=== PATIENT | male | born 1965 | race African-American/Black ===

== ENCOUNTER → 2023-03-10 | Outpatient (CLI) | payer BC ==
[2023-03-10 19:30] LABS: Basophils # (A) 0.04 X 10*3/uL (0.00-0.10); Basophils % (A) 0.3 %; Eosinophils # (A) 0.08 X 10*3/uL (0.04-0.35); Eosinophils % (A) 0.6 %; HGB 13.6 g/dL (13.0-17.0); Immature Grans, Automated 0.5 %; Lymphocytes # (A) 1.19 X 10*3/uL (0.90-5.00); Lymphocytes % (A) 9.6 %; MCHC 33.2 g/dL (32.0-37.0); MCV 87.4 fL (80.0-97.0); Mean Platelet Volume 10.2 fL (9.5-12.2); Monocytes # (A) 0.72 X 10*3/uL (0.20-1.00); Monocytes % (A) 5.8 %; NRBC Per 100 WBC 0 /100 WBCS (0.0-0.0); Neutrophils # (A) 10.29 X 10*3/uL (1.80-7.70); Neutrophils % (A) 83.2 %; Platelet Count 366 X 10*3/uL (140-440); RBC 4.69 X 10*6/uL (4.40-5.60); RDW 13.2 % (11.5-14.5); WBC 12.38 X 10*3/uL (4.50-10.00)
[2023-03-10 20:31] LABS: Protein, Total 6.9 g/dL (6.2-8.2)
[2023-03-10 20:47] LABS: % Iron Saturation 20.91 (15.00-50.00); African American GFR (CKD) 66.7 (60.0-200.0); Albumin 3.5 g/dL (3.8-4.9); Albumin/Globulin Ratio 1.03 (1.60-3.17); Anion Gap 14.7 mmol/L (10.00-18.00); BUN/Creat Ratio 15.82 Ratio (12.00-20.00); Blood Urea Nitrogen 21.2 mg/dL (9.0-27.0); Calcium 9.4 mg/dL (8.7-10.3); Carbon Dioxide 26.3 mmol/L (20.0-27.5); Globulin 3.4 g/dL (1.6-3.3); Non-African American GFR(CKD) 57.6 (60.0-200.0); Potassium 4.4 mmol/L (3.5-5.5); Total Bilirubin 0.4 mg/dL (0.30-1.20); Total Protein 6.9 g/dL (6.2-8.2)
[2023-03-10 20:48] LABS: Hepatitis B Surface Antigen Nonreactive (Nonreactive); Hepatitis C IgG Antibody Nonreactive (Nonreactive)
== END | disposition home or self-care (01) ==
LOC: LABWHC1 09:30
PROVIDERS: ATTEND Nurse Practitioner Family
DX: R74.8 Abnormal levels of other serum enzymes (principal)
CPT/HCPCS: 36415; 80053; 82103; 82390; 82728; 83516; 83540; 83550; 84165; 85025; 86038; 86803; 87340

== ENCOUNTER → 2023-03-31 | Outpatient (CLI) | payer BC, OTHER ==
--- NOTE | 2023-03-31 12:04 | US ---
EXAMINATION TYPE: US liver DATE OF EXAM: 03/31/2023 COMPARISON: NONE CLINICAL INDICATION: Male, 57 years old with history of R74.01 ELEVATION OF LEVELS OF LIVER; Elevated LFT's TECHNIQUE: Multiple sonographic images of the right upper quadrant are obtained. 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 No focal lesion seen. Gallbladder: wnl Evidence for sonographic Otoole's sign: No CBD: wnl Right Kidney: No hydronephrosis or masses seen IMPRESSION: No gallstones or biliary ductal dilatation. Suspect at least mild hepatic steatosis. Correlate with L FTs, lipid profile, and patient risk factors.
== END | disposition home or self-care (01) ==
LOC: RADUSWWP 07:34
PROVIDERS: ATTEND Family Medicine
DX: R74.01 Elevation of levels of liver transaminase levels (principal)
CPT/HCPCS: 76705

== ENCOUNTER → 2023-03-31 | Outpatient (CLI) | payer BC, OTHER ==
[2023-03-31 15:01] LABS: African American GFR (CKD) 100.8 (60.0-200.0); Blood Urea Nitrogen 18.4 mg/dL (9.0-27.0); Non-African American GFR(CKD) 86.9 (60.0-200.0)
== END | disposition home or self-care (01) ==
LOC: LABWHC1 08:22
PROVIDERS: ATTEND Internal Medicine Critical Care Medicine
DX: R59.0 Localized enlarged lymph nodes (principal)
CPT/HCPCS: 36415; 82565; 84520

== ENCOUNTER 2023-04-06 12:08 | Day surgery (SDC) | payer BC, OTHER ==
--- NOTE | 2023-04-04 09:15 | P.HPOR ---
History of Present Illness H&P Date: 04/04/23 Subjective: This is a 57 year old male that presents today for initial evaluation regarding a 6 month history of progressively worsening bilateral hand numbness and tingling and residual weakness. He denies any injury or inciting event. He states that he keeps dropping things. He has a history of rheumatoid arthritis and is only on prednisone and occasional Motrin. He has had a steroid injection into the carpal tunnel with some mild relief of his symptoms in the past. He states the fingertips feel like sandpaper, and the thumb, index and middle fingers are numb. Physical Examination: LUE: AIN/PIN/Radial/Ulnar/Median motor intact. Radial/Ulnar/Median SILT. 2+/4 Radial/Ulnar pulses palpated. 5/5 APB, 5/5 FDI. Negative Finkelsteins, negative CMC grind, positive Durkan's compression. RUE: AIN/PIN/Radial/Ulnar/Median motor intact. Radial/Ulnar/Median SILT. 2+/4 Radial/Ulnar pulses palpated. 5/5 APB, 5/5 FDI. Negative Finkelsteins, negative CMC grind, positive Durkan's compression. Imaging: X-Rays of the left wrist, 3 view taken in office today demonstrate severe radiocarpal arthritis and severe distal radioulnar joint arthritis. X-Rays of the right X-Rays of the left wrist, 3 view taken in office today demonstrate severe radiocarpal arthritis and severe distal radioulnar joint arthritis. Impression: 1.) B/L carpal tunnel syndrome 2.) B/L severe radiocarpal arthritis 3.) Rheumatoid arthritis Plan: Diagnosis and treatment options were discussed with the patient. He would like to go forward with staged bilateral open carpal tunnel releases, starting with the right side first due to failure of conservative treatment. Risks and benefits of surgery including bleeding, infection, damage to surrounding tissue, need for further surgery, residual numbness were discussed and the patient wished to go forward with surgery. The patient was agreeable with this plan. PCP clearance is requested. -Bryce Garsia DO Orthopedic Hand/Upper Extremity Surgeon Physical Examination Osteopathic Statement: *. No significant issues noted on an osteopathic structural exam other than those noted in the History and Physical/Consult.
[2023-04-04 13:01] VITALS: BMI 25.1
[2023-04-06] MEDS ORDERED: LACTATED RINGERS 1,000 ML IV ONE (13:42)
[2023-04-06] MEDS ORDERED: ONDANSETRON 4 MG/2 ML VIAL ONE (13:47)
[2023-04-06 13:48] VITALS: RESP 16; TEMP 97.2
[2023-04-06] MEDS ORDERED: ONDANSETRON 4 MG/2 ML VIAL IVP ONE (14:00)
[2023-04-06] MEDS ORDERED: DEXAMETHASONE SOD PHOSPHATE 4 MG/ML 1 ML VIAL IVP ONE (14:00)
[2023-04-06] MEDS ORDERED: LIDOCAINE 2% INJ 20 MG/ML (2 ML VIAL) ONE (14:24)
[2023-04-06] MEDS ORDERED: MIDAZOLAM 2 MG/2 ML VIAL ONE (14:24)
[2023-04-06] MEDS ORDERED: fentaNYL (PF) 50 MCG/ML 2 ML AMP ONE (14:24)
[2023-04-06] MEDS ORDERED: PROPOFOL 10 MG/ML 20 ML VIAL IV ONE (14:24)
[2023-04-06] MEDS ORDERED: LIDOCAINE 2% INJ 20 MG/ML SQ ONE (14:29)
[2023-04-06] MEDS ORDERED: BUPIVACAINE (PF) 0.5% 30 ML VIAL SQ ONE (14:30)
--- NOTE | 2023-04-06 14:55 | P.OP ---
Date of Procedure: 04/06/23 Preoperative Diagnosis: Right carpal tunnel syndrome Postoperative Diagnosis: Right carpal tunnel syndrome Procedure(s) Performed: Right open carpal tunnel release Anesthesia: MAC Surgeon: Bryce Garsia Estimated Blood Loss (ml): 0 Pathology: none sent Condition: stable Disposition: PACU Description of Procedure: This is a 57 year old male who presents today for a right open carpal tunnel release after having failed conservative treatment in the past. Risks and benefits of surgery were discussed with the patient including bleeding, damage to surrounding tissue, infection, need for further surgery as well as risks of anesthesia including pulmonary embolism and even and the patient wished to proceed with surgical intervention. The patients was seen in the pre-operative area by myself. Consent and H&P were completed and updated. The correct extremity was marked in the pre-operative area by myself and all other questions were answered. Operative Narrative: The patient was brought to the operating room by the department of anesthesia. They remained on the portable stretcher and a rolling hand table was brought to the side of the operative extremity. Pre-operative time out was performed indicating the correct patient, procedure and laterality. All in the room agreed. The patient was then drifted off to sleep by the department of anesthesia. MAC anesthesia was utilized and a 50:50 mixture of 1% Lidocaine and 0.5% bupivacaine was injected into the subcutaneous tissues of the palmar skin, 8ccs total. A nonsterile tourniquet was then applied to the operative extremity and the right upper extremity was then prepped and draped in normal sterile fashion. The operative extremity was the exsanguinated with an esmarch bandage and the tourniquet was inflated to 250mmHg. 15 blade scalpel was utilized to make a longitudinal incision on the palmar skin in line with the radial boarder of the ring finger to a point distally at the intersection of Kaplans cardinal line. Heiss retractor was utilized to spread subcutaneous tissue and scalpel was used to cut through the superficial palmar fascia to reveal the transverse carpal ligament. The transverse carpal ligament was then sharply incised in line with the incision and tenotomy scissors were used to spread distally and the distal portion of the transverse carpal ligament was released using tenotomy scissors from distal to proximal under direct visualization. The median nerve was directly visualized and was intact. Proximal fascia of the distal forearm was also released under direct visualization taking care to preserve the palmar cutaneous branch of the median nerve. The wound was then closed with 4-0 nylon suture in a horizontal mattress fashion. Sterile dressing was applied consisting of adaptic, 4x4s, webril, and an tez bandage. Tourniquet was let down and the hand immediately was well perfused. The patient was then woken by the department of anesthesia and transferred to PACU in stable condition. Bryce Garsia D.O. Orthopedic Hand/Upper Extremity Surgeon
[2023-04-06 15:39] VITALS: BP 120/76; PULSE 85
== END 2023-04-06 16:08 | disposition home or self-care (01) ==
LOC: OR 12:08
PROVIDERS: ATTEND Orthopaedic Surgery Hand Surgery
DX: G56.01 Carpal tunnel syndrome, right upper limb (principal); M06.9 Rheumatoid arthritis, unspecified; I10 Essential (primary) hypertension; Z79.1 Long term (current) use of non-steroidal anti-inflammatories (NSAID); Z79.52 Long term (current) use of systemic steroids; Z86.711 Personal history of pulmonary embolism; Z79.01 Long term (current) use of anticoagulants
CPT/HCPCS: 64721; J2001 ×2; J2250; J1100; J0690; J2405; J3010; J2704

== ENCOUNTER → 2023-04-07 | Outpatient (CLI) | payer BC, OTHER ==
--- NOTE | 2023-04-07 16:11 | US ---
EXAMINATION TYPE: US venous doppler duplex LE BI DATE OF EXAM: 04/07/2023 3:49 PM COMPARISON: NONE CLINICAL INDICATION: Male, 57 years old with history of M79.604 PAIN IN RT LEG; History of PE SIDE PERFORMED: bilateral TECHNIQUE: The lower extremity deep venous system is examined utilizing real time linear array sonog ailyn with graded compression, doppler sonography and color-flow sonography. VESSELS IMAGED: Common Femoral Vein Deep Femoral Vein Greater Saphenous Vein * Femoral Vein Popliteal Vein Small Saphenous Vein * Proximal Calf Veins (* superficial vessels) Right Leg: No evidence of DVT Left Leg: No evidence of DVT IMPRESSION: No evidence for DVT within the bilateral lower extremities imaged from the groin to the upper calves.
== END | disposition home or self-care (01) ==
LOC: RADUSWWP 15:09
PROVIDERS: ATTEND Family Medicine
DX: M79.604 Pain in right leg (principal); Z86.711 Personal history of pulmonary embolism
CPT/HCPCS: 93970

== ENCOUNTER 2023-04-15 17:26 | Emergency (ER) | payer BC, OTHER ==
--- NOTE | 2023-04-15 18:57 | ED ---
Recheck HPI - General Chief Complaint: Recheck/Abnormal Lab/Rx Stated Complaint: R hand laceration Time Seen by Provider: 04/15/23 17:42 Source: patient Mode of arrival: ambulatory Limitations: no limitations - History of Present Illness Initial Comments: Patient is a 57-year-old male presenting with chief complaint of wound dehiscence after sutures removed. Patient had carpal tunnel surgery with Dr. Garsia about 10 days ago. He was seen in the office today and had his sutures removed. He states that shortly after the wound opened back up. He is having no active bleeding at this time. - Related Data Home Medications Medication Instructions Recorded Confirmed Lisinopril-Hctz 20-25 mg 1 tab PO DAILY 04/04/23 04/06/23 [Zestoretic 20-25] Rivaroxaban [Xarelto] 15 mg PO BID 04/04/23 04/06/23 Upadacitinib [Rinvoq] 15 mg PO DAILY 04/04/23 04/06/23 Previous Rx's Medication Instructions Recorded traMADol HCl [Ultram] 50 mg PO Q6HR PRN 3 Days #12 tab 04/06/23 Allergies Allergy/AdvReac Type Severity Reaction Status Date / Time No Known Allergies Allergy Verified 04/15/23 17:33 Review of Systems ROS Statement: Those systems with pertinent positive or pertinent negative responses have been documented in the HPI. ROS Other: All systems not noted in ROS Statement are negative. Past Medical History Past Medical History: Hypertension, Pneumonia, Pulmonary Embolus (PE), Rheumatoid Arthritis (RA) History of Any Multi-Drug Resistant Organisms: None Reported Additional Past Surgical History / Comment(s): carpal tunnel surgey Smoking Status: Light tobacco smoker Past Alcohol Use History: Occasional Past Drug Use History: None Reported General Exam Limitations: no limitations General appearance: alert, in no apparent distress Head exam: Present: atraumatic, normocephalic, normal inspection Eye exam: Present: normal appearance, EOMI. Absent: scleral icterus, periorbital swelling Neck exam: Present: normal inspection, full ROM Neurological exam: Present: alert, oriented X3, CN II-XII intact Psychiatric exam: Present: normal affect, normal mood Skin exam: Present: intact (Wound dehiscence at post surgical site) Course Vital Signs 04/15/23 04/15/23 17:28 19:13 Temperature 98.8 F 98.2 F Pulse Rate 112 H 91 Respiratory 20 18 Rate Blood Pressure 137/79 122/74 O2 Sat by Pulse 99 99 Oximetry Medical Decision Making - Medical Decision Making Was pt. sent in by a medical professional or institution (JONN Aguilera, BAR MANAGER, urgent care, hospital, or fpc...) When possible be specific @ -No Did you speak to anyone other than the patient for history (EMS, parent, family, police, friend...)? What history was obtained from this source @ -No Did you review nursing and triage notes (agree or disagree)? Why? @ -I reviewed and agree with nursing and triage notes Were old charts reviewed (outside hosp., previous admission, EMS record, old EKG, old radiological studies, urgent care reports/EKG's, fpc records)? Report findings @ -No old charts were reviewed Differential Diagnosis (chest pain, altered mental status, abdominal pain women, abdominal pain men, vaginal bleeding, weakness, fever, dyspnea, syncope, headache, dizziness, GI bleed, back pain, seizure, CVA, palpatations, mental health, musculoskeletal)? @ -not applicable EKG interpreted by me (3pts min.). @ -As above X-rays interpreted by me (1pt min.). @ -None done CT interpreted by me (1pt min.). @ -None done U/S interpreted by me (1pt. min.). @ -None done What testing was considered but not performed or refused? (CT, X-rays, U/S, labs)? Why? @ -None What meds were considered but not given or refused? Why? @ -None Did you discuss the management of the patient with other professionals (professionals i.e. JONN Aguilera, BAR MANAGER, lab, RT, psych nurse, social science analyst, refrigeration engineering teacher, teacher, equal opportunity officer, case planner)? Give summary @ -I spoke with Dr. Garsia who advised placing Steri-Strips, place in the patient in a volar splint, and have him follow-up in the office next week. Was smoking cessation discussed for >3mins.? @ -No Was critical care preformed (if so, how long)? @ -No Were there social determinants of health that impacted care today? How? (Homelessness, low income, unemployed, alcoholism, drug addiction, transportation, low edu. Level, literacy, decrease access to med. care, skilled nursing, rehab)? @ -No Was there de-escalation of care discussed even if they declined (Discuss DNR or withdrawal of care, Hospice)? DNR status @ -No What co-morbidities impacted this encounter? (DM, HTN, Smoking, COPD, CAD, Cancer, CVA, ARF, Chemo, Hep., AIDS, mental health diagnosis, sleep apnea, morbid obesity)? @ -None Was patient admitted / discharged? Hospital course, mention meds given and route, prescriptions, significant lab abnormalities, going to OR and other pertinent info. @ -57-year-old male presenting with chief complaint of wound dehiscence after his sutures from his carpal tunnel surgery were removed this afternoon by his surgeon Dr. Garsia. Spoke with Dr. Jones who advised Steri-Strips, volar splint , and follow-up in the office next week. Steri-Strips are applied and patient was placed in volar splint. I educated the patient on follow-up instructions. Follow-up with Dr. garsia's office. Report back to ER with any new or worsening symptoms. Discussed return parameters and answered all questions. Patient conveyed verbal understanding and agreed to the plan. I discussed this case in detail with my attending Dr. Betancur Undiagnosed new problem with uncertain prognosis? @ -No Drug Therapy requiring intensive monitoring for toxicity (Heparin, Nitro, Insulin, Cardizem)? @ -No Were any procedures done? @ -Volar splint applied Diagnosis/symptom? @ -Wound dehiscence Acute, or Chronic, or Acute on Chronic? @ -Acute Uncomplicated (without systemic symptoms) or Complicated (systemic symptoms)? @ -Uncomplicated Side effects of treatment? @ -No Exacerbation, Progression, or Severe Exacerbation? @ -No Poses a threat to life or bodily function? How? (Chest pain, [place], [place], pneumonia, PE, COPD, DKA, ARF, appy, cholecystitis, CVA, Diverticulitis, Homicidal, Suicidal, threat to staff... and all critical care pts) @ -No Disposition Clinical Impression: Wound dehiscence Disposition: HOME SELF-CARE Condition: Good Instructions (If sedation given, give patient instructions): Steristrips (ED) Additional Instructions: Follow up with Dr. Garsia's office next week. Keep your splint on at all times. Report back to ER with any new or worsening symptoms. Is patient prescribed a controlled substance at d/c from ED?: No Referrals: Henrique Lyon MD [Primary Care Provider] - 1-2 days Joe Johnson PAC [PHYSICIAN PACKING LINE OPERATOR] - 04/26/23 Time of Disposition: 18:57
[2023-04-15 19:14] VITALS: BP 122/74; PULSE 91; RESP 18; TEMP 98.2
== END 2023-04-15 19:34 | disposition home or self-care (01) ==
LOC: EC 17:26
DX: T81.30XA Disruption of wound, unspecified, initial encounter (principal); I10 Essential (primary) hypertension; F17.200 Nicotine dependence, unspecified, uncomplicated; Z79.01 Long term (current) use of anticoagulants
CPT/HCPCS: 99283

== ENCOUNTER 2023-05-25 06:57 | Day surgery (SDC) | payer BC, OTHER ==
--- NOTE | 2023-05-24 17:28 | P.HPOR ---
History of Present Illness H&P Date: 05/24/23 Subjective: This is a 57 year old male that presents today for initial evaluation regarding a 6 month history of progressively worsening bilateral hand numbness and tingling and residual weakness. He denies any injury or inciting event. He states that he keeps dropping things. He has a history of rheumatoid arthritis and is only on prednisone and occasional Motrin. He has had a steroid injection into the carpal tunnel with some mild relief of his symptoms in the past. He states the fingertips feel like sandpaper, and the thumb, index and middle fingers are numb. Physical Examination: LUE: AIN/PIN/Radial/Ulnar/Median motor intact. Radial/Ulnar/Median SILT. 2+/4 Radial/Ulnar pulses palpated. 5/5 APB, 5/5 FDI. Negative Finkelsteins, negative CMC grind, positive Durkan's compression. RUE: AIN/PIN/Radial/Ulnar/Median motor intact. Radial/Ulnar/Median SILT. 2+/4 Radial/Ulnar pulses palpated. 5/5 APB, 5/5 FDI. Negative Finkelsteins, negative CMC grind, positive Durkan's compression. Imaging: X-Rays of the left wrist, 3 view taken in office today demonstrate severe radiocarpal arthritis and severe distal radioulnar joint arthritis. X-Rays of the right X-Rays of the left wrist, 3 view taken in office today demonstrate severe radiocarpal arthritis and severe distal radioulnar joint arthritis. Impression: 1.) B/L carpal tunnel syndrome 2.) B/L severe radiocarpal arthritis 3.) Rheumatoid arthritis Plan: Diagnosis and treatment options were discussed with the patient. He would like to go forward with staged bilateral open carpal tunnel releases, starting with the right side first followed by the left side shortly after due to failure of conservative treatment. Risks and benefits of surgery including bleeding, infection, damage to surrounding tissue, need for further surgery, residual numbness were discussed and the patient wished to go forward with surgery. The patient was agreeable with this plan. PCP clearance is requested. CC: Dr. Hong Garrido MD -Bryce Garsia DO Orthopedic Hand/Upper Extremity Surgeon Past Medical History Past Medical History: Hypertension, Pneumonia, Pulmonary Embolus (PE), Rheumatoid Arthritis (RA) Additional Past Medical History / Comment(s): february had "aneruysm "on lungs, History of Any Multi-Drug Resistant Organisms: None Reported Past Surgical History: Orthopedic Surgery Additional Past Surgical History / Comment(s): carpal tunnel surgey Past Anesthesia/Blood Transfusion Reactions: No Reported Reaction Smoking Status: Light tobacco smoker Medications and Allergies Home Medications Medication Instructions Recorded Confirmed Type Lisinopril-Hctz 20-25 mg 1 tab PO DAILY 04/04/23 05/19/23 History [Zestoretic 20-25] Rivaroxaban [Xarelto] 15 mg PO DAILY 04/04/23 05/19/23 History Upadacitinib [Rinvoq] 15 mg PO DAILY 04/04/23 05/19/23 History Allergies Allergy/AdvReac Type Severity Reaction Status Date / Time No Known Allergies Allergy Verified 05/19/23 10:52 Physical Examination Osteopathic Statement: *. No significant issues noted on an osteopathic structural exam other than those noted in the History and Physical/Consult.
[~2023-05-25 06:57] MED LIST: DEXAMETHASONE SOD PHOSPHATE 4 MG/ML 1 ML VIAL IV ONE; LACTATED RINGERS 1,000 ML IV SCH; LIDOCAINE 1% (10MG/ML) FOR IV START INTRADERMA PRN; MIDAZOLAM 2 MG/2 ML VIAL IV PRN; ONDANSETRON 4 MG/2 ML VIAL IVP ONE
[2023-05-25] MEDS ORDERED: HYDROmorphone 0.5 MG/0.5 ML SYRINGE IVP PRN (07:00)
[2023-05-25 07:45] VITALS: TEMP 97
[2023-05-25 07:57] LABS: Glucose,Whole Blood 95 mg/dL (70-110)
[2023-05-25] MEDS ORDERED: MIDAZOLAM 2 MG/2 ML VIAL ONE (07:58)
[2023-05-25] MEDS ORDERED: PROPOFOL 10 MG/ML 20 ML VIAL IV ONE (07:58)
[2023-05-25] MEDS ORDERED: fentaNYL (PF) 50 MCG/ML 2 ML AMP ONE (07:58)
[2023-05-25] MEDS ORDERED: BUPIVACAINE (PF) 0.5% 30 ML VIAL SQ ONE ×2 (07:59→08:04)
[2023-05-25] MEDS ORDERED: LIDOCAINE 2% INJ 20 MG/ML SQ ONE ×2 (08:00→08:04)
--- NOTE | 2023-05-25 08:30 | P.OP ---
Date of Procedure: 05/25/23 Preoperative Diagnosis: Left carpal tunnel syndrome Postoperative Diagnosis: Left carpal tunnel syndrome Procedure(s) Performed: Left open carpal tunnel release Anesthesia: MAC Surgeon: Bryce Garsia Radiation Oncology Nurse #1: Joe Johnson Estimated Blood Loss (ml): 0 Pathology: none sent Condition: stable Disposition: PACU Description of Procedure: This is a 57 year old male who presents today for a left open carpal tunnel release after having failed conservative treatment in the past. Risks and benefits of surgery were discussed with the patient including bleeding, damage to surrounding tissue, infection, need for further surgery as well as risks of anesthesia including pulmonary embolism and even and the patient wished to proceed with surgical intervention. The patients was seen in the pre-operative area by myself. Consent and H&P were completed and updated. The correct extremity was marked in the pre-operative area by myself and all other questions were answered. Operative Narrative: The patient was brought to the operating room by the department of anesthesia. They remained on the portable stretcher and a rolling hand table was brought to the side of the operative extremity. Pre-operative time out was performed indicating the correct patient, procedure and laterality. All in the room agreed. The patient was then drifted off to sleep by the department of anesthesia. MAC anesthesia was utilized and a 50:50 mixture of 1% Lidocaine and 0.5% bupivacaine was injected into the subcutaneous tissues of the palmar skin, 8ccs total. A nonsterile tourniquet was then applied to the operative extremity and the left upper extremity was then prepped and draped in normal sterile fashion. The operative extremity was the exsanguinated with an esmarch bandage and the tourniquet was inflated to 250mmHg. 15 blade scalpel was utilized to make a longitudinal incision on the palmar skin in line with the radial boarder of the ring finger to a point distally at the intersection of Kaplans cardinal line. Heiss retractor was utilized to spread subcutaneous tissue and scalpel was used to cut through the superficial palmar fascia to reveal the transverse carpal ligament. The transverse carpal ligament was then sharply incised in line with the incision and tenotomy scissors were used to spread distally and the distal portion of the transverse carpal ligament was released using tenotomy scissors from distal to proximal under direct visualization. The median nerve was directly visualized and was intact. Proximal fascia of the distal forearm was also released under direct visualization taking care to preserve the palmar cutaneous branch of the median nerve. The wound was then closed with 4-0 Monocryl suture followed by 4-0 nylon suture in a horizontal mattress fashion. Sterile dressing was applied consisting of adaptic, 4x4s, webril, and an tez bandage. Tourniquet was let down and the hand immediately was well perfused. The patient was then woken by the department of anesthesia and transferred to PACU in stable condition. Joe LUNSFORD was present to assist in major portions of the procedure. Bryce Garsia D.O. Orthopedic Hand/Upper Extremity Surgeon
[2023-05-25 08:34] VITALS: RESP 16
[2023-05-25] MEDS ORDERED: traMADol 50 MG TAB ONE (09:15)
[2023-05-25 09:20] VITALS: BP 132/73; PULSE 78
== END 2023-05-25 09:45 | disposition home or self-care (01) ==
LOC: OR 06:57
PROVIDERS: ATTEND Orthopaedic Surgery Hand Surgery
DX: G56.02 Carpal tunnel syndrome, left upper limb (principal); M19.031 Primary osteoarthritis, right wrist; M06.9 Rheumatoid arthritis, unspecified; I10 Essential (primary) hypertension; F17.200 Nicotine dependence, unspecified, uncomplicated; Z86.711 Personal history of pulmonary embolism; Z79.01 Long term (current) use of anticoagulants; Z79.899 Other long term (current) drug therapy
CPT/HCPCS: 64721; J2001; J2250; J1100; J0690; J2405; J3010; J2704

== ENCOUNTER 2023-07-07 11:26 | Observation (INO) | payer BC, OTHER ==
--- NOTE | 2023-07-07 12:07 | ED ---
General Adult HPI - General Chief complaint: Extremity Problem,Nontraumatic Stated complaint: Leg weakness Time Seen by Provider: 07/07/23 11:44 Source: patient, family, RN notes reviewed Mode of arrival: wheelchair Limitations: no limitations - History of Present Illness Initial comments: Patient is a pleasant 57-year-old male presenting to the emergency department with concern with leg weakness. Onset of symptoms was close to a month ago. Symptoms have progressed especially over the past week. Patient feels like both of his legs are equally week. Patient at one point did have a little bit of discomfort radiating down the left leg however that has resolved. Patient has mild back problems that are somewhat chronic. No new significant back pain. No upper extremity weakness. Patient states he has some difficulty controlling his legs or forcing himself to stop walking. Patient has had muscle spasms. Patient does have history of rheumatoid arthritis and is currently on prednisone 25 mg daily. Patient does not feel this is similar to his rheumatoid arthritis. - Related Data Home Medications Medication Instructions Recorded Confirmed Lisinopril-Hctz 20-25 mg 1 tab PO DAILY 04/04/23 07/07/23 [Zestoretic 20-25] DULoxetine HCL [Cymbalta] 30 mg PO BID 07/07/23 07/07/23 QUEtiapine [SEROquel] 50 mg PO HS PRN 07/07/23 07/07/23 Sildenafil Citrate [Viagra] 100 mg PO DAILY PRN 07/07/23 07/07/23 predniSONE See Taper PO DIRECTED 07/07/23 07/07/23 Allergies Allergy/AdvReac Type Severity Reaction Status Date / Time No Known Allergies Allergy Verified 07/07/23 13:05 Review of Systems ROS Statement: Those systems with pertinent positive or pertinent negative responses have been documented in the HPI. ROS Other: All systems not noted in ROS Statement are negative. Constitutional: Denies: fever Eyes: Denies: eye pain ENT: Denies: ear pain Respiratory: Denies: cough, dyspnea Cardiovascular: Denies: chest pain Endocrine: Denies: fatigue Gastrointestinal: Denies: abdominal pain Genitourinary: Denies: dysuria Musculoskeletal: Reports: as per HPI Skin: Denies: rash Neurological: Reports: as per HPI. Denies: headache, confusion Past Medical History Past Medical History: Hypertension, Pneumonia, Pulmonary Embolus (PE), Rheumatoid Arthritis (RA) Additional Past Medical History / Comment(s): timoteo had "aneruysm "on lungs, History of Any Multi-Drug Resistant Organisms: None Reported Past Surgical History: Orthopedic Surgery Additional Past Surgical History / Comment(s): carpal tunnel surgey Past Anesthesia/Blood Transfusion Reactions: No Reported Reaction Past Psychological History: No Psychological Hx Reported Smoking Status: Light tobacco smoker Past Alcohol Use History: Occasional Past Drug Use History: Marijuana General Exam Limitations: no limitations General appearance: alert, in no apparent distress Head exam: Present: atraumatic, normocephalic Eye exam: Present: normal appearance Neck exam: Present: normal inspection Respiratory exam: Present: normal lung sounds bilaterally Cardiovascular Exam: Present: regular rate, normal rhythm GI/Abdominal exam: Present: soft. Absent: tenderness Extremities exam: Present: normal inspection Neurological exam: Present: alert, oriented X3, CN II-XII intact, other (gait is somewhat staggered) Expanded Neurological exam: Present: protecting the airway Speech: Present: fluid speech Cranial nerves: EOM's Intact: Normal Motor strength exam: RUE: 5, LUE: 5, RLE: 4, LLE: 4 DTR: Patellar (R): 2+, Patellar (L): 2+ Eye Response: (4) open spontaneously Motor Response: (6) obeys commands Verbal Response: (5) oriented Psychiatric exam: Present: normal affect, normal mood Skin exam: Present: normal color Course Vital Signs 07/07/23 11:35 Temperature 98.3 F Pulse Rate 92 Respiratory 20 Rate Blood Pressure 130/74 O2 Sat by Pulse 100 Oximetry EKG Findings - EKG Results: EKG: interpreted by ERMD (PVCs present), sinus rhythm, normal axis, normal QRS, normal ST/T Medical Decision Making - Medical Decision Making Was pt. sent in by a medical professional or institution (, PA, [employer] REPA[employer], urgent care, hospital, or correction...) When possible be specific @ -No Did you speak to anyone other than the patient for history (EMS, parent, family, police, friend...)? What history was obtained from this source @ - is present and helps confirm history including onset Did you review nursing and triage notes (agree or disagree)? Why? @ -I reviewed and agree with nursing and triage notes Were old charts reviewed (outside hosp., previous admission, EMS record, old EKG, old radiological studies, urgent care reports/EKG's, correction records)? Report findings @ -No old charts were reviewed Differential Diagnosis (chest pain, altered mental status, abdominal pain women, abdominal pain men, vaginal bleeding, weakness, fever, dyspnea, syncope, headache, dizziness, GI bleed, back pain, seizure, CVA, palpatations, mental health, musculoskeletal)? @ -Differential Weakness: Hypoglycemia, shock, sepsis, hyponatremia, anemia, infection, IA, ETOH, adverse medicine reaction, overdose, stroke, this is not meant to be an all-inclusive list. EKG interpreted by me (3pts min.). @ -As above X-rays interpreted by me (1pt min.). @ -Chest x-ray shows no acute process CT interpreted by me (1pt min.). @ -Reports reviewed. CT brain does not reveal to process. CT lumbar spine s hows moderate multilevel degenerative disc disease. Discoloration of L4-L5. As well as L2-L3 moderate central canal stenosis. Multilevel moderate neural foraminal stenosis U/S interpreted by me (1pt. min.). @ -None done What testing was considered but not performed or refused? (CT, X-rays, U/S, labs)? Why? @ -None What meds were considered but not given or refused? Why? @ -None Did you discuss the management of the patient with other professionals (professionals i.e. , PA, [employer]PA[employer], lab, RT, psych nurse, high school social studies tutor, freight trucker, teacher, chief financial officer, case therapist)? Give summary @ -Case was discussed with Dr. Burrows, who will admit covering Dr. Lyon Was smoking cessation discussed for >3mins.? @ -No Was critical care preformed (if so, how long)? @ -No Were there social determinants of health that impacted care today? How? (Homelessness, low income, unemployed, alcoholism, drug addiction, transportation, low edu. Level, literacy, decrease access to med. care, long-term, rehab)? @ -No Was there de-escalation of care discussed even if they declined (Discuss DNR or withdrawal of care, Hospice)? DNR status @ -No What co-morbidities impacted this encounter? (DM, HTN, Smoking, COPD, CAD, Cancer, CVA, ARF, Chemo, Hep., AIDS, mental health diagnosis, sleep apnea, morb id obesity)? @ -None Was patient admitted / discharged? Hospital course, mention meds given and route, prescriptions, significant lab abnormalities, going to OR and other pertinent info. @ -Patient reevaluated. Patient family updated. Patient does have some mild leg weakness and mild staggering of gait. Patient can benefit from neurology evaluation. Patient will be admitted with consult. Undiagnosed new problem with uncertain prognosis? @ -No Drug Therapy requiring intensive monitoring for toxicity (Heparin, Nitro, Insulin, Cardizem)? @ -No Were any procedures done? @ -No Diagnosis/symptom? @ -Leg weakness Acute, or Chronic, or Acute on Chronic? @ -Acute Uncomplicated (without systemic symptoms) or Complicated (systemic symptoms)? @ -default Side effects of treatment? @ -No Exacerbation, Progression, or Severe Exacerbation? @ -No Poses a threat to life or bodily function? How? (Chest pain, USA, IA, pneumonia, PE, COPD, DKA, ARF, appy, cholecystitis, CVA, Diverticulitis, Homicidal, Suicidal, threat to staff... and all critical care pts) @ -No - Lab Data Result diagrams: 07/07/23 12:54 07/07/23 12:54 Lab Results 07/07/23 07/07/23 07/07/23 Range/Units 12:54 12:54 12:54 WBC 11.3 H (3.8-10.6) k/uL RBC 4.98 (4.30-5.90) m/uL Hgb 15.0 (13.0-17.5) gm/dL Hct 44.1 (39.0-53.0) % MCV 88.5 (80.0-100.0) fL MCH 30.2 (25.0-35.0) pg MCHC 34.1 (31.0-37.0) g/dL RDW 13.0 (11.5-15.5) % Plt Count 346 (150-450) k/uL MPV 7.5 Neutrophils % 77 % Lymphocytes % 15 % Monocytes % 5 % Eosinophils % 2 % Basophils % 0 % Neutrophils # 8.6 H (1.3-7.7) k/uL Lymphocytes # 1.7 (1.0-4.8) k/uL Monocytes # 0.6 (0-1.0) k/uL Eosinophils # 0.2 (0-0.7) k/uL Basophils # 0.0 (0-0.2) k/uL PT 10.3 (9.0-12.0) sec INR 1.0 (<1.2) APTT 22.1 (22.0-30.0) sec Sodium 138 (137-145) mmol/L Potassium 4.3 (3.5-5.1) mmol/L Chloride 101 (98-107) mmol/L Carbon Dioxide 26 (22-30) mmol/L Anion Gap 11 mmol/L BUN 14 (9-20) mg/dL Creatinine 0.86 (0.66-1.25) mg/dL Est GFR (CKD-EPI)AfAm >90 (>60 ml/min/1.73 sqM) Est GFR (CKD-EPI)NonAf >90 (>60 ml/min/1.73 sqM) Glucose 84 (74-99) mg/dL Plasma Lactic Acid Moiz (0.7-2.0) mmol/L Calcium 9.4 (8.4-10.2) mg/dL Magnesium 2.1 (1.6-2.3) mg/dL Total Bilirubin 1.0 (0.2-1.3) mg/dL AST 76 H (17-59) U/L ALT 125 H (4-49) U/L Alkaline Phosphatase 136 H (38-126) U/L Creatine Kinase 87 (55-170) U/L C-Reactive Protein 1.2 H (<1.0) mg/dL Total Protein 7.4 (6.3-8.2) g/dL Albumin 3.9 (3.5-5.0) g/dL TSH 0.866 (0.465-4.680) mIU/L Free T4 1.60 (0.78-2.19) ng/dL Free T3 pg/mL 4.6 (2.8-5.3) pg/ml Urine Color Urine Appearance (Clear) Urine pH (5.0-8.0) Ur Specific [place] (1.001-1.035) Urine Protein (Negative) Urine Glucose (UA) (Negative) Urine Ketones (Negative) Urine Blood (Negative) Urine Nitrite (Negative) Urine Bilirubin (Negative) Urine Urobilinogen (<2.0) mg/dL Ur Leukocyte Esterase (Negative) Coronavirus (PCR) (Not Detectd) 07/07/23 07/07/23 07/07/23 Range/Units 12:54 12:54 12:54 WBC (3.8-10.6) k/uL RBC (4.30-5.90) m/uL Hgb (13.0-17.5) gm/dL Hct (39.0-53.0) % MCV (80.0-100.0) fL MCH (25.0-35.0) pg MCHC (31.0-37.0) g/dL RDW (11.5-15.5) % Plt Count (150-450) k/uL MPV Neutrophils % % Lymphocytes % % Monocytes % % Eosinophils % % Basophils % % Neutrophils # (1.3-7.7) k/uL Lymphocytes # (1.0-4.8) k/uL Monocytes # (0-1.0) k/uL Eosinophils # (0-0.7) k/uL Basophils # (0-0.2) k/uL PT (9.0-12.0) sec INR (<1.2) APTT (22.0-30.0) sec Sodium (137-145) mmol/L Potassium (3.5-5.1) mmol/L Chloride (98-107) mmol/L Carbon Dioxide (22-30) mmol/L Anion Gap mmol/L BUN (9-20) mg/dL Creatinine (0.66-1.25) mg/dL Est GFR (CKD-EPI)AfAm (>60 ml/min/1.73 sqM) Est GFR (CKD-EPI)NonAf (>60 ml/min/1.73 sqM) Glucose (74-99) mg/dL Plasma Lactic Acid Moiz 1.5 (0.7-2.0) mmol/L Calcium (8.4-10.2) mg/dL Magnesium (1.6-2.3) mg/dL Total Bilirubin (0.2-1.3) mg/dL AST (17-59) U/L ALT (4-49) U/L Alkaline Phosphatase (38-126) U/L Creatine Kinase (55-170) U/L C-Reactive Protein (<1.0) mg/dL Total Protein (6.3-8.2) g/dL Albumin (3.5-5.0) g/dL TSH (0.465-4.680) mIU/L Free T4 (0.78-2.19) ng/dL Free T3 pg/mL (2.8-5.3) pg/ml Urine Color Light Yellow Urine Appearance Clear (Clear) Urine pH 7.0 (5.0-8.0) Ur Specific [place] 1.008 (1.001-1.035) Urine Protein Negative (Negative) Urine Glucose (UA) Negative (Negative) Urine Ketones Negative (Negative) Urine Blood Negative (Negative) Urine Nitrite Negative (Negative) Urine Bilirubin Negative (Negative) Urine Urobilinogen <2.0 (<2.0) mg/dL Ur Leukocyte Esterase Negative (Negative) Coronavirus (PCR) Not Detected (Not Detectd) Disposition Clinical Impression: Leg weakness Disposition: ADMITTED IP TO THIS HOSP Is patient prescribed a controlled substance at d/c from ED?: No Referrals: Henrique Lyon MD [Primary Care Provider] - 1-2 days Time of Disposition: 14:10
[2023-07-07 13:18] LABS: Basophils % (A) 0 %; Eosinophils # (A) 0.2 k/uL (0-0.7); Eosinophils % (A) 2 %; HCT 44.1 % (39.0-53.0); Lymphocytes # (A) 1.7 k/uL (1.0-4.8); Lymphocytes % (A) 15 %; MCH 30.2 pg (25.0-35.0); MCHC 34.1 g/dL (31.0-37.0); MCV 88.5 fL (80.0-100.0); Mean Platelet Volume 7.5; Monocytes # (A) 0.6 k/uL (0-1.0); Monocytes % (A) 5 %; Neutrophils # (A) 8.6 k/uL (1.3-7.7); Neutrophils % (A) 77 %; Platelet Count 346 k/uL (150-450); RBC 4.98 m/uL (4.30-5.90); WBC 11.3 k/uL (3.8-10.6)
[2023-07-07 13:19] LABS: Appearance,Urine Clear (Clear); Bilirubin,Urine Negative (Negative); Blood,Urine Negative (Negative); Color,Urine Light Yellow; Glucose,Urine (UA) Negative (Negative); Ketones,Urine Negative (Negative); Leukocyte Esterase,Urine Negative (Negative); Nitrite,Urine Negative (Negative); Protein,Urine Negative (Negative); Specific Gravity,Urine 1.008 (1.001-1.035); Urobilinogen,Urine <2.0 mg/dL (<2.0)
[2023-07-07 13:34] LABS: Partial Thromboplastin Time 22.1 sec (22.0-30.0); Prothrombin Time 10.3 sec (9.0-12.0)
[2023-07-07 13:35] LABS: ALT 125 U/L (4-49); AST 76 U/L (17-59); African American GFR (CKD) >90 (>60 ml/min/1.73 sqM); Albumin 3.9 g/dL (3.5-5.0); Alkaline Phosphatase 136 U/L (38-126); Anion Gap 11 mmol/L; Blood Urea Nitrogen 14 mg/dL (9-20); C Reactive Protein 1.2 mg/dL (<1.0); Calcium 9.4 mg/dL (8.4-10.2); Carbon Dioxide 26 mmol/L (22-30); Chloride 101 mmol/L (98-107); Creatine Kinase 87 U/L (55-170); Glucose 84 mg/dL (74-99); Magnesium 2.1 mg/dL (1.6-2.3); Non-African American GFR(CKD) >90 (>60 ml/min/1.73 sqM); Potassium 4.3 mmol/L (3.5-5.1); Sodium 138 mmol/L (137-145); Total Protein 7.4 g/dL (6.3-8.2)
--- NOTE | 2023-07-07 13:42 | XR ---
EXAMINATION TYPE: XR chest 2V DATE OF EXAM: 07/07/2023 COMPARISON: NONE HISTORY: Shortness of breath TECHNIQUE: Frontal and lateral views of the chest are obtained. FINDINGS: Scattered senescent parenchymal changes noted. Hyperinflation compatible with COPD. No evidence for infiltrate. No evidence for atelectasis. Heart size is stable. Mediastinal structures are stable and grossly unremarkable. No evidence for hilar prominence. Degenerative changes dorsal spine. IMPRESSION: 1. No evidence for acute pulmonary disease.
--- NOTE | 2023-07-07 13:43 | CT ---
EXAMINATION TYPE: CT brain wo con DATE OF EXAM: 07/07/2023 COMPARISON: None HISTORY: weakness CT DLP: 1114.[address] of the brain was performed. The ventricles, basal cisterns and sulci overlying the cerebral convexities demonstrate mild enlargem ent. There is no evidence for intracranial hemorrhage or sulcal effacement. There is decreased attenuation about the periventricular white matter and deep white matter of both c erebral hemispheres, compatible with chronic small vessel ischemia. Differential diagnosis does inclu de demyelination. No mass effects are seen.No midline shift. Osseous calvarium is intact. If symptoms persist consider MRI. IMPRESSION: 1. Age related atrophic and chronic small vessel ischemic change without acute intracranial process s een at this time.
--- NOTE | 2023-07-07 13:56 | CT ---
EXAMINATION TYPE: CT lumbar spine wo con CT DLP: 775.3 mGycm, Automated exposure control for dose reduction was used. DATE OF EXAM: 07/07/2023 1:39 PM COMPARISON: None. CLINICAL INDICATION:Male, 57 years old with history of weak; PHH, weakness, bilateral leg pain TECHNIQUE: Multiple axial images were obtained from the midportion of T11 through the sacroiliac lon nts. Soft tissue and bone windows in coronal and sagittal planes were obtained and reviewed. FINDINGS: Alignment: There are 5 lumbar type vertebral bodies within normal alignment. Bone: No evidence of fracture is identified. Degenerative changes of both SI joints. Multilevel ante rior osteophytosis. Discs: Multilevel disc space narrowing with vacuum disc disease and endplate sclerosis. This is most prominent from L3 to S1. T12-L1: No spinal canal or neural foraminal stenosis is identified. L1-L2: Broad-based disc bulge with minimal effacement of the anterior thecal sac. The neural foramen are patent bilaterally. L2-L3: Broad-based disc bulge with ligamentum flavum buckling bilateral facet arthropathy contribute to moderate central canal stenosis. Mild bilateral neural foraminal stenosis. L3-L4: Broad-based disc bulge with bilateral facet arthropathy contribute to mild central canal steno sis. Moderate bilateral neural foraminal stenosis. L4-L5: Right paracentral disc protrusion superimposed upon a broad-based disc bulge with moderate ef facement of anterior thecal sac. Bilateral facet arthropathy. Moderate bilateral neural foraminal efrain nosis. L5-S1: Broad-based disc bulge with mild effacement of the anterior thecal sac. Bilateral facet arthro fadumo. Mild mild right and moderate left neural foraminal stenosis. Other: Atherosclerotic calcification of the aorta and its branches. IMPRESSION: 1. No evidence of fracture of the lumbar spine. 2. Moderate multilevel degenerative disc disease and facet arthropathy as described above. L4-L5 righ t paracentral disc herniation upon a broad-based disc bulge. This is most prominent at L2-L3 and L4-L 5 with moderate central canal stenosis. Multilevel moderate neural foraminal stenosis.
[2023-07-07] MEDS ORDERED: traMADol 50 MG TAB PO PRN (14:19)
[2023-07-07] MEDS ORDERED: NALOXONE 0.4 MG/ML 1 ML VIAL IV PRN (14:19)
[2023-07-07] MEDS ORDERED: ACETAMINOPHEN TAB 325 MG TAB PO PRN (14:19)
[2023-07-07] MEDS ORDERED: QUEtiapine 50 MG TAB PO PRN (14:51)
[2023-07-07] MEDS ORDERED: KETOROLAC 15 MG/ML 1 ML VIAL IVP STA (16:59)
[2023-07-07] MEDS ORDERED: ORPHENADRINE 30 MG/ML 2 ML VIAL IVP STA (16:59)
[2023-07-07] MEDS ORDERED: methylPREDNISolone SOD SUCCI 125 MG/2 ML VIAL IV STA (16:59)
--- NOTE | 2023-07-07 17:13 | P.CNOR ---
History of Present Illness - [facility] Consult date: 07/07/23 Requesting physician: Ceasar Newman Consult reason: other (leg weakness) History of present illness: patient is a 57-year-old male with a past medical history significant for rheumatoid arthritis who presents to the emergency department today with increasing leg weakness. Patient was seen at bedside this afternoon in the emergency room and states about 3-4 weeks ago patient was at home with family and friends when he went to get up out of the chair his legs felt wobbly and like Jell-O. patient states he did not fall. However over the past few weeks he notes he has been having some difficulties with ambulation due to leg weakness. Patient normally ambulates independently without use of a walker or cane. Patient states that sometimes at random points during the day he seems to get what feels like a charley horse in the backside of his left upper leg that he feels almost takes him to the ground. Patient states that he feels that this left leg pain decreases when he bends his knee towards his chest. Pain worsens when he lies on left hip and when he straightens left leg and raises it. Patient denies any previous orthopedic spine surgery. Patient states he has had bilater al carpal tunnel surgery performed. Patient states sometimes she does get lightheaded when he does go to stand up. Patient denies any previous history of epidural steroid injections. CT scan lumbar spine performed does show disc bulge, lumbar stenosis. Patient denies any issues urinating. Patient denies saddle anesthesia. Patient denies chest pain, fever, shortness of breath, nausea, vomiting, change in vision, loss of bowel/bladder control. Past Medical History Past Medical History: Hypertension, Pneumonia, Pulmonary Embolus (PE), Rheumatoid Arthritis (RA) Additional Past Medical History / Comment(s): february had "aneruysm "on lungs, History of Any Multi-Drug Resistant Organisms: None Reported Past Surgical History: Orthopedic Surgery Additional Past Surgical History / Comment(s): carpal tunnel surgey Past Anesthesia/Blood Transfusion Reactions: No Reported Reaction Past Psychological History: No Psychological Hx Reported Smoking Status: Light tobacco smoker Past Alcohol Use History: Occasional Past Drug Use History: Marijuana Medications and Allergies Home Medications Medication Instructions Recorded Confirmed Type Lisinopril-Hctz 20-25 mg 1 tab PO DAILY 04/04/23 07/07/23 History [Zestoretic 20-25] DULoxetine HCL [Cymbalta] 30 mg PO BID 07/07/23 07/07/23 History QUEtiapine [SEROquel] 50 mg PO HS PRN 07/07/23 07/07/23 History Sildenafil Citrate [Viagra] 100 mg PO DAILY PRN 07/07/23 07/07/23 History predniSONE See Taper PO DIRECTED 07/07/23 07/07/23 History Allergies Allergy/AdvReac Type Severity Reaction Status Date / Time No Known Allergies Allergy Verified 07/07/23 13:05 Physical Examination Inspection: Negative for any open fractures, significant erythema/ecchymosis/ open wounds. Sensation: Equal, symmetric, bilateral intact throughout the upper and lower extremities Palpation: There is some mild tenderness to palpation at the lower lumbar region at midline and moderate in the left SI joint region. Nontender to palpation throughout rest exam. Range of motion: Patient has full range of motion bilateral upper extremities There is some limited range of motion in bilateral hips in flexion/extension on exam. Patient has full range of motion throughout rest of joints and lower extremities Motor: 4+/5 in all major motor exam bilateral upper extremities. 4+/5 in all major motor groups in right lower extremity. 4-/5 in resisted dorsiflexion left ankle and left hip flexion/ext and left knee flexion. 4+/5 in all other motor groups in LLE. Neurovascular: Radial pulses intact, 2+ bilaterally. Cap refill under 3 seconds in digits of upper extremities Special tests: Negative Homans bilaterally. Negative clonus bilaterally.. Negative Wang bilaterally. Results - Labs Labs: Abnormal Lab Results - Last 24 Hours (Table) 07/07/23 07/07/23 Range/Units 12:54 12:54 WBC 11.3 H (3.8-10.6) k/uL Neutrophils # 8.6 H (1.3-7.7) k/uL AST 76 H (17-59) U/L ALT 125 H (4-49) U/L Alkaline Phosphatase 136 H (38-126) U/L C-Reactive Protein 1.2 H (<1.0) mg/dL H & H 07/07/23 Range/Units 12:54 Hgb 15.0 (13.0-17.5) gm/dL Hct 44.1 (39.0-53.0) % Coagulation 07/07/23 Range/Units 12:54 INR 1.0 (<1.2) Result Diagrams: 07/07/23 12:54 07/07/23 12:54 - Diagnostic results CT Scan - lumbar: report reviewed, image reviewed (Computed tomography scan of the lumbar spine does reveal degenerative disc disease throughout the lumbar spine. There is a disc herniation at L4-L5. There is central canal stenosis throughout the lumbar spine as well as neural foraminal stenosis) Assessment and Plan Assessment: 1. Left lower extremity weakness; low back pain; degenerative disc disease; lumbar stenosis Plan: 1. Left lower extremity weakness; low back pain; degenerative disc disease; lumbar stenosis - patient is seen at bedside this afternoon in the ER. Patient does present with some left lower extremity weakness on exam. Negative for any tensioning signs. Computed tomography scan of the lumbar spine does reveal degenerative disc disease throughout the lumbar spine. There is a disc herniation at L4-L5. There is central canal stenosis throughout the lumbar spine as well as neural foraminal stenosis. Patient may benefit from IV steroids. I will discuss the findings of the exam with my attending, Dr. Flores, before proceeding with any potential orthopedic intervention. Patient may benefit from MRI of the lumbar spine for further evaluation. Pain medication as needed. PT/OT daily. Weightbearing as tolerated with walker and assistance. We will continue to follow the patient during his stay in hospital. 2. Appreciate medical management 3. Pain management - tramadol; tylenol 4. GI prophylaxis recs 5. DVT prophylaxis recs 6. PT/OT - weightbearing as tolerated with walker and assistance as needed 7. Encourage incentive spirometer use 8. Appreciate consult Time with Patient: Less than 30
--- NOTE | 2023-07-07 17:35 | P.HPIM ---
History of Present Illness H&P Date: 07/07/23 History of Presenting Illness: Patient is a very pleasant 57-year-old male with a past medical history of hypertension, rheumatoid arthritis, pulmonary emboli no longer on anticoa gulation, nicotine dependence, opioid dependence on Suboxone, and cannabinoid use. Patient reports that he was diagnosed with a pulmonary embolism February 2023 and was taken off of his anticoagulant in April 2023. He presented to the emergency department today secondary to complaints of progressively worsening weakness in bilateral lower extremities. Patient reports the symptoms began approximately one month ago and have worsened over the past week. Patient reports "it's like I have no control I am walking like I am drunk". He reports in addition to this he has experienced some intermittent numbness and tingling to the distal toes and the plantar region of his foot. Patient does report hav ing chronic back pain with left-sided sciatica. Patient also reports feeling as though he has had intermittent full-body charley horses. Patient denies having any headache, lightheadedness, dizziness, changes in vision or hearing, chest pain or palpitations, shortness of breath, nausea, vomiting, or experiencing any swelling in his lower extremities. Patient denies having any involuntary loss o f bowel or bladder and denies having any saddle bag anesthesias. He reports recent left open carpal tunnel release surgery on 05/24/23 with chronic tingling and peristasis to bilateral hands secondary to RA and carpal tunnel. Patient underwent full evaluation in the emergency department. Vital signs reviewed and stable. Blood pressure 130/74, heart rate 92, respiratory rate 20, temp 98.3F, SpO2 100% on room air. CT head was completed and radiology report reviewed showing age related atrophic and chronic small vessel ischemic changes negative for acute intercranial process. EKG showing normal sinus rhythm at 85 bpm with PVCs and no noted T-wave or ST abnormalities showing no signs of acute ischemia. Chest x-ray completed, radiology report reviewed stating negative for acute cardiopulmonary process. CT lumbar spine negative for acute fracture showing moderate multilevel degenerative disc disease and facet arthropathy L4 through L5 with right paracentral disc herniation upon broad-based disc bulge most prominent at L2 through L3 and L4 through L5 with moderate central canal sten osis and multilevel moderate neural foraminal stenosis. Urinalysis negative for infection. Labs completed and reviewed. CBC showing mild leukocytosis with WBC count of 11.3. Coagulation profile normal findings. BMP unremarkable. Liver enzymes elevated with AST of 76, ALT 125, and alkaline phosphatase of 136. Discussed in detail with the ED physician. Patient being admitted to observation unit with consultation to neurology and orthospine surgery. Review of systems: Pertinent positives and negatives as discussed in HPI, a complete review of systems was performed and all other systems are negative. Physical exam: Vital signs reviewed and stable. General: Nontoxic, no distress and appears stated age. Derm: Skin warm and dry, normal coloration for ethnicity. Head: Atraumatic, normocephalic and symmetric. Eyes: EOMs intact, no lid lag, and anicteric sclera Mouth: no lip lesions, mucus membranes moist Cardiovascular: regular rate and rhythm with normal S1S2, no murmur, positive posterior tibial pulses bilaterally, and cap refill < 2 seconds. Lungs: Respirations even, regular, and unlabored on room air. Lungs CTA bilaterally, no rhonchi, no rales, no wheezing, and no accessory muscle usage. Abdominal: soft, nontender to palpation, no guarding, no appreciable organ omegaly Ext: ROM intact. No gross muscle atrophy, no edema, no contractures Neuro: Speech clear, face symmetrical and CN II-XII grossly intact with no noted focal neuro deficits. Movement and sensation equal and intact in bilateral upper and lower extremities. Psych: Alert and oriented to person, place, time, and situation. Appropriate and pleasant affect. Assessment and Plan of Care: Patient is a 57-year-old male with a past medical history of hypertension, rheumatoid arthritis, pulmonary emboli no longer on anticoagulation, nicotine dependence, opioid dependence on Suboxone, and cannabinoid use. He presented to the emergency department with a chief complaint of lower back pain and pro gressively worsening weakness in bilateral lower extremities. Bilateral lower extremity weakness with paresthesias and intermittent numbness reported to toes and plantar surface of feet Acute on chronic lower back pain with sciatica to left leg History of rheumatoid arthritis -Consult placed to orthospine surgery, appreciate recommendations -Consult placed and urology, appreciate recommendations -Consult placed to physical and occupational therapy for evaluation Neuro checks every 4 hours Fall precautions Symptomatic care and pain management Transaminitis -Appears chronic upon review of chart. Unclear etiology possibly underlying EtOH abuse. History of pulmonary emboli, no longer on anticoagulation -Patient reports being diagnosed with a pulmonary emboli 02/2023 and states that he was instructed to stop taking his anticoagulation 04/2023. -Patient denies chest pain, shortness of breath, or palpitations at this time. It is unclear why patient was taken off of anticoagulation after 2 months duration. Opioid dependence -Patient reports that he is prescribed Suboxone but only takes once in a while. -Suboxone may be ordered once verified by pharmacist. Data reviewed: -Labs completed and reviewed. CBC showing mild leukocytosis with WBC count of 11.3. Coagulation profile normal findings. BMP unremarkable. Liver enzymes elevated with AST of 76, ALT 125, and alkaline phosphatase of 136. -Vital signs reviewed and stable. Blood pressure 130/74, heart rate 92, respiratory rate 20, temp 98.3F, SpO2 100% on room air. -Urinalysis negative for infection. Imaging reviewed: -CT head was completed and radiology report reviewed showing age related atrophic and chronic small vessel ischemic changes negative for acute intercranial process. -EKG showing normal sinus rhythm at 85 bpm with PVCs and no noted T-wave or ST abnormalities showing no signs of acute ischemia. -Chest x-ray completed, radiology report reviewed stating negative for acute cardiopulmonary process. -CT lumbar spine negative for acute fracture showing moderate multilevel degenerative disc disease and facet arthropathy L4 through L5 with right paracentral disc herniation upon broad-based disc bulge most prominent at L2 through L3 and L4 through L5 with moderate central canal stenosis and multilevel moderate neural foraminal stenosis. Patient being admitted to observation unit for evaluation of progressively worsening bilateral lower extremity weakness with dayo estes with consultation to neurology and orthospine surgery. CODE STATUS: Full code DVT prophylaxis: Heparin Discussed with: patient, ED physician, and RN Anticipated discharge date: 24-[address]: home Patient was seen independently by Nurse Practitioner. This document was prepared using [employer] dictation software. Please allow for errors in gas appliance adjuster while rare they do occur. Jake Pizarro NP rendered care for this patient independently, reviewed the findings and plan as documented in the note above. I did not physically speak with or examine the patient on this date. Past Medical History Past Medical History: Hypertension, Pneumonia, Pulmonary Embolus (PE), Rheumatoid Arthritis (RA) Additional Past Medical History / Comment(s): february had "aneruysm "on lungs, History of Any Multi-Drug Resistant Organisms: None Reported Past Surgical History: Orthopedic Surgery Additional Past Surgical History / Comment(s): carpal tunnel surgey Past Anesthesia/Blood Transfusion Reactions: No Reported Reaction Past Psychological History: No Psychological Hx Reported Smoking Status: Light tobacco smoker Past Alcohol Use History: Occasional Past Drug Use History: Marijuana Medications and Allergies Home Medications Medication Instructions Recorded Confirmed Type Lisinopril-Hctz 20-25 mg 1 tab PO DAILY 04/04/23 07/07/23 History [Zestoretic 20-25] DULoxetine HCL [Cymbalta] 30 mg PO BID 07/07/23 07/07/23 History QUEtiapine [SEROquel] 50 mg PO HS PRN 07/07/23 07/07/23 History Sildenafil Citrate [Viagra] 100 mg PO DAILY PRN 07/07/23 07/07/23 History predniSONE See Taper PO DIRECTED 07/07/23 07/07/23 History Meloxicam [Mobic] 7.5 mg PO DAILY 30 Days #30 tab 07/08/23 Rx methocarbamoL [Robaxin] 1,000 mg PO QID PRN #40 tab 07/08/23 Rx Allergies Allergy/AdvReac Type Severity Reaction Status Date / Time No Known Allergies Allergy Verified 07/07/23 13:05 Physical Exam Vitals: Vital Signs Temp Pulse Resp BP Pulse Ox 07/07/23 11:35 98.3 F 92 20 130/74 100 Intake and Output 07/06/23 07/07/23 07/07/23 22:59 06:59 14:59 Other: Weight 81.647 kg Results CBC & Chem 7: 07/07/23 12:54 07/07/23 12:54 Labs: Abnormal Lab Results - Last 24 Hours (Table) 07/07/23 07/07/23 Range/Units 12:54 12:54 WBC 11.3 H (3.8-10.6) k/uL Neutrophils # 8.6 H (1.3-7.7) k/uL AST 76 H (17-59) U/L ALT 125 H (4-49) U/L Alkaline Phosphatase 136 H (38-126) U/L C-Reactive Protein 1.2 H (<1.0) mg/dL
[2023-07-07 17:36] LABS: Amphetamine Screen,Urine Not Detected (NotDetected); Benzodiazepines Screen,Urine Not Detected (NotDetected); Cocaine Screen,Urine Detected (NotDetected); Opiate Screen,Urine Not Detected (NotDetected); Phencyclidine Screen,Urine Not Detected (NotDetected); Tricyclic Antidepressant,Urine Not Detected (NotDetected); Urn Cannabinoid Scrn Detected (NotDetected)
[2023-07-07 17:37] LABS: Barbiturate Screen,Urine Not Detected (NotDetected); Methadone Screen, Urine Not Detected (NotDetected); Oxycodone Screen, Urine Not Detected (NotDetected)
[2023-07-07 20:05] LABS: Rheumatoid Factor, Qnt >650 IU/mL (0-15)
[2023-07-07] MEDS: HEPARIN SODIUM,PORCINE 5,000 UNIT/ML 1 ML VIAL SQ SCH (20:39)
[2023-07-07] MEDS: DULoxetine HCL 30 MG CAPSULE.DR PO SCH (20:39)
[2023-07-08] MEDS: HEPARIN SODIUM,PORCINE 5,000 UNIT/ML 1 ML VIAL SQ SCH ×2 (01:54→09:54)
[2023-07-08 07:37] VITALS: BP 125/73; PULSE 78; RESP 16; TEMP 98.2
[2023-07-08] MEDS ORDERED: LISINOPRIL-HCTZ 20-25 MG 1 EACH TAB PO SCH (09:00)
[2023-07-08] MEDS: DULoxetine HCL 30 MG CAPSULE.DR PO SCH (09:53)
--- NOTE | 2023-07-08 09:57 | P.PN ---
Subjective Progress Note Date: 07/08/23 Principal diagnosis: Chronic low back pain Left lower extremity weakness Patient seen and examined this morning. Patient is resting in bed with blankets covering his head. Patient demonstrated poor effort on exam, difficult to perform proper assessment. Informed patient that MRI of the lumbar spine will be performed today at approximately 10:15. Patient verbalized understanding. No acute events overnight. Objective - Vital Signs Vital signs: Vital Signs Temp 98.2 F 07/08/23 07:00 Pulse 78 07/08/23 07:00 Resp 16 07/08/23 07:00 BP 125/73 07/08/23 07:00 Pulse Ox 100 07/08/23 07:00 FiO2 Intake & Output 07/07/23 07/08/23 07/08/23 18:59 06:59 18:59 Weight 81.647 kg Other: # Voids 2 - Exam Inspection: Negative for any open fractures, significant erythema/ecchymosis/open wounds. Sensation: Equal, symmetric, bilateral intact throughout the upper and lower extremities Palpation: There is some mild tenderness to palpation at the lower lumbar region at midline and moderate in the left SI joint region. Nontender to palpation throughout rest exam. Range of motion: Patient has full range of motion bilateral upper extremities There is some limited range of motion in bilateral hips in flexion/extension on exam. Patient has full range of motion throughout rest of joints and lower extremities Motor: 4+/5 in all major motor exam bilateral upper extremities. 4+/5 in all major motor groups in right lower extremity. 4-/5 in resisted dorsiflexion left ankle and left hip flexion/ext and left knee flexion. 4+/5 in all other motor groups in LLE. Neurovascular: Radial pulses intact, 2+ bilaterally. Cap refill under 3 seconds in digits of upper extremities Special tests: Negative Homans bilaterally. Negative clonus bilaterally.. Negative Wang bilaterally. - Labs CBC & Chem 7: 07/07/23 12:54 07/07/23 12:54 Labs: Abnormal Lab Results - Last 24 Hours (Table) 07/07/23 07/07/23 07/07/23 Range/Units 12:54 12:54 17:18 WBC 11.3 H (3.8-10.6) k/uL Neutrophils # 8.6 H (1.3-7.7) k/uL AST 76 H (17-59) U/L ALT 125 H (4-49) U/L Alkaline Phosphatase 136 H (38-126) U/L C-Reactive Protein 1.2 H (<1.0) mg/dL Urine Cocaine Screen Detected H (NotDetected) U Marijuana (THC) Screen Detected H (NotDetected) Rheumatoid Factor >650 H (0-15) IU/mL Assessment and Plan Assessment: 1. Left lower extremity weakness 2. Chronic low back pain 3. Degenerative disc disease 4. Lumbar stenosis Plan: 1. Appreciate medical management 2. Awaiting MRI of the Lumbar Spine 3. Pain management - tramadol; tylenol 4. GI prophylaxis recs 5. DVT prophylaxis recs 6. PT/OT - weightbearing as tolerated with walker and assistance as needed 7. Encourage incentive spirometer use 8. Appreciate consult Time with Patient: Less than 30
--- NOTE | 2023-07-08 11:41 | MR ---
EXAMINATION TYPE: MR lumbar spine wo con DATE OF EXAM: 07/08/2023 COMPARISON: CT scan 07/07/2020 HISTORY: Lower back pain, LLE pain/weakness. TECHNIQUE: T1 and T2 axial and sagittal images of the lumbar spine are submitted. FINDINGS: There is no abnormal signal seen within the visualized spinal cord or paraspinal soft tissu es. There is a central disc bulge with degenerative disc disease T11-T12. This is not included in the field of view on the axial images. At L1-2 there is no evidence of disc herniation or At L2-3 there is degenerative disc disease with annular tear. Broad-based disc herniation, facet arth ropathy and ligamentum flavum vertebral results in moderate canal stenosis and bilateral foraminal ap proach. At L3-4 there is moderate degenerative disc disease with diffuse broad-based disc herniation, facet h ypertrophy, ligamentum flavum hypertrophy resulting in moderate to severe canal stenosis and bilatera l moderate foraminal approach. Bilateral lateral recess stenosis. At L4-5 there is a degenerative disc disease with broad-based disc protrusion greater paracentrally t o the right. Hypertrophic changes of facets and ligamentum flavum. Moderate canal stenosis and bilate ral foraminal approach. At L5-S1 there is degenerative disc disease with a focal left paracentral disc herniation. Small extr uded fragment is suggested. Recommend postcontrast imaging for. Appears to result in mass effect upon the left nerve root at this level correlate for left-sided S1 nerve root radiculopathy. Schmorl's no de inferior endplate L5. IMPRESSION: 1. Findings are suspicious for a left paracentral disc herniation extruded fragment resulting in impi ngement of the S1 left nerve root correlate for radiculopathy. 2. Multilevel severe degenerative disc disease with vacuum disc at L3-4, L4-5 and L5-S1. 3. Multilevel disc protrusion extending from levels L2-S1 with multilevel hypertrophic changes of fac ets and ligamentum flavum resulting in multilevel significant canal stenosis and bilateral foraminal encroachment as discussed above. 4. There is a central disc bulge which encroaches upon the anterior margin of the spinal cord at T11- T12. This is not included in the field of view on the axial images. Recommended follow-up thoracic sp ine MRI.
--- NOTE | 2023-07-08 11:42 | P.DS ---
Providers Date of admission: 07/07/23 14:20 Expected date of discharge: 07/08/23 Attending physician: Vinicio Hester MD Consults: 07/07/23 14:19 Consult Physician Routine Consulting Provider: Joaquin Flores Consult Reason/Comments: leg weakness Do you want consulting provider notified?: Yes Consult Physician Routine Consulting Provider: Karlene Rivers Consult Reason/Comments: leg weakness Do you want consulting provider notified?: Yes Primary care physician: Henrique Lyon Hospital Course: Discharge Diagnosis: Lumbar disc disease with herniated and bulging disc and impingement of the S1 nerve root. Bilateral lower extremity weakness with paresthesias and intermittent numbness reported to toes and plantar surface of feet likely secondary to severe lumbar disc disease with herniated and bulging disks along with impingement of the S1 nerve root. Patient updated on these findings by orthospine surgery team and being discharged home with recommendations to follow-up in our office on 07/22/23 to further discuss surgical options. Acute on chronic lower back pain with sciatica to left leg History of rheumatoid arthritis Transaminitis, Appears chronic upon review of chart. Unclear etiology possibly underlying EtOH abuse. History of pulmonary emboli, no longer on anticoagulation Opioid dependence on Suboxone Polysubstance abuse, urine drug screen positive for marijuana and cocaine. Hospital Course: Patient is a very pleasant 57-year-old male with a past medical history of hypertension, rheumatoid arthritis, pulmonary emboli no longer on anticoagulation, nicotine dependence, opioid dependence on Suboxone, and cannabinoid use. Patient reports that he was diagnosed with a pulmonary embolism February 2023 and was taken off of his anticoagulant in April 2023. He presented to the emergency department today secondary to complaints of progressively worsening weakness in bilateral lower extremities. Patient reports the symptoms began approximately one month ago and have worsened over the past week. Patient reports "it's like I have no control I am walking like I am drunk". He reports in addition to this he has experienced some intermittent numbness and tingling to the distal toes and the plantar region of his foot. Patient does report having chronic back pain with left-sided sciatica. Patient also reports feeling as though he has had intermittent full-body charley horses. Patient denies having any headache, lightheadedness, dizziness, changes in vision or hearing, chest pain or palpitations, shortness of breath, nausea, vomiting, or experiencing any swelling in his lower extremities. Patient denies having any involuntary loss of bowel or bladder and denies having any saddle bag anesthesias. He reports recent left open carpal tunnel release surgery on 05/24/23 with chronic tingling and peristasis to bilateral hands secondary to RA and carpal tunnel. Patient underwent full evaluation in the emergency department. Vital signs reviewed and stable. Blood pressure 130/74, heart rate 92, respiratory rate 20, temp 98.3F, SpO2 100% on room air. CT head was completed and radiology report reviewed showing age related atrophic and chronic small vessel ischemic changes negative for acute intercranial process. EKG showing normal sinus rhythm at 85 bpm with PVCs and no noted T-wave or ST abnormalities showing no signs of acute ischemia. Chest x-ray completed, radiology report reviewed stating negative for acute cardiopulmonary process. CT lumbar spine negative for acute fracture showing moderate multilevel degenerative disc disease and facet arthropathy L4 through L5 with right paracentral disc herniation upon broad-based disc bulge most prominent at L2 through L3 and L4 through L5 with moderate central canal stenosis and multilevel moderate neural foraminal stenosis. Urinalysis negative for infection. Labs completed and reviewed. CBC showing mild leukocytosis with WBC count of 11.3. Coagulation profile normal findings. BMP unremarkable. Liver enzymes elevated with AST of 76, ALT 125, and alkaline phosphatase of 136. Discussed in detail with the ED physician. Patient being admitted to observation unit with consultation to neurology and orthospine surgery. Urine drug screen positive for marijuana and cocaine. MRI lumbar spine completed showing findings suspicious for left paracentral disc herniation and extruded fragment resulting in impingement of the S1 nerve root correlating for radiculopathy, multilevel severe degenerative disc disease with vacuum disc at L3 through L4, L4 through L5, and L5 through S1. Multilevel disc protrusion extending from levels L2 through S1 with multilevel hypertrophic changes of visits and ligamentum flavum resulting in multilevel significant canal stenosis and bilateral foraminal encroachment as discussed above with central disc bulge encroaching upon the anterior margin of the spinal cord at T11-T12. Orthospine surgery evaluated and reviewed MRI, they are recommending outpatient follow-up with their office for further discussion on surgical options. Patient also evaluated by neurologist clearing patient from neurological perspective for discharge. Medically, patient is stable at this time. Patient to follow up outpatient with PCP, and orthopedic surgery as discussed. Patient discharged home with [facility] 7.5 mg daily in addition to Robaxin 1000 mg 4 times daily. Physical exam: Vital signs reviewed and stable. General: Nontoxic, no distress and appears stated age. Derm: Skin warm and dry, normal coloration for ethnicity. Head: Atraumatic, normocephalic and symmetric. Eyes: EOMs intact, no lid lag, and anicteric sclera Mouth: no lip lesions, mucus membranes moist Cardiovascular: regular rate and rhythm with normal S1S2, no murmur, positive posterior tibial pulses bilaterally, and cap refill < 2 seconds. Lungs: Respirations even, regular, and unlabored on room air. Lungs CTA bilaterally, no rhonchi, no rales, no wheezing, and no accessory muscle usage. Abdominal: soft, nontender to palpation, no guarding, no appreciable organomegaly Ext: ROM intact. No gross muscle atrophy, no edema, no contractures Neuro: Speech clear, face symmetrical and CN II-XII grossly intact with no noted focal neuro deficits. Movement and sensation equal and intact in bilateral upper and lower extremities. Psych: Alert and oriented to person, place, time, and situation. Appropriate and pleasant affect. A total of 34 minutes of time were spent preparing this complex discharge summary. Pt was discharged on 07/08/23 to 11:39 AM Patient was seen independently by Nurse Practitioner. This document was prepared using [employer] dictation software. Please allow for errors in brazing machine operator while rare they do occur. Jake Pizarro NP rendered care for this patient independently, reviewed the findings and plan as documented in the note above. I did not physically speak with or examine the patient on this date. Patient Condition at Discharge: Stable Plan - Discharge Summary Discharge Rx Participant: No New Discharge Prescriptions: New Meloxicam [Mobic] 7.5 mg PO DAILY 30 Days #30 tab methocarbamoL [Robaxin] 1,000 mg PO QID PRN #40 tab PRN Reason: Muscle Spasm Continue Lisinopril-Hctz 20-25 mg [Zestoretic 20-25] 1 tab PO DAILY DULoxetine HCL [Cymbalta] 30 mg PO BID predniSONE See Taper PO DIRECTED Sildenafil Citrate [Viagra] 100 mg PO DAILY PRN PRN Reason: E.D. QUEtiapine [SEROquel] 50 mg PO HS PRN PRN Reason: Insomnia Discharge Medication List Lisinopril-Hctz 20-25 mg [Zestoretic 20-25] 1 tab PO DAILY 04/04/23 [History] DULoxetine HCL [Cymbalta] 30 mg PO BID 07/07/23 [History] QUEtiapine [SEROquel] 50 mg PO HS PRN 07/07/23 [History] Sildenafil Citrate [Viagra] 100 mg PO DAILY PRN 07/07/23 [History] predniSONE See Taper PO DIRECTED 07/07/23 [History] Meloxicam [Mobic] 7.5 mg PO DAILY 30 Days #30 tab 07/08/23 [Rx] methocarbamoL [Robaxin] 1,000 mg PO QID PRN #40 tab 07/08/23 [Rx] Follow up Appointment(s)/Referral(s): Henrique Lyon MD [Primary Care Provider] - 1-2 days Joaquin Flores DO [Doctor of Osteopathic Medicine] - 07/22/23 9:30 am Patient Instructions/Handouts: Lumbar Spinal Stenosis (DC), Degenerative Disc Disease (DC) Activity/Diet/Wound Care/Special Instructions: Activity: As tolerated. Take breaks as needed. Diet: Heart healthy and carb consistent diet. Avoid salts, or foods with hidden salts such as canned or boxed foods and frozen dinners. Extra salt makes your heart work harder and traps the fluid in your body for longer. Special Instructions: Take all of your medications as directed and remember to keep all of your doctor's appointments and follow-up as needed. Thank you for allowing us to participate in your care, it was truly a pleasure having you for our patient!!! Discharge Disposition: HOME SELF-CARE
--- NOTE | 2023-07-15 12:25 | P.CNNES ---
History of Present Illness Consult date: 07/08/23 Requesting physician: Ceasar Newman Reason for Consult: Leg weakness History of Present Illness: Patient is a 57-year-old male with history of chronic low back pain came to the hospital yesterday at 11:26 AM for bilateral leg weakness. 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 Patient states that he was diagnosed with pneumonia therefore has not worked since 03/07/2023 and has not done any physical exercises in these months. Patient states that at that time he had difficulty with breathing, went to ER and was found to have "spot in the lung" and was diagnosed with pulmonary embolism. He was placed on blood thinners and was also diagnosed with pneumonia. In the meantime he also underwent surgery for carpal tunnel release bilaterally on 05/24/2023 and had no feeling in the hands. After not working for several months, he went to work last Tuesday. He was picking up a 4 pound piece of steel and putting it on the side. He did it about 800 of them. After doing this physical exertion, he feels that it aggravated his back. He was noticing some pain down the leg, also noticed the left calf seized/charley horse for 5 days. He felt some stiffness around his neck, cannot turn to look behind for last 2 months, that comes and goes. He felt like "drunk" with no coordination. Yesterday he was noticing sciatic pain in the left leg from lower back, and felt his whole body would seize up, and the back locks up stiffen up, lasting for 5 seconds. He also noticed some numbness of the balls of the feet bilaterally for last 1 month. It mainly involves the balls of the lateral 4 toes of both foot. Due to the symptoms he came to the hospital. Patient says when he came out of the MRI, he felt as if he will have a seizure. Vital signs arrival blood pressure 130/74, pulse 92, temperature 98.3. Blood test shows WBC 11.3 normal hemoglobin and platelets. PT/PTT normal, Chem-7 normal. AST is 76, ALT 125. CRP mildly elevated 1.2. TSH is normal, UA negative, urine drug screen positive for cocaine and marijuana. Rheumatoid factor is > 650, coronal virus PCR negative. CK is normal 87. Patient's hemoglobin A1c 5.9 on 03/02/2023. Patient's previous PAULY is negative. CT head showing age-related atrophic and chronic small vessel ischemic change without acute intracranial process. Chest x-ray showed no evidence for acute pulmonary disease. CT of the lumbar spine showed no evidence of fracture of the lumbar spine. Moderate multilevel degenerative disc disease and facet arthropathy. L4-L5 right paracentral disc herniation upon a broad-based disc bulge. This is most prominent at L2-L3 and L4-L5 with moderate central canal stenosis. Multilevel moderate neural foraminal stenosis. Patient says that he has seen a project product manager for possible rheumatoid arthritis and was diagnosed with spurs in the lower back and was given prednisone. Patient admits to chewing tobacco laying in bed, and also uses weeds for recreation about twice a week and 3 beers a week. He denies using cocaine, although believes is someone may have laced his weed with cocaine. He admits to using cocaine in the past when he was in his mid 30s. Review of Systems Constitutional: Denies chills, Denies fever Eyes: denies blurred vision, denies diplopia, denies pain Ears: deny: decreased hearing, ear discharge Ears, nose, mouth and throat: Denies headache, Denies sore throat Cardiovascular: Denies chest pain, Denies shortness of breath Respiratory: Denies cough, Denies excessive sputum Gastrointestinal: Denies abdominal pain, Denies diarrhea, Denies nausea, Denies vomiting Genitourinary: Denies incontinence, Denies urinary frequency Musculoskeletal: Reports as per HPI, Reports low back pain, Reports muscle weakness, Reports neck stiffness Integumentary: Denies pruritus, Denies rash Neurological: Reports as per HPI Psychiatric: Denies anxiety, Denies depression Endocrine: Denies fatigue, Denies weight change Past Medical History Past Medical History: Hypertension, Pneumonia, Pulmonary Embolus (PE), Rheumatoid Arthritis (RA) Additional Past Medical History / Comment(s): timoteo had "aneruysm "on lungs, History of Any Multi-Drug Resistant Organisms: None Reported Past Surgical History: Orthopedic Surgery Additional Past Surgical History / Comment(s): carpal tunnel surgey Past Anesthesia/Blood Transfusion Reactions: No Reported Reaction Past Psychological History: No Psychological Hx Reported Smoking Status: Light tobacco smoker Past Alcohol Use History: Occasional Past Drug Use History: Marijuana Medications and Allergies Home Medications Medication Instructions Recorded Confirmed Type Lisinopril-Hctz 20-25 mg 1 tab PO DAILY 04/04/23 07/07/23 History [Zestoretic 20-25] DULoxetine HCL [Cymbalta] 30 mg PO BID 07/07/23 07/07/23 History QUEtiapine [SEROquel] 50 mg PO HS PRN 07/07/23 07/07/23 History Sildenafil Citrate [Viagra] 100 mg PO DAILY PRN 07/07/23 07/07/23 History predniSONE See Taper PO DIRECTED 07/07/23 07/07/23 History Meloxicam [Mobic] 7.5 mg PO DAILY 30 Days #30 tab 07/08/23 Rx methocarbamoL [Robaxin] 1,000 mg PO QID PRN #40 tab 07/08/23 Rx Allergies Allergy/AdvReac Type Severity Reaction Status Date / Time No Known Allergies Allergy Verified 07/07/23 13:05 Physical Examination - Vital Signs Vital Signs: Vital Signs Temp Pulse Pulse Resp BP BP Pulse Ox 07/08/23 07:00 98.2 F 78 16 125/73 100 07/08/23 02:26 98.6 F 89 14 129/64 95 07/07/23 19:12 98.8 F 93 17 136/78 100 07/07/23 17:37 90 18 140/90 99 07/07/23 17:22 98.3 F 82 16 167/94 100 07/07/23 16:00 98 18 150/100 97 07/07/23 15:00 100 18 162/105 98 07/07/23 14:00 88 18 149/79 98 07/07/23 11:35 98.3 F 92 20 130/74 100 Intake and Output 07/07/23 07/08/23 07/08/23 22:59 06:59 14:59 Other: # Voids 2 Patient is a middle aged Afro-Y[place]i male, in no acute distress. Patient is alert awake oriented to time place and person. Speech and language functions are normal. Patient can name and repeat very well. No aphasia or dysarthria. Attention, concentration and fund of knowledge is adequate. On cranial nerve examination, pupils are equal, round and reacting to light, visual michel are full on confrontation, with no neglect on double simultaneous stimulation. Extraocular muscles are intact with no nystagmus. Face is sy mmetric, tongue protrudes to the midline. Palatal elevation and sensation normal, hearing and shoulder shrug normal, facial sensation normal. On muscle strength testing, there is no pronator drift. On muscle strength testing, patient was giving less effort in the upper limbs because of pain. O verall it was 5-bilaterally. The strength of the lower limbs appears normal. Again, there was some decreased endurance noted. No foot drop. Deep tendon reflexes are symmetric 2 at the biceps, 2 brachioradialis, 2+ at both knees, 2 ankles and plantars downgoing bilaterally. Sensory to touch is equal with no neglect on double simultaneous stimulation. Cerebellar function showed no ataxia for [id number] testing. No dysdiadochokinesia. No ataxia for [id number] testing on either side. Tone and bulk of muscles normal. Gait deferred.. On general examination, there is no carotid bruit or murmur, S1-S2 audible. Chest is clear on consultation. Abdomen is soft nontender. No organomegaly, bowel sounds present. Peripheral pulses are present. No edema. Results - Laboratory Findings CBC and BMP: 07/07/23 12:54 07/07/23 12:54 Abnormal Lab Findings: Abnormal Labs 07/07/23 07/07/23 07/07/23 12:54 12:54 17:18 WBC 11.3 H Neutrophils # 8.6 H AST 76 H ALT 125 H Alkaline Phosphatase 136 H C-Reactive Protein 1.2 H Urine Cocaine Screen Detected H U Marijuana (THC) Screen Detected H Rheumatoid Factor >650 H Assessment and Plan Assessment: * Acute on chronic low back pain, probably due to herniated disc and bulging disc. * Bilateral lower extremity weakness * Elevated rheumatoid factor > 650 * Elevated liver enzymes * Substance abuse with during positive for marijuana and cocaine Plan: * Patient underwent MRI of the lumbar spine without contrast, which revealed f indings suspicious for a left paracentral disc herniation and extruded fragment resulting in impingement of the S1 left nerve root, correlate for radiculopathy. Multilevel severe degenerative disc disease with vacuum disc at L3-L4, L4-L5 and L5-S1. Multilevel disc protrusion extending from levels L2 to S1 with multilevel hypertrophic changes of facets and ligamentum flavum resulting in multilevel significant canal stenosis and bilateral foraminal encroachment. There is a central disc bulge which and closes upon the anterior margin of the spinal cord at T11-T12. This is not included in the field of view on axial images. Recommend follow-up thoracic spine MRI. I personally reviewed MRI, I agree with the findings. * Orthopedic spine on board. Recommending encourage ambulation, pain mary gement. Tramadol and Tylenol. They will follow patient outpatient to consider surgical option in the future. * Recommend anti-inflammatory medication like Mobic. * PT OT * Patient counseled about abstinence from polysubstance abuse. * Neurologically clear for discharge, if cleared by orthopedic spine. Patient recommended to follow up with neurologist outpatient for possible EMG of bilateral lower extremity. Thank you for the consult.
== END 2023-07-08 12:55 | disposition home or self-care (01) ==
LOC: EC 11:26 → 6NMEDSUR 14:20
PROVIDERS: ADMIT Student in an Organized Health Care Education/Training Program; ATTEND Student in an Organized Health Care Education/Training Program
DX: M51.36 Other intervertebral disc degeneration, lumbar region (principal); M51.26 Other intervertebral disc displacement, lumbar region; G89.29 Other chronic pain; M54.32 Sciatica, left side; M06.9 Rheumatoid arthritis, unspecified; R74.01 Elevation of levels of liver transaminase levels; F12.10 Cannabis abuse, uncomplicated; F14.10 Cocaine abuse, uncomplicated; F11.20 Opioid dependence, uncomplicated; I10 Essential (primary) hypertension; Z86.711 Personal history of pulmonary embolism; R74.8 Abnormal levels of other serum enzymes; I49.3 Ventricular premature depolarization; M48.061 Spinal stenosis, lumbar region without neurogenic claudication; F17.200 Nicotine dependence, unspecified, uncomplicated; Z71.89 Other specified counseling; Z87.01 Personal history of pneumonia (recurrent); Z79.899 Other long term (current) drug therapy; Z79.1 Long term (current) use of non-steroidal anti-inflammatories (NSAID); Z20.822 Contact with and (suspected) exposure to COVID-19
CPT/HCPCS: 96374; 96375; 99285; 36415; 93005; 97162; 97166; 84439; 84481; 80053; 82550; 83605; 83735; 84443; 85025; 85610; 85730; 86140; 86431; 81003; 80306; 87635; 71046; 72131; 70450; 72148; G0378 ×2; J2360; J2930; J1885

== ENCOUNTER 2023-09-12 05:31 | Emergency (ER) | payer OTHER ==
[2023-09-12] MEDS ORDERED: DIPH,PERTUS(ACELL)TETVAC-LF 0.5 ML VIAL IM ONE (05:37)
--- NOTE | 2023-09-12 05:43 | ED ---
Head Injury HPI - General Source: patient, police Mode of arrival: wheelchair Limitations: no limitations - History of Present Illness MD Complaint: head injury, fall -: minutes(s) Mechanism of Injury: mechanical fall Location: frontal (Left) Loss of Consciousness: no Previous Trauma to this Area: No Radiation: none Severity: moderate Quality: aching Consistency: constant Provoking factors: none known Other Injuries: none Associated Symptoms: denies other symptoms <Wilfrido Rendon - Last Filed: 09/19/23 18:24> <Mary Ortiz - Last Filed: 09/26/23 09:15> - General Chief complaint: Head Injury Stated complaint: Fall, Head Injury Time Seen by Provider: 09/12/23 05:34 - History of Present Illness Initial comments: This patient is a 58-year-old man who presents 7 evaluation for head injury. Patient states that he was sitting on his bunk and must a fall asleep. He states that he woke up as she felt himself falling forward and he struck his head first on a chair and then on the floor. He denies loss of consciousness related to the fall. He does state that he sustained a laceration. He is not sure when his last tetanus shot was given. (Wilfrido Rendon) - Related Data Home Medications Medication Instructions Recorded Confirmed DULoxetine HCL [Cymbalta] 60 mg PO DAILY 09/12/23 09/12/23 Naproxen [Naprosyn] 500 mg PO BID PRN 09/12/23 09/12/23 cloNIDine HCL [Catapres] 0.2 mg PO HS 09/12/23 09/12/23 hydroCHLOROthiazide [Hydrodiuril] 25 mg PO DAILY 09/12/23 09/12/23 lisinopriL [Zestril] 20 mg PO DAILY 09/12/23 09/12/23 Previous Rx's Medication Instructions Recorded methocarbamoL [Robaxin-750] 750 mg PO QID PRN #30 tab 09/12/23 Allergies/Adverse reactions: Allergies Allergy/AdvReac Type Severity Reaction Status Date / Time No Known Allergies Allergy Verified 09/12/23 12:15 Review of Systems ROS Other: All systems not noted in ROS Statement are negative. Constitutional: Denies: fever, chills, weakness Eyes: Denies: vision change ENT: Denies: ear pain, hearing loss, epistaxis Respiratory: Denies: cough, dyspnea Cardiovascular: Denies: chest pain, syncope Gastrointestinal: Denies: abdominal pain, nausea, vomiting Musculoskeletal: Denies: back pain Skin: Denies: rash Neurological: Reports: headache. Denies: weakness, numbness, paresthesias Hematological/Lymphatic: Denies: easy bleeding <Wilfrido Rendon - Last Filed: 09/19/23 18:24> ROS Other: All systems not noted in ROS Statement are negative. <Mary Ortiz Kellie - Last Filed: 09/26/23 09:15> ROS Statement: Those systems with pertinent positive or pertinent negative responses have been documented in the HPI. Past Medical History Past Medical History: Hypertension, Pneumonia, Pulmonary Embolus (PE), Rheumatoid Arthritis (RA) Additional Past Medical History / Comment(s): february had "aneruysm "on lungs, History of Any Multi-Drug Resistant Organisms: None Reported Past Surgical History: Orthopedic Surgery Additional Past Surgical History / Comment(s): carpal tunnel surgey Past Anesthesia/Blood Transfusion Reactions: No Reported Reaction Past Psychological History: No Psychological Hx Reported Smoking Status: Light tobacco smoker Past Alcohol Use History: Occasional Past Drug Use History: Marijuana <Wilfrido Rendon - Last Filed: 09/19/23 18:24> General Exam Limitations: no limitations General appearance: alert, in no apparent distress Head exam: Present: atraumatic, normocephalic Eye exam: Present: normal appearance. Absent: scleral icterus, conjunctival injection Neck exam: Present: normal inspection. Absent: tenderness Respiratory exam: Present: normal lung sounds bilaterally. Absent: respiratory distress, wheezes, rales, rhonchi, stridor, chest wall tenderness, accessory muscle use Cardiovascular Exam: Present: regular rate, normal rhythm, normal heart sounds. Absent: systolic murmur, diastolic murmur, rubs, gallop GI/Abdominal exam: Present: soft. Absent: distended, tenderness, guarding, rebound, rigid Extremities exam: Present: normal inspection, normal capillary refill Back exam: Present: normal inspection. Absent: vertebral tenderness Neurological exam: Present: alert, oriented X3, CN II-XII intact Skin exam: Present: warm, dry, normal color, other (Approximately 2.5 cm laceration to the left forehead.). Absent: rash <JulietaWilfrido - Last Filed: 09/19/23 18:24> Course Vital Signs 09/12/23 09/12/23 09/12/23 05:35 09:00 13:16 Temperature 98.2 F 98 F 98.2 F Pulse Rate 73 80 66 Respiratory 16 16 18 Rate Blood Pressure 138/90 130/79 140/82 O2 Sat by Pulse 100 99 99 Oximetry Procedures - Laceration Laceration #1 Consent Obtained: verbal consent Indication: laceration Site: face Size (cm): 4 Description: stellate Anesthetic Used: lidocaine 1% Anesthesia Technique: local infiltration Type of Sutures: nylon Size of Sutures: 5-0 Number of Sutures: 11 Technique: simple, interrupted Patient Tolerated Procedure: well, no complications <JulietaWilfrido - Last Filed: 09/19/23 18:24> Medical Decision Making <JulietaWilfrido - Last Filed: 09/19/23 18:24> <Mary Ortiz - Last Filed: 09/26/23 09:15> - Medical Decision Making This patient is 58-year-old man. Evaluation after falling from bed and striking head. The patient did have computed tomography scan of the brain and C-spine. I interpreted the CT as not showing acute bony injury or intracranial hemorrhage. The radiologist raised question of prevertebral swelling and therefore MRI is obtained. The patient was signed out pending the MRI study. I was subsequently informed that the study did not reveal injury and that the patient was able to be discharged with follow-up to the orthopedic surgery related to the cervical radicular symptoms which may require further intervention. Was pt. sent in by a medical professional or institution (Dr. PA, ARMOR SENIOR SERGEANT, urgent care, hospital, or skilled nursing...) When possible be specific @ -[No] Did you speak to anyone other than the patient for history (EMS, parent, family, police, friend...)? What history was obtained from this source @ -[No] Did you review nursing and triage notes (agree or disagree)? Why? @ -[I reviewed and agree with nursing and triage notes] Were old charts reviewed (outside hosp., previous admission, EMS record, old EKG, old radiological studies, urgent care reports/EKG's, skilled nursing records)? Report findings @ -[No old charts were reviewed] Differential Diagnosis (chest pain, altered mental status, abdominal pain women, abdominal pain men, vaginal bleeding, weakness, fever, dyspnea, syncope, headache, dizziness, GI bleed, back pain, seizure, CVA, palpatations, mental health, musculoskeletal)? @ -[Differential Musculoskeletal Muscular strain, contusion, ligament sprain, fracture, muscle spasm, nerve compression,.. This is not meant to be in all inclusive list EKG interpreted by me (3pts min.). @ -[As above] X-rays interpreted by me (1pt min.). @ -[None done] CT interpreted by me (1pt min.). @ -[I interpreted as above U/S interpreted by me (1pt. min.). @ -[None done] What testing was considered but not performed or refused? (CT, X-rays, U/S, labs)? Why? @ -[None] What meds were considered but not given or refused? Why? @ -[None] Did you discuss the management of the patient with other professionals (professionals i.e. , PA, ARMOR SENIOR SERGEANT, lab, RT, psych nurse, clinical social work therapist, beam sealer, teacher, peace officer, shoe parts caser)? Give summary @ -[No] Was smoking cessation discussed for >3mins.? @ -[No] Was critical care preformed (if so, how long)? @ -[No] Were there social determinants of health that impacted care today? How? (Homelessness, low income, unemployed, alcoholism, drug addiction, transportat ion, low edu. Level, literacy, decrease access to med. care, fci, rehab)? @ -[No] Was there de-escalation of care discussed even if they declined (Discuss DNR or withdrawal of care, Hospice)? DNR status @ -[No] What co-morbidities impacted this encounter? (DM, HTN, Smoking, COPD, CAD, Cancer, CVA, ARF, Chemo, Hep., AIDS, mental health diagnosis, sleep apnea, morbid obesity)? @ -[None] Was patient admitted / discharged? Hospital course, mention meds given and route, prescriptions, significant lab abnormalities, going to OR and other pertinent info. @ -[As above Undiagnosed new problem with uncertain prognosis? @ -[No] Drug Therapy requiring intensive monitoring for toxicity (Heparin, Nitro, Insulin, Cardizem)? @ -[No] Were any procedures done? @ -[Laceration repair Diagnosis/symptom? @ -[Facial laceration Acute neck pain Acute closed head injury Acute, or Chronic, or Acute on Chronic? @ -[Acute Uncomplicated (without systemic symptoms) or Complicated (systemic symptoms)? @ -[default] Side effects of treatment? @ -[No] Exacerbation, Progression, or Severe Exacerbation? @ -[No] Poses a threat to life or bodily function? How? (Chest pain, USA, MD, pneumonia, PE, COPD, DKA, ARF, appy, cholecystitis, CVA, Diverticulitis, Homicidal, Suicidal, threat to staff... and all critical care pts) @ -[No] (Wilfrido Rendon) Patient signed out to me pending MRI. MRI negative for acute process. Case management setting up appointment for patient with Dr. Flores (Mary Ortiz) Disposition <Wilfrido Rendon - Last Filed: 09/19/23 18:24> Is patient prescribed a controlled substance at d/c from ED?: No Time of Disposition: : <Mary Ortiz - Last Filed: 09/26/23 09:15> Clinical Impression: Closed head injury, Facial laceration, Neck pain Disposition: HOME SELF-CARE Condition: Stable Instructions (If sedation given, give patient instructions): Facial Laceration (ED), Neck Pain (ED) Additional Instructions: Your stitches must be removed in 7 days. Please follow-up with Dr. Flores at your scheduled appointment. We will call with your appointment date. Take the muscle relaxer as needed and return for any new or worsening symptoms Prescriptions: methocarbamoL [Robaxin-750] 750 mg PO QID PRN #30 tab PRN Reason: Muscle Pain Referrals: None,Stated [REFERRING] - 1-2 days Joaquin Flores DO [Doctor of Osteopathic Medicine] - 10/05/23 10:45 am
--- NOTE | 2023-09-12 06:45 | CT ---
EXAM: CT Head Without Intravenous Contrast CLINICAL HISTORY: ITS.REASON CT Reason: fall injury TECHNIQUE: Axial computed tomography images of the head/brain without intravenous contrast. CTDI is 45.2 mGy and DLP is 1117 mGy-cm. This CT exam was performed using one or more of the following dose reduction techniques: automated exposure control, adjustment of the mA and/or kV according to patient size, and/or use of iterative reconstruction technique. COMPARISON: No relevant prior studies available. FINDINGS: Artifacts: Artifact degrades image quality limits evaluation. Brain: There is no evidence of an acute transcortical infarct or acute intracranial hemorrhage. No significant white matter disease. Ventricles: Unremarkable. No ventriculomegaly. Bones/joints: Unremarkable. No acute fracture. Soft tissues: Left periorbital soft tissue swelling. Sinuses: Unremarkable as visualized. No acute sinusitis. Mastoid air cells: Unremarkable as visualized. No mastoid effusion. IMPRESSION: 1. Left periorbital soft tissue swelling. 2. No evidence of acute intracranial pathology. EXAM: CT Cervical Spine Without Intravenous Contrast CLINICAL HISTORY: ITS.REASON CT Reason: fall injury TECHNIQUE: Axial computed tomography images of the cervical spine without intravenous contrast. CTDI is 13.4 mGy and DLP is 488 mGy-cm. This CT exam was performed using one or more of the following dose reduction techniques: automated exposure control, adjustment of the mA and/or kV according to patient size, and/or use of iterative reconstruction technique. COMPARISON: No relevant prior studies available. FINDINGS: Vertebrae: No evidence of acute fracture or traumatic malalignment, although mild prevertebral soft tissue swelling is suspected. Cervical spondylosis with varying degrees of spinal canal and neuroforaminal narrowing. No acute fracture. Discs/spinal canal/neural foramina: As above. Soft tissues: As above.. Vasculature: Mild/moderate vascular calcifications involving the bilateral carotid bulbs. Lung apices: Multiple subcentimeter pulmonary nodules are noted bilaterally. IMPRESSION: 1. No evidence of acute fracture or traumatic malalignment, although mild prevertebral soft tissue swelling is suspected. MRI is recommended for further evaluation. 2. Cervical spondylosis with varying degrees of spinal canal and neuroforaminal narrowing. This can further be evaluate on the MRI. 3. Multiple subcentimeter pulmonary nodules are noted bilaterally. Nonemergent high-resolution CT of the chest recommended for further evaluation.
[2023-09-12] MEDS ORDERED: TOPICAL SKIN ADHESIVE 1 EACH AMP TOPICAL ONE (07:10)
[2023-09-12] MEDS ORDERED: LIDOCAINE 1% INJ 10MG/ML (20 ML MDV) SQ ONE (07:28)
[2023-09-12] MEDS ORDERED: BACITRACIN OINT 1 EACH PACKET TOPICAL ONE (08:03)
[2023-09-12] MEDS ORDERED: MORPHINE SULFATE 4 MG/ML SYRINGE IVP STA (09:34)
--- NOTE | 2023-09-12 11:31 | MR ---
EXAMINATION TYPE: MR cervical spine wo/w con DATE OF EXAM: 09/12/2023 10:57 AM CLINICAL INDICATION:Male, 58 years old with history of fall injury; PHH, Neck pain, injury COMPARISON: 09/12/2023. TECHNIQUE: Multi planar, multi sequence imaging was performed utilizing: T1-weighted, T2-weighted, an d turbo inversion recovery imaging of the cervical spine. IV Contrast: 7.5 cc Gadavist (none if empty) FINDINGS: Alignment: The cervical vertebral bodies have preserved heights. Straightening of the alignment. Bones: Scattered osteophytes and disc space narrowing. Multilevel degenerative disc disease is noted and most pronounced at the C3 through C5 vertebral levels. No abnormal postcontrast enhancement. Cord: Abnormal cord signal at the C3-C4 level throughout the spinal cord additional cord signal prese nt just below the C4-C5 disc space involving the bilateral cord. No abnormal postcontrast enhancement . Discs: Multilevel disc desiccation is present. C2-C3: Central disc protrusion which mildly abuts the anterior spinal cord. Bilateral facet and unco vertebral joint arthropathy are present with mild to moderate bilateral neural foraminal stenosis. C3-C4: A disc osteophyte complex is present with severe spinal canal stenosis with abnormal cord sign al. Bilateral facet and uncovertebral joint arthropathy are present with moderate to severe bilatera l neural foraminal stenosis. C4-C5: A disc osteophyte complex is present with moderate spinal canal stenosis. Bilateral facet and uncovertebral joint arthropathy are present with severe right and moderate severe left neural forami nal stenosis. Just below the level of the disc is abnormal cord signal as mentioned above. C5-C6: A disc osteophyte complex is present with moderate spinal canal stenosis. Cord signal is main tained. Bilateral facet and uncovertebral joint arthropathy are present with moderate bilateral neura l foraminal stenosis. C6-C7: No significant disc pathology. The spinal canal is patent. Bilateral facet and uncovertebral joint arthropathy are present with moderate to severe bilateral neural foraminal stenosis. C7-T1: No significant disc pathology. The spinal canal is patent. No neural foraminal stenosis. Other: None. IMPRESSION: 1. No abnormal bony edema to suggest acute fracture. 2. C3-C4 severe spinal canal stenosis with myelomalacia, given there is no significant bony edema fi ndings suggest chronic process. Clinical evaluation and Surgical consultation recommended. Additional myelomalacia at the level just below the C4-C5 disc space. 3. Disc degeneration changes with varying degrees of high-grade neural foraminal stenosis. 4. No abnormal postcontrast enhancement.
[2023-09-12 13:38] VITALS: BP 140/82; PULSE 66; RESP 18; TEMP 98.2
== END 2023-09-12 13:41 | disposition home or self-care (01) ==
LOC: EC 05:31
DX: S01.81XA Laceration without foreign body of other part of head, initial encounter (principal); I10 Essential (primary) hypertension; F17.200 Nicotine dependence, unspecified, uncomplicated; F12.90 Cannabis use, unspecified, uncomplicated; Z79.899 Other long term (current) drug therapy; Z23 Encounter for immunization; W22.09XA Striking against other stationary object, initial encounter
CPT/HCPCS: 72125; 70450; 72156; 90715; 12011; 99284; 96374; 90471; J2270; J2001

== ENCOUNTER 2024-05-03 16:11 | Emergency (ER) | payer OTHER ==
[2024-05-03 16:22] VITALS: TEMP 98.7
[2024-05-03 17:26] LABS: Basophils % (A) 0 %; Eosinophils # (A) 0.3 k/uL (0-0.7); Eosinophils % (A) 3 %; HGB 13.5 gm/dL (13.0-17.5); Lymphocytes % (A) 13 %; MCH 29.8 pg (25.0-35.0); MCV 90.4 fL (80.0-100.0); Mean Platelet Volume 7.4; Monocytes # (A) 0.5 k/uL (0-1.0); Monocytes % (A) 6 %; Neutrophils # (A) 5.8 k/uL (1.3-7.7); Neutrophils % (A) 76 %; Platelet Count 195 k/uL (150-450); RBC 4.54 m/uL (4.30-5.90); RDW 12.8 % (11.5-15.5); WBC 7.6 k/uL (3.8-10.6)
--- NOTE | 2024-05-03 17:32 | ED ---
General Adult HPI - General Chief complaint: Back Pain/Injury Stated complaint: Chest Pains Time Seen by Provider: 05/03/24 16:23 Source: patient Mode of arrival: ambulatory Limitations: no limitations - History of Present Illness Initial comments: Jacobo is a pleasant 58-year-old male with a history of rheumatoid arthritis who presents the emergency department today for evaluation of back pain. Patient reports he has a history of low back problems he had evaluated last year and states that recently he has been having worsening pain in his mid back, pain does not radiate down the legs. No worsening trouble walking. Patient was recently incarcerated and was receiving pain medication while incarcerated he did get discharged with prescription but has not been able to have them filled and not not had any medications in a few days. Patient reports he is having worsening pain in his mid back. Patient states that the pain comes on he feels like a tightness wrapping around his body and it makes him short of breath. No exertional chest pain, no diaphoresis lightheadedness or syncope. - Related Data Home Medications Medication Instructions Recorded Confirmed lisinopriL [Zestril] 20 mg PO DAILY 09/12/23 05/03/24 DULoxetine HCL [Cymbalta] 40 mg PO HS 05/03/24 05/03/24 Furosemide [Lasix] 40 mg PO DAILY 05/03/24 05/03/24 Ibuprofen [Motrin Ib] 600 mg PO BID PRN 05/03/24 05/03/24 Mirtazapine [Remeron] 15 mg PO HS 05/03/24 05/03/24 Montelukast [Singulair] 10 mg PO DAILY 05/03/24 05/03/24 Potassium Chloride ER [K-Dur 10] 10 meq PO DAILY 05/03/24 05/03/24 sulfaSALAzine 1,500 mg PO BID 05/03/24 05/03/24 tiZANidine [Zanaflex] 2 mg PO BID@0900,1500 05/03/24 05/03/24 tiZANidine [Zanaflex] 4 mg PO HS@2100 05/03/24 05/03/24 traMADol HCL 50 mg PO BID PRN 05/03/24 05/03/24 Allergies Allergy/AdvReac Type Severity Reaction Status Date / Time No Known Allergies Allergy Verified 05/03/24 17:45 Review of Systems ROS Statement: Those systems with pertinent positive or pertinent negative responses have been documented in the HPI. ROS Other: All systems not noted in ROS Statement are negative. Past Medical History Past Medical History: Hypertension, Pneumonia, Pulmonary Embolus (PE), Rheumatoid Arthritis (RA) Additional Past Medical History / Comment(s): timoteo had "aneruysm "on lungs, History of Any Multi-Drug Resistant Organisms: None Reported Past Surgical History: Orthopedic Surgery Additional Past Surgical History / Comment(s): carpal tunnel surgey Past Anesthesia/Blood Transfusion Reactions: No Reported Reaction Past Psychological History: No Psychological Hx Reported Smoking Status: Light tobacco smoker Past Alcohol Use History: Occasional Past Drug Use History: Marijuana General Exam - General Exam Comments Initial Comments: Physical Exam GENERAL: Patient is well-developed and well-nourished. Patient is nontoxic and well- hydrated and is in no distress. HENT: Normocephalic, Atraumatic. EYES: PERRL, EOMI PULMONARY: Unlabored respirations. No audible rales rhonchi or wheezing was noted. CARDIOVASCULAR: There is a regular rate and rhythm without any murmurs gallops or rubs. ABDOMEN: Soft and nontender with normal bowel sounds. SKIN: Skin is clear with no lesions or rashes and otherwise unremarkable. : Deferred NEUROLOGIC: Patient is alert and oriented x3. Moving all extremities spontaneously MUSCULOSKELETAL: Normal extremities with adequate strength and full range of motion. No lower extremity swelling or edema. No calf tenderness. PSYCHIATRIC: Normal psychiatric evaluation. Limitations: no limitations Course Vital Signs 05/03/24 05/03/24 05/03/24 16:15 17:24 18:20 Temperature 98.7 F Pulse Rate 104 H 87 84 Respiratory 18 16 16 Rate Blood Pressure 149/86 150/83 150/83 O2 Sat by Pulse 99 95 95 Oximetry 05/03/24 05/03/24 19:34 21:24 Temperature Pulse Rate 99 111 H Respiratory 18 18 Rate Blood Pressure 152/104 152/100 O2 Sat by Pulse 100 96 Oximetry EKG Findings - EKG Comments: EKG Findings:: EKG interpreted by me EKG obtained due to tightness in the chest EKG obtained at 1642 rate is 96 rhythm is sinus with PVCs. Normal intervals, ID 132, QRS 106, QTc 403, no acute ST elevations or depressions no evidence of acute ischemia or infarction. Medical Decision Making - Medical Decision Making Was pt. sent in by a medical professional or institution (JONN Aguilera, CROSS TIE TRAM LOADER, urgent care, hospital, or detention...) When possible be specific @ -No Did you speak to anyone other than the patient for history (EMS, parent, family, police, friend...)? What history was obtained from this source @ -Significant other at bedside Did you review nursing and triage notes (agree or disagree)? Why? @ -I reviewed and agree with nursing and triage notes Were old charts reviewed (outside hosp., previous admission, EMS record, old EKG, old radiological studies, urgent care reports/EKG's, detention records)? Report findings @ -Previous visits were reviewed Differential Diagnosis (chest pain, altered mental status, abdominal pain women, abdominal pain men, vaginal bleeding, weakness, fever, dyspnea, syncope, headache, dizziness, GI bleed, back pain, seizure, CVA, palpatations, mental health)? @ -Differential Back Pain: Strain, zoster, cauda equina syndrome, epidural abscess, vertebral osteomyelitis, discitis, fracture, subluxation, disc herniation, DJD, spinal stenosis, dissection, AAA, pancreatitis, peptic ulcer disease, pyelonephritis, kidney stone, this is not meant to be an all-inclusive list. EKG interpreted by me (3pts min.). @ -As above X-rays interpreted by me (1pt min.). @ -No acute findings on chest x-ray CT interpreted by me (1pt min.). @ -No large pulmonary embolism there are some nodules in the bilateral lungs no large masses U/S interpreted by me (1pt. min.). @ -None done What testing was considered but not performed or refused? (CT, X-rays, U/S, labs)? Why? @ -None What meds were considered but not given or refused? Why? @ -None Did you discuss the management of the patient with other professionals (professionals i.e. JONN Aguilera, CROSS TIE TRAM LOADER, lab, RT, psych nurse, social work specialist, online advertising analyst, teacher, correction officer, child support case officer)? Give summary @ -No Was smoking cessation discussed for >3mins.? @ -No Was critical care preformed (if so, how long)? @ -No Were there social determinants of health that impacted care today? How? (Homelessness, low income, unemployed, alcoholism, drug addiction, transportation, low edu. Level, literacy, decrease access to med. care, [facility], rehab)? @ -Incarceration Was there de-escalation of care discussed even if they declined (Discuss DNR or withdrawal of care, Hospice)? DNR status @ -No What co-morbidities impacted this encounter? (DM, HTN, Smoking, COPD, CAD, Cancer, CVA, ARF, Chemo, Hep., AIDS, mental health diagnosis, sleep apnea, morbid obesity)? @ -Rheumatoid arthritis Was patient admitted / discharged? Hospital course, mention meds given and route, prescriptions, significant lab abnormalities, going to OR and other pertinent info. @ -Discharged The patient was seen and evaluated, history is obtained from patient. Physical exam was unremarkable patient is able to ambulate he has no weakness or neurologic deficits in his lower extremities from his back pain. His labs were obtained his D-dimer was elevated a PE study was performed he has multiple nodules which he has had in the past but no obvious masses. Patient was again advised to follow-up with him PET scan. Patient was also advised that he can follow-up with his primary care or spine surgeon for his chronic back pain he may need a repeat MRI in the near future but given that his pain is controlled with medications here and he is still ambulatory emergent MRI is not indicated. Undiagnosed new problem with uncertain prognosis? @ -No Drug Therapy requiring intensive monitoring for toxicity (Heparin, Nitro, Insulin, Cardizem)? @ -No Were any procedures done? @ -No Diagnosis/symptom? @ -Chronic back pain, lung nodules Acute, or Chronic, or Acute on Chronic? @ -Default Uncomplicated (without systemic symptoms) or Complicated (systemic symptoms)? @ -Default Side effects of treatment? @ -No Exacerbation, Progression, or Severe Exacerbation? @ -No Poses a threat to life or bodily function? How? (Chest pain, [place], [place], pneumonia, PE, COPD, DKA, ARF, appy, cholecystitis, CVA, Diverticulitis, Homicidal, Suicidal, threat to staff... and all critical care pts) @ -No - Lab Data Result diagrams: 05/03/24 17:11 05/03/24 17:11 Lab Results 05/03/24 05/03/24 05/03/24 Range/Units 17:11 17:11 17:11 WBC 7.6 (3.8-10.6) k/uL RBC 4.54 (4.30-5.90) m/uL Hgb 13.5 (13.0-17.5) gm/dL Hct 41.0 (39.0-53.0) % MCV 90.4 (80.0-100.0) fL MCH 29.8 (25.0-35.0) pg MCHC 33.0 (31.0-37.0) g/dL RDW 12.8 (11.5-15.5) % Plt Count 195 (150-450) k/uL MPV 7.4 Neutrophils % 76 % Lymphocytes % 13 % Monocytes % 6 % Eosinophils % 3 % Basophils % 0 % Neutrophils # 5.8 (1.3-7.7) k/uL Lymphocytes # 1.0 (1.0-4.8) k/uL Monocytes # 0.5 (0-1.0) k/uL Eosinophils # 0.3 (0-0.7) k/uL Basophils # 0.0 (0-0.2) k/uL PT 11.4 (10.0-12.5) sec INR 1.1 (<1.2) APTT 25.1 (22.0-30.0) sec D-Dimer 0.72 H (<0.60) mg/L FEU Sodium 141 (137-145) mmol/L Potassium 4.2 (3.5-5.1) mmol/L Chloride 105 (98-107) mmol/L Carbon Dioxide 30 (22-30) mmol/L Anion Gap 6 mmol/L BUN 12 (9-20) mg/dL Creatinine 0.93 (0.66-1.25) mg/dL Est GFR (CKD-EPI)AfAm >90 (>60 ml/min/1.73 sqM) Est GFR (CKD-EPI)NonAf 89 (>60 ml/min/1.73 sqM) Glucose 79 (74-99) mg/dL Calcium 9.4 (8.4-10.2) mg/dL Magnesium 1.7 (1.6-2.3) mg/dL Total Bilirubin 0.7 (0.2-1.3) mg/dL AST 45 (17-59) U/L ALT 55 H (4-49) U/L Alkaline Phosphatase 92 (38-126) U/L Creatine Kinase 266 H (55-170) U/L Troponin I (0.000-0.034) ng/mL NT-Pro-B Natriuret Pep 158 pg/mL Total Protein 6.1 L (6.3-8.2) g/dL Albumin 4.0 (3.5-5.0) g/dL 05/03/24 Range/Units 17:11 WBC (3.8-10.6) k/uL RBC (4.30-5.90) m/uL Hgb (13.0-17.5) gm/dL Hct (39.0-53.0) % MCV (80.0-100.0) fL MCH (25.0-35.0) pg MCHC (31.0-37.0) g/dL RDW (11.5-15.5) % Plt Count (150-450) k/uL MPV Neutrophils % % Lymphocytes % % Monocytes % % Eosinophils % % Basophils % % Neutrophils # (1.3-7.7) k/uL Lymphocytes # (1.0-4.8) k/uL Monocytes # (0-1.0) k/uL Eosinophils # (0-0.7) k/uL Basophils # (0-0.2) k/uL PT (10.0-12.5) sec INR (<1.2) APTT (22.0-30.0) sec D-Dimer (<0.60) mg/L FEU Sodium (137-145) mmol/L Potassium (3.5-5.1) mmol/L Chloride (98-107) mmol/L Carbon Dioxide (22-30) mmol/L Anion Gap mmol/L BUN (9-20) mg/dL Creatinine (0.66-1.25) mg/dL Est GFR (CKD-EPI)AfAm (>60 ml/min/1.73 sqM) Est GFR (CKD-EPI)NonAf (>60 ml/min/1.73 sqM) Glucose (74-99) mg/dL Calcium (8.4-10.2) mg/dL Magnesium (1.6-2.3) mg/dL Total Bilirubin (0.2-1.3) mg/dL AST (17-59) U/L ALT (4-49) U/L Alkaline Phosphatase (38-126) U/L Creatine Kinase (55-170) U/L Troponin I <0.012 (0.000-0.034) ng/mL NT-Pro-B Natriuret Pep pg/mL Total Protein (6.3-8.2) g/dL Albumin (3.5-5.0) g/dL Disposition Clinical Impression: Chronic back pain, Pulmonary nodules Disposition: HOME SELF-CARE Condition: Stable Is patient prescribed a controlled substance at d/c from ED?: No Referrals: Henrique Lyon MD [Primary Care Provider] - 1-2 days Joaquin Flores DO [Doctor of Osteopathic Medicine] - 1-2 days Donal Lazo DO [Doctor of Osteopathic Medicine] - 1-2 days
[2024-05-03 17:42] LABS: ALT 55 U/L (4-49); AST 45 U/L (17-59); African American GFR (CKD) >90 (>60 ml/min/1.73 sqM); Alkaline Phosphatase 92 U/L (38-126); Anion Gap 6 mmol/L; Blood Urea Nitrogen 12 mg/dL (9-20); Calcium 9.4 mg/dL (8.4-10.2); Carbon Dioxide 30 mmol/L (22-30); Chloride 105 mmol/L (98-107); Creatine Kinase 266 U/L (55-170); Glucose 79 mg/dL (74-99); Magnesium 1.7 mg/dL (1.6-2.3); Non-African American GFR(CKD) 89 (>60 ml/min/1.73 sqM); Potassium 4.2 mmol/L (3.5-5.1); Sodium 141 mmol/L (137-145); Total Bilirubin 0.7 mg/dL (0.2-1.3); Total Protein 6.1 g/dL (6.3-8.2)
[2024-05-03 17:43] LABS: INR 1.1 (<1.2); Partial Thromboplastin Time 25.1 sec (22.0-30.0); Prothrombin Time 11.4 sec (10.0-12.5)
--- NOTE | 2024-05-03 17:47 | XR ---
EXAMINATION TYPE: XR chest 2V DATE OF EXAM: 05/03/2024 COMPARISON: 07/07/2023 INDICATION: Chest pain TECHNIQUE: Frontal and lateral views of the chest are obtained. FINDINGS: The heart size is normal. The pulmonary vasculature is normal. The lungs are clear. IMPRESSION: 1. No acute pulmonary process.
[2024-05-03 17:50] LABS: NT-Pro-B-Type Natriuretic Pept 158 pg/mL
--- NOTE | 2024-05-03 19:15 | CT ---
CTA CHEST EXAMINATION TYPE: CT chest angio for PE DATE OF EXAM: 05/03/2024 INDICATION: Arms and hands tingling, positive dimer CT DLP: 398.9 mGycm, Automated exposure control for dose reduction was used. CONTRAST: Patient injected with 80ml mL of Isovue 370. COMPARISON: None TECHNIQUE: CT of the chest is performed on a spiral scan at 2 mm thick sections. Study is performed with intravenous contrast timed for evaluation for pulmonary embolism. This will limit additional po rtions of the evaluation. 3-D MIP images reconstructed by the technologist are reviewed on the compu ter in the coronal and sagittal planes. FINDINGS: No persistent filling defects are evident to suggest an acute pulmonary embolism. No mediastinal or hilar adenopathy enlarged by CT criteria is evident. The ascending aorta diameter at the level of the main pulmonary artery is 2.9 cm. The main pulmonary artery diameter at the bifurcation is 2.0 cm. There are several punctate nodularities in the periphery of the right lung. A lateral left upper laura pheral nodules also noted Small nodule measuring 0.5 cm in the periphery of the lateral right upper lung field. Series 401 imag e 46. 0.5 cm nodule anterior right midlung. Series 401 image 86. Pleural-based 0.5 cm area is on the lateral right lung. A 1.0 cm pleural-based densities in the later al right lung. Series 401, image 110. An area of thickening or nodule measuring 0.6 cm in the right m iddle lobe near the base, series [address] sections were through the upper abdomen. Upper abdomen appears unremarkable. IMPRESSION: 1. Multiple punctate nodules with several 0.5 cm peripheral nodules on the right. Couple of pleural-b ased densities measure up to 1.0 cm on the right. Consider follow-up PET CT when the patient is stabl e. 2. No acute pulmonary embolism radiographically apparent
[2024-05-03 19:36] VITALS: RESP 18
[2024-05-03 21:27] VITALS: BP 152/100; PULSE 111
[2024-05-03] MEDS: MORPHINE SULFATE 4 MG/ML SYRINGE IVP STA (21:53)
[2024-05-03] MEDS: ACET/COD 300 MG/30 MG STARTER PACK 6 TAB BTL PO STA (21:53)
== END 2024-05-03 21:59 | disposition home or self-care (01) ==
LOC: EC 16:11
DX: G89.29 Other chronic pain (principal); M54.50 Low back pain, unspecified; R91.8 Other nonspecific abnormal finding of lung field; F17.210 Nicotine dependence, cigarettes, uncomplicated
CPT/HCPCS: 36415; 93005; 85379; 83880; 80053; 82550; 83735; 84484; 85025; 85610; 85730; 71046; 71275; 99285; Q9967

== ENCOUNTER 2024-05-04 12:09 | Inpatient (IN) | payer OTHER ==
--- NOTE | 2024-05-04 13:19 | ED ---
General Adult HPI - General Chief complaint: Back Pain/Injury Stated complaint: Back pain Time Seen by Provider: 05/04/24 12:11 Source: patient, EMS, RN notes reviewed Mode of arrival: EMS Limitations: no limitations - History of Present Illness Initial comments: Patient is a 58-year-old male present to the emergency department back pain. Patient has chronic back problems and has had previous back surgery. Patient states symptoms have been worse over the past 10 months. Patient was incarcerated. Patient was on Ultram and Flexeril. Patient got out just 2 days ago. Patient was here yesterday and received pain medication and starter pack. Patient states he does not feel is able to take care of himself. Patient states he has been using the wheelchair for the past 10 months. No new incontinence. No loss of sensation - Related Data Home Medications Medication Instructions Recorded Confirmed lisinopriL [Zestril] 20 mg PO DAILY 09/12/23 05/04/24 DULoxetine HCL [Cymbalta] 40 mg PO HS 05/03/24 05/04/24 Furosemide [Lasix] 40 mg PO DAILY 05/03/24 05/04/24 Ibuprofen [Motrin Ib] 600 mg PO BID PRN 05/03/24 05/04/24 Mirtazapine [Remeron] 15 mg PO HS 05/03/24 05/04/24 Montelukast [Singulair] 10 mg PO DAILY 05/03/24 05/04/24 Potassium Chloride ER [K-Dur 10] 10 meq PO DAILY 05/03/24 05/04/24 sulfaSALAzine 1,500 mg PO BID 05/03/24 05/04/24 tiZANidine [Zanaflex] 2 mg PO BID@0900,1500 05/03/24 05/04/24 tiZANidine [Zanaflex] 4 mg PO HS@2100 05/03/24 05/04/24 traMADol HCL 50 mg PO BID PRN 05/03/24 05/04/24 Allergies Allergy/AdvReac Type Severity Reaction Status Date / Time No Known Allergies Allergy Verified 05/04/24 13:42 Review of Systems ROS Statement: Those systems with pertinent positive or pertinent negative responses have been documented in the HPI. ROS Other: All systems not noted in ROS Statement are negative. 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, History of Any Multi-Drug Resistant Organisms: None Reported Past Surgical History: Orthopedic Surgery Additional Past Surgical History / Comment(s): carpal tunnel surgey Past Anesthesia/Blood Transfusion Reactions: No Reported Reaction Past Psychological History: No Psychological Hx Reported Smoking Status: Light tobacco smoker Past Alcohol Use History: Occasional Past Drug Use History: Marijuana General Exam Limitations: no limitations General appearance: alert, in no apparent distress Head exam: Present: normocephalic Eye exam: Present: normal appearance Neck exam: Present: normal inspection Respiratory exam: Present: normal lung sounds bilaterally Cardiovascular Exam: Present: regular rate, normal rhythm Expanded Peripheral pulses: 2+: Dorsalis Pedis (R), Dorsalis Pedis (L) GI/Abdominal exam: Present: soft. Absent: tenderness Extremities exam: Present: normal inspection. Absent: calf tenderness Neurological exam: Present: alert, other (Patient states he cannot lift up his legs) Psychiatric exam: Present: normal affect, normal mood Skin exam: Present: normal color Course Vital Signs 05/04/24 05/04/24 12:14 15:05 Temperature 98.4 F Pulse Rate 96 96 Respiratory 18 18 Rate Blood Pressure 159/83 157/93 O2 Sat by Pulse 99 98 Oximetry Medical Decision Making - Medical Decision Making Was pt. sent in by a medical professional or institution (, PA, ANNUAL GIVING DIRECTOR, urgent care, hospital, or jail...) When possible be specific @ -No Did you speak to anyone other than the patient for history (EMS, parent, family, police, friend...)? What history was obtained from this source @ -No Did you review nursing and triage notes (agree or disagree)? Why? @ -I reviewed and agree with nursing and triage notes Were old charts reviewed (outside hosp., previous admission, EMS record, old EKG, old radiological studies, urgent care reports/EKG's, jail records)? Report findings @ -Previous CT reviewed Differential Diagnosis (chest pain, altered mental status, abdominal pain women, abdominal pain men, vaginal bleeding, weakness, fever, dyspnea, syncope, headache, dizziness, GI bleed, back pain, seizure, CVA, palpatations, mental health, musculoskeletal)? @ -MDM differential back differential Back Pain: Strain, zoster, cauda equina syndrome, epidural abscess, vertebral osteomyelitis, discitis, fracture, subluxation, disc herniation, DJD, spinal stenosis, dissection, AAA, pancreatitis, peptic ulcer disease, pyelonephritis, kidney stone, this is not meant to be an all-inclusive list. EKG interpreted by me (3pts min.). @ -As above X-rays interpreted by me (1pt min.). @ -None done CT interpreted by me (1pt min.). @ -CT scan lumbar spine shows degenerative changes U/S interpreted by me (1pt. min.). @ -None done What testing was considered but not performed or refused? (CT, X-rays, U/S, labs)? Why? @ -None What meds were considered but not given or refused? Why? @ -None Did you discuss the management of the patient with other professionals (professionals i.e. , PA, ANNUAL GIVING DIRECTOR, lab, RT, psych nurse, social staff worker, faculty administrator, teacher, traffic control officer, trimming caser)? Give summary @ -Case discussed with Dr. Simmons who will admit covering Dr. Lyon Was smoking cessation discussed for >3mins.? @ -No Was critical care preformed (if so, how long)? @ -No Were there social determinants of health that impacted care today? How? (Homelessness, low income, unemployed, alcoholism, drug addiction, transportation, low edu. Level, literacy, decrease access to med. care, assisted, rehab)? @ -No Was there de-escalation of care discussed even if they declined (Discuss DNR or withdrawal of care, Hospice)? DNR status @ -No What co-morbidities impacted this encounter? (DM, HTN, Smoking, COPD, CAD, Cancer, CVA, ARF, Chemo, Hep., AIDS, mental health diagnosis, sleep apnea, morbid obesity)? @ -None Was patient admitted / discharged? Hospital course, mention meds given and route, prescriptions, significant lab abnormalities, going to OR and other pertinent info. @ -Patient presents with chronic back pain. Patient states he is unable to ambulate and unable to take care of himself. Patient will be admitted for social work and consult with Dr. Sagar tenorio, admission orders written. Undiagnosed new problem with uncertain prognosis? @ -No Drug Therapy requiring intensive monitoring for toxicity (Heparin, Nitro, Insulin, Cardizem)? @ -No Were any procedures done? @ -No Diagnosis/symptom? @ -Back pain Acute, or Chronic, or Acute on Chronic? @ -Acute on chronic Uncomplicated (without systemic symptoms) or Complicated (systemic symptoms)? @ -Complicated with patient stated inability to walk Side effects of treatment? @ -No Exacerbation, Progression, or Severe Exacerbation? @ -No Poses a threat to life or bodily function? How? (Chest pain, [place], [place], pneumonia, PE, COPD, DKA, ARF, appy, cholecystitis, CVA, Diverticulitis, Homicidal, Suicidal, threat to staff... and all critical care pts) @ -No Disposition Clinical Impression: Back pain Disposition: ADMITTED IP TO THIS HOSP Is patient prescribed a controlled substance at d/c from ED?: No Referrals: Henrique Lyon MD [Primary Care Provider] - 1-2 days Time of Disposition: 16:26
--- NOTE | 2024-05-04 13:47 | CT ---
EXAMINATION TYPE: CT lumbar spine wo con DATE OF EXAM: 05/04/2024 COMPARISON: None HISTORY: Pain CT DLP: 797.[address] of the lumbar spine was performed. Bone and soft tissue window settings are submitted as well as coronal and sagittal reconstructions. L1-L2: Normal disc space height. No disc herniation protrusion or central stenosis. No facet joint arthropathy. No evidence for foraminal encroachment. L2-L3: Mild degenerative disc space narrowing. Posterior disc bulge. Effacement ventral thecal sac wi th mild central stenosis. Bilateral neural foraminal encroachment. L3-L4: Vacuum disks noted with moderate circumferential disc bulge greatest posteriorly. Hypertrophy of the ligamentum flavum and facet joint arthropathy result in at least moderate central stenosis. Bi lateral foraminal encroachment. L4-L5: Vacuum disks noted with moderate circumferential disc bulge greatest posteriorly. Hypertrophy of the ligamentum flavum and facet joint arthropathy result in at least moderate central stenosis. Bi lateral foraminal encroachment. L5-S1: Vacuum disks noted with moderate circumferential disc bulge greatest posteriorly. Hypertrophy of the ligamentum flavum and facet joint arthropathy result in at least moderate central stenosis. Bi lateral foraminal encroachment. No paraspinal masses are identified. Lumbar segments are free of fracture. IMPRESSION: 1. Multilevel degenerative disc disease. 2. Multilevel central stenosis.
[2024-05-04] MEDS: HYDROmorphone 1 MG/ML 1 ML SYRINGE IM STA (15:08)
[2024-05-04] MEDS ORDERED: NALOXONE 0.4 MG/ML 1 ML VIAL IV PRN (16:26)
[2024-05-04 17:16] LABS: Basophils % (A) 0 %; Eosinophils % (A) 1 %; HCT 41.3 % (39.0-53.0); Lymphocytes # (A) 1.2 k/uL (1.0-4.8); Lymphocytes % (A) 17 %; MCHC 33.9 g/dL (31.0-37.0); MCV 88.4 fL (80.0-100.0); Mean Platelet Volume 7.9; Monocytes # (A) 0.4 k/uL (0-1.0); Monocytes % (A) 6 %; Neutrophils # (A) 5.1 k/uL (1.3-7.7); Neutrophils % (A) 76 %; Platelet Count 213 k/uL (150-450); RBC 4.68 m/uL (4.30-5.90); WBC 6.8 k/uL (3.8-10.6)
[2024-05-04 17:25] LABS: ALT 47 U/L (4-49); AST 40 U/L (17-59); African American GFR (CKD) >90 (>60 ml/min/1.73 sqM); Alkaline Phosphatase 84 U/L (38-126); Anion Gap 5 mmol/L; Blood Urea Nitrogen 16 mg/dL (9-20); Calcium 9.4 mg/dL (8.4-10.2); Carbon Dioxide 27 mmol/L (22-30); Chloride 108 mmol/L (98-107); Glucose 99 mg/dL (74-99); Non-African American GFR(CKD) >90 (>60 ml/min/1.73 sqM); Potassium 4.5 mmol/L (3.5-5.1); Sodium 140 mmol/L (137-145); Total Bilirubin 0.6 mg/dL (0.2-1.3); Total Protein 6.2 g/dL (6.3-8.2)
[2024-05-04] MEDS: methylPREDNISolone SOD SUCCI 125 MG/2 ML VIAL IV STA (17:56)
--- NOTE | 2024-05-04 17:56 | P.HPIM ---
History of Present Illness H&P Date: 05/04/24 58 year old M with PMH of RA presents to the ED. Patient reports being incarcerated for the past 10 months. He reports thoracic and lumbar back pain, dull and stabbing in nature, 10/10 severity that has been persistently getting worse over the past year. He recently got released from [facility] yesterday and has had difficulties with his ADL and IADLs which prompted him to come to the ED. He reports numbness and tingling in all of his fingers. He reports occasional shooting pain down both of his legs. He reports significant muscle spasms in both of his arms. He denies any bladder or bowel incontinence or saddle anesthesia. He denies any inciting trauma. MRI L spine done on 06/2023 shows left disk herniation S1, multilevel DJD L3-4, L4-5, L5-S1, multilevel canal stenosis L2-S1. C-spine MRI done in 08/2023 shows C3-4 severe spinal canal stenosis with myelomalacia. In the ED he underwent extensive evaluation. BP 159/83, HR 96, T 98.4F, RR 18, 99% on RA. CT L spine showed L2-3 mild central stenosis, L3-4 (and L4-5, L5-S1) moderate central stenosis. CBC, and CMP done significant for Cl 108, total protein 6.2. Patient is admitted for pain control and Ortho spine evaluation. General: mild distress, appears at stated age Derm: warm, dry Head: atraumatic, normocephalic, symmetric Eyes: EOMI, no lid lag, anicteric sclera Mouth: no lip lesion, mucus membranes moist Cardiovascular: S1S2 reg, no murmur Lungs: CTA bilateral, no rhonchi, no rales , no accessory muscle use Abdominal: soft, no guarding, no appreciable organomegaly Ext: no gross muscle atrophy, no edema, no contractures Neuro: RL and LLE 3/5 strength, spasms and fasiculation of the bilateral upper extremities, weak corporate traffic manager strength bilaterally, sensation intact to touch in all 4 extremities. Psych: Alert, oriented, appropriate affect Based on my assessment of this patient, this patient meets a high complexity level of care. Multilevel mild-severe spinal canal stenosis: Pain control with Dilaudid 1 mg IV Q4H PRN. One dose of Valium 5 mg IV. Toradol 15 mg IV Q6H PRN, Tylenol 650 mg PO Q6H PRN. Zanaflex 2 mg PO BID + 4 mg PO QHS. Cymbalta 40 mg PO QHS. SoluMedrol 60 mg IV Q6H. Fall precautions. Neurochecks. PT and OT consult. Orthospine evaluation. Acute on chronic back pain: Management as above. Rheumatoid arthritis: Outpatient Copy Lathe Tender follow up. Pulmonary nodules: Outpatient Pulmonary follow up. Smoker: Advised to quit. CODE STATUS: FULL CODE DVT Prophylaxis: Lovenox SQ GI Prophylaxis: Protonix PO Designated medical POA if patient is not able to make medical decisions for themselves: I have reviewed the following nursing education consultant notes: ED. I have reviewed the results of the following tests: As above. I have ordered the following tests: As above. I have discussed the care of this patient with the following independent historian: I have independently interpreted the following test below: I have discussed the management of this patient with the following physician: Past Medical History Past Medical History: Hypertension, Pneumonia, Pulmonary Embolus (PE), Rheumatoid Arthritis (RA) Additional Past Medical History / Comment(s): february had "aneruysm "on lungs, History of Any Multi-Drug Resistant Organisms: None Reported Past Surgical History: Orthopedic Surgery Additional Past Surgical History / Comment(s): carpal tunnel surgey Past Anesthesia/Blood Transfusion Reactions: No Reported Reaction Past Psychological History: No Psychological Hx Reported Smoking Status: Light tobacco smoker Past Alcohol Use History: Occasional Past Drug Use History: Marijuana Medications and Allergies Home Medications Medication Instructions Recorded Confirmed Type lisinopriL [Zestril] 20 mg PO DAILY 09/12/23 05/04/24 History DULoxetine HCL [Cymbalta] 40 mg PO HS 05/03/24 05/04/24 History Furosemide [Lasix] 40 mg PO DAILY 05/03/24 05/04/24 History Ibuprofen [Motrin Ib] 600 mg PO BID PRN 05/03/24 05/04/24 History Mirtazapine [Remeron] 15 mg PO HS 05/03/24 05/04/24 History Montelukast [Singulair] 10 mg PO DAILY 05/03/24 05/04/24 History Potassium Chloride ER [K-Dur 10] 10 meq PO DAILY 05/03/24 05/04/24 History sulfaSALAzine 1,500 mg PO BID 05/03/24 05/04/24 History tiZANidine [Zanaflex] 2 mg PO BID@0900,1500 05/03/24 05/04/24 History tiZANidine [Zanaflex] 4 mg PO HS@2100 05/03/24 05/04/24 History traMADol HCL 50 mg PO BID PRN 05/03/24 05/04/24 History Allergies Allergy/AdvReac Type Severity Reaction Status Date / Time No Known Allergies Allergy Verified 05/04/24 13:42 Physical Exam Vitals: Vital Signs Temp Pulse Resp BP Pulse Ox 05/04/24 15:05 96 18 157/93 98 05/04/24 12:14 98.4 F 96 18 159/83 99 Intake and Output 05/04/24 05/04/24 05/04/24 06:59 14:59 22:59 Other: Weight 84.822 kg Results CBC & Chem 7: 05/04/24 17:07 05/04/24 17:07 Labs: Abnormal Lab Results - Last 24 Hours (Table) 05/04/24 Range/Units 17:07 Chloride 108 H (98-107) mmol/L Total Protein 6.2 L (6.3-8.2) g/dL
[2024-05-04] MEDS: SODIUM CHLORIDE 0.9% 1,000 ML IV SCH (17:57)
[2024-05-04] MEDS: ACYCLOVIR 200 MG CAP PO SCH (17:58)
[2024-05-04] MEDS: MAG HYDROX/AL HYDROX/SIMETH 30 ML, diphenhydrAMINE ELIXIR 75 MG, LIDOCAINE VISCOUS 2% 3... PO SCH (19:20)
[2024-05-04] MEDS: MIRTAZAPINE 15 MG TAB PO SCH (21:59)
[2024-05-04] MEDS: DULoxetine HCL 20 MG CAPSULE.DR PO SCH (21:59)
[2024-05-04] MEDS: tiZANidine 4 MG TAB PO SCH (21:59)
[2024-05-04] MEDS: methylPREDNISolone SOD SUCCI 125 MG/2 ML VIAL IV SCH (23:54)
[2024-05-05] MEDS: FUROSEMIDE 40 MG TAB PO SCH (09:07)
[2024-05-05] MEDS: ENOXAPARIN 40 MG/0.4 ML SYRINGE SQ SCH (09:07)
[2024-05-05] MEDS: POTASSIUM CHLORIDE ER 10 MEQ TAB.ER.PRT PO SCH (09:07)
[2024-05-05] MEDS: MONTELUKAST 10 MG TAB PO SCH (09:07)
[2024-05-05] MEDS: lisinopriL 20 MG TAB PO SCH (09:07)
[2024-05-05] MEDS: tiZANidine 4 MG TAB PO SCH (09:07)
[2024-05-05] MEDS: PANTOPRAZOLE 40 MG TABLET PO SCH (09:08)
--- NOTE | 2024-05-05 09:25 | CT ---
EXAMINATION TYPE: CT cervical spine wo con DATE OF EXAM: 05/05/2024 COMPARISON: 09/12/2023 HISTORY: Myelopathy CT DLP: 529.10 mGycm CONTRAST: None CT of the cervical spine is performed in the axial plane at 2 mm thick sections. Reconstructed image s in the coronal, and sagittal plane are reviewed on the computer. No acute fractures are evident. There is a posterior central spur at C3. This has moderate anterior thecal sac compression and spinal canal stenosis is 0.7 cm. Smaller posterior vertebral body spurring is present C4 4 borderline spina l canal stenosis of 1.0 cm Uncovertebral joint hypertrophy is present on the right at C4-5 with severe right foraminal stenosis. Sclerotic area within the spinous process of C7 is stable from comparison. Vertebral body alignment is normal. Anterior vertebral body spurring is present C4-5 Mild disc space narrowing is present C4-5 Vertebral body heights are preserved. IMPRESSION: 1. Posterior vertebral body spurring centrally C3 and to lesser degree C4. This has spinal canal st enosis at C3. 2. Uncovertebral joint hypertrophy with severe right foraminal stenosis C4-5
--- NOTE | 2024-05-05 11:25 | P.CNOR ---
History of Present Illness - [facility] Consult date: 05/05/24 Requesting physician: Ceasar Newman Consult reason: back pain History of present illness: Patient is a 58-year-old male who presents to the emergency department yesterday with a chief complaint of back pain. Patient was incarcerated for the past 10 months. Patient was seen this morning on [address] and orthopedics canceled due to back pain. Patient states over the past year has had increasing mid and low back pain as well as what he describes as an electrocuting type pain which seems overtake both his arms and his legs at points. Patient states over the past year the symptoms have worsened. Patient says since he has been started on steroids there has been improvement in some of the symptoms. He says he has had difficulty with ambulation. He denies any loss of bowel or bladder control. Patient states sometimes the muscles in his arms and legs seem to tennis up and spasm. Patient says this is somewhat random in nature. Patient says he does have increased low back pain when changing positions. MRI performed on 1022 shows severe spinal canal stenosis along with myelomalacia. Patient has been using a wheelchair over the past 10 months. She denies any previous orthopedic spine surgery. Patient says he has had some difficulties with activities of daily living. Patient denies chest pain, fever, shortness breath, nausea, and, change in vision, loss of bowel/bladder control. Past Medical History Past Medical History: Hypertension, Pneumonia, Pulmonary Embolus (PE), Rheumatoid Arthritis (RA) Additional Past Medical History / Comment(s): february had "aneruysm "on lungs, History of Any Multi-Drug Resistant Organisms: None Reported Past Surgical History: Orthopedic Surgery Additional Past Surgical History / Comment(s): carpal tunnel surgey Past Anesthesia/Blood Transfusion Reactions: No Reported Reaction Smoking Status: Former smoker Medications and Allergies Home Medications Medication Instructions Recorded Confirmed Type lisinopriL [Zestril] 20 mg PO DAILY 09/12/23 05/04/24 History DULoxetine HCL [Cymbalta] 40 mg PO HS 05/03/24 05/04/24 History Furosemide [Lasix] 40 mg PO DAILY 05/03/24 05/04/24 History Ibuprofen [Motrin Ib] 600 mg PO BID PRN 05/03/24 05/04/24 History Mirtazapine [Remeron] 15 mg PO HS 05/03/24 05/04/24 History Montelukast [Singulair] 10 mg PO DAILY 05/03/24 05/04/24 History Potassium Chloride ER [K-Dur 10] 10 meq PO DAILY 05/03/24 05/04/24 History sulfaSALAzine 1,500 mg PO BID 05/03/24 05/04/24 History tiZANidine [Zanaflex] 2 mg PO BID@0900,1500 05/03/24 05/04/24 History tiZANidine [Zanaflex] 4 mg PO HS@2100 05/03/24 05/04/24 History traMADol HCL 50 mg PO BID PRN 05/03/24 05/04/24 History Allergies Allergy/AdvReac Type Severity Reaction Status Date / Time No Known Allergies Allergy Verified 05/04/24 13:42 Physical Examination Inspection: Negative for any open fractures, shifting erythema/ecchymosis/open wounds. Sensation: Some numbness and tingling present in the bilateral feet and ankles. Equal, symmetric, bilaterally intact throughout the rest of the upper and lower extremities. Palpation: There is some generalized tenderness to the palpation throughout the lumbar spine at midline and in the bilateral SI joints. NTTP throughout rest exam Range of motion: Patient is able to forward elevate bilateral shoulders to about 110 and patient is unable to raise shoulders any further. Patient has full range motion throughout bilateral elbows and wrists on exam. Patient does have range of motion of bilateral hips and knees secondary to first stiffness and pain in the low back. Patient has full range of motion in bilateral ankles. Motor: 4/5 sock folder strength bilaterally. 4/5 in all major motor groups in bilateral upper extremities. 4-/5 in all major motor groups in bilateral lower extremities Neurovascular: Radial pulse intact, 2+ bilaterally. Cap refill under 3 seconds in digits. Special tests: Negative Homans bilaterally. No clonus bilaterally. Negative Wang bilat Results - Labs Labs: Abnormal Lab Results - Last 24 Hours (Table) 05/04/24 Range/Units 17:07 Chloride 108 H (98-107) mmol/L Total Protein 6.2 L (6.3-8.2) g/dL H & H 05/04/24 Range/Units 17:07 Hgb 14.0 (13.0-17.5) gm/dL Hct 41.3 (39.0-53.0) % Result Diagrams: 05/04/24 17:07 05/04/24 17:07 - Diagnostic results CT scan - cervical: report reviewed, image reviewed (Computed tomography scan cervical spine does show spondylosis and stenosis centrally especially at C3. Neuroforaminal stenosis at C4-C5) Assessment and Plan Assessment: 1. Lumbar spondylosis; degenerative disease; cervical canal stenosis; neuroforaminal stenosis; cervical spondylosis Plan: 1. Lumbar spondylosis; degenerative disease; cervical canal stenosis; n euroforaminal stenosis; cervical spondylosis - Computed tomography scan cervical spine does show spondylosis and stenosis centrally especially at C3. Neuroforaminal stenosis at C4-C5. CT of lumbar spine does reveal lumbar spondylosis as well as degenerative disc disease. Positive for some mild ce ntral canal stenosis at lumbar spine. I did discuss findings of the exam and imaging with my attending, Dr. Flores. Due to the patient's worsening symptoms over the past year and findings of MRI in August 2023 we are recommending surgical intervention in the form of C3 to C6 anterior cervical d iscectomy and fusion. I did discuss the treatment options with the patient at bedside this morning. Patient would like to think things over before proceeding with any potential orthopedic surgical intervention. Continue steroids. Pain medication as needed. Weight-bear as tolerated with walker and assistance. We will continue to follow patient during stay in hospital. 2. Appreciate medical management 3. Pain management -tramadol; tizanidine; Tylenol; Toradol 4. DVT prophylaxis - Lovenox 5. GI prophylaxis - Protonix 6. PT/OT - weightbearing as tolerated with walker and assistance as needed 7. Encourage incentive spirometer use 8. Appreciate consult Time with Patient: Less than 30
--- NOTE | 2024-05-05 12:44 | P.PN ---
Subjective Progress Note Date: 05/05/24 58 year old M with PMH of RA presents to the ED. Patient reports being incarcerated for the past 10 months. He reports thoracic and lumbar back pain, dull and stabbing in nature, 10/10 severity that has been persistently getting worse over the past year. He recently got released from residential yesterday and has had difficulties with his ADL and IADLs which prompted him to come to the ED. He reports numbness and tingling in all of his fingers. He reports occasional shooting pain down both of his legs. He reports significant muscle spasms in both of his arms. He denies any bladder or bowel incontinence or saddle anesthesia. He denies any inciting trauma. MRI L spine done on 06/2023 shows left disk herniation S1, multilevel DJD L3-4, L4-5, L5-S1, multilevel canal stenosis L2-S1. C-spine MRI done in 08/2023 shows C3-4 severe spinal canal stenosis with myelomalacia. In the ED he underwent extensive evaluation. BP 159/83, HR 96, T 98.4F, RR 18, 99% on RA. CT L spine showed L2-3 mild central stenosis, L3-4 (and L4-5, L5-S1) moderate central stenosis. CBC, and CMP done significant for Cl 108, total protein 6.2. Patient is admitted for pain control and Ortho spine evaluation. 05/05 Patient was seen and examined. No acute events overnight. Pain much improved since admission. CT C-spine shows spinal stenosis at C3. Ortho spine recommends C3-6 anterior cervical discectomy and fusion. Patient would like to think about it. General: mild distress, appears at stated age Derm: warm, dry Head: atraumatic, normocephalic, symmetric Eyes: EOMI, no lid lag, anicteric sclera Mouth: no lip lesion, mucus membranes moist Cardiovascular: S1S2 reg, no murmur Lungs: CTA bilateral, no rhonchi, no rales , no accessory muscle use Ext: no gross muscle atrophy, no edema, no contractures Neuro: RL and LLE 3/5 strength, spasms and fasiculation of the bilateral upper extremities, weak sustainable agriculture specialist strength bilaterally, sensation intact to touch in all 4 extremities. Psych: Alert, oriented, appropriate affect Based on my assessment of this patient, this patient meets a high complexity level of care. Multilevel mild-severe spinal canal stenosis: Pain control with Dilaudid 1 mg IV Q4H PRN. Toradol 15 mg IV Q6H PRN, Tylenol 650 mg PO Q6H PRN. Zanaflex 2 mg PO BID + 4 mg PO QHS. Cymbalta 40 mg PO QHS. SoluMedrol 60 mg IV Q6H. Fall precautions. Neurochecks. PT and OT consult. Orthospine evaluation. Acute on chronic back pain: Management as above. 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 Pulmonary nodules: Outpatient Pulmonary follow up. Smoker: Advised to quit. CODE STATUS: FULL CODE DVT Prophylaxis: Lovenox SQ GI Prophylaxis: Protonix PO Designated medical POA if patient is not able to make medical decisions for themselves: I have reviewed the following systems security consultant notes: Ortho consult. I have reviewed the results of the following tests: CT C-spine. I have ordered the following tests: I have discussed the care of this patient with the following independent historian: ANGELICA regarding plan of care. I have independently interpreted the following test below: I have discussed the management of this patient with the following physician: Objective - Vital Signs Vital signs: Vital Signs Temp 98.7 F 05/05/24 07:36 Pulse 93 05/05/24 07:36 Resp 16 05/05/24 07:36 BP 143/77 05/05/24 07:36 Pulse Ox 97 05/05/24 07:36 FiO2 Intake & Output 05/04/24 05/05/24 05/05/24 18:59 06:59 18:59 Output Total 650 200 Balance -650 -200 Weight 84.822 kg 84.822 kg Output: Urine 650 200 Other: Voiding Method Urinal Urinal - Labs CBC & Chem 7: 05/04/24 17:07 05/04/24 17:07 Labs: Abnormal Lab Results - Last 24 Hours (Table) 05/04/24 Range/Units 17:07 Chloride 108 H (98-107) mmol/L Total Protein 6.2 L (6.3-8.2) g/dL
[2024-05-05] MEDS: HYDROmorphone 1 MG/ML 1 ML SYRINGE IVP PRN (16:14)
[2024-05-05] MEDS: ACETAMINOPHEN TAB 325 MG TAB PO PRN (21:01)
[2024-05-06] MEDS: KETOROLAC 15 MG/ML 1 ML VIAL IVP PRN (06:09)
--- NOTE | 2024-05-06 08:35 | P.PN ---
Subjective Progress Note Date: 05/06/24 Pt s/e, resting comfortable in bed. No new complaints currently. Still with myelopathy, meds help but not substantially better. Fine motor disruption, gait disturbance and "electric shocks" in his BUE and BLE. Denies any BB issues at this time. No perineal numbness/tingling. Objective - Vital Signs Vital signs: Vital Signs Temp 98.8 F 05/06/24 07:55 Pulse 97 05/06/24 07:55 Resp 18 05/06/24 07:55 BP 121/75 05/06/24 07:55 Pulse Ox 95 05/06/24 07:55 FiO2 Intake & Output 05/05/24 05/06/24 05/06/24 18:59 06:59 18:59 Output Total 550 Balance -550 Output: Urine 550 Other: Voiding Method Urinal # Voids 3 - Exam Exam stable today changes noted. Patient is alert and oriented 3 appears well-nourished well-hydrated is in no acute distress. They do not appear septic. There is No tenderness to palpation Lower extremities with 4- out of 5 strength in all major muscle groups Upper extremities 4- out of 5 strength in all major muscle groups. There is FROM that is painless of the b/l UE and LE in all major joints, however his coordination is poor They are intact to light touch sensation in C5-T1 and L2 to S1 nerve distribution with decreased sensation in the C3 to C6 as well as L5-S1 dist ributions DTR 3/4 all upper and lower extremities Patient has palpable dorsalis pedis was posterior tibial pulses. Palpable Rad Ulnar pulses b/l Compartments are soft and compressible. Patient shows a negative Mlika's Cranial nerves II through XII are grossly intact. Special Testing: positive Wang's bilaterally brisk clonus sustained bilateral wrists and ankles negative Babinskis bilaterally myelopathic gait and Romberg is not intact single leg stance not intact diadochokinesis positive - Labs CBC & Chem 7: 05/04/24 17:07 05/04/24 17:07 Assessment and Plan (1) Cervical myelopathy Current Visit: Yes Status: Acute Code(s): G95.9 - DISEASE OF SPINAL CORD, UNSPECIFIED SNOMED Code(s): 773457139 (2) Cervical spinal stenosis Current Visit: Yes Status: Acute Code(s): M48.02 - SPINAL STENOSIS, CERVICAL REGION SNOMED Code(s): 93983867 (3) Cervical spondylosis with myelopathy and radiculopathy Current Visit: Yes Status: Acute Code(s): M47.12 - OTHER SPONDYLOSIS WITH MYELOPATHY, CERVICAL REGION; M47.22 - OTHER SPONDYLOSIS WITH RADICULOPATHY, CERVICAL REGION SNOMED Code(s): 892157629 (4) Gait disturbance Current Visit: Yes Status: Acute Code(s): R26.9 - UNSPECIFIED ABNORMALITIES OF GAIT AND MOBILITY SNOMED Code(s): 76725511 (5) Bilateral arm weakness Current Visit: Yes Status: Acute Code(s): R29.898 - OTH SYMPTOMS AND SIGNS INVOLVING THE MUSCULOSKELETAL SYSTEM SNOMED Code(s): 05822781516906256 (6) Leg weakness, bilateral Current Visit: Yes Status: Acute Code(s): R29.898 - OTH SYMPTOMS AND SIGNS INVOLVING THE MUSCULOSKELETAL SYSTEM SNOMED Code(s): 5953873 (7) Medically complex patient Current Visit: Yes Status: Acute Code(s): Z78.9 - OTHER SPECIFIED HEALTH STATUS SNOMED Code(s): 742114973 Plan: -Cont with medical management with medications, decadron, toradol and pain control -OK for ambulation, do not fall,use assist if needed -NPO @ [place] -Medical clearance for surgical intervention tomorrow 05/07/24 for C3-6 ACDF (~1.5 hr case)
--- NOTE | 2024-05-06 14:50 | P.PN ---
Subjective Progress Note Date: 05/06/24 Principal diagnosis: Spinal Stenosis Mr. León was seen and examined. Extremity weakness is unchanged. Still with shock-like sensations in his extremities. No chest pain or shortness of breath. Objective - Vital Signs Vital signs: Vital Signs Temp 98.1 F 05/06/24 13:42 Pulse 86 05/06/24 13:42 Resp 20 05/06/24 13:42 BP 144/76 05/06/24 13:42 Pulse Ox 99 05/06/24 13:42 FiO2 Intake & Output 05/05/24 05/06/24 05/06/24 18:59 06:59 18:59 Output Total 550 Balance -550 Output: Urine 550 Other: Voiding Method Urinal # Voids 3 - Exam Vitals: Reviewed General: No acute distress Cardiovascular: RRR, S1-S2 Lungs: Breath sounds equal and clear to auscultation bilaterally. No wheezing, rhonchi or rales Extremities: Trace lower extremity edema - Labs CBC & Chem 7: 05/04/24 17:07 05/04/24 17:07 Assessment and Plan Plan: # Severe spinal canal stenosis CT cervical and lumbar spine with multiple levels of spinal stenosis. Cervical MRI from August show C3-C4 severe spinal stenosis with myomalacia. Narcotics. Steroids. PT/OT. Ortho planning on fusion. # RA # Pulmonary nodules CTA with multiple nodules. Outpatient follow-up. # Lower extremity edema On home Lasix. Check echo. # Hypertension Continue home lisinopril VTE prophylaxis: Lovenox GI prophylaxis Protonix
[2024-05-06] MEDS: dexAMETHasone 4 MG TAB PO SCH (17:57)
[2024-05-07 08:16] LABS: Partial Thromboplastin Time 21.7 sec (22.0-30.0); Prothrombin Time 11.2 sec (10.0-12.5)
--- NOTE | 2024-05-07 08:50 | P.PN ---
Progress Note - Text Progress Note Date: 05/07/24 Patient was seen this morning. He has remained NPO since [place] for possible surgery this afternoon, C3-C6 ACDF. Medicine has ordered an ECHO for pending clearance. Questions and concerns regarding surgery has been discussed. Patient is looking forward to finding relief of his symptoms.
[2024-05-07 10:53] LABS: BUN/Creat Ratio 22.18 Ratio (12.00-20.00); Blood Urea Nitrogen 24.4 mg/dL (9.0-27.0); Calcium 8.2 mg/dL (8.7-10.3); Chloride 111 mmol/L (96-109); Glucose 156 mg/dL (70-110); Potassium 4.1 mmol/L (3.5-5.5); Sodium 145 mmol/L (135-145)
[2024-05-07 10:56] LABS: Basophils # (A) 0.01 X 10*3/uL (0.00-0.10); Basophils % (A) 0.1 %; Eosinophils # (A) 0 X 10*3/uL (0.04-0.35); Eosinophils % (A) 0 %; HCT 34.9 % (39.6-50.0); HGB 12.3 g/dL (13.0-17.0); Lymphocytes % (A) 7.3 %; MCH 32.2 pg (27.0-32.0); MCHC 35.2 g/dL (32.0-37.0); MCV 91.4 FL (80.0-97.0); Mean Platelet Volume 10.6 FL (9.5-12.2); Monocytes # (A) 0.53 X 10*3/uL (0.20-1.00); Monocytes % (A) 6.5 %; NRBC Per 100 WBC 0 X 10*3/uL (0.00-0.01); Neutrophils # (A) 7.01 X 10*3/uL (1.80-7.70); Neutrophils % (A) 85.5 %; Platelet Count 169 X 10*3/uL (140-440); RBC 3.82 X 10*6/uL (4.40-5.60); RDW 12.9 % (11.5-14.5)
--- NOTE | 2024-05-07 11:15 | P.PN ---
Subjective Progress Note Date: 05/07/24 Principal diagnosis: Spinal Stenosis Mr. León was seen and examined. Neurologically and clinically unchanged. No shortness of breath or chest pain. He was laying flat. Objective - Vital Signs Vital signs: Vital Signs Temp 98.5 F 05/07/24 06:58 Pulse 99 05/07/24 06:58 Resp 16 05/07/24 06:58 BP 138/81 05/07/24 06:58 Pulse Ox 99 05/07/24 06:58 FiO2 Intake & Output 05/06/24 05/07/24 05/07/24 18:59 06:59 18:59 Intake Total 720 Output Total 150 750 Balance -150 -30 Intake: Intake, IV Titration 360 Amount Sodium Chloride 0.9% 1, 360 000 ml @ 20 mls/hr IV . Q24H [facility] Rx#:[id number] Oral 360 Output: Urine 150 750 Other: Voiding Method Toilet Toilet Urinal Urinal # Voids 2 # Bowel Movements 1 - Exam Vitals: Reviewed General: No acute distress Cardiovascular: RRR, S1-S2 Lungs: Breath sounds equal and clear to auscultation bilaterally. No wheezing, rhonchi or rales Extremities: Trace lower extremity edema - Labs CBC & Chem 7: 05/07/24 07:24 05/07/24 07:24 Labs: Abnormal Lab Results - Last 24 Hours (Table) 05/07/24 05/07/24 05/07/24 Range/Units 07:24 07:24 07:24 RBC 3.82 L (4.40-5.60) X 10*6/uL Hgb 12.3 L (13.0-17.0) g/dL Hct 34.9 L (39.6-50.0) % MCH 32.2 H (27.0-32.0) pg Immature Gran # 0.05 H (0.00-0.04) X 10*3/uL Lymphocytes # 0.60 L (0.90-5.00) X 10*3/uL Eosinophils # 0 L (0.04-0.35) X 10*3/uL APTT 21.7 L (22.0-30.0) sec Chloride 111 H (96-109) mmol/L BUN/Creatinine Ratio 22.18 H (12.00-20.00) Ratio Glucose 156 H (70-110) mg/dL Calcium 8.2 L (8.7-10.3) mg/dL Assessment and Plan Plan: # Severe spinal canal stenosis CT cervical and lumbar spine with multiple levels of spinal stenosis. Cervical MRI from August show C3-C4 severe spinal stenosis with myomalacia. Narcotics. Steroids. PT/OT. Ortho planning on fusion. In terms of preoperative assessment, his revised cardiac risk index is 0 making him low risk for major adverse cardiac events for moderate risk surgery. He does have an echo pending. His lungs are clear on exam. # RA # Pulmonary nodules CTA with multiple nodules. Outpatient follow-up. # Lower extremity edema, improved Check echo. Does have slight increase in creatinine, hold Lasix for now. Increase fluid rate as he is NPO. # Hypertension Continue home lisinopril VTE prophylaxis: Lovenox GI prophylaxis Protonix
[2024-05-07] MEDS: SODIUM CHLORIDE 0.9% 1,000 ML IV SCH (12:52)
--- NOTE | 2024-05-07 13:37 | CA ---
Transthoracic Echo Report Name: Flash León Age: 58 Gender: M : 1965 Exam Date: 05/07/2024 10:54 Exam Location: [facility] Ht (in): 70 Wt (lb): 187 Ordering Physician: Stephanie Lawrence MD Attending/Referring Phys: [employer] Technician Vickie Stallworth RDCS Procedure CPT: Indications: r/o chf Cardiac Hx: Technical Quality: Very technically difficult study Contrast 1: Definity Total Dose (mL): 2 Contrast 2: Total Dose (mL): MEASUREMENTS (Male / Female) Normal Values 2D ECHO LV Diastolic Diameter PLAX 4.9 cm 4.2 - 5.9 / 3.9 - 5.3 cm LV Systolic Diameter PLAX 3.8 cm IVS Diastolic Thickness 1.1 cm 0.6 - 1.0 / 0.6 - 0.9 cm LVPW Diastolic Thickness 1.0 cm 0.6 - 1.0 / 0.6 - 0.9 cm LV Relative Wall Thickness 0.4 LVOT Diameter 2.2 cm LV Diastolic Volume MOD BP 94.7 cm??? 67 - 155 / 56 - 104 cm??? LV Systolic Volume MOD BP 46.5 cm??? 22 - 58 / 19 - 49 cm??? LV Ejection Fraction MOD BP 50.9 % >= 55 % LV Cardiac Index MOD BP 1967.2 cm???/min???m??? LV Diastolic Volume MOD 4C 99.3 cm??? LV Systolic Volume MOD 4C 52.5 cm??? LV Ejection Fraction MOD 4C 47.2 % LV Cardiac Index MOD 4C 1910.4 cm???/min???m??? LV Diastolic Length 4C 8.8 cm LV Systolic Length 4C 7.8 cm LV Diastolic Volume MOD 2C 89.6 cm??? LV Systolic Volume MOD 2C 39.2 cm??? LV Ejection Fraction MOD 2C 56.2 % LV Cardiac Index MOD 2C 2055.4 cm???/min???m??? LV Diastolic Length 2C 8.7 cm LV Systolic Length 2C 7.3 cm LA Volume 45.4 cm??? 18 - 58 / 22 - 52 cm??? LA Volume Index 22.0 cm???/m??? 16 - 28 cm???/m??? DOPPLER AV Peak Velocity 141.2 cm/s AV Peak Gradient 8.0 mmHg AV Mean Velocity 103.8 cm/s AV Mean Gradient 4.7 mmHg AV Velocity Time Integral 29.2 cm LVOT Peak Velocity 105.6 cm/s LVOT Peak Gradient 4.5 mmHg LVOT Velocity Time Integral 20.9 cm LVOT Stroke Volume 77.3 cm??? LVOT Stroke Volume Index 38.1 ml/m??? LVOT Cardiac Index 3151.9 cm???/min???m??? AV Area Cont Eq vti 2.6 cm??? AV Area Cont Eq pk 2.8 cm??? MV Area PHT 6.5 cm??? Mitral E Point Velocity 79.7 cm/s Mitral A Point Velocity 97.5 cm/s Mitral E to A Ratio 0.8 MV Deceleration Time 116.7 ms FINDINGS Left Ventricle Left ventricular ejection fraction is estimated at 45-50 %. Mildly increased septal wall thickness. Mildly decreased left ventricular ejection fraction with regional variability. Left ventricular cavity size normal. Right Ventricle Right ventricle not well visualized. Right Atrium Normal right atrial size. Left Atrium Normal left atrial size. Mitral Valve Structurally normal mitral valve. No mitral stenosis, regurgitation or prolapse. Aortic Valve Aortic valve not well visualized. No aortic valve stenosis or regurgitation. Tricuspid Valve Structurally normal tricuspid valve. No tricuspid stenosis. No tricuspid regurgitation. Pulmonic Valve Pulmonic valve not well visualized. Pericardium No pericardial effusion. Aorta Aortic annulus normal. Ascending aorta not well visualized. CONCLUSIONS Very technically difficult study. Left ventricular ejection fraction is estimated at 45-50 %. Mildly reduced global LV systolic function. Suspect basal inferior wall hypokinesia No evidence of LV thrombus on contrast imaging Valve function was not assessed with good accuracy due to limited image quality No pericardial effusion. No prior echo to compare within database . Previewed by: Dr Zachary Tejeda (Electronically Signed) Final Date: 07 May 2024 13:36
--- NOTE | 2024-05-07 15:27 | P.PN ---
Subjective Progress Note Date: 05/07/24 HISTORY OF PRESENTING ILLNESS Patient is a 58-year-old -[place]ish male presented to the hospital because of thoracic and lumbar back pain stabbing in nature, dull, 10/10 in severity along with tingling and numbness in bilateral upper extremity. He reports that his pain has been going on for last 10 months and has gradually got worse that he is not able to complete his ADLs. He was incarcerated for last 10 months and recently was discharged from the skilled nursing. Echocardiogram was ordered as a part of perioperative evaluation which showed an EF of 45 to 50%, with suspicion of basal inferior wall hypokinesia. There is no pericardial effusion. His ECG shows sinus rhythm with Q waves in inferior lead and nonspecific ST changes in inferolateral leads along with occasional PVCs. Due to these findings cardiology is consulted for perioperative cardiac risk assessment. At the time of evaluation patient is in sinus rhythm. He does not appear to be in congestive heart failure. He denies having any active chest pain chest pressure or shortness of breath. Patient has been sedentary for last 10 months and you are not able to assess his functional capacity at this time. He is not able to complete 4 metabolic equivalents because of his significant back pain at this time. He denies any prior history of diabetes, stroke, kidney disease. He does have history of hypertension for which she was on lisinopril. He denies any prior cardiac history. Reports family history of premature coronary artery disease in father requiring heart transplant in his early 50s. He reports smoking marijuana and tobacco in the past. He has not smoked in the last 1 year. He reports occasional alcohol use. Denies any IV drug abuse. REVIEW OF SYSTEMS 14 point review of system is negative except what is mentioned above in HPI. PHYSICAL EXAMINATION Vital signs reviewed. Head: Normocephalic. Eyes: Sclerae nonicteric. Neck: Brisk carotid upstroke, no jugular venous distention. Lungs: Clear to auscultation. Heart: Regular rate and rhythm, S1-S2, no S3, no murmur or rub. Abdomen: Soft nontender, positive bowel sounds. Extremities: No edema, intact distal pulses. Neuro: Alert, oritented, . Detailed neuro exam was not performed. ASSESSMENT Perioperative cardiac risk assessment for cervical spinal surgery Cervical spinal myelopathy, with acute on chronic exacerbation HFmrEF, mild cardiomyopathy, EF 45 to 50% Questionable basal inferior wall hypokinesia, Q waves in inferior lead Essential hypertension, controlled Prior history of smoking and marijuana use Family history of premature CAD with father requiring heart transplant in 50s PLAN At this time patient does not have signs of congestive heart failure. He does not have any arrhythmias and is currently in sinus rhythm. He denies any active chest pain chest pressure at rest. Due to patient's echo finding of EF 45 to 50%, with questionable basal inferior wall hypokinesia and Q waves in inferior leads, he is at moderate to high risk for the spinal surgery. Patient has significant pain and myelopathy and requires the surgery on urgent basis. At this time there is no prohibitive cardiovascular risk for the surgery. After surgery patient will need cardiac ischemic evaluation either invasively or noninvasively. Case was discussed with Dr. Flores over phone Zachary Tejeda MD, FAC, VI Thank you for allowing [facility] to participate in this patient's care. Feel free to reach out in case of any followup questions. Objective - Vital Signs Vital signs: Vital Signs Temp 98.2 F 05/07/24 12:44 Pulse 80 05/07/24 12:44 Resp 16 05/07/24 12:44 BP 152/84 05/07/24 12:44 Pulse Ox 99 05/07/24 12:44 FiO2 Intake & Output 05/06/24 05/07/24 05/07/24 18:59 06:59 18:59 Intake Total 720 Output Total 150 750 500 Balance -150 -30 -500 Intake: Intake, IV Titration 360 Amount Sodium Chloride 0.9% 1, 360 000 ml @ 20 mls/hr IV . Q24H [facility] Rx#:[id number] Oral 360 Output: Urine 150 750 500 Other: Voiding Method Toilet Toilet Urinal Urinal # Voids 2 # Bowel Movements 1 - Labs CBC & Chem 7: 05/07/24 07:24 05/07/24 07:24 Labs: Abnormal Lab Results - Last 24 Hours (Table) 05/07/24 05/07/24 05/07/24 Range/Units 07:24 07:24 07:24 RBC 3.82 L (4.40-5.60) X 10*6/uL Hgb 12.3 L (13.0-17.0) g/dL Hct 34.9 L (39.6-50.0) % MCH 32.2 H (27.0-32.0) pg Immature Gran # 0.05 H (0.00-0.04) X 10*3/uL Lymphocytes # 0.60 L (0.90-5.00) X 10*3/uL Eosinophils # 0 L (0.04-0.35) X 10*3/uL APTT 21.7 L (22.0-30.0) sec Chloride 111 H (96-109) mmol/L BUN/Creatinine Ratio 22.18 H (12.00-20.00) Ratio Glucose 156 H (70-110) mg/dL Calcium 8.2 L (8.7-10.3) mg/dL
--- NOTE | 2024-05-07 15:32 | P.PN ---
Progress Note - Text Progress Note Date: 05/07/24 Spoke with cardiology about pt. His echo came back with slightly decreased EF at 45-50% with some inferior wall small area of hypokinesia. He does have some risk factors and family history of cardiac issues. He has no active chest pain at this time. Cardiology states pt is OK for surgery today for the ACDF with a moderate risk, but will need further cardiac workup after surgery. Should we want to complete his cervical 360 decompression and fusion with the posterior aspect later on, he would need clearance again. Due to the patient having myelopathy and an acute progression of his sx we do need to decompress him and stabilize him for neurological protection and they agree. That way if he needs further cardiac procedures he will be able to tolerate. We will proceed today with ACDF.
[2024-05-07] MEDS: IV FLUID CONTINUATION 400 ML IV ONE (16:16)
[2024-05-07] MEDS: IV FLUID CONTINUATION 1,000 ML IV ONE (16:17)
--- NOTE | 2024-05-07 16:21 | P.PN ---
Progress Note - Text Progress Note Date: 05/07/24 Spine Surgery Clinical and Risk Review Flash Leónis a 58 yo male presenting for evaluation of Low back pain, UE and LE weakness, difficulty with fine motor skills, inability to ambulate. It was my pleasure to have seen and examined Flash. In our visit today we have had a chance to go over subjective complaints, physical examination findings and treatments including the natural course history without intervention and various interventional options. The patients imaging demonstrates C3-7 spondylosis with severe stenosis, myelomalacia with disc herniations, disc osteophyte complexes at multilevel and collapse with decreased CL. No fracture no lesions. C0-1 and C1-2 stable. On physical exam, Flash León demonstrates Cervical myelopathy with gait disturbance, fine motor disturbance, b/l UE and LE weakness, + hoffmans, brisk b/l, Sustained Clonus b/l UE and LE, progressive neurological deterioration. I have explained to the patient that as their condition progresses it will cause further neurological deficits and eventual paralysis. Based on the patients imaging, physical exam, and the rapid progression and disabling nature of their symptoms, at this time I recommend surgery in the form or a: C3-7 ACDF. I discussed the risk and benefits of this procedure at length with Flash León. The patient agreed to considered pursuing the procedure abovementioned. Prior to surgery, she should follow up with her PCP (Cardio, ID, IM etc) for clearance. Questions were invited and answered, and the patient wishes to proceed as outlined below. Currently, I am recommendin. C3-7 ANTERIOR CERVICAL DISCECOMTY AND FUSION 2. Follow up with PCP for surgical clearance 3. Review of surgical risks and benefits as well as an educational packet on the proposed surgical procedure. Risks: All surgical procedures come with inherent risks, including those related to positioning, anesthesia, intraoperative findings, and postoperative complications. It is important to understand that surgery does not come with any guarantee of a successful outcome as complications and adverse events are always possible. The patient was given a handout in office today discussing the surgical procedure and risks associated with the intervention, both of which were discussed with the patient. These risks include but are not limited to the following: * Experiencing same, different or even worse symptoms in back, neck, arms, or legs compared to before surgery. * Requiring further surgery or other forms of treatment presently or at some time in the future at same or other levels of the intended spine surgery. * On an extreme but fortunately relatively rare basis severe complication such as blindness, stroke, heart attack, temporary and/or permanent nerve injury, paralysis, coma, or may occur, sometimes without known explanation. * Surgical complications may include but are not limited to risk of infection, fluid accumulation in the surgical dissection site, including a seroma or hematoma, that requires additional surgery, wound drainage, bleeding, new numbness or weakness, vision changes/loss, spinal fluid leakage, non-healing and/or infected incision, headaches, difficulty or inability to swallow, hoarseness, hemopneumothorax, pneumothorax, impotence, retrograde ejaculation, vaginal dryness; injury to nerves, spinal cord, blood vessels, lymphatics or other vital organs (i.e., bowel injury, injury to the great vessels); heterotopic bone formation; complications related to the hardware such as screws, rods, cages including misplaced hardware, device failure, instrumentation at the wrong spine level, hardware fracture/breakage, or hardware loosening; vertebral failure of the spinal column above or below the newly placed hardware; retained surgical instrumentations or devices and the need for further surgery. * Medical risks of the planned spine surgery include but are not limited to generalized Infections to the whole body or local areas outside of the surgical site (sepsis), heart attack, bleeding, anaphylaxis, meningitis, seizure, epilepsy, hearing loss, burn dumont, laceration of the head or other areas of the body, bruising, hypersensitivity of the skin, bladder over distension; allergic reaction; shoulder injury related to positioning; fat, blood and air clots to other areas of the body like heart, lungs, brain; failure of internal organs such as lungs, kidneys, liver and excessive bleeding. If blood transfusions are necessary, note that transfusions may cause intolerance reactions such as anaphylaxis or other complex reactions. * Despite best efforts, the results of spine surgery might not heal in terms of bone, soft tissues such as skin, fascia, ligaments, and joints. Additionally, in order to achieve best possible results, spine surgery may be carried out beyond the initially planned levels and involve decompression, fusion including insertion of hardware at levels other than the original intended area of surgical interest change some portions of the procedure in order to ensure the best possible outcomes. * With spine surgery and spinal fusion, there are different off label uses of instrumentation (devices, implants and hardware) as well as biological substances (bone morphogenic proteins, demineralized bone matrix) as well as using extra bone from allograft sources (i.e. cadaver bone) or autograft (iliac crest bone, ribs, or the spine itself). The patient has been given information about these practices and their inherent risks and benefits. The patient has had a chance to review all the listed information, has been given print outs detailing this information, and has had all his/her questions answered to their satisfaction. It was my pleasure to have seen and examined Flash León. In our visit today we have had a chance to go over my understanding of our patient's current condition, the natural course history without intervention and various interventional options. Questions were invited and answered, and the patient wishes to proceed as outlined above. I have seen and examined the patient for 25 minutes and we have spent more than 50% of the time in repeat and detailed counseling about the patient's condition, its natural course history with out and as much as can be predicted with surgery and re-review of various surgical treatment options. In conclusion, Flash León requested we proceed with the above suggested surgery and are willing to accept risks and limitations of the suggested surgery as nature of the disease process and our best attempts at treatment for the condition. Thank you again for allowing us to be part of your patient's care. Please don't hesitate to contact me if you have any further questions. Signed and authenticated by: Joaquin [facility] [address] [facility], [address] [address]
[2024-05-07] MEDS: MIDAZOLAM 2 MG/2 ML VIAL IV ONE (16:25)
[2024-05-07] MEDS: LACTATED RINGERS 1,000 ML BAG IV STA (16:33)
[2024-05-07] MEDS: DEXAMETHASONE SOD PHOSPHATE 4 MG/ML 1 ML VIAL IVP STA (16:40)
[2024-05-07] MEDS: ONDANSETRON 4 MG/2 ML VIAL IVP STA (16:41)
[2024-05-07] MEDS ORDERED: TRANEXAMIC 1,000 MG/100ML-NACL PREMIX BAG ONE (17:21)
[2024-05-07] MEDS ORDERED: ePHEDrine 50 MG/ML 1 ML VIAL ONE (17:21)
[2024-05-07] MEDS ORDERED: SUCCINYLCHOLINE CHLORIDE 200 MG/10 ML VIAL IV ONE (17:21)
[2024-05-07] MEDS ORDERED: MIDAZOLAM 2 MG/2 ML VIAL ONE (17:21)
[2024-05-07] MEDS ORDERED: LIDOCAINE 1% INJ 10MG/ML (20 ML MDV) ONE (17:21)
[2024-05-07] MEDS ORDERED: PROPOFOL 10 MG/ML 20 ML VIAL IV ONE (17:21)
[2024-05-07] MEDS ORDERED: HYDROmorphone (PF) 1 MG/ML ONE (17:21)
[2024-05-07] MEDS ORDERED: PHENYLEPHRINE 10 MG/ML VIAL ONE (17:21)
[2024-05-07] MEDS ORDERED: DEXAMETHASONE SOD PHOSPHATE 10 MG/ML 1 ML VIAL ONE (17:21)
[2024-05-07] MEDS ORDERED: KETAMINE HCL IN 0.9 % NACL 50 MG/5 ML SYRINGE ONE (17:21)
[2024-05-07] MEDS ORDERED: fentaNYL (PF) 50 MCG/ML 2 ML AMP ONE (17:21)
[2024-05-07] MEDS: SODIUM CHLORIDE 0.9% 50 ML with ceFAZolin 2,000 MG IV ONE (17:30)
--- NOTE | 2024-05-07 17:59 | P.ANPRN ---
Procedure Note - Anesthesia - Invasive Line Right Arterial Line Time Out Performed: Yes ([id number]) Date of Procedure: 05/07/24 Time of Procedure: 16:41 Location of Patient: PreOp Preparation: Sterile Prep, Sterile Dressing Arterial Line Location: Radial (right) Ultrasound Used: No Purpose - Visualization and Identification of Vasculature: No Needle Guage: 20g Image Stored and Saved: No Narrative: Invasive line placement per sterile protocol utilized. lumen bled and flushed. Secured. Biopatch and dressed.
[2024-05-07] MEDS: LACTATED RINGERS 1,000 ML IV ONE ×2 (18:04→20:27)
[2024-05-07] MEDS: GELATIN SPONGE,ABSORB (LARGE) 1 EACH SPONGE MISCELLANE ONE (18:13)
[2024-05-07] MEDS: THROMBIN (BOVINE) 5,000 UNIT VIAL MISCELLANE ONE (18:13)
--- NOTE | 2024-05-07 20:40 | P.OP ---
Date of Procedure: 05/07/24 Preoperative Diagnosis: Current Active Problems Cervical myelopathy (Acute) Cervical spinal stenosis (Acute) Cervical spondylosis with myelopathy and radiculopathy (Acute) Leg weakness (Acute) Bilateral arm weakness (Acute) Leg weakness, bilateral (Acute) Gait disturbance (Acute) Medically complex patient (Acute) Postoperative Diagnosis: Current Active Problems Cervical myelopathy (Acute) Cervical spinal stenosis (Acute) Cervical spondylosis with myelopathy and radiculopathy (Acute) Leg weakness (Acute) Bilateral arm weakness (Acute) Leg weakness, bilateral (Acute) Gait disturbance (Acute) Medically complex patient (Acute) Procedure(s) Performed: 1. C3-4 ANTERIOR CERVICAL ARTHRODESIS 2. C4-5 ANTERIOR CERVICAL ARTHRODESIS 3. C5-6 ANTERIOR CERVICAL ARTHRODESIS 4. C3-6 ANTERIOR INSTRUMENTATION, PLATE AND SCREWS 5. C3-4, C4-5, C5-6 INSERTION OF BIOMECHANICAL DEVICE, CAGES. USE OF IONM USE OF IO MICROSCOPE CPTMOD 22 THIS CASE TOOK 75% LONGER THAN EXPECTED DUE TO CORMORBID CONDITIONS, EXTENT OF CERVICAL DISEASE AND HIGH TECHNICALITY OF THE CASE. Implants: MARTHA CASCADIA CAGES 9MM, 8MM, 9MM; 7 DEG LORDOSIS, MEDIUM 68MM PLATE, 16MM SCREWS MAGNATOS, AUTOGRAFT Anesthesia: GETA Surgeon: Joaquin Flores Land Acquisition Specialist #1: Brandyn Clark (WAS PRESENT AND ASSISTED WITH ALL ASPECTS OF THE CASE FROM POSITION TO DRESSING PLACEMENT) Estimated Blood Loss (ml): 75 IV fluids (ml): 1,200 Urine output (ml): 0 Pathology: none sent Condition: stable Disposition: PACU Indications for Procedure: Flash Leónis a 58 yo male presenting for evaluation of Low back pain, UE and LE weakness, difficulty with fine motor skills, inability to ambulate. It was my pleasure to have seen and examined Flash. In our visit today we have had a chance to go over subjective complaints, physical examination findings and treatments including the natural course history without intervention and various interventional options. The patients imaging demonstrates C3-7 spondylosis with severe stenosis, myelomalacia with disc herniations, disc osteophyte complexes at multilevel and collapse with decreased CL. No fracture no lesions. C0-1 and C1-2 stable. On physical exam, Flash León demonstrates Cervical myelopathy with gait disturbance, fine motor disturbance, b/l UE and LE weakness, + hoffmans, brisk b/l, Sustained Clonus b/l UE and LE, progressive neurological deterioration. I have explained to the patient that as their condition progresses it will cause further neurological deficits and eventual paralysis. Based on the patients imaging, physical exam, and the rapid progression and disabling nature of their symptoms, at this time I recommend surgery in the form or a: C3-7 ACDF. I discussed the risk and benefits of this procedure at length with Flash León. The patient agreed to considered pursuing the procedure abovementioned. Prior to surgery, she should follow up with her PCP (Cardio, ID, IM etc) for clearance. Questions were invited and answered, and the patient wishes to proceed as outlined below. Currently, I am recommendin. C3-6/7 ANTERIOR CERVICAL DISCECOMTY AND FUSION Description of Procedure: C3-6 ACDF The patient was seen and examined in the preoperative area. All preoperative protocols were followed. Informed consent was obtained, risks and benefits of the procedure were discussed at length. Risks including bleeding infection damage to the surrounding tissue and risk of reoperation were discussed with the patient. Risk of anesthesia up to and including was discussed with the patient. These are outlined in the risk review. They were willing to accept these risks and all the risks of surgery. The patient was given a weight-based dose of antibiotics in the form of 2 g Ancef. The patient was seen and evaluated by the anesthesia team who deemed them fit for surgery. The site was marked, the patient was willing to proceed with the procedure. The patient was transferred to the operative suite by the Department of anesthesia. They were then drifted off to sleep by the department anesthesia and GETA was performed. The patient tolerated this well. Damon catheter was placed by nursing staff, a-traumatically. Once confirmation of lines and ventilation the patient was transferred to a Supine Quintin table very carefully. All bony prominences including wrists, elbows, axilla, chest, hips, and thighs, and feet were padded very well. Special attention was paid to the genitalia, and these were padded accordingly. SCDs were placed on bilateral lower extremities and were connected. Arms were well padded and placed at their side thumbs up. Once in position, again we confirmed good ventilation capabilities and that lines were running appropriately. The patients Cervical spine was then exposed. 1010s were placed outlining the incision site. Standard alcohol was used to clean the incision site and allowed to dry. C-arm was used to bio-cesar the patient and confirm level for incision which was marked with a skin marker. Operative briefing was performed with all teams and everyone in agreement to proceed. The patient was then prepped and draped in a normal sterile fashion. Timeout was then performed, and all parties agreed with the procedure to be performed. Transverse skin incision was then made on the right side of the patient's neck 3 cm and dissection taken down to the platysma which was split transversely. Sub platysma flap was made, and interval identified between SCM and medial structures. Omohyoid was visualized and protected. Blunt dissection taken down to the anterior cervical fascia which was identified. Blunt prob was then placed and lateral image taken which confirmed levels for operation. These levels were then marked with a bovi. Subperiosteal dissection of the longissimus muscles were then done over these levels identifying uncovertebral joints bilaterally. Retractor was then placed deep to these muscles and held in place with a bed arm. Buchanan pins were placed into C3 and C4 and gentle distraction taken out over the levels. Leslee rongeur used to remove disc material. Operating microscope brought in for visualization. This level was extremely unstable and scarred and there were large osteophytes anteriorly which were removed. Complete discectomy performed at this level with curette, rongure and pituitary. Posteriorly, there were large disc herniations causing severe stenosis foraminal and central making very difficult to decompress in this area. Carefull decompression done. At one point the patient had lower BPs and MAPs (50s) which were treated but during this time motors were difficult to obtain, they did return to baseline once the pressure was addressed <5 min. High speed rukhsana used to remove osteophytes anteriorly and posteriorly until PLL was identified. 6-0 up curette then used to identify the canal and ressect the PLL. 2-0 and 3-0 Kerrison used then to remove PLL and disc herniation and performed b/l foraminotomies. Once good decompression was accomplished, meticulous hemostasis was performed. Sizers were then placed under lateral fluoroscopy until the desired height and lordosis. Cage was then selected, packed with autograft and allograft and placed under lateral imaging. Once in good position it was tested and stable. Motors run before and after cage placement were stable. The wound was irrigated, and autograft placed lateral to the cage anteriorly for fusion. Buchanan pin was then removed from C3 and placed into C5 and bone wax placed in t heir void. Gentle distraction taken out over C4-5 now. Large osteophyte was removed from the anterior portion of C4-5 as well with leslee and rukhsana. There was exhuberent scar tissue here too. Complete discectomy done at C4-5 as described including decompression, b/l foraminotomies and PLL resection. Right side had large osteophyte, disc complex in the foramen which was removed with difficulty, but was able to be done safely. Burring of endplates was minimal, osteophytes removed as described. Spacers were then sized and placed under lateral imaging. Cage selected, packed with graft and placed under lateral images. Once in position, meticulous hemostasis performed, and motors remained stable before and after cage placement. AP image confirmed good placement of cages. Wound was irrigated. At C5-6, Buchanan pins were placed into C5 and C6 and gentle distraction taken out over the levels. Leslee rongeur used to remove disc material. Operating microscope brought in for visualization. Complete discectomy performed at this level with curette, rongure and pituitary. High speed rukhsana used to remove osteophytes anteriorly and posteriorly until PLL was identified. 6-0 up curette then used to identify the canal and ressect the PLL. 2-0 and 3-0 Kerrison used then to remove PLL and disc herniation and performed b/l foraminotomies. Once good decompression was accomplished, meticulous hemostasis was performed. Sizers were then placed under lateral fluoroscopy until the desired height and lordosis. Cage was then selected, packed with autograft and allograft and placed under lateral imaging. Once in good position it was tested and stable. Motors run before and after cage placement were stable. The wound was irrigated, and autograft placed lateral to the cage anteriorly for fusion. A separate, non-integrated plate was then selected and sized under lateral image. The plate was then placed with screws. Fixed screws drilled into C6 b/l and screws placed. Then into C5 C4 and C3 bilaterally. All locking mechanisms were set, and all screws had good purchase. Final AP and lateral images taken confirmed good placement of hardware and good reduction and voodoo of height. The wound was then irrigated copiously with NSS. Surgicel placed deep in the wound. A deep drain placed out a separate incision and sewed into place. Layered closure then performed with 3-0 Vicryl in the platysma and sub-Q tissue. 2-0 Nylon placed in the skin The wound was then cleaned, dried and skin glue placed. Once glue dried telfa, 4x4, and tegaderms were placed for dressing. The patient was then transferred back to their hospital bed a-traumatically. The drain continued to hold suction. They were placed in a soft collar. They were then awakened by the department of anesthesia having tolerated the procedure well without complications.
--- NOTE | 2024-05-07 20:45 | FL ---
EXAMINATION TYPE: FL guidance operating room, XR cervical spine limited Intraoperative/procedural flu oroscopic services were provided. Total fluoroscopy time is 42.7 seconds with a total of 4 submitted images to PACS. Please see the operative/procedural note for further details. DAP: 0.4347 Gycm2
[2024-05-07] MEDS ORDERED: bisacodyL 10 MG SUPP RECTAL PRN (20:51)
[2024-05-07] MEDS ORDERED: CYCLOBENZAPRINE 5 MG TAB PO PRN (20:51)
[2024-05-07] MEDS ORDERED: HYDROcodone/APAP 5-325MG 1 EACH TAB PO PRN (20:51)
[2024-05-07] MEDS ORDERED: NA PHOS,M-B/NA PHOS,DI-BA 133 ML ENEMA RECTAL PRN (20:51)
[2024-05-07] MEDS ORDERED: WATER IV STA (21:20)
[2024-05-07] MEDS ORDERED: DEXAMETHASONE SOD PHOSPHATE IV STA (21:20)
[2024-05-07] MEDS ORDERED: DEXTROSE 5% IV STA (21:20)
--- NOTE | 2024-05-07 21:21 | P.PN ---
Progress Note - Text Progress Note Date: 05/07/24 Pt s/e in PACU. He is waking up and following commands but loosely at this time. He is able to speak well without any issues. He is able to wiggle his toes and fingers but is weak right now. He is moving wrist, fingers, shoulders right now but weak. He is wiggling toes but has to be prompted multiple times to do it. He is able to identify which toes are being touched and which fingers. Better with toes than fingers, but he has had numbness in his hands now for some time which is what got worse when he presented along with radiculopathy and paresthesias. These seem to be better right now, but again he is still waking up. We will continue to monitor him closely. CT scan stat of t he C spine ordered. Decadron given in PACU 50 mg X1. Cont 6q4 on the floor. Neuro checks on the floor.
[2024-05-07] MEDS ORDERED: DEXAMETHASONE SOD PHOSPHATE 10 MG/ML 1 ML VIAL IV SCH (21:30)
[2024-05-07] MEDS: DEXAMETHASONE SOD PHOSPHATE 10 MG/ML 1 ML VIAL IVP STA (21:35)
[2024-05-07] MEDS: HYDROcodone/APAP 7.5-325MG 1 EACH TAB PO PRN (22:44)
[2024-05-07] MEDS: TRANEXAMIC ACID 1,000 MG in SODIUM CHLORIDE 0.9% 100 ML IVPB ONE ×2 (23:02→23:03)
[2024-05-08] MEDS ORDERED: DEXAMETHASONE SOD PHOSPHATE 4 MG/ML 1 ML VIAL IVP SCH
[2024-05-08] MEDS: DEXAMETHASONE SOD PHOSPHATE 10 MG/ML 1 ML VIAL IV SCH (02:44)
--- NOTE | 2024-05-08 07:13 | P.PN ---
Subjective Progress Note Date: 05/08/24 Principal diagnosis: Cervical Myelopathy, severe Pt s/e this AM. Nursing at bedside for catheter placement he was retaining last night 700 cc and they have cath him just now for another 800 and left ruiz in. He states neck pain at this time. He states weakness in his RUE at this time that is slightly more than before surgery. He states he can move everything but is feeling more of a "lightning" sensation in his RUE than before. He denies any f/c/sob/cp at this time. He is somewhat diaphoretic in bed due to pain. He is able to swallow and has been taking PO meds as well as drinking water well. His voice is not hoarse at this time. Objective - Vital Signs Vital signs: Vital Signs Temp 98 F 05/07/24 22:15 Pulse 102 H 05/08/24 00:15 Resp 16 05/07/24 22:15 BP 143/78 05/08/24 00:15 Pulse Ox 98 05/08/24 00:15 FiO2 Intake & Output 05/07/24 05/07/24 05/08/24 06:59 18:59 06:59 Intake Total 720 2150 100 Output Total 750 900 800 Balance -30 1250 -700 Intake: IV 2150 100 Intake, IV Titration 360 Amount Sodium Chloride 0.9% 1, 360 000 ml @ 20 mls/hr IV . Q24H [facility] Rx#:[id number] Oral 360 Output: Drainage 25 Right Anterior Neck 25 Urine 750 900 700 Straight 700 Estimated Blood Loss 75 Other: Voiding Method Toilet Toilet Urinal Urinal Urinal # Bowel Movements 1 - Exam PHYSICAL EXAMINATION: Vitals: Stable at this time General: Awake, alert, appropriate for age, in no acute distress. HEENT: No unusual neck masses around region of lateral neck triangle, thyroid, supraclavicular groove. Extremities: Skin warm and dry without no acute lesions, coloration, temperature, skin intact, no tenderness or erythema. Surgical incisions: Anterior neck CDI at this time. Drain in place was emptied x1 last night serosanguinous. No swelling or flucctuence at this time. Palpation: TTP of the anterior neck at this time around incision, no other. VASCULAR STATUS : Wrist Pulses: [2/4 bilateral radial and ulnar] Pedal Pulses: [2/4 bilateral DP and PT] Color: [Normal] Edema: [None] Pts hands and feet are cooler than the rest of his limbs at this time. NEUROLOGIC EXAMINATION: Mental Status: Awake and alert, fully oriented, with normal attention, concentration and memory, and fluent, appropriate speech. Cranial Nerves: I: Olfactory not tested. II: Visual acuity normal, no visual field deficit noted with confrontation. III,IV: Normal pupillary reflexes & intact extraocular movements without nystagmus. V,: Intact symmetrical facial sensation. VII: Intact symmetrical facial motor movement VIII: Hearing intact. IX,X: Intact gag, swallow, & normal voice. XI: Sternocleidomastoid, trapezius function intact. XII: Tongue midline with normal movements. Special Tests: He is exhibiting some tensioning signs of the RUE at this time with forward flexion Motor Exam (0-5/5, N/T) STRENGTH UPPER EXTREMITY: RUE: 3/5 shoulder abduction; 4-/5 bicep; 4/5 Tricep; 3/5 Wrist ext; 3/5 intrinsics and geriatric assistant; 4-/5 EPL and EDL LUE: 4/5 SA; 4/5 Bicep; 4/5 Tricep; 4/5 wrist Ext; 4/5 intrinsics, geriatric assistant, EPL and EDL, relatively unchanged maybe slightly better LOWER EXTREMITY RLE: HF not tested/pt unable to do with catheter placement at this time; KF/KE 3/5; DF/PF 4+/5 EHL/FHL 4+/5 LLE: HF not tested/pt unable to do with catheter placement at this time; KF/KE 3/5; DF/PF 4+/5 EHL/FHL 4+/5 REFLEXES: Upper Extremity: RIGHT 3/4 LEFT 3/4 Lower Extremity: RIGHT 3/4 LEFT 3/4 Pathological Reflexes Interiano's: RIGHT PRESENT, brisk LEFT PRESENT, brisk Babinski: RIGHT [Absent] LEFT [Absent] Clonus: RIGHT LE NONE; UE sustained still; LEFT LE NONE; UE sustained still SENSORY: Pain and LT sense Intact C5-T1 and L2-S1 Dermatomal deficit Decreased sensation in hands b/l similar to pre op no changes Gait and Functional Evaluation: Ambulatory aids: Walker - EENT Eyes: Present: EOMI, PERRLA - Neurologic Neurologic: Present: CNII-XII intact - Psychiatric Psychiatric: Present: A&O x's 3, appropriate affect, intact judgment & insight - Allied health notes Allied health notes reviewed: nursing - Labs CBC & Chem 7: 05/07/24 07:24 05/07/24 07:24 Labs: Abnormal Lab Results - Last 24 Hours (Table) 05/07/24 05/07/24 05/07/24 Range/Units 07:24 07:24 07:24 RBC 3.82 L (4.40-5.60) X 10*6/uL Hgb 12.3 L (13.0-17.0) g/dL Hct 34.9 L (39.6-50.0) % MCH 32.2 H (27.0-32.0) pg Immature Gran # 0.05 H (0.00-0.04) X 10*3/uL Lymphocytes # 0.60 L (0.90-5.00) X 10*3/uL Eosinophils # 0 L (0.04-0.35) X 10*3/uL APTT 21.7 L (22.0-30.0) sec Chloride 111 H (96-109) mmol/L BUN/Creatinine Ratio 22.18 H (12.00-20.00) Ratio Glucose 156 H (70-110) mg/dL Calcium 8.2 L (8.7-10.3) mg/dL - Imaging and Cardiology CT neck still pending. Assessment and Plan (1) Cervical myelopathy Current Visit: Yes Status: Acute Code(s): G95.9 - DISEASE OF SPINAL CORD, UNSPECIFIED SNOMED Code(s): 745720268 (2) Cervical spinal stenosis Current Visit: Yes Status: Acute Code(s): M48.02 - SPINAL STENOSIS, CERVICAL REGION SNOMED Code(s): 92136760 (3) Cervical spondylosis with myelopathy and radiculopathy Current Visit: Yes Status: Acute Code(s): M47.12 - OTHER SPONDYLOSIS WITH MYELOPATHY, CERVICAL REGION; M47.22 - OTHER SPONDYLOSIS WITH RADICULOPATHY, CERVICAL REGION SNOMED Code(s): 509153325 (4) Gait disturbance Current Visit: Yes Status: Acute Code(s): R26.9 - UNSPECIFIED ABNORMALITIES OF GAIT AND MOBILITY SNOMED Code(s): 42763500 (5) Bilateral arm weakness Current Visit: Yes Status: Acute Code(s): R29.898 - OTH SYMPTOMS AND SIGNS INVOLVING THE MUSCULOSKELETAL SYSTEM SNOMED Code(s): 72249834167238046 (6) Leg weakness, bilateral Current Visit: Yes Status: Acute Code(s): R29.898 - OTH SYMPTOMS AND SIGNS INVOLVING THE MUSCULOSKELETAL SYSTEM SNOMED Code(s): 9159305 (7) Medically complex patient Current Visit: Yes Status: Acute Code(s): Z78.9 - OTHER SPECIFIED HEALTH STATUS SNOMED Code(s): 412678679 (8) Status post cervical spinal fusion Current Visit: Yes Status: Acute Onset Date: ~05/07/24 Code(s): Z98.1 - ARTHRODESIS STATUS SNOMED Code(s): 8887493308130 Plan: -Appreciate jd edwards consultant and team management. -Obtain STAT CT cervical spine that was ordered last night -Agree with Nelson, keep in place, monitor output. -Cardiology work up, needs clearance for posterior cervical C2-T2 Decompression fusion on still more urgent basis, plan is for 05/09/24. Pt continues to be weak and needs 360 decompression of cervical spine. -Activity: OK for up to chair and out of bed with assist. Hard C Collar at all times. -PT/OT. Mobilize arms and legs, Work on control and movement. Nerve Awakening and re-innervation (mind muscle control) -Pain control: Adjust for better pain control. Increase Oral Rosenberg, add alex, flexeril and toradol. -Meds: [reviewed] -GI ppx: senna, Miralax -DVT PPX: Mechanical -Hygiene: Shower when able. Maintain dressing clean and dry. Meticulous cleaning around incision sites. -Drains: [Maintain for now. Record output] -Encourage IS 10x/hr -Dispo: [Pending]
--- NOTE | 2024-05-08 08:22 | CT ---
EXAMINATION TYPE: CT cervical spine wo con DATE OF EXAM: 05/08/2024 COMPARISON: 05/05/2024 HISTORY: 58-year-old male Post op cervical fusion TECHNIQUE: Contiguous axial scanning of the cervical spine without IV contrast. Coronal and sagittal reconstructions performed. CT DLP: 603.20 mGycm Automated exposure control for dose reduction was used. FINDINGS: No craniocervical junction abnormality or predental space widening. Mild degenerative change C1 dens articulation. Interval placement of C3-C6 ACDF. Postsurgical change within edema in the anterior neck soft tissues and subcutaneous emphysema. Surgical drain is in place. The orthopedic hardware appears satisfactory in position. Some residual along is noted particularly a t C2-C3, C3, C4, and C5 levels. This narrows the [place] spinal canal down to 7 mm. Uncovertebral joint and facet arthropathy is present as well. At C2-C3, changes result in mild bilateral neuroforaminal stenosis. At C3-C4, [id number] right neuroforaminal stenosis. At C4-C5, changes noted in moderate right and [id number] left neuroforaminal stenosis. At C5-C6, moderate to severe left and mild to moderate right neuroforaminal stenosis. At C6/C7, moderate to severe left and moderate right neural foraminal stenosis. Degenerative and hypertrophied bilateral sternoclavicular joints. IMPRESSION: 1. INTERVAL POSTSURGICAL CHANGE OF PLACEMENT OF C3-C6 ACDF. SURGICAL DRAIN IN PLACE. 2. RESIDUAL OPLL NARROWING THE [place] SPINAL CANAL DOWN TO 7 MM IN VARIOUS AREAS FROM C2 DOWN TO C5 L EVELS. 3. VARIABLE NEUROFORAMINAL STENOSES OUTLINED ABOVE.
[2024-05-08] MEDS: SENNOSIDES-DOCUSATE SODIUM 1 EACH TAB PO SCH (09:30)
[2024-05-08 09:31] LABS: Basophils % (A) 0 %; Eosinophils % (A) 0 %; HCT 39.6 % (39.0-53.0); HGB 12.7 gm/dL (13.0-17.5); Lymphocytes # (A) 0.6 k/uL (1.0-4.8); Lymphocytes % (A) 5 %; MCH 29.7 pg (25.0-35.0); MCV 92.9 fL (80.0-100.0); Mean Platelet Volume 7.9; Monocytes # (A) 0.4 k/uL (0-1.0); Monocytes % (A) 3 %; Neutrophils # (A) 10.8 k/uL (1.3-7.7); Neutrophils % (A) 91 %; Platelet Count 202 k/uL (150-450); RBC 4.27 m/uL (4.30-5.90); RDW 13.4 % (11.5-15.5); WBC 11.9 k/uL (3.8-10.6)
[2024-05-08] MEDS: amLODIPine 5 MG TAB PO SCH (09:31)
--- NOTE | 2024-05-08 09:50 | P.PN ---
Progress Note - Text Progress Note Date: 05/08/24 Spinal Cord Injury Signs, Symptoms and Management Cardiovascular: orthostasis with progressive sitting, needs monitoring for orthostatic hypotension normal BP in spinal cord patient of this level is 90/[address] binder prior to sitting up, and remove when supine thigh high TEDs also helpful - place on in day and off at night Autonomic dysreflexia: Patients with T6 and above spinal cord lesions are at risk for AD, this is an EMERGENCY and can lead to heart attack or stroke if not treated it is ALWAYS due to something irritating the body below the neurologic level of injury presentation is normally sudden hypertension with bradycardia. Symptoms include the following: sweating, redness, flushing, headache, congestion, chills above the level of injury Treatment follows: 1. Sit patient fully upright 2. Loosen abdominal binders, TEDs, and clothing, remove shoes 3. Make sure Ruiz is not kinked and draining 4. Check bed for anything poking the skin 5. Perform bowel program if constipated 6. Check blood pressure every 5 minutes - once etiology is found, BP will quickly resume to normal 7. 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 Senna ii po QHS and MiraLAX daily Continue Dulcolax NV qPM DO NOT hold meds with multiple stools, may take time to regulate Goal is scheduled program and continence throughout the rest of the day Program Same time daily, preferably in am or pm after a meal . Lie patient on left side, Insert suppository, Wait about 30 min . Perform digital stimulation every 15 min X3 or until good results Genitourinary: neurogenic bladder - Neurogenic bladder due to spinal cord injury with impaired bladder ascending sensory awareness and impaired cortical descending bladder control - After spinal cord injury, bladder tends to have tight urinary sphincter with impaired ability to void, decreased squeeze and and emptying, and tendency to overdistention - ruiz in place - unclear if patient will be able to void but would only attempt voiding trial when staff and patient agreeable to the following bladder retraining program - timed void q4h, check PVR and ICP if > 500cc - please document amount voided, PVR and cath volumes in flow sheets - goal voiding volumes of 400-500cc - goal voiding more than retaining and routine PVRs < 100cc - please do NOT place condom catheterpurewick in this patient - condom catheterpurewick is only a urinary collection device and does not cross the urinary sphincter, not treating urinary retention can lead to bladder distention and overflow incontinence - Flomax - recommend starting this medication 0.4 mg po qhs, monitor for am orthostatic hypotension, noting this medication can take 2-4 weeks to reach full effect Skin: - high risk for skin breakdown due to impaired sensation - specialty bed - turn q2h, pad bony areas - check skin daily Prophylaxis: high risk for DVT, recommend lovenox for at least 12 weeks
--- NOTE | 2024-05-08 10:54 | P.PN ---
Subjective Progress Note Date: 05/08/24 HISTORY OF PRESENTING ILLNESS Patient is a 58-year-old -[place] male presented to the hospital because of thoracic and lumbar back pain stabbing in nature, dull, 10/10 in severity along with tingling and numbness in bilateral upper extremity. He reports that his pain has been going on for last 10 months and has gradually got worse that he is not able to complete his ADLs. He was incarcerated for last 10 months and recently was discharged from the detention. Echocardiogram was ordered as a part of perioperative evaluation which showed an EF of 45 to 50%, with suspicion of basal inferior wall hypokinesia. There is no pericardial effusion. His ECG shows sinus rhythm with Q waves in inferior lead and nonspecific ST changes in inferolateral leads along with occasional PVCs. Due to these findings cardiology is consulted for perioperative cardiac risk assessment. At the time of evaluation patient is in sinus rhythm. He does not appear to be in congestive heart failure. He denies having any active chest pain chest pressure or shortness of breath. Patient has been sedentary for last 10 months and you are not able to assess his functional capacity at this time. He is not able to complete 4 metabolic equivalents because of his significant back pain at this time. He denies any prior history of diabetes, stroke, kidney disease. He does have history of hypertension for which she was on lisinopril. He denies any prior cardiac history. Reports family history of premature coronary artery disease in father requiring heart transplant in his early 50s. He reports smoking marijuana and tobacco in the past. He has not smoked in the last 1 year. He reports occasional alcohol use. Denies any IV drug abuse. 05/08 Patient is seen today in follow-up. He denies having any chest pain. He states he is scheduled for surgery tomorrow. No plan at this time for stress testing. He is on IV fluids which will be discontinued. Blood pressure 115/72, heart rate 90, pulse ox 100% on room air. WBC 11.9, hemoglobin 12.7. PHYSICAL EXAMINATION Vital signs reviewed. Head: Normocephalic. Eyes: Sclerae nonicteric. Neck: Brisk carotid upstroke, no jugular venous distention. Lungs: Clear to auscultation. Heart: Regular rate and rhythm, S1-S2, no S3, no murmur or rub. Abdomen: Soft nontender, positive bowel sounds. Extremities: No edema, intact distal pulses. Neuro: Alert, oritented, . Detailed neuro exam was not performed. ASSESSMENT Perioperative cardiac risk assessment for cervical spinal surgery Cervical spinal myelopathy, with acute on chronic exacerbation HFmrEF, mild cardiomyopathy, EF 45 to 50% Questionable basal inferior wall hypokinesia, Q waves in inferior lead Essential hypertension, controlled Prior history of smoking and marijuana use Family history of premature CAD with father requiring heart transplant in 50s PLAN At this time patient does not have signs of congestive heart failure. He does not have any arrhythmias and is currently in sinus rhythm. He denies any active chest pain chest pressure at rest. Due to patient's echo finding of EF 45 to 50%, with questionable basal inferior wall hypokinesia and Q waves in inferior leads, he is at moderate to high risk for the spinal surgery. Patient has significant pain and myelopathy and requires the surgery on urgent basis. At this time there is no prohibitive cardiovascular risk for the surgery. After surgery patient will need cardiac ischemic evaluation either invasively or noninvasively. Case was discussed with Dr. Flores over phone Nurse practitioner note has been reviewed, I agree with documented findings and plan of care. Patient was seen and examined. Objective - Vital Signs Vital signs: Vital Signs Temp 98.3 F 05/08/24 07:57 Pulse 90 05/08/24 07:57 Resp 14 05/08/24 07:57 BP 115/72 05/08/24 07:57 Pulse Ox 100 05/08/24 07:57 FiO2 Intake & Output 05/07/24 05/08/24 05/08/24 18:59 06:59 18:59 Intake Total 2150 100 Output Total 900 1420 Balance 1250 -1320 Intake: IV 2150 100 Output: Drainage 25 Right Anterior Neck 25 Urine 900 1320 Coude 620 Straight 700 Estimated Blood Loss 75 Other: Voiding Method Toilet Urinal Urinal # Bowel Movements 1 - Labs CBC & Chem 7: 05/08/24 08:44 05/07/24 07:24 Labs: Abnormal Lab Results - Last 24 Hours (Table) 05/07/24 05/07/24 Range/Units 07:24 07:24 RBC 3.82 L (4.40-5.60) X 10*6/uL Hgb 12.3 L (13.0-17.0) g/dL Hct 34.9 L (39.6-50.0) % MCH 32.2 H (27.0-32.0) pg Immature Gran # 0.05 H (0.00-0.04) X 10*3/uL Lymphocytes # 0.60 L (0.90-5.00) X 10*3/uL Eosinophils # 0 L (0.04-0.35) X 10*3/uL Chloride 111 H (96-109) mmol/L BUN/Creatinine Ratio 22.18 H (12.00-20.00) Ratio Glucose 156 H (70-110) mg/dL Calcium 8.2 L (8.7-10.3) mg/dL
[2024-05-08] MEDS: polyethylene glycoL 3350 17 GM POWD.PACK PO SCH (11:30)
[2024-05-08] MEDS: HYDROcodone/APAP 10-325MG 1 EACH TAB PO PRN (12:11)
[2024-05-08] MEDS: HYDROmorphone 0.5 MG/0.5 ML SYRINGE IVP PRN (12:12)
--- NOTE | 2024-05-08 12:39 | P.PN ---
Subjective Progress Note Date: 05/08/24 Principal diagnosis: Spinal Stenosis Mr. León was seen and examined. He feels his right arm is more weak today. No chest pain or shortness of breath. Plan of care discussed with him. Ortho planning on posterior decompression tomorrow. Objective - Vital Signs Vital signs: Vital Signs Temp 98.3 F 05/08/24 07:57 Pulse 90 05/08/24 07:57 Resp 14 05/08/24 07:57 BP 115/72 05/08/24 07:57 Pulse Ox 100 05/08/24 07:57 FiO2 Intake & Output 05/07/24 05/08/24 05/08/24 18:59 06:59 18:59 Intake Total 2150 100 Output Total 900 1420 Balance 1250 -1320 Intake: IV 2150 100 Output: Drainage 25 Right Anterior Neck 25 Urine 900 1320 [address] 620 Straight 700 Estimated Blood Loss 75 Other: Voiding Method Toilet Urinal Indwelling Catheter Urinal # Bowel Movements 1 - Exam Vitals: Reviewed General: No acute distress Cardiovascular: RRR, S1-S2 Lungs: Breath sounds equal and clear to auscultation bilaterally. No wheezing, rhonchi or rales Extremities: Trace lower extremity edema - Labs CBC & Chem 7: 05/08/24 08:44 05/07/24 07:24 Labs: Abnormal Lab Results - Last 24 Hours (Table) 05/08/24 Range/Units 08:44 WBC 11.9 H (3.8-10.6) k/uL RBC 4.27 L (4.30-5.90) m/uL Hgb 12.7 L (13.0-17.5) gm/dL Neutrophils # 10.8 H (1.3-7.7) k/uL Lymphocytes # 0.6 L (1.0-4.8) k/uL Assessment and Plan Plan: # Severe spinal canal stenosis CT cervical and lumbar spine with multiple levels of spinal stenosis. Cervical MRI from August show C3-C4 severe spinal stenosis with myomalacia. Narcotics. Steroids. PT/OT. C3-C6 ACDF performed on 05/07. Posterior cervical C2-T2 decompression plan for 05/09. # RA # Pulmonary nodules CTA with multiple nodules. Outpatient follow-up. # Lower extremity edema, improved Check echo. Does have slight increase in creatinine, hold Lasix for now. Increase fluid rate as he is NPO. # Hypertension Continue home lisinopril, add amlodipine # HF mildly reduced EF Echo with EF 45 to 50% with questionable septal basal hypokinesis. Per cardiology, ischemic workup outpatient. VTE prophylaxis: Lovenox GI prophylaxis Protonix
[2024-05-08 15:34] LABS: Blood Urea Nitrogen 22.7 mg/dL (9.0-27.0); Calcium 8.4 mg/dL (8.7-10.3); Carbon Dioxide 23.4 mmol/L (21.6-31.8); Chloride 108 mmol/L (96-109); Chol/HDL Ratio 3.41 Ratio; Glucose 133 mg/dL (70-110); LDL Cholesterol,Calculated 132.7 mg/dL (0.0-131.0); Potassium 4.4 mmol/L (3.5-5.5); Sodium 145 mmol/L (135-145); VLDL Calculation 11.36 mg/dL (5.00-40.00)
[2024-05-08] MEDS: TAMSULOSIN 0.4 MG CAP.ER.24H PO SCH (16:41)
[2024-05-09] MEDS ORDERED: DEXAMETHASONE SOD PHOS (MDV) 20 MG in DEXTROSE 5% IN WATER 50 ML IVPB SCH (09:00)
[2024-05-09] MEDS ORDERED: DEXAMETHASONE SOD PHOSPHATE 10 MG/ML 1 ML VIAL IVP SCH ×2 (09:00)
[2024-05-09 10:32] LABS: Basophils # (A) 0.01 X 10*3/uL (0.00-0.10); Basophils % (A) 0.1 %; Eosinophils # (A) 0 X 10*3/uL (0.04-0.35); Eosinophils % (A) 0 %; HCT 34.3 % (39.6-50.0); Lymphocytes # (A) 0.48 X 10*3/uL (0.90-5.00); Lymphocytes % (A) 4.2 %; MCH 32.3 pg (27.0-32.0); MCV 92.2 FL (80.0-97.0); Mean Platelet Volume 10.8 FL (9.5-12.2); Monocytes # (A) 1.06 X 10*3/uL (0.20-1.00); Monocytes % (A) 9.2 %; NRBC Per 100 WBC 0 X 10*3/uL (0.00-0.01); Neutrophils # (A) 9.92 X 10*3/uL (1.80-7.70); Platelet Count 174 X 10*3/uL (140-440); RBC 3.72 X 10*6/uL (4.40-5.60); RDW 13.3 % (11.5-14.5); WBC 11.53 X 10*3/uL (4.50-10.00)
--- NOTE | 2024-05-09 10:32 | P.PN ---
Subjective Progress Note Date: 05/09/24 HISTORY OF PRESENTING ILLNESS Patient is a 58-year-old -[place] male presented to the hospital because of thoracic and lumbar back pain stabbing in nature, dull, 10/10 in severity along with tingling and numbness in bilateral upper extremity. He reports that his pain has been going on for last 10 months and has gradually got worse that he is not able to complete his ADLs. He was incarcerated for last 10 months and recently was discharged from the halfway. Echocardiogram was ordered as a part of perioperative evaluation which showed an EF of 45 to 50%, with suspicion of basal inferior wall hypokinesia. There is no pericardial effusion. His ECG shows sinus rhythm with Q waves in inferior lead and nonspecific ST changes in inferolateral leads along with occasional PVCs. Due to these findings cardiology is consulted for perioperative cardiac risk assessment. At the time of evaluation patient is in sinus rhythm. He does not appear to be in congestive heart failure. He denies having any active chest pain chest pressure or shortness of breath. Patient has been sedentary for last 10 months and you are not able to assess his functional capacity at this time. He is not able to complete 4 metabolic equivalents because of his significant back pain at this time. He denies any prior history of diabetes, stroke, kidney disease. He does have history of hypertension for which she was on lisinopril. He denies any prior cardiac history. Reports family history of premature coronary artery disease in father requiring heart transplant in his early 50s. He reports smoking marijuana and tobacco in the past. He has not smoked in the last 1 year. He reports occasional alcohol use. Denies any IV drug abuse. 05/08 Patient is seen today in follow-up. He denies having any chest pain. He states he is scheduled for surgery tomorrow. No plan at this time for stress testing. He is on IV fluids which will be discontinued. Blood pressure 115/72, heart rate 90, pulse ox 100% on room air. WBC 11.9, hemoglobin 12.7. 05/09 Patient seen today in follow-up. Blood pressure 139/74, heart rate 92, pulse ox 98% on room air. Patient denies having any chest pain. He does complain of significant pain in his neck area. PHYSICAL EXAMINATION Vital signs reviewed. Head: Normocephalic. Eyes: Sclerae nonicteric. Neck: OSWALDO drain in place, hard c-collar in place. Lungs: Clear to auscultation. Heart: Regular rate and rhythm, S1-S2, no S3, no murmur or rub. Abdomen: Soft nontender, positive bowel sounds. Extremities: No edema, intact distal pulses. Neuro: Alert, oritented, . Detailed neuro exam was not performed. ASSESSMENT Perioperative cardiac risk assessment for cervical spinal surgery Cervical spinal myelopathy, with acute on chronic exacerbation HFmrEF, mild cardiomyopathy, EF 45 to 50% Questionable basal inferior wall hypokinesia, Q waves in inferior lead Essential hypertension, controlled Prior history of smoking and marijuana use Family history of premature CAD with father requiring heart transplant in 50s PLAN At this time patient does not have signs of congestive heart failure. He does not have any arrhythmias and is currently in sinus rhythm. He denies any active chest pain chest pressure at rest. Due to patient's echo finding of EF 45 to 50%, with questionable basal inferior wall hypokinesia and Q waves in inferior leads, he is at moderate to high risk for the spinal surgery. Patient has significant pain and myelopathy but requires surgery on urgent basis. At this time there is no prohibitive cardiovascular risk for the surgery. Patient will eventually need cardiac ischemic evaluation either invasively or noninvasively. Nurse practitioner note has been reviewed, I agree with documented findings and plan of care. Patient was seen and examined. Objective - Vital Signs Vital signs: Vital Signs Temp 98.6 F 05/09/24 07:03 Pulse 92 05/09/24 07:03 Resp 16 05/09/24 07:03 BP 139/74 05/09/24 07:03 Pulse Ox 98 05/09/24 07:03 FiO2 Intake & Output 05/08/24 05/09/24 05/09/24 18:59 06:59 18:59 Output Total 720 1020 Balance -720 -1020 Output: Drainage 20 20 Right Anterior Neck 20 20 Urine 700 1000 Other: Voiding Method Indwelling Catheter Indwelling Catheter # Bowel Movements 1 - Labs CBC & Chem 7: 05/08/24 08:44 05/08/24 08:44 Labs: Abnormal Lab Results - Last 24 Hours (Table) 05/08/24 05/08/24 Range/Units 08:44 08:44 WBC 11.9 H (3.8-10.6) k/uL RBC 4.27 L (4.30-5.90) m/uL Hgb 12.7 L (13.0-17.5) gm/dL Neutrophils # 10.8 H (1.3-7.7) k/uL Lymphocytes # 0.6 L (1.0-4.8) k/uL Anion Gap 13.60 H (4.00-12.00) mmol/L BUN/Creatinine Ratio 22.70 H (12.00-20.00) Ratio Glucose 133 H (70-110) mg/dL Calcium 8.4 L (8.7-10.3) mg/dL Cholesterol 204.00 H (0.00-200.00) mg/dL LDL Cholesterol, Calc 132.7 H (0.0-131.0) mg/dL
[2024-05-09 10:42] LABS: BUN/Creat Ratio 25.45 Ratio (12.00-20.00); Calcium 7.9 mg/dL (8.7-10.3); Carbon Dioxide 22.7 mmol/L (21.6-31.8); Chloride 112 mmol/L (96-109); Glucose 124 mg/dL (70-110); Potassium 4.2 mmol/L (3.5-5.5); Sodium 144 mmol/L (135-145)
--- NOTE | 2024-05-09 13:05 | P.PN ---
Subjective Principal diagnosis: Spinal Stenosis Mr. León was seen and examined. Feels his right arm and hand strength is improving. He was slightly hypotensive yesterday but this has now resolved. No chest pain or shortness of breath. Objective - Vital Signs Vital signs: Vital Signs Temp 98.5 F 05/09/24 12:06 Pulse 71 05/09/24 12:06 Resp 16 05/09/24 12:06 BP 112/52 05/09/24 12:06 Pulse Ox 98 05/09/24 12:06 FiO2 Intake & Output 05/08/24 05/09/24 05/09/24 18:59 06:59 18:59 Output Total 720 1020 Balance -720 -1020 Output: Drainage 20 20 Right Anterior Neck 20 20 Urine 700 1000 Other: Voiding Method Indwelling Catheter Indwelling Catheter # Bowel Movements 1 - Exam Vitals: Reviewed General: No acute distress Cardiovascular: RRR, S1-S2 Lungs: Breath sounds equal and clear to auscultation bilaterally. No wheezing, rhonchi or rales Extremities: Trace lower extremity edema - Labs CBC & Chem 7: 05/09/24 07:05 05/09/24 07:05 Labs: Abnormal Lab Results - Last 24 Hours (Table) 05/08/24 05/09/24 05/09/24 Range/Units 08:44 07:05 07:05 WBC 11.53 H (4.50-10.00) X 10*3/uL RBC 3.72 L (4.40-5.60) X 10*6/uL Hgb 12.0 L (13.0-17.0) g/dL Hct 34.3 L (39.6-50.0) % MCH 32.3 H (27.0-32.0) pg Immature Gran # 0.06 H (0.00-0.04) X 10*3/uL Neutrophils # 9.92 H (1.80-7.70) X 10*3/uL Lymphocytes # 0.48 L (0.90-5.00) X 10*3/uL Monocytes # 1.06 H (0.20-1.00) X 10*3/uL Eosinophils # 0 L (0.04-0.35) X 10*3/uL Chloride 112 H (96-109) mmol/L Anion Gap 13.60 H (4.00-12.00) mmol/L BUN 28.0 H (9.0-27.0) mg/dL BUN/Creatinine Ratio 22.70 H 25.45 H (12.00-20.00) Ratio Glucose 133 H 124 H (70-110) mg/dL Calcium 8.4 L 7.9 L (8.7-10.3) mg/dL Cholesterol 204.00 H (0.00-200.00) mg/dL LDL Cholesterol, Calc 132.7 H (0.0-131.0) mg/dL Assessment and Plan Plan: # Severe spinal canal stenosis CT cervical and lumbar spine with multiple levels of spinal stenosis. Cervical MRI from August show C3-C4 severe spinal stenosis with myomalacia. Narcotics. Steroids. PT/OT. C3-C6 ACDF performed on 05/07. Posterior cervical C2-T2 decompression plan for 05/09. # RA # Pulmonary nodules CTA with multiple nodules. Outpatient follow-up. # Lower extremity edema, improved # Hypertension Continue home lisinopril, hold amlodipine for borderline blood pressures # HF mildly reduced EF Echo with EF 45 to 50% with questionable septal basal hypokinesis. Per cardiology, ischemic workup outpatient. VTE prophylaxis: Lovenox GI prophylaxis Protonix
[2024-05-09] MEDS: DEXAMETHASONE SOD PHOS (MDV) 20 MG in DEXTROSE 5% IN WATER 50 ML IVPB SCH (13:54)
[2024-05-09] MEDS: IV FLUID CONTINUATION 1,000 ML IV ONE (15:33)
[2024-05-09] MEDS: ONDANSETRON 4 MG/2 ML VIAL IVP PRN (15:50)
--- NOTE | 2024-05-09 16:48 | P.ANPRN ---
Procedure Note - Anesthesia - Invasive Line Right Arterial Line Time Out Performed: Yes ([id number]) Date of Procedure: 05/09/24 Time of Procedure: 15:17 Location of Patient: PreOp Preparation: Sterile Prep, Sterile Dressing Arterial Line Location: Radial (right) Ultrasound Used: Yes Purpose - Visualization and Identification of Vasculature: Yes Needle Guage: 20g Image Stored and Saved: Yes Narrative: Invasive line placement per sterile protocol utilized.
[2024-05-09] MEDS ORDERED: LIDOCAINE 1% INJ 10MG/ML (20 ML MDV) ONE (16:49)
[2024-05-09] MEDS ORDERED: PROPOFOL 10 MG/ML 20 ML VIAL IV ONE (16:49)
[2024-05-09] MEDS ORDERED: KETAMINE HCL IN 0.9 % NACL 50 MG/5 ML SYRINGE ONE (16:49)
[2024-05-09] MEDS ORDERED: MIDAZOLAM 2 MG/2 ML VIAL ONE (16:49)
[2024-05-09] MEDS ORDERED: SUCCINYLCHOLINE CHLORIDE 200 MG/10 ML VIAL IV ONE (16:49)
[2024-05-09] MEDS ORDERED: ROCURONIUM 10 MG/ML (5 ML VIAL) IV ONE (16:49)
[2024-05-09] MEDS ORDERED: fentaNYL (PF) 50 MCG/ML 2 ML AMP ONE (16:49)
[2024-05-09] MEDS: LACTATED RINGERS 1,000 ML IV ONE ×2 (17:12→19:42)
[2024-05-09] MEDS: ceFAZolin 3,000 MG in SODIUM CHLORIDE 0.9% IRRIGATIO 3,000 ML IRRIGATION ONE (17:43)
[2024-05-09] MEDS: GENTAMICIN 80 MG in SODIUM CHLORIDE 0.9% IRRIGATIO 3,000 ML IRRIGATION ONE (17:43)
[2024-05-09] MEDS: THROMBIN (BOVINE) 5,000 UNIT VIAL TOPICAL ONE (17:47)
[2024-05-09] MEDS: VANCOMYCIN 1,000 MG VIAL MISCELLANE ONE (19:41)
--- NOTE | 2024-05-09 20:30 | XR ---
Cervical spine. Cervical fusion. COMPARISON: 05/07/2024. TECHNIQUE: 9 intraoperative spot films obtained in the operating room demonstrating posterior cervica l fusion from C3 to through the upper thoracic spine. 44.4 seconds of fluoroscopy was utilized as wel l. IMPRESSION: See the operative report for details of the procedure
[2024-05-09 21:08] LABS: Glucose,Whole Blood 134 mg/dL (70-110)
[2024-05-09 22:03] LABS: ABG HCO3 24 mmol/L (21-25); ABG Oxygen Saturation 100.1 % (94-97); ABG PCO2 42 mmHg (35-45); ABG PH 7.35 (7.35-7.45); ABG PO2 229 mmHg (83-108); ABG TCO2 25 mmol/L (19-24); Allen Test Performed? Yes
[2024-05-09] MEDS: propofoL 100 ML IV ONE (22:20)
--- NOTE | 2024-05-09 22:23 | XR ---
EXAMINATION TYPE: XR chest 1V portable DATE OF EXAM: 05/09/2024 CLINICAL HISTORY: OG tube placement. TECHNIQUE: Single AP portable supine view of the chest is obtained. COMPARISON: Chest x-ray from 6 days earlier FINDINGS: New orogastric tube projects below diaphragm. Lungs remain clear. Cardiac silhouette size stable and within normal limits. Extensive surgical changes cervical spine is now identified and part ially imaged on current study. IMPRESSION: Successful interval placement of orogastric tube.
[2024-05-09] MEDS: GABAPENTIN 300 MG CAP PO SCH (22:30)
[2024-05-09] MEDS: HYDROcodone/APAP 10-325MG 1 EACH TAB PO SCH (22:31)
[2024-05-10] MEDS: SODIUM CHLORIDE 0.9% 1,000 ML IV SCH (01:19)
--- NOTE | 2024-05-10 03:27 | P.CNPUL ---
History of Present Illness Consult date: 05/10/24 Requesting physician: Joaquin Flores Reason for consult: other (Postoperative ventilator management and ICU management) Chief complaint: Bilateral upper and lower extremity weakness and neck pain History of present illness: Patient is a 58-year-old white male with past medical history significant for hypertension, pulmonary embolism, rheumatoid arthritis, osteoarthritis, and lower back pain. Patient is currently sedated and intubated to the mechanical ventilator, unable to provide any information for HPI. On review of the EMR, patient was having severe upper and lower extremity weakness and associated cervical/thoracic level back pain. He was having troubles ambulating, and was apparently utilizing a wheelchair. CT of the cervical spine showed posterior vertebral body spurring centrally C3 and to a lesser degree C4. There was spinal canal stenosis at level C3. Uncovertebral joint hypertrophy with severe right formal stenosis at levels C4 and C5. Orthopedic surgery did evaluate this patient, and patient has underwent two-stage cervical spine surgery. Initial surgery was C3-C7 anterior cervical discectomy and fusion. Yesterday, patient did go back to OR for a posterior C2-T2 decompression and fusion. No perioperative complications reported. Patient was transferred back to the intensive care unit on the mechanical ventilator. Current ventilator settings are AC, respiratory 16, tidal volume 450, FiO2 30%, and PEEP of 5. Most recent ABG done earlier, with an FiO2 of 50% at that time, shows a PaO2 of 229, pCO2 of 42, pH of 7.35. Chest x-ray following surgery shows the endotracheal tube in satisfactory position above the kumar, as well as, a orogastric tube projecting into the stomach. No acute cardiopulmonary process noted. He is synchronous with mechanical ventilator. Patient is currently sedated, and fairly unresponsive. Propofol is ordered for a RASS of 0 to -1. Blood pressure is slightly hypertensive. Reportedly, Dr. Flores would like his MAP greater than 85 to help with perfusion pressure. Head is midline. Patient does have a c-collar on. There is a posterior Hemovac with minimal amount of serosanguineous drainage as well as an anterior OSWALDO drain which is compressed with a minimal amount of serosanguineous drainage. Most recent CBC from yesterday: WBC count 11.5, hemoglobin 12, hematocrit 34, platelets 174. BMP from yesterday: Sodium 144, potassium 4.2, chloride 112, serum bicarb 23, BUN 28, creatinine 1.1, glucose 124. Normal saline is infusing at 75 mL/h. Not currently requiring any vasopressors. Plan will likely be for extubation later this morning. Review of Systems ROS unobtainable: due to endotracheal tube Past Medical History Past Medical History: Hypertension, Pneumonia, Pulmonary Embolus (PE), Rheumatoid Arthritis (RA) Additional Past Medical History / Comment(s): february had "aneruysm "on lungs, History of Any Multi-Drug Resistant Organisms: None Reported Past Surgical History: Orthopedic Surgery Additional Past Surgical History / Comment(s): carpal tunnel surgey Past Anesthesia/Blood Transfusion Reactions: No Reported Reaction Smoking Status: Former smoker Medications and Allergies Home Medications Medication Instructions Recorded Confirmed Type lisinopriL [Zestril] 20 mg PO DAILY 09/12/23 05/04/24 History DULoxetine HCL [Cymbalta] 40 mg PO HS 05/03/24 05/04/24 History Furosemide [Lasix] 40 mg PO DAILY 05/03/24 05/04/24 History Ibuprofen [Motrin Ib] 600 mg PO BID PRN 05/03/24 05/04/24 History Mirtazapine [Remeron] 15 mg PO HS 05/03/24 05/04/24 History Montelukast [Singulair] 10 mg PO DAILY 05/03/24 05/04/24 History Potassium Chloride ER [K-Dur 10] 10 meq PO DAILY 05/03/24 05/04/24 History sulfaSALAzine 1,500 mg PO BID 05/03/24 05/04/24 History tiZANidine [Zanaflex] 2 mg PO BID@0900,1500 05/03/24 05/04/24 History tiZANidine [Zanaflex] 4 mg PO HS@2100 05/03/24 05/04/24 History traMADol HCL 50 mg PO BID PRN 05/03/24 05/04/24 History Allergies Allergy/AdvReac Type Severity Reaction Status Date / Time No Known Allergies Allergy Verified 05/04/24 13:42 Physical Exam Vitals: Vital Signs Temp Pulse Pulse Resp BP BP BP 05/10/24 02:00 66 12 05/10/24 01:00 68 18 121/60 05/10/24 00:15 70 0 L 118/69 05/10/24 00:01 05/10/24 00:00 97.4 F L 70 18 105/67 05/09/24 23:45 73 110/60 05/09/24 23:30 72 114/64 05/09/24 23:15 73 126/59 05/09/24 23:00 74 16 159/71 05/09/24 22:45 85 149/76 05/09/24 22:30 78 146/74 05/09/24 22:15 84 15 146/76 05/09/24 22:05 05/09/24 22:00 81 14 136/68 05/09/24 21:45 87 16 05/09/24 21:30 96.5 F L 92 05/09/24 21:23 05/09/24 21:15 81 15 05/09/24 21:10 05/09/24 15:23 74 18 125/62 05/09/24 15:12 97.9 F 79 18 126/59 05/09/24 12:06 98.5 F 71 16 112/52 05/09/24 07:03 98.6 F 92 16 139/74 Pulse Ox FiO2 05/10/24 02:00 100 05/10/24 01:00 99 05/10/24 00:15 100 05/10/24 00:01 30 05/10/24 00:00 100 30 05/09/24 23:45 99 05/09/24 23:30 99 05/09/24 23:15 100 05/09/24 23:00 100 05/09/24 22:45 99 05/09/24 22:30 100 05/09/24 22:15 99 05/09/24 22:05 30 05/09/24 22:00 100 05/09/24 21:45 100 05/09/24 21:30 100 05/09/24 21:23 50 05/09/24 21:15 05/09/24 21:10 50 05/09/24 15:23 98 05/09/24 15:12 99 05/09/24 12:06 98 05/09/24 07:03 98 Intake and Output 05/09/24 05/09/24 05/10/24 14:59 22:59 06:59 Intake Total 1509.845 230.327 Output Total 1880 290 Balance -370.155 -59.673 Intake: IV 1502 150 Sodium Chloride 0.9% 1, 150 000 ml @ 75 mls/hr IV . [id number] [facility] Rx#:[id number] Intake, IV Titration 7.845 80.327 Amount propofoL 1,000 mg In 7.845 80.327 Empty Bag 1 bag @ 15 MCG/ KG/MIN 7.634 mls/hr IV . Q13H6M [facility] Rx#:[id number] Output: Urine 1730 290 Estimated Blood Loss 150 Other: Voiding Method Indwelling Catheter Indwelling Catheter # Bowel Movements 1 ABP, PAP, CO, CI - Last 8 Hours Arterial Blood Pressure 157/73 Arterial Blood Pressure 158/73 Arterial Blood Pressure 162/76 Arterial Blood Pressure 132/66 Arterial Blood Pressure 115/77 Arterial Blood Pressure 125/64 Arterial Blood Pressure 133/64 Arterial Blood Pressure 168/77 Arterial Blood Pressure 187/84 Arterial Blood Pressure 169/74 Arterial Blood Pressure 172/77 Arterial Blood Pressure 174/81 Arterial Blood Pressure 169/80 Arterial Blood Pressure 165/78 Arterial Blood Pressure 159/71 GENERAL EXAM: Sedated unresponsive, 58-year-old male, c-collar on, head midline, intubated to mechanical ventilator. HEAD: Normocephalic and atraumatic EYES: Normal reaction of pupils, equal size. NOSE: Clear with pink turbinates. THROAT: No erythema or exudates. NECK: No masses, no JVD. C-collar in place. Anterior OSWALDO drain and posterior Hemovac drains in place and draining minimal amount of serosanguineous output. CHEST: No chest wall deformity. LUNGS: Equal air entry with no crackles, wheeze, rhonchi or dullness. Intubated mechanical ventilator. Synchronous with set rate. Peak pressures 16. No significant endotracheal secretions. CVS: S1 and S2 normal with no audible murmur, regular rhythm. No extra heart sounds ABDOMEN: No hepatosplenomegaly, active bowel sounds, no guarding or rigidity. SPINE: No scoliosis or deformity SKIN: No rashes CENTRAL NERVOUS SYSTEM: Patient is sedated, unresponsive even to painful stimuli, no obvious focal deficits, upper and lower extremities are flaccid. Patellar DTRs 2+ bilaterally. Bilateral Babinski neutral. EXTREMITIES: There is no peripheral edema, clubbing, or cyanosis. Peripheral pulses are intact. Results - Laboratory Findings CBC and BMP: 05/09/24 07:05 05/09/24 07:05 ABG ABG pH 7.35 (7.35-7.45) 05/09/24 21:55 ABG pCO2 42 mmHg (35-45) 05/09/24 21:55 ABG pO2 229 mmHg (83-108) H 05/09/24 21:55 ABG O2 Saturation 100.1 % (94-97) H 05/09/24 21:55 PT/INR, D-dimer PT 11.2 sec (10.0-12.5) 05/07/24 07:24 INR 1.0 (<1.2) 05/07/24 07:24 Abnormal lab findings: Abnormal Labs 05/04/24 05/07/24 05/07/24 17:07 07:24 07:24 WBC RBC 3.82 L Hgb 12.3 L Hct 34.9 L MCH 32.2 H Immature Gran # 0.05 H Neutrophils # Lymphocytes # 0.60 L Monocytes # Eosinophils # 0 L APTT 21.7 L ABG pO2 ABG Total CO2 ABG O2 Saturation Chloride 108 H Anion Gap BUN BUN/Creatinine Ratio Glucose POC Glucose (mg/dL) Calcium Total Protein 6.2 L Cholesterol LDL Cholesterol, Calc 05/07/24 05/08/24 05/08/24 07:24 08:44 08:44 WBC 11.9 H RBC 4.27 L Hgb 12.7 L Hct MCH Immature Gran # Neutrophils # 10.8 H Lymphocytes # 0.6 L Monocytes # Eosinophils # APTT ABG pO2 ABG Total CO2 ABG O2 Saturation Chloride 111 H Anion Gap 13.60 H BUN BUN/Creatinine Ratio 22.18 H 22.70 H Glucose 156 H 133 H POC Glucose (mg/dL) Calcium 8.2 L 8.4 L Total Protein Cholesterol 204.00 H LDL Cholesterol, Calc 132.7 H 05/09/24 05/09/24 05/09/24 07:05 07:05 21:07 WBC 11.53 H RBC 3.72 L Hgb 12.0 L Hct 34.3 L MCH 32.3 H Immature Gran # 0.06 H Neutrophils # 9.92 H Lymphocytes # 0.48 L Monocytes # 1.06 H Eosinophils # 0 L APTT ABG pO2 ABG Total CO2 ABG O2 Saturation Chloride 112 H Anion Gap BUN 28.0 H BUN/Creatinine Ratio 25.45 H Glucose 124 H POC Glucose (mg/dL) 134 H Calcium 7.9 L Total Protein Cholesterol LDL Cholesterol, Calc 05/09/24 21:55 WBC RBC Hgb Hct MCH Immature Gran # Neutrophils # Lymphocytes # Monocytes # Eosinophils # APTT ABG pO2 229 H ABG Total CO2 25 H ABG O2 Saturation 100.1 H Chloride Anion Gap BUN BUN/Creatinine Ratio Glucose POC Glucose (mg/dL) Calcium Total Protein Cholesterol LDL Cholesterol, Calc - Diagnostic Findings Chest x-ray: image reviewed CT scan - chest: image reviewed Assessment and Plan Assessment: Severe cervical spinal spondylosis and severe stenosis at levels C3-C7 with myelopathy and radiculopathy; status post two-stage surgery, postoperative day #3 following a C3-C7 anterior cervical discectomy and fusion, followed by a posterior C2-T2 decompression and fusion performed yesterday 05/09/2024. No perioperative complications were reported. Routine mechanical ventilator management, postoperative chest x-ray shows the endotracheal tube in satisfactory position above the kumar, as well as, a orogastric tube projecting into the stomach. No acute cardiopulmonary process noted. Tentative plan is for extubation later this morning. Multiple pulmonary nodules, chest CTA shows multiple small approximately 0.5 cm peripheral and lateral based lung nodules in the right upper and mid lung michel, as well as, multiple pleural-based densities, measuring up to 1 cm on the right. No prior imaging available for review. May follow-up outpatient Heart failure with reduced ejection fraction, echocardiogram estimating a mildly reduced ejection fraction of 45 to 50% History of hypertension History of pulmonary embolism History of rheumatoid arthritis and osteoarthritis Plan: Patient's medications, labs, chest x-ray reviewed Continue with current ventilator settings Work on weaning sedation for appropriate RASS of 0 to -1 If all goes to plan, patient can potentially be extubated later this morning. Will have to monitor for airleak and signs of stridor. Allow for permissive hypertension, orthopedic surgeon reportedly would like a MAP of 85 mmHg or greater during the immediate postoperative period. As needed analgesics ordered Head is midline and c-collar is on SCDs are on Protonix for GI prophylaxis Lovenox for DVT prophylaxis Patient will be continue to monitor in the intensive care unit I have personally seen and examined the patient, performed the documentation and the assessment and plan as written. Number of minutes spent on the visit:20 . Time with Patient: Greater than 30
[2024-05-10 04:50] LABS: Basophils % (A) 0 %; Eosinophils % (A) 0 %; HCT 38.4 % (39.0-53.0); HGB 12.5 gm/dL (13.0-17.5); Lymphocytes # (A) 0.7 k/uL (1.0-4.8); Lymphocytes % (A) 6 %; MCH 30.3 pg (25.0-35.0); MCHC 32.6 g/dL (31.0-37.0); MCV 92.8 fL (80.0-100.0); Mean Platelet Volume 7.9; Monocytes % (A) 8 %; Neutrophils % (A) 86 %; Platelet Count 202 k/uL (150-450); RBC 4.14 m/uL (4.30-5.90); RDW 13.3 % (11.5-15.5); WBC 12.8 k/uL (3.8-10.6)
[2024-05-10 05:04] LABS: ABG Base Excess 0.1 mmol/L; ABG HCO3 25 mmol/L (21-25); ABG Oxygen Saturation 99.3 % (94-97); ABG PCO2 41 mmHg (35-45); ABG PO2 129 mmHg (83-108); ABG TCO2 26 mmol/L (19-24)
[2024-05-10 05:05] LABS: African American GFR (CKD) >90 (>60 ml/min/1.73 sqM); Anion Gap 2 mmol/L; Blood Urea Nitrogen 26 mg/dL (9-20); Carbon Dioxide 25 mmol/L (22-30); Chloride 113 mmol/L (98-107); Glucose 114 mg/dL (74-99); Non-African American GFR(CKD) >90 (>60 ml/min/1.73 sqM); Potassium 4.1 mmol/L (3.5-5.1); Sodium 140 mmol/L (137-145)
[2024-05-10 05:06] LABS: Allen Test Performed? yes
--- NOTE | 2024-05-10 07:17 | P.PN ---
Subjective Progress Note Date: 05/10/24 Principal diagnosis: Cervical Myelopathy, severe Patient seen and examined this morning with nursing at bedside. He is vented is sedated but opens his eyes to stimulation. He is able to move both arms on command. Overnight he had no issues his maps remained above 85 and was on minimal pressors. Nursing stated he was in some pain but that were able to get oils as well as IV medications for this which helped. No other issues overnight. Neuro checks were stable overnight. Ruiz in place. Objective - Vital Signs Vital signs: Vital Signs Temp 98.3 F 05/10/24 04:00 Pulse 75 05/10/24 07:00 Resp 18 05/10/24 07:00 BP 126/72 05/10/24 07:00 Pulse Ox 100 05/10/24 07:00 FiO2 30 05/10/24 04:00 Intake & Output 05/09/24 05/10/24 05/10/24 18:59 06:59 18:59 Intake Total 1502 688.835 9.924 Output Total 800 1640 Balance 702 -951.165 9.924 Intake: IV 1502 525 Sodium Chloride 0.9% 1, 525 000 ml @ 75 mls/hr IV . [id number] [facility] Rx#:[id number] Intake, IV Titration 163.835 9.924 Amount propofoL 1,000 mg In 163.835 9.924 Empty Bag 1 bag @ 15 MCG/ KG/MIN 7.634 mls/hr IV . Q13H6M [facility] Rx#:[id number] Output: Drainage 35 Posterior Neck 0 Right Anterior Neck 35 Urine 800 1455 Estimated Blood Loss 150 Other: Voiding Method Indwelling Catheter Indwelling Catheter # Bowel Movements 1 ABP, PAP, CO, CI - Last Documented Arterial Blood Pressure 150/65 - Exam Vented sedated Loosely following commands Squeezes fingers on left moves arm on the right wiggle his toes on command Open eyes on command Drains and placed 20 mL out from anterior OSWALDO no output from posterior Hemovac. Hemovac was stripped still no output at this time. Dressing is clean dry and intact anterior as well as posterior c-collar in place Vital signs are stable at this time patient was in normal sinus rhythm - Labs CBC & Chem 7: 05/10/24 04:00 06/27/24 04:00 Labs: Abnormal Lab Results - Last 24 Hours (Table) 05/09/24 05/09/24 05/09/24 Range/Units 07:05 07:05 21:07 WBC 11.53 H (4.50-10.00) X 10*3/uL RBC 3.72 L (4.40-5.60) X 10*6/uL Hgb 12.0 L (13.0-17.0) g/dL Hct 34.3 L (39.6-50.0) % MCH 32.3 H (27.0-32.0) pg Immature Gran # 0.06 H (0.00-0.04) X 10*3/uL Neutrophils # 9.92 H (1.80-7.70) X 10*3/uL Lymphocytes # 0.48 L (0.90-5.00) X 10*3/uL Monocytes # 1.06 H (0.20-1.00) X 10*3/uL Eosinophils # 0 L (0.04-0.35) X 10*3/uL ABG pO2 (83-108) mmHg ABG Total CO2 (19-24) mmol/L ABG O2 Saturation (94-97) % Chloride 112 H (96-109) mmol/L BUN 28.0 H (9.0-27.0) mg/dL Creatinine (0.66-1.25) mg/dL BUN/Creatinine Ratio 25.45 H (12.00-20.00) Ratio Glucose 124 H (70-110) mg/dL POC Glucose (mg/dL) 134 H (70-110) mg/dL Calcium 7.9 L (8.7-10.3) mg/dL 05/09/24 05/10/24 05/10/24 Range/Units 21:55 04:00 04:00 WBC 12.8 H (4.50-10.00) X 10*3/uL RBC 4.14 L (4.40-5.60) X 10*6/uL Hgb 12.5 L (13.0-17.0) g/dL Hct 38.4 L (39.6-50.0) % MCH (27.0-32.0) pg Immature Gran # (0.00-0.04) X 10*3/uL Neutrophils # 11.0 H (1.80-7.70) X 10*3/uL Lymphocytes # 0.7 L (0.90-5.00) X 10*3/uL Monocytes # (0.20-1.00) X 10*3/uL Eosinophils # (0.04-0.35) X 10*3/uL ABG pO2 229 H (83-108) mmHg ABG Total CO2 25 H (19-24) mmol/L ABG O2 Saturation 100.1 H (94-97) % Chloride 113 H (96-109) mmol/L BUN 26 H (9.0-27.0) mg/dL Creatinine 0.65 L (0.66-1.25) mg/dL BUN/Creatinine Ratio (12.00-20.00) Ratio Glucose 114 H (70-110) mg/dL POC Glucose (mg/dL) (70-110) mg/dL Calcium 8.0 L (8.7-10.3) mg/dL 05/10/24 Range/Units 04:58 WBC (4.50-10.00) X 10*3/uL RBC (4.40-5.60) X 10*6/uL Hgb (13.0-17.0) g/dL Hct (39.6-50.0) % MCH (27.0-32.0) pg Immature Gran # (0.00-0.04) X 10*3/uL Neutrophils # (1.80-7.70) X 10*3/uL Lymphocytes # (0.90-5.00) X 10*3/uL Monocytes # (0.20-1.00) X 10*3/uL Eosinophils # (0.04-0.35) X 10*3/uL ABG pO2 129 H (83-108) mmHg ABG Total CO2 26 H (19-24) mmol/L ABG O2 Saturation 99.3 H (94-97) % Chloride (96-109) mmol/L BUN (9.0-27.0) mg/dL Creatinine (0.66-1.25) mg/dL BUN/Creatinine Ratio (12.00-20.00) Ratio Glucose (70-110) mg/dL POC Glucose (mg/dL) (70-110) mg/dL Calcium (8.7-10.3) mg/dL Assessment and Plan (1) Cervical myelopathy Current Visit: Yes Status: Acute Code(s): G95.9 - DISEASE OF SPINAL CORD, UNSPECIFIED SNOMED Code(s): 072697554 (2) Cervical spinal stenosis Current Visit: Yes Status: Acute Code(s): M48.02 - SPINAL STENOSIS, CERVICAL REGION SNOMED Code(s): 76530018 (3) Cervical spondylosis with myelopathy and radiculopathy Current Visit: Yes Status: Acute Code(s): M47.12 - OTHER SPONDYLOSIS WITH MYELOPATHY, CERVICAL REGION; M47.22 - OTHER SPONDYLOSIS WITH RADICULOPATHY, CERVICAL REGION SNOMED Code(s): 091607073 (4) Gait disturbance Current Visit: Yes Status: Acute Code(s): R26.9 - UNSPECIFIED ABNORMALITIES OF GAIT AND MOBILITY SNOMED Code(s): 74725949 (5) Bilateral arm weakness Current Visit: Yes Status: Acute Code(s): R29.898 - OTH SYMPTOMS AND SIGNS INVOLVING THE MUSCULOSKELETAL SYSTEM SNOMED Code(s): 19680880410094984 (6) Leg weakness, bilateral Current Visit: Yes Status: Acute Code(s): R29.898 - OTH SYMPTOMS AND SIGNS INVOLVING THE MUSCULOSKELETAL SYSTEM SNOMED Code(s): 7117147 (7) Medically complex patient Current Visit: Yes Status: Acute Code(s): Z78.9 - OTHER SPECIFIED HEALTH STATUS SNOMED Code(s): 610803007 (8) Status post cervical spinal fusion Current Visit: Yes Status: Acute Onset Date: ~05/07/24 Code(s): Z98.1 - ARTHRODESIS STATUS SNOMED Code(s): 4244579578297 Plan: -Appreciate [employer] sales consultant and team management. -Appreciate ICU management, SBT per protocol and per ICU -Once extubated per for monitoring and ICU for today -Continue with neuro checks every 2 hours -Turn q2 hrs -Computed tomography scan of the cervical spine ordered once patient is extubated and stable -Hard C collar at all times -Activity: OK for HOB elevated. OK for sit up and sit up at bedside once able with assist. OK for up to chair if able with assist. Do not pull up by arms. Do not push up with arms. Posterior repair is delicate and needs time to heal. No overhead motions. Treat similar to open hearts. -Pain control: [Adequate at this time] -Meds: [reviewed] -GI ppx: aggressive bowel stim due to cord symptoms, senna, Miralax, if no BM add mag citrate -Cont ruiz, monitor output -DVT PPX: Start heparin tonight -Hygiene: maintain. OK for sponge bath today. -Drains: [Maintain for now. Record output] -Encourage IS 10x/hr once extubated -Dispo: [Pending]
--- NOTE | 2024-05-10 07:27 | P.OP ---
Date of Procedure: 05/09/24 Preoperative Diagnosis: Current Active Problems Bilateral arm weakness (Acute) Cervical myelopathy (Acute) Cervical spinal stenosis (Acute) Cervical spondylosis with myelopathy and radiculopathy (Acute) Gait disturbance (Acute) Leg weakness (Acute) Leg weakness, bilateral (Acute) Medically complex patient (Acute) Status post cervical spinal fusion (Acute ~05/07/24) Postoperative Diagnosis: Current Active Problems Bilateral arm weakness (Acute) Cervical myelopathy (Acute) Cervical spinal stenosis (Acute) Cervical spondylosis with myelopathy and radiculopathy (Acute) Gait disturbance (Acute) Leg weakness (Acute) Leg weakness, bilateral (Acute) Medically complex patient (Acute) Status post cervical spinal fusion (Acute ~05/07/24) Procedure(s) Performed: 1. C2-T2 STABILIZED POSTEROLATERAL INSTRUMENTED FUSION 2. C2-T1 BILATERAL LAMINECTOMY PARTIAL MEDIAL FACETECTOMY AND FORAMINOTOMY 3. C2-T2 SEGMENTAL INSTRUMENTATION USE OF IONM Implants: [employer]ERV[employer]W [employer] Anesthesia: GETA Surgeon: Joaquin Flores [employer] Coordinator #1: Brandyn Clark (WAS PRESENT AND ASSISTED WITH ALL ASPECTS OF THE CASE FROM POSITION TO DRESSING PLACEMENT) Estimated Blood Loss (ml): 150 IV fluids (ml): 1,500 Urine output (ml): 450 Pathology: none sent Condition: stable Disposition: PACU Indications for Procedure: Spine Surgery Clinical and Risk Review Flash Leónis a 58 yo male presenting for evaluation of Low back pain, UE and LE weakness, difficulty with fine motor skills, inability to ambulate. It was my pleasure to have seen and examined Flash. In our visit today we have had a chance to go over subjective complaints, physical examination findings and treatments including the natural course history without intervention and various interventional options. The patients imaging demonstrates C3-7 spondylosis with severe stenosis, myelomalacia with disc herniations, disc osteophyte complexes at multilevel and collapse with decreased CL. No fracture no lesions. C0-1 and C1-2 stable. On physical exam, Flash León demonstrates Cervical myelopathy with gait disturbance, fine motor disturbance, b/l UE and LE weakness, + hoffmans, brisk b/l, Sustained Clonus b/l UE and LE, progressive neurological deterioration. I have explained to the patient that as their condition progresses it will cause further neurological deficits and eventual paralysis. Based on the patients imaging, physical exam, and the rapid progression and disabling nature of their symptoms, at this time I recommend surgery in the form or a: C2-T2 DECOMPRESSION AND FUSION. I discussed the risk and benefits of this procedure at length with Flash León. The patient agreed to considered pursuing the procedure abovementioned. Prior to surgery, she should follow up with her PCP (Cardio, ID, IM etc) for clearance. Questions were invited and answered, and the patient wishes to proceed as outlined below. Currently, I am recommendin. C2-T2 DECOMPRESSION AND FUSION 2. Follow up with PCP for surgical clearance 3. Review of surgical risks and benefits as well as an educational packet on the proposed surgical procedure. Risks: All surgical procedures come with inherent risks, including those related to positioning, anesthesia, intraoperative findings, and postoperative co mplications. It is important to understand that surgery does not come with any guarantee of a successful outcome as complications and adverse events are always possible. The patient was given a handout in office today discussing the surgical procedure and risks associated with the intervention, both of which were discussed with the patient. These risks include but are not limited to the following: * Experiencing same, different or even worse symptoms in back, neck, arms, or legs compared to before surgery. * Requiring further surgery or other forms of treatment presently or at patsy e time in the future at same or other levels of the intended spine surgery. * On an extreme but fortunately relatively rare basis severe complication such as blindness, stroke, heart attack, temporary and/or permanent nerve injury, paralysis, coma, or may occur, sometimes without known explanation. * Surgical complications may include but are not limited to risk of infection, fluid accumulation in the surgical dissection site, including a seroma or hematoma, that requires additional surgery, wound drainage, bleeding, new numbness or weakness, vision changes/loss, spinal fluid leakage, non-healing and/or infected incision, headaches, difficulty or inability to swallow, hoarseness, hemopneumothorax, pneumothorax, impotence, retrograde ejaculation, vaginal dryness; injury to nerves, spinal cord, blood vessels, lymphatics or other vital organs (i.e., bowel injury, injury to the great vessels); heterotopic bone formation; complications related to the hardware such as screws, rods, cages including misplaced hardware, device failure, instrumentation at the wrong spine level, hardware fracture/breakage, or hardware loosening; vertebral failure of the spinal column above or below the newly placed hardware; retained surgical instrumentations or devices and the need for further surgery. * Medical risks of the planned spine surgery include but are not limited to generalized Infections to the whole body or local areas outside of the surgical site (sepsis), heart attack, bleeding, anaphylaxis, meningitis, seizure, epilepsy, hearing loss, burn dumont, laceration of the head or other areas of the body, bruising, hypersensitivity of the skin, bladder over distension; allergic reaction; shoulder injury related to positioning; fat, blood and air clots to other areas of the body like heart, lungs, brain; failure of internal organs such as lungs, kidneys, liver and excessive bleeding. If blood transfusions are necessary, note that transfusions may cause intolerance reactions such as anaphylaxis or other complex reactions. * Despite best efforts, the results of spine surgery might not heal in terms of bone, soft tissues such as skin, fascia, ligaments, and joints. Additionally, in order to achieve best possible results, spine surgery may be carried out beyond the initially planned levels and involve decompression, fusion including insertion of hardware at levels other than the original intended area of surgical interest change some portions of the procedure in order to ensure the best possible outcomes. * With spine surgery and spinal fusion, there are different off label uses of instrumentation (devices, implants and hardware) as well as biological substances (bone morphogenic proteins, demineralized bone matrix) as well as using extra bone from allograft sources (i.e. cadaver bone) or autograft (iliac crest bone, ribs, or the spine itself). The patient has been given information about these practices and their inherent risks and benefits. The patient has had a chance to review all the listed information, has been given print outs detailing this information, and has had all his/her questions answered to their satisfaction. It was my pleasure to have seen and examined Flash León. In our visit today we have had a chance to go over my understanding of our patient's current condition, the natural course history without intervention and various interventional options. Questions were invited and answered, and the patient wishes to proceed as outlined above. I have seen and examined the patient for 25 minutes and we have spent more than 50% of the time in repeat and detailed counseling about the patient's condition, its natural course history with out and as much as can be predicted with surgery and re-review of various surgical treatment options. In conclusion, Flash León requested we proceed with the above suggested surgery and are willing to accept risks and limitations of the suggested surgery as nature of the disease process and our best attempts at treatment for the condition. Thank you again for allowing us to be part of your patient's care. Please don't hesitate to contact me if you have any further questions. Signed and authenticated by: Joaquin Hunt [facility] [address], [address] [address] Description of Procedure: C2-T2 decompression and fusion The patient was seen and examined in the preoperative area. All preoperative protocols were followed. Informed consent was obtained, risks and benefits of the procedure were discussed at length. Risks including bleeding infection damage to the surrounding tissue and risk of reoperation were discussed with the patient. Risk of anesthesia up to and including was discussed with the patient. These are outlined in the risk review. They were willing to accept these risks and all of the risks of surgery. The patient was given a weight- based dose of antibiotics in the form of 2 g Ancef. The patient was seen and evaluated by the anesthesia team who deemed them fit for surgery. The site was marked, the patient was willing to proceed with the procedure. The patient was transferred to the operative suite by the Department of anesthesia. They were then drifted off to sleep by the department anesthesia and GETA was performed. The patient tolerated this well. pre-positioning motors were obtained.Damon in place from the floor. Once confirmation of lines and ventilation Quinones head clamp was placed on the patient and secured and the patient was transferred to a [prone Quintin table very carefully] with the Quinones chef head the head was secured and placed into an optimal position x- ray confirmed this position. Post-positioning motors remained stable. All bony prominences including wrists, elbows, axilla, chest, hips, and thighs, and feet were padded very well. Special attention was paid to the genitalia and these were padded accordingly. SCDs were placed on bilateral lower extremities and were connected. Arms were well padded and placed tucked at his side thumbs down. Shoulders were gently taped down to the table.. Once in position, again we confirmed good ventilation capabilities and that lines were running appropriately. The patient's posterior cervical spine was then exposed. 1010s were placed outlining the incision site. Standard alcohol was used to clean the incision site and allowed to dry. C-arm was used to biomark the patient and confirm level for incision which was marked with a skin marker. Operative briefing was performed with all teams and everyone in agreement to proceed. The patient was then prepped and draped in a normal sterile fashion. Timeout was then performed and all parties were in agreement with the procedure to be performed. Midline skin incision made over the previously bio-marked area and dissection taken down midline to the SP of C2-T2. Subperiosteal dissection taken out over the lamina and lateral masses of C2-C7 and TVP of T1 and T2. Once exposure complete, the wound was irrigated and the C-arm brought in for imaging. A penfield 4 was used to bluntly dissect the medial border of C2 pedicle and placed for guidance. C arm used and a rukhsana hole made for the starting point. The C2 pedicle was then drilled in 2 mm increments to 16 mm using a ball tip feeler in between each drill session to make sure within the 4 mane with a good bottom. Once this was accomplished a screw was selected and placed under lateral fluoroscopic guidance. Screw had a good purchase. This was then repeated on the contralateral side. AP confirmed good placement of both screws. We then proceeded to the T1 and T2 screws bilaterally. A high speed rukhsana was used to remove the facet joint of C7 and to create a starting point for T1 and similarly, T1 facet for T2. Pedicle finder was then passed into T1 and T2 and imaging taken to confirm placement this was then removed and a tap placed ball-tipped probe was then placed and 4 mane of pedicle fell with good bottom. Screw was then measured and placed intoT1 and T2. This is repeated on the contralateral side. Imaging confirmed good placement of all 4 thoracic screws. The wound was then irrigated. Lateral mass screws were then drilled to 12 mm and placed at each level from C3-6. Each had a good bite. Rods were then sized and selected and cut to length. They were bent accordingly and lordosis and to fit the occiput plate. These were then secured into C2 bilaterally and then sequentially reduced into lateral mass screws and T1 and T2 screws without issues. All set screws were placed and were then final tightened and the position. Bilateral laminectomy, facetectomy and foraminotomies were then done from C2-T1 using high speed rukhsana, kerrison rongeur and upbiting curette. Bilateral laminotomy troughs were made with rukhsana followed by curette to release ligamentum. Rongure was then used to gently remove the lamina and facets posteriorly without issues. Meticulous hemostasis was performed after.. Motors were run before and after decompression and they remain stable. Good pulsations of the cord were noted after decompression. Foraminotomies then performed with kerrison rongeur and clean up of the laminectomy site. The wound was then copiously irrigated with 3 L of Ancef irrigation followed by 3 L of gentamicin irrigation followed by 3 L of normal sterile saline. Facet joints were drilled at each level to allow for fusion Surgicel was placed over the dura. MagnetOs were placed in the posterior lateral gutters along with autograft.. This was impacted into position for fusion. 2 g of powdered vancomycin was then placed deep within the wound and a deep drain was placed. We then proceeded with layered closure first in the deep fascia and muscle with #1 PDS then in the deep fascia followed by a running #1 stratafix. 0 Vicryl was used in the deep subq fascia and an 0 PDS stratafix used in the subdermal layer. Skin dorita then approximated skin edges. The wound edges approximated very well. The wound was then cleaned and dressed sterilely with an adaptic, 4x4, abd and 3M tape. The drain had good suction. The patient was placed in a hard cervical collar. The patient was transferred back to their hospital bed atraumatically. Quinones head clamp was removed and pin sites were clear. Drain continued to hold suction. Patient was placed in a hard collar Pt tolerated the procedure very well with no complications. They were transferred to the ICU in stable cond ition intubated.
--- NOTE | 2024-05-10 08:23 | FL ---
EXAMINATION TYPE: FL guidance operating room, XR chest 1V portable Intraoperative/procedural fluorosc opic services were provided. Total fluoroscopy time is 39 seconds with a total of 9 submitted images to PACS. Please see the operative/procedural note for further details. DAP: 1.2558 Gycm2
[2024-05-10] MEDS: PANTOPRAZOLE 40 MG/10 ML VIAL IVP SCH (09:17)
--- NOTE | 2024-05-10 09:58 | P.PN ---
Subjective Progress Note Date: 05/10/24 58 year old M with PMH of RA presents to the ED. Patient reports being incarcerated for the past 10 months. He reports thoracic and lumbar back pain, dull and stabbing in nature, 10/10 severity that has been persistently getting worse over the past year. [facility] recently got [facility] yesterday and has had difficulties with his ADL and IADLs which prompted him to come to the ED. He reports numbness and tingling in all of his fingers. He reports occasional shooting pain down both of his legs. He reports significant muscle spasms in both of his arms. He denies any bladder or bowel incontinence or saddle anesthesia. He denies any inciting trauma. MRI L spine done on 06/2023 shows left disk herniation S1, multilevel DJD L3-4, L4-5, L5-S1, multilevel canal stenosis L2-S1. C-spine MRI done in 08/2023 shows C3-4 severe spinal canal stenosis with myelomalacia. In the ED he underwent extensive evaluation. BP 159/83, HR 96, T 98.4F, RR 18, 99% on RA. CT L spine showed L2-3 mild central stenosis, L3-4 (and L4-5, L5-S1) moderate central stenosis. CBC, and CMP done significant for Cl 108, total protein 6.2. Patient is admitted for pain control and Ortho spine evaluation. CT C-spine shows spinal stenosis at C3. Ortho spine recommends C3-6 anterior cervical discectomy and fusion. Echocardiogram done as part of risk assessment, EF of 45 to 50%, with suspicion of basal inferior wall hypokinesia. Cardiology consulted, moderate-high risk, cleared for surgery. He underwent C3-6 anterior cervical arthrodesis with Dr. Flores on 05/07. 05/10 Patient was seen and examined. Intubated but responds to questions. Currently on NS at 75 cc/hr. Propofol weaned off in preparation for hopeful extubation today. CBC WBC 12.8, Hg 12.5, Hct 38.4. ABG pH 7.4 pCO2 41. BMP Cl 113, BUN 26, Cr 0.65, glu 114, Ca 8.0. General: Intubated Derm: warm, dry Head: atraumatic, normocephalic, symmetric Eyes: EOMI, no lid lag, anicteric sclera Mouth: no lip lesion, mucus membranes moist Cardiovascular: S1S2 reg, no murmur Lungs: CTA bilateral, no rhonchi, no rales , no accessory muscle use Ext: no gross muscle atrophy, no edema, no contractures Neuro: Intubated Psych: Intubate Based on my assessment of this patient, this patient meets a high complexity level of care. Ventilator dependent respiratory failure: Propofol weaned off. Hopeful extubation today. Multilevel mild-severe spinal canal stenosis: Pain control with Dilaudid 0.5-1 mg IV Q4H PRN. [place] 10 PO Q4H scheduled. Flexeril 10 mg PO TID PRN. Gabapentin 300 mg PO TID. Tylenol 650 mg PO Q6H PRN. Zanaflex 2 mg PO BID + 4 mg PO QHS. Cymbalta 40 mg PO QHS. Dexamethasone 20 mg IV QD. Fall precautions. Neurochecks. PT and OT consult. Orthospine on board. Acute on chronic back pain: Management as above. Leukocytosis: Steroid induced. Monitor fever profile. Acute blood loss anemia: Expected result of surgery. Monitor daily. Transfuse if Hg < 7. Rheumatoid arthritis: Outpatient Foundry Manager follow up. Pulmonary nodules: Outpatient Pulmonary follow up. Smoker: Advised to quit. CODE STATUS: FULL CODE DVT Prophylaxis: Lovenox SQ GI Prophylaxis: Protonix IV Designated medical POA if patient is not able to make medical decisions for themselves: I have reviewed the following wireless sales consultant notes: Ortho, Pulmonary note. I have reviewed the results of the following tests: CBC, BMP. I have ordered the following tests: CBC. I have discussed the care of this patient with the following independent historian: ANGELICA regarding plan of care. I have independently interpreted the following test below: I have discussed the management of this patient with the following physician: Objective - Vital Signs Vital signs: Vital Signs Temp 98.2 F 05/10/24 08:00 Pulse 82 05/10/24 09:00 Resp 16 05/10/24 09:00 BP 127/57 05/10/24 09:00 Pulse Ox 100 05/10/24 09:00 FiO2 30 05/10/24 08:00 Intake & Output 05/09/24 05/10/24 05/10/24 18:59 06:59 18:59 Intake Total 1502 688.835 174.592 Output Total 800 1640 165 Balance 702 -951.165 9.592 Weight 91.8 kg Intake: IV 1502 525 150 Sodium Chloride 0.9% 1, 525 150 000 ml @ 75 mls/hr IV . [id number] [facility] Rx#:[id number] Intake, IV Titration 163.835 24.592 Amount propofoL 1,000 mg In 163.835 24.592 Empty Bag 1 bag @ 15 MCG/ KG/MIN 7.634 mls/hr IV . [id number] [facility] Rx#:[id number] Output: Drainage 35 0 Posterior Neck 0 0 Right Anterior Neck 35 Urine 800 1455 165 Estimated Blood Loss 150 Other: Voiding Method Indwelling Catheter Indwelling Catheter Indwelling Catheter # Bowel Movements 1 ABP, PAP, CO, CI - Last Documented Arterial Blood Pressure 136/66 - Labs CBC & Chem 7: 05/10/24 04:00 05/10/24 04:00 Labs: Abnormal Lab Results - Last 24 Hours (Table) 05/09/24 05/09/24 05/09/24 Range/Units 07:05 07:05 21:07 WBC 11.53 H (4.50-10.00) X 10*3/uL RBC 3.72 L (4.40-5.60) X 10*6/uL Hgb 12.0 L (13.0-17.0) g/dL Hct 34.3 L (39.6-50.0) % MCH 32.3 H (27.0-32.0) pg Immature Gran # 0.06 H (0.00-0.04) X 10*3/uL Neutrophils # 9.92 H (1.80-7.70) X 10*3/uL Lymphocytes # 0.48 L (0.90-5.00) X 10*3/uL Monocytes # 1.06 H (0.20-1.00) X 10*3/uL Eosinophils # 0 L (0.04-0.35) X 10*3/uL ABG pO2 (83-108) mmHg ABG Total CO2 (19-24) mmol/L ABG O2 Saturation (94-97) % Chloride 112 H (96-109) mmol/L BUN 28.0 H (9.0-27.0) mg/dL Creatinine (0.66-1.25) mg/dL BUN/Creatinine Ratio 25.45 H (12.00-20.00) Ratio Glucose 124 H (70-110) mg/dL POC Glucose (mg/dL) 134 H (70-110) mg/dL Calcium 7.9 L (8.7-10.3) mg/dL 05/09/24 05/10/24 05/10/24 Range/Units 21:55 04:00 04:00 WBC 12.8 H (4.50-10.00) X 10*3/uL RBC 4.14 L (4.40-5.60) X 10*6/uL Hgb 12.5 L (13.0-17.0) g/dL Hct 38.4 L (39.6-50.0) % MCH (27.0-32.0) pg Immature Gran # (0.00-0.04) X 10*3/uL Neutrophils # 11.0 H (1.80-7.70) X 10*3/uL Lymphocytes # 0.7 L (0.90-5.00) X 10*3/uL Monocytes # (0.20-1.00) X 10*3/uL Eosinophils # (0.04-0.35) X 10*3/uL ABG pO2 229 H (83-108) mmHg ABG Total CO2 25 H (19-24) mmol/L ABG O2 Saturation 100.1 H (94-97) % Chloride 113 H (96-109) mmol/L BUN 26 H (9.0-27.0) mg/dL Creatinine 0.65 L (0.66-1.25) mg/dL BUN/Creatinine Ratio (12.00-20.00) Ratio Glucose 114 H (70-110) mg/dL POC Glucose (mg/dL) (70-110) mg/dL Calcium 8.0 L (8.7-10.3) mg/dL 05/10/24 Range/Units 04:58 WBC (4.50-10.00) X 10*3/uL RBC (4.40-5.60) X 10*6/uL Hgb (13.0-17.0) g/dL Hct (39.6-50.0) % MCH (27.0-32.0) pg Immature Gran # (0.00-0.04) X 10*3/uL Neutrophils # (1.80-7.70) X 10*3/uL Lymphocytes # (0.90-5.00) X 10*3/uL Monocytes # (0.20-1.00) X 10*3/uL Eosinophils # (0.04-0.35) X 10*3/uL ABG pO2 129 H (83-108) mmHg ABG Total CO2 26 H (19-24) mmol/L ABG O2 Saturation 99.3 H (94-97) % Chloride (96-109) mmol/L BUN (9.0-27.0) mg/dL Creatinine (0.66-1.25) mg/dL BUN/Creatinine Ratio (12.00-20.00) Ratio Glucose (70-110) mg/dL POC Glucose (mg/dL) (70-110) mg/dL Calcium (8.7-10.3) mg/dL
--- NOTE | 2024-05-10 16:18 | CT ---
EXAMINATION TYPE: CT cervical spine wo con DATE OF EXAM: 05/10/2024 COMPARISON: 05/08/2024 HISTORY: 58-year-old male post-op TECHNIQUE: Contiguous axial scanning of the cervical spine without IV contrast. Coronal and sagittal reconstructions performed. CT DLP: 493.8 mGycm Automated exposure control for dose reduction was used. FINDINGS: Right-sided anterior surgical drain in place. Some residual soft tissue swelling. Today's emphysema a long the anterior aspect of the neck shows improvement. Some remains along the right supraclavicular region. Postsurgical change redemonstrated C3-C6 ACDF. Residual prevertebral soft tissue swelling. Levels of OPLL particularly C2-C3, C4, C4-C5 are redemonstrated. However, there has now been placement of C3-T3 posterior cervical fusion. Laminectomies from C3 throu gh C7 levels. Posterior surgical drain is now present with scattered foci of air. Overlying anterior midline skin dorita. Orthopedic hardware appears satisfactory in position Scattered fluid within the bilateral mastoid air cells. IMPRESSION: 1. RECENT C3-C6 ACDF CHANGES WITH ANTERIOR SURGICAL DRAIN IN PLACE. RESIDUAL PREVERTEBRAL SOFT TISSUE SWELLING OVER THE IMPROVING SOFT TISSUE AIR. 2. INTERVAL NEW PLACEMENT OF POSTERIOR CERVICOTHORACIC FUSION C3-T3 LEVELS. LAMINECTOMIES FROM C3-C7 LEVELS. POSTERIOR SURGICAL DRAIN AND FOCI OF AIR RELATED TO RECENT OPERATION.
--- NOTE | 2024-05-10 16:36 | P.PN ---
Subjective HISTORY OF PRESENTING ILLNESS Patient is a 58-year-old -[place] male presented to the hospital because of thoracic and lumbar back pain stabbing in nature, dull, 10/10 in severity along with tingling and numbness in bilateral upper extremity. He reports that his pain has been going on for last 10 months and has gradually got worse that h e is not able to complete his ADLs. He was incarcerated for last 10 months and recently was discharged from the retirement. Echocardiogram was ordered as a part of perioperative evaluation which showed an EF of 45 to 50%, with suspicion of basal inferior wall hypokinesia. There is no pericardial effusion. His ECG shows sinus rhythm with Q waves in inferior lead and nonspecific ST changes in inferolateral leads along with occasional PVCs. Due to these findings cardiology is consulted for perioperative cardiac risk assessment. At the time of evaluation patient is in sinus rhythm. He does not appear to be in congestive heart failure. He denies having any active chest pain chest pressure or shortness of breath. Patient has been sedentary for last 10 months and you are not able to assess his functional capacity at this time. He is not able to complete 4 metabolic equivalents because of his significant back pain at this time. He denies any prior history of diabetes, stroke, kidney disease. He does have history of hypertension for which she was on lisinopril. He denies any prior c ardiac history. Reports family history of premature coronary artery disease in father requiring heart transplant in his early 50s. He reports smoking marijuana and tobacco in the past. He has not smoked in the last 1 year. He reports occasional alcohol use. Denies any IV drug abuse. 05/08 Patient is seen today in follow-up. He denies having any chest pain. He states he is scheduled for surgery tomorrow. No plan at this time for stress testing. He is on IV fluids which will be discontinued. Blood pressure 115/72, heart rate 90, pulse ox 100% on room air. WBC 11.9, hemoglobin 12.7. 05/09 Patient seen today in follow-up. Blood pressure 139/74, heart rate 92, pulse ox 98% on room air. Patient denies having any chest pain. He does complain of significant pain in his neck area. 05/10 Patient seen and examined. Patient underwent successful back surgery yesterday. He did have prolonged intubation however extubated this morning and currently denies any chest pain or pressure. Denies any significant shortness breath. Hemodynamically stable. He is being monitored in ICU. PHYSICAL EXAMINATION Vital signs reviewed. Head: Normocephalic. Eyes: Sclerae nonicteric. Neck: OSWALDO drain in place, hard c-collar in place. Lungs: Clear to auscultation. Heart: Regular rate and rhythm, S1-S2, no S3, no murmur or rub. Abdomen: Soft nontender, positive bowel sounds. Extremities: No edema, intact distal pulses. Neuro: Alert, oritented, . Detailed neuro exam was not performed. ASSESSMENT Perioperative cardiac risk assessment for cervical spinal surgery Cervical spinal myelopathy, with acute on chronic exacerbation HFmrEF, mild cardiomyopathy, EF 45 to 50% Questionable basal inferior wall hypokinesia, Q waves in inferior lead Essential hypertension, controlled Prior history of smoking and marijuana use Family history of premature CAD with father requiring heart transplant in 50s PLAN Patient tolerated surgery well. No significant angina-type symptoms. Avoid excessive IV hydration. Appears stable from a cardiac standpoint. No further recommendations as an inpatient. Followup outpt in 1-2 weeks. Objective - Vital Signs Vital signs: Vital Signs Temp 98.8 F 05/10/24 12:00 Pulse 82 05/10/24 15:00 Resp 12 05/10/24 15:00 BP 124/57 05/10/24 15:00 Pulse Ox 100 05/10/24 15:00 FiO2 30 05/10/24 08:00 Intake & Output 05/09/24 05/10/24 05/10/24 18:59 06:59 18:59 Intake Total 1502 688.835 759.592 Output Total 800 1640 790 Balance 702 -951.165 -30.408 Weight 91.8 kg 91.8 kg Intake: IV 1502 525 675 Sodium Chloride 0.9% 1, 525 675 000 ml @ 75 mls/hr IV . [id number] [facility] Rx#:[id number] Intake, IV Titration 163.835 24.592 Amount propofoL 1,000 mg In 163.835 24.592 Empty Bag 1 bag @ 15 MCG/ KG/MIN 7.634 mls/hr IV . Q13H6M [facility] Rx#:[id number] Oral 60 Output: Drainage 35 0 Posterior Neck 0 0 Right Anterior Neck 35 Urine 800 1455 790 Estimated Blood Loss 150 Other: Voiding Method Indwelling Catheter Indwelling Catheter Indwelling Catheter # Bowel Movements 1 ABP, PAP, CO, CI - Last Documented Arterial Blood Pressure 158/72 - Labs CBC & Chem 7: 05/10/24 04:00 05/10/24 04:00 Labs: Abnormal Lab Results - Last 24 Hours (Table) 05/09/24 05/09/24 05/10/24 Range/Units 21:07 21:55 04:00 WBC 12.8 H (3.8-10.6) k/uL RBC 4.14 L (4.30-5.90) m/uL Hgb 12.5 L (13.0-17.5) gm/dL Hct 38.4 L (39.0-53.0) % Neutrophils # 11.0 H (1.3-7.7) k/uL Lymphocytes # 0.7 L (1.0-4.8) k/uL ABG pO2 229 H (83-108) mmHg ABG Total CO2 25 H (19-24) mmol/L ABG O2 Saturation 100.1 H (94-97) % Chloride (98-107) mmol/L BUN (9-20) mg/dL Creatinine (0.66-1.25) mg/dL Glucose (74-99) mg/dL POC Glucose (mg/dL) 134 H (70-110) mg/dL Calcium (8.4-10.2) mg/dL 05/10/24 05/10/24 Range/Units 04:00 04:58 WBC (3.8-10.6) k/uL RBC (4.30-5.90) m/uL Hgb (13.0-17.5) gm/dL Hct (39.0-53.0) % Neutrophils # (1.3-7.7) k/uL Lymphocytes # (1.0-4.8) k/uL ABG pO2 129 H (83-108) mmHg ABG Total CO2 26 H (19-24) mmol/L ABG O2 Saturation 99.3 H (94-97) % Chloride 113 H (98-107) mmol/L BUN 26 H (9-20) mg/dL Creatinine 0.65 L (0.66-1.25) mg/dL Glucose 114 H (74-99) mg/dL POC Glucose (mg/dL) (70-110) mg/dL Calcium 8.0 L (8.4-10.2) mg/dL
[2024-05-11 05:39] LABS: Basophils % (A) 0 %; Eosinophils % (A) 0 %; HCT 34.7 % (39.0-53.0); HGB 11.3 gm/dL (13.0-17.5); Lymphocytes # (A) 0.4 k/uL (1.0-4.8); Lymphocytes % (A) 3 %; MCH 30.3 pg (25.0-35.0); MCHC 32.5 g/dL (31.0-37.0); MCV 93.4 fL (80.0-100.0); Mean Platelet Volume 7.7; Monocytes % (A) 7 %; Neutrophils % (A) 89 %; Platelet Count 184 k/uL (150-450); RBC 3.72 m/uL (4.30-5.90); RDW 13.1 % (11.5-15.5); WBC 13.4 k/uL (3.8-10.6)
[2024-05-11 05:44] LABS: African American GFR (CKD) >90 (>60 ml/min/1.73 sqM); Anion Gap 1 mmol/L; Blood Urea Nitrogen 23 mg/dL (9-20); Calcium 7.7 mg/dL (8.4-10.2); Carbon Dioxide 25 mmol/L (22-30); Chloride 111 mmol/L (98-107); Glucose 123 mg/dL (74-99); Non-African American GFR(CKD) >90 (>60 ml/min/1.73 sqM); Potassium 4.2 mmol/L (3.5-5.1); Sodium 137 mmol/L (137-145)
--- NOTE | 2024-05-11 11:40 | P.PN ---
Subjective Progress Note Date: 05/11/24 58 year old M with PMH of RA presents to the ED. Patient reports being incarcerated for the past 10 months. He reports thoracic and lumbar back pain, dull and stabbing in nature, 10/10 severity that has been persistently getting worse over the past year. He recently got released from [facility] yesterday and has had difficulties with his ADL and IADLs which prompted him to come to the ED. He reports numbness and tingling in all of his fingers. He reports occasional shooting pain down both of his legs. He reports significant muscle spasms in both of his arms. He denies any bladder or bowel incontinence or saddle anesthesia. He denies any inciting trauma. MRI L spine done on 06/2023 shows left disk herniation S1, multilevel DJD L3-4, L4-5, L5-S1, multilevel canal stenosis L2-S1. C-spine MRI done in 08/2023 shows C3-4 severe spinal canal stenosis with myelomalacia. In the ED he underwent extensive evaluation. BP 159/83, HR 96, T 98.4F, RR 18, 99% on RA. CT L spine showed L2-3 mild central stenosis, L3-4 (and L4-5, L5-S1) moderate central stenosis. CBC, and CMP done significant for Cl 108, total protein 6.2. Patient is admitted for pain control and Ortho spine evaluation. CT C-spine shows spinal stenosis at C3. Ortho spine recommends C3-6 anterior cervical discectomy and fusion. Echocardiogram done as part of risk assessment, EF of 45 to 50%, with suspicion of basal inferior wall hypokinesia. Cardiology consulted, moderate-high risk, cleared for surgery. He underwent C3-6 anterior cervical arthrodesis with Dr. Flores on 05/07. Extubated on 05/10. 05/11 Patient was seen and examined. Extubated yesterday. Reports 10/10 neck pain. Currently on NS at 75 cc/hr. CBC WBC 13.4, Hg 11.3, Hct 34.7. BMP Cl 111, BUN 23, Cr 0.64, glu 123, Ca 7.7. C-spine CT shows post surgical changes with surgical drain in place, residual prevertebral soft tissue swelling with improving air. General: No acute distress Derm: warm, dry Head: atraumatic, normocephalic, symmetric, C-collar intact with anterior OSWALDO drain and posterior Hemovac drain in place Eyes: EOMI, no lid lag, anicteric sclera Mouth: no lip lesion, mucus membranes moist Cardiovascular: S1S2 reg, no murmur Lungs: CTA bilateral, no rhonchi, no rales , no accessory muscle use Ext: no gross muscle atrophy, no edema, no contractures Neuro: Strength 3/5 RUE, 4/5 LUE, 3/5 RL and LLE with sensation intact to touch Psych: alert and oriented Based on my assessment of this patient, this patient meets a high complexity level of care. Multilevel mild-severe spinal canal stenosis: Status post C3-6 anterior cervical arthrodesis with Dr. Flores on 05/07. Pain control with Dilaudid 0.5-1 mg IV Q4H PRN. [place] 10 PO Q4H scheduled. Flexeril 10 mg PO TID PRN. Gabapentin 300 mg PO TID. Tylenol 650 mg PO Q6H PRN. Zanaflex 2 mg PO BID + 4 mg PO QHS. Cymbalta 40 mg PO QHS. Dexamethasone 20 mg IV QD. Fall precautions. Neurochecks. PT and OT consult. Orthospine on board. Acute on chronic back pain: Management as above. Leukocytosis: Steroid induced. Monitor fever profile. Acute blood loss anemia: Expected result of surgery. Monitor daily. Transfuse if Hg < 7. Rheumatoid arthritis: Outpatient Geospatial Program Management Officer follow up. Pulmonary nodules: Outpatient Pulmonary follow up. Smoker: Advised to quit. Resolved: Ventilator dependent respiratory failure CODE STATUS: FULL CODE DVT Prophylaxis: Lovenox SQ GI Prophylaxis: Protonix IV Designated medical POA if patient is not able to make medical decisions for themselves: I have reviewed the following call center consultant notes: Orthopedic surgery, Cardiology note. I have reviewed the results of the following tests: CBC, BMP, CT Cspine. I have ordered the following tests: I have discussed the care of this patient with the following independent historian: I have independently interpreted the following test below: I have discussed the management of this patient with the following physician: Objective - Vital Signs Vital signs: Vital Signs Temp 99 F 05/11/24 04:00 Pulse 81 05/11/24 07:00 Resp 13 05/11/24 07:00 BP 113/61 05/11/24 07:00 Pulse Ox 98 05/11/24 07:00 FiO2 30 05/10/24 08:00 Intake & Output 05/10/24 05/11/24 05/11/24 18:59 06:59 18:59 Intake Total 5822.148 2354 Output Total 945 790 Balance 89.592 318 Weight 91.8 kg 90.3 kg Intake: IV 900 858 0.9% Pressure Bag 33 Sodium Chloride 0.9% 1, 900 825 000 ml @ 75 mls/hr IV . [id number] [facility] Rx#:[id number] Intake, IV Titration 24.592 Amount propofoL 1,000 mg In 24.592 Empty Bag 1 bag @ 15 MCG/ KG/MIN 7.634 mls/hr IV . Q13H6M [facility] Rx#:[id number] Oral 110 250 Output: Drainage 20 Posterior Neck 0 Right Anterior Neck 20 Urine 925 790 Other: Voiding Method Indwelling Catheter Indwelling Catheter ABP, PAP, CO, CI - Last Documented Arterial Blood Pressure 111/61 - Labs CBC & Chem 7: 05/11/24 04:05 05/11/24 04:05 Labs: Abnormal Lab Results - Last 24 Hours (Table) 05/11/24 05/11/24 Range/Units 04:05 04:05 WBC 13.4 H (3.8-10.6) k/uL RBC 3.72 L (4.30-5.90) m/uL Hgb 11.3 L (13.0-17.5) gm/dL Hct 34.7 L (39.0-53.0) % Neutrophils # 12.0 H (1.3-7.7) k/uL Lymphocytes # 0.4 L (1.0-4.8) k/uL Chloride 111 H (98-107) mmol/L BUN 23 H (9-20) mg/dL Creatinine 0.64 L (0.66-1.25) mg/dL Glucose 123 H (74-99) mg/dL Calcium 7.7 L (8.4-10.2) mg/dL
--- NOTE | 2024-05-11 12:12 | P.PN ---
Subjective Progress Note Date: 05/11/24 Patient is a 58-year-old white male with past medical history significant for hypertension, pulmonary embolism, rheumatoid arthritis, osteoarthritis, and lower back pain. Patient is currently sedated and intubated to the mechanical ventilator, unable to provide any information for HPI. On review of the EMR, patient was having severe upper and lower extremity weakness and associated cervical/thoracic level back pain. He was having troubles ambulating, and was apparently utilizing a wheelchair. CT of the cervical spine showed posterior vertebral body spurring centrally C3 and to a lesser degree C4. There was spinal canal stenosis at level C3. Uncovertebral joint hypertrophy with severe right formal stenosis at levels C4 and C5. Orthopedic surgery did evaluate this patient, and patient has underwent two-stage cervical spine surgery. Initial surgery was C3-C7 anterior cervical discectomy and fusion. Yesterday, patient did go back to OR for a posterior C2-T2 decompression and fusion. No perioperative complications reported. Patient was transferred back to the intensive care unit on the mechanical ventilator. Current ventilator settings are AC, respiratory 16, tidal volume 450, FiO2 30%, and PEEP of 5. Most recent ABG done earlier, with an FiO2 of 50% at that time, shows a PaO2 of 229, pCO2 of 42, pH of 7.35. Chest x-ray following surgery shows the endotracheal tube in satisfactory position above the kumar, as well as, a orogastric tube projecting into the stomach. No acute cardiopulmonary process noted. He is synchronous with mechanical ventilator. Patient is currently sedated, and fairly unresponsive. Propofol is ordered for a RASS of 0 to -1. Blood pressure is slightly hypertensive. Reportedly, Dr. Flores would like his MAP greater than 85 to help with perfusion pressure. Head is midline. Patient does have a c-collar on. There is a posterior Hemovac with minimal amount of serosanguineous drainage as well as an anterior OSWALDO drain which is compressed with a minimal amount of serosanguineous drainage. Most recent CBC from yesterday: WBC count 11.5, hemoglobin 12, hematocrit 34, platelets 174. BMP from yesterday: Sodium 144, potassium 4.2, chloride 112, serum bicarb 23, BUN 28, creatinine 1.1, glucose 124. Normal saline is infusing at 75 mL/h. Not currently requiring any vasopressors. Plan will likely be for extubation later this morning. The patient is seen today May 11, 2024 in follow-up in the intensive care unit. He is currently resting comfortably in bed. Awake and alert and no acute distress. He is status post spine surgery. He was extubated yesterday. He is currently on 2 L/min per nasal cannula with O2 saturations in the 90s. He has normal saline at 75 MLS per hour. Count 13.4. Hemoglobin 11.3. Platelets 184. Sodium 137. Potassium 4.2. Bicarb 25. BUN 23. Creatinine 0.64. Glucose 123. His pain is Lovenox for DVT prophylaxis. Objective - Vital Signs Vital signs: Vital Signs Temp 98.5 F 05/11/24 08:00 Pulse 115 H 05/11/24 09:00 Resp 19 05/11/24 09:00 BP 130/66 05/11/24 09:00 Pulse Ox 99 05/11/24 09:00 FiO2 30 05/10/24 08:00 Intake & Output 05/10/24 05/11/24 05/11/24 18:59 06:59 18:59 Intake Total 4404.567 5089 406 Output Total 945 790 300 Balance 89.592 318 106 Weight 91.8 kg 90.3 kg Intake: IV 900 858 206 0.9% Pressure Bag 33 6 Dexamethasone Sod Phos ( 50 Mdv) 20 mg In Dextrose 5% in Water 50 ml @ 100 mls /hr IVPB DAILY [facility] Rx#: [id number] Sodium Chloride 0.9% 1, 900 825 150 000 ml @ 75 mls/hr IV . [id number] [facility] Rx#:[id number] Intake, IV Titration 24.592 Amount propofoL 1,000 mg In 24.592 Empty Bag 1 bag @ 15 MCG/ KG/MIN 7.634 mls/hr IV . Q13H6M [facility] Rx#:[id number] Oral 110 250 200 Output: Drainage 20 Posterior Neck 0 Right Anterior Neck 20 Urine 925 790 300 Other: Voiding Method Indwelling Catheter Indwelling Catheter Indwelling Catheter ABP, PAP, CO, CI - Last Documented Arterial Blood Pressure 123/65 - Exam GENERAL EXAM: Awake, alert, pleasant, 58-year-old male, c-collar on, on 2 L nasal cannula. HEAD: Normocephalic and atraumatic EYES: Normal reaction of pupils, equal size. NOSE: Clear with pink turbinates. THROAT: No erythema or exudates. NECK: No masses, no JVD. C-collar in place. Anterior OSWALDO drain and posterior Hemovac drains in place and draining minimal amount of serosanguineous output. CHEST: No chest wall deformity. LUNGS: Equal air entry with no crackles, wheeze, rhonchi or dullness. CVS: S1 and S2 normal with no audible murmur, regular rhythm. No extra heart sounds ABDOMEN: No hepatosplenomegaly, active bowel sounds, no guarding or rigidity. SPINE: No scoliosis or deformity SKIN: No rashes CENTRAL NERVOUS SYSTEM: No focal deficits, tone is normal in all 4 extremities. EXTREMITIES: There is no peripheral edema, clubbing, or cyanosis. Peripheral pulses are intact. - Labs CBC & Chem 7: 05/11/24 04:05 05/11/24 04:05 Labs: Abnormal Lab Results - Last 24 Hours (Table) 05/11/24 05/11/24 Range/Units 04:05 04:05 WBC 13.4 H (3.8-10.6) k/uL RBC 3.72 L (4.30-5.90) m/uL Hgb 11.3 L (13.0-17.5) gm/dL Hct 34.7 L (39.0-53.0) % Neutrophils # 12.0 H (1.3-7.7) k/uL Lymphocytes # 0.4 L (1.0-4.8) k/uL Chloride 111 H (98-107) mmol/L BUN 23 H (9-20) mg/dL Creatinine 0.64 L (0.66-1.25) mg/dL Glucose 123 H (74-99) mg/dL Calcium 7.7 L (8.4-10.2) mg/dL Assessment and Plan Assessment: Severe cervical spinal spondylosis and severe stenosis at levels C3-C7 with myelopathy and radiculopathy; status post two-stage surgery, postoperative day #4 following a C3-C7 anterior cervical discectomy and fusion, followed by a posterior C2-T2 decompression and fusion postoperative day #2. No perioperative complications were reported. Routine mechanical ventilator management, postoperative chest x-ray shows the endotracheal tube in satisfactory position above the kumar, as well as, a orogastric tube projecting into the stomach. No acute cardiopulmonary process noted. Tentative plan is for extubation later this morning. Multiple pulmonary nodules, chest CTA shows multiple small approximately 0.5 cm peripheral and lateral based lung nodules in the right upper and mid lung michel, as well as, multiple pleural-based densities, measuring up to 1 cm on the right. No prior imaging available for review. May follow-up outpatient Heart failure with reduced ejection fraction, echocardiogram estimating a mildly reduced ejection fraction of 45 to 50% History of hypertension History of pulmonary embolism History of rheumatoid arthritis and osteoarthritis Plan: The patient was seen and evaluated Labs and medications reviewed Currently stable and on 2 L nasal cannula Continue the current treatment plan Lovenox for DVT prophylaxis Transfer to the regular medical floor We will continue to follow I have personally seen and examined the patient, performed the documentation and the assessment and plan as written. Number of minutes spent on the visit: 10.
--- NOTE | 2024-05-11 15:58 | P.PN ---
Subjective Progress Note Date: 05/11/24 Principal diagnosis: severe cervical myelopathy patient is evaluated at bedside today, he was resting in the ICU. Nursing was also available at bedside. Patient is utilizing the rigid c-collar. Patient does seem a little bit out of it today on exam but answers all my questions accurately. He is having a moderate amount of pain on the posterior aspect of his cervical spine. Patient was able to work a little bit with physical therapy, they were able to get him to the edge of the bed. Patient will be transfer out of the ICU later today to a medical/surgical floor. Patient denies any headaches, lightheadedness, chest pain or shortness of breath at this time. Objective - Vital Signs Vital signs: Vital Signs Temp 99.1 F 05/11/24 14:50 Pulse 83 05/11/24 14:50 Resp 16 05/11/24 14:50 BP 115/67 05/11/24 14:50 Pulse Ox 93 L 05/11/24 14:50 FiO2 30 05/10/24 08:00 Intake & Output 05/10/24 05/11/24 05/11/24 18:59 06:59 18:59 Intake Total 0786.366 1270 1181 Output Total 945 790 575 Balance 89.592 318 606 Weight 91.8 kg 90.3 kg Intake: IV 900 858 581 0.9% Pressure Bag 33 6 Dexamethasone Sod Phos ( 50 Mdv) 20 mg In Dextrose 5% in Water 50 ml @ 100 mls /hr IVPB DAILY [facility] Rx#: [id number] Sodium Chloride 0.9% 1, 900 825 525 000 ml @ 75 mls/hr IV . [id number] [facility] Rx#:[id number] Intake, IV Titration 24.592 Amount propofoL 1,000 mg In 24.592 Empty Bag 1 bag @ 15 MCG/ KG/MIN 7.634 mls/hr IV . Q13H6M [facility] Rx#:[id number] Oral 110 250 600 Output: Drainage 20 Posterior Neck 0 Right Anterior Neck 20 Urine 925 790 575 Other: Voiding Method Indwelling Catheter Indwelling Catheter Indwelling Catheter ABP, PAP, CO, CI - Last Documented Arterial Blood Pressure 123/65 - Exam Gen: AOx3, NAD VSS stable at this time Integument: Bandage was removed from the anterior incision, the drain is still in good position. Skin is well-healing at this time. Bandages in good position on the posterior aspect of the neck with a Hemovac drain in good position. Palpation: Tenderness is appreciated both along the anterior and posterior cervical spine ROM: Range of motion remains limited with the right upper extremity, he is able to wiggle the fingers and extend and flex the wrist. He can move the elbow slightly, shoulder range of motion was not assessed. Left upper extremity motion remains intact lower extremity motion remains limited, a lot of this is from position in bed. he continues to have more difficult time with the right lower extremity compared to the left. Sensory Exam: Senory exam to light touch is intact C5-T1 Senosry exam to light touch is intact L2-S1 Motor: Hip flexion was not assessed of the bilateral lower extremities due to position, left lower extremity demonstrates knee flexion and extension at 3/5, 4/5 plantarflexion, dorsiflexion, EHL, FHL Right lower extremity demonstrates 3-/5 strength with knee flexion and extension, 4-/5 plantarflexion, dorsiflexion, EHL, FHL Left upper extremity 4/5 strength with elbow extension, elbow flexion, wrist extension, wrist flexion, resident care director, 4-/5 shoulder elevation and abduction Right upper extremity strength is very limited, patient was able to extend and flex the wrist and wiggle all fingers with no difficulty Reflexes: 3/4 in all UE and LE positive Wang's bilaterally negative clonus bilaterally lower extremity - Labs CBC & Chem 7: 05/11/24 04:05 05/11/24 04:05 Labs: Abnormal Lab Results - Last 24 Hours (Table) 05/11/24 05/11/24 Range/Units 04:05 04:05 WBC 13.4 H (3.8-10.6) k/uL RBC 3.72 L (4.30-5.90) m/uL Hgb 11.3 L (13.0-17.5) gm/dL Hct 34.7 L (39.0-53.0) % Neutrophils # 12.0 H (1.3-7.7) k/uL Lymphocytes # 0.4 L (1.0-4.8) k/uL Chloride 111 H (98-107) mmol/L BUN 23 H (9-20) mg/dL Creatinine 0.64 L (0.66-1.25) mg/dL Glucose 123 H (74-99) mg/dL Calcium 7.7 L (8.4-10.2) mg/dL Assessment and Plan Assessment: Postoperative day #4 status post C3-C6 ACDF Postoperative day #2 status post C2-T2 posterior decompression and fusion Severe cervical myelopathy Upper extremity and lower extremity weakness and radiculopathy Plan: pain control, continue with current regimen. Continue use of the IV medication as needed along with oral medications. Continue with scheduled stool softeners DVT prophylaxis, Lovenox 40 mg subcu daily Wound care, will change anterior dressing and pull drain on 05/12/2024. Will also change dressing of the posterior cervical spine and assess drain at that time. Utilize rigid c-collar at all times Activity level restrictions, no pulling or pushing with the upper extremities, no overhead activity at this time. turn patient every 2 hours due to his limited activity. Patient can sit at the side of the bed and would recommend the use of the walker if attempt was made for ambulation Continue PT/OT Encourage incentive spirometer Other medical specialty recommendations appreciate Will continue to follow during hospital stay Time with Patient: Less than 30
[2024-05-12 10:27] LABS: HCT 32.6 % (39.0-53.0); HGB 10.8 gm/dL (13.0-17.5); MCHC 33.1 g/dL (31.0-37.0); MCV 93.8 fL (80.0-100.0); Mean Platelet Volume 8.6; Platelet Count 168 k/uL (150-450); RBC 3.48 m/uL (4.30-5.90); RDW 13.1 % (11.5-15.5); WBC 10.4 k/uL (3.8-10.6)
[2024-05-12 10:28] LABS: African American GFR (CKD) >90 (>60 ml/min/1.73 sqM); Anion Gap -1 mmol/L; Blood Urea Nitrogen 23 mg/dL (9-20); Calcium 7.8 mg/dL (8.4-10.2); Carbon Dioxide 28 mmol/L (22-30); Chloride 112 mmol/L (98-107); Glucose 82 mg/dL (74-99); Non-African American GFR(CKD) >90 (>60 ml/min/1.73 sqM); Sodium 139 mmol/L (137-145)
--- NOTE | 2024-05-12 11:12 | P.PN ---
Subjective Progress Note Date: 05/12/24 Principal diagnosis: severe cervical myelopathy patient is evaluated at bedside today, he is not a medical/surgical floor at this time. Patient is complaining of significant neck pain today. Patient is running a low-grade fever today. According to nursing, the patient had not received any medication since 2 AM this morning. He continues to utilize the rigid c-collar. Patient appears to be lethargic on exam. He does answer all my questions but his speech is very slow. The urinary Damon remains intact at this time. Both the anterior and posterior drain have minimal if any output at this time. Patient was made n.p.o. by internal medicine, speech pathology con sult has been placed. Patient denies any headaches, lightheadedness, chest pain or shortness of breath at this time. Objective - Vital Signs Vital signs: Vital Signs Temp 100.5 F H 05/12/24 07:54 Pulse 95 05/12/24 07:54 Resp 21 05/12/24 07:54 BP 116/75 05/12/24 07:54 Pulse Ox 96 05/12/24 07:54 FiO2 30 05/10/24 08:00 Intake & Output 05/11/24 05/12/24 05/12/24 18:59 06:59 18:59 Intake Total 1201 900 Output Total 925 520 Balance 276 380 Weight 207.5 kg Intake: IV 581 900 0.9% Pressure Bag 6 Dexamethasone Sod Phos ( 50 Mdv) 20 mg In Dextrose 5% in Water 50 ml @ 100 mls /hr IVPB DAILY [facility] Rx#: [id number] Sodium Chloride 0.9% 1, 525 900 000 ml @ 75 mls/hr IV . [id number] [facility] Rx#:[id number] Oral 620 Output: Drainage 10 Posterior Neck 10 Right Anterior Neck 0 Urine 925 510 Other: Voiding Method Indwelling Catheter Indwelling Catheter ABP, PAP, CO, CI - Last Documented Arterial Blood Pressure 123/65 - Exam Gen: AOx3, NAD VSS stable at this time Integument: Both the anterior and posterior surgical dressings were removed today at [facility]. Both the anterior and posterior drains were removed. [place] are in good position on the posterior aspect of the incision, the surgical glue is holding well on the anterior incision. New dressings were applied. No significant soft tissue swelling surrounding the anterior posterior wound Palpation: Tenderness is appreciated both along the anterior and posterior cervical spine ROM: Range of motion remains limited with the left upper extremity, he is able to wiggle the fingers. He can move the elbow slightly, shoulder range of motion was not assessed. left upper extremity range of motion was also very limited on exam today. I feel that his cooperation during the exam is very poor at this time Lower extremity motion remains limited, again cooperation is very poor Sensory Exam: Senory exam to light touch is intact C5-T1 Senosry exam to light touch is intact L2-S1 Motor: Strength testing to the bilateral lower extremities is very limited due to patient's cooperation. He had dealt with significant right lower extremity weakness prior to the surgery. Reflexes: 3/4 in all UE and LE positive Wang's bilaterally negative clonus bilaterally lower extremity - Labs CBC & Chem 7: 05/12/24 09:24 05/12/24 09:24 Labs: Abnormal Lab Results - Last 24 Hours (Table) 05/12/24/ Range/Units 09:24 09:24 RBC 3.48 L (4.30-5.90) m/uL Hgb 10.8 L (13.0-17.5) gm/dL Hct 32.6 L (39.0-53.0) % Chloride 112 H (98-107) mmol/L BUN 23 H (9-20) mg/dL Calcium 7.8 L (8.4-10.2) mg/dL Assessment and Plan Assessment: Postoperative day #5 status post C3-C6 ACDF Postoperative day #3 status post C2-T2 posterior decompression and fusion Severe cervical myelopathy Upper extremity and lower extremity weakness and radiculopathy Plan: Pain control, continue with current regimen. Continue use of the IV medication as needed along with oral medications. Continue with scheduled stool softeners DVT prophylaxis, Lovenox 40 mg subcu daily Wound care, Monitor dressings that are in place Utilize rigid c-collar at all times Activity level restrictions, no pulling or pushing with the upper extremities, no overhead activity at this time. Turn patient every 2 hours due to his limited activity. Patient can sit at the side of the bed and would recommend the use of the walker if attempt was made for ambulation Continue PT/OT Encourage incentive spirometer Other medical specialty recommendations appreciate Will continue to follow during hospital stay Time with Patient: Less than 30
--- NOTE | 2024-05-12 11:13 | P.PN ---
Subjective Progress Note Date: 05/12/24 58 year old M with PMH of RA presents to the ED. Patient reports being incarcerated for the past 10 months. He reports thoracic and lumbar back pain, dull and stabbing in nature, 10/10 severity that has been persistently getting worse over the past year. He recently got released from correction yesterday and has had difficulties with his ADL and IADLs which prompted him to come to the ED. He reports numbness and tingling in all of his fingers. He reports occasional shooting pain down both of his legs. He reports significant muscle spasms in both of his arms. He denies any bladder or bowel incontinence or saddle anesthesia. He denies any inciting trauma. MRI L spine done on 06/2023 shows left disk herniation S1, multilevel DJD L3-4, L4-5, L5-S1, multilevel canal stenosis L2-S1. C-spine MRI done in 08/2023 shows C3-4 severe spinal canal stenosis with myelomalacia. In the ED he underwent extensive evaluation. BP 159/83, HR 96, T 98.4F, RR 18, 99% on RA. CT L spine showed L2-3 mild central stenosis, L3-4 (and L4-5, L5-S1) moderate central stenosis. CBC, and CMP done significant for Cl 108, total protein 6.2. Patient is admitted for pain control and Ortho spine evaluation. CT C-spine shows spinal stenosis at C3. Ortho spine recommends C3-6 anterior cervical discectomy and fusion. Echocardiogram done as part of risk assessment, EF of 45 to 50%, with suspicion of basal inferior wall hypokinesia. Cardiology consulted, moderate-high risk, cleared for surgery. He underwent C3-6 anterior cervical arthrodesis with Dr. Flores on 05/07. Extubated on 05/10. 05/11 Extubated yesterday. Reports 10/[address] neck pain[address] C-spine CT shows post surgical changes with surgical drain in place, residual prevertebral soft tissue swelling with improving air. 05/12 Patient was seen and examined. Reports 10/10 neck pain. Reports cough unable to bring up sputum. Tmax 100.5 F this morning. CBC Hg 10.8, Hct 32.6. BMP Cl 112, BUN 23, Ca 7.8. General: Moderate distress Derm: warm, dry Head: atraumatic, normocephalic, symmetric, C-collar intact with anterior OSWALDO drain and posterior Hemovac drain in place Eyes: EOMI, no lid lag, anicteric sclera Mouth: no lip lesion, mucus membranes moist Cardiovascular: S1S2 tachy, no murmur Lungs: CTA bilateral, no rhonchi, no rales , no accessory muscle use Ext: no gross muscle atrophy, no edema, no contractures Neuro: Strength 3/5 RUE, 4/5 LUE, 3/5 RL and LLE with sensation intact to touch Psych: alert and oriented Based on my assessment of this patient, this patient meets a high complexity level of care. SIRS versus sepsis: Leukocytosis resolved. Fever and tachycardia may be related to pain. Obtain BCx x 2. CXR ordered. cardiology specialist. Start antibiotics if source of fever identified. Multilevel mild-severe spinal canal stenosis: Status post C3-6 anterior cervical arthrodesis with Dr. Flores on 05/07. Pain control with Dilaudid 0.5-1 mg IV Q4H PRN. [place] 10 PO Q4H scheduled. Flexeril 10 mg PO TID PRN. Gabapentin 300 mg PO TID. Tylenol 650 mg PO Q6H PRN. Zanaflex 2 mg PO BID + 4 mg PO QHS. Cymbalta 40 mg PO QHS. Dexamethasone 20 mg IV QD. Fall precautions. Neurochecks. PT and OT consult. Orthospine on board. Acute on chronic back pain: Management as above. Acute blood loss anemia: Expected result of surgery. Monitor daily. Transfuse if Hg < 7. Rheumatoid arthritis: Outpatient Medical Equipment Technician follow up. Pulmonary nodules: Outpatient Pulmonary follow up. Smoker: Advised to quit. Resolved: Ventilator dependent respiratory failure CODE STATUS: FULL CODE DVT Prophylaxis: Lovenox SQ GI Prophylaxis: Protonix IV Designated medical POA if patient is not able to make medical decisions for themselves: I have reviewed the following intelligence consultant notes: Orthopedic surgery, Pulmonary note. I have reviewed the results of the following tests: CBC, BMP I have ordered the following tests: CXR, BCx I have discussed the care of this patient with the following independent historian: ANGELICA I have independently interpreted the following test below: I have discussed the management of this patient with the following physician: Objective - Vital Signs Vital signs: Vital Signs Temp 100.5 F H 05/12/24 07:54 Pulse 95 05/12/24 07:54 Resp 21 05/12/24 07:54 BP 116/75 05/12/24 07:54 Pulse Ox 96 05/12/24 07:54 FiO2 30 05/10/24 08:00 Intake & Output 05/11/24 05/12/24 05/12/24 18:59 06:59 18:59 Intake Total 1201 900 Output Total 925 520 Balance 276 380 Weight 207.5 kg Intake: IV 581 900 0.9% Pressure Bag 6 Dexamethasone Sod Phos ( 50 Mdv) 20 mg In Dextrose 5% in Water 50 ml @ 100 mls /hr IVPB DAILY [facility] Rx#: [id number] Sodium Chloride 0.9% 1, 525 900 000 ml @ 75 mls/hr IV . [id number] [facility] Rx#:[id number] Oral 620 Output: Drainage 10 Posterior Neck 10 Right Anterior Neck 0 Urine 925 510 Other: Voiding Method Indwelling Catheter Indwelling Catheter ABP, PAP, CO, CI - Last Documented Arterial Blood Pressure 123/65 - Labs CBC & Chem 7: 05/12/24 09:24 05/12/24 09:24 Labs: Abnormal Lab Results - Last 24 Hours (Table) 05/12/24 05/12/24 Range/Units 09:24 09:24 RBC 3.48 L (4.30-5.90) m/uL Hgb 10.8 L (13.0-17.5) gm/dL Hct 32.6 L (39.0-53.0) % Chloride 112 H (98-107) mmol/L BUN 23 H (9-20) mg/dL Calcium 7.8 L (8.4-10.2) mg/dL
--- NOTE | 2024-05-12 11:21 | P.PN ---
Subjective Progress Note Date: 05/12/24 Patient is a 58-year-old white male with past medical history significant for hypertension, pulmonary embolism, rheumatoid arthritis, osteoarthritis, and lower back pain. Patient is currently sedated and intubated to the mechanical ventilator, unable to provide any information for HPI. On review of the EMR, patient was having severe upper and lower extremity weakness and associated cervical/thoracic level back pain. He was having troubles ambulating, and was apparently utilizing a wheelchair. CT of the cervical spine showed posterior vertebral body spurring centrally C3 and to a lesser degree C4. There was spinal canal stenosis at level C3. Uncovertebral joint hypertrophy with severe right formal stenosis at levels C4 and C5. Orthopedic surgery did evaluate this patient, and patient has underwent two-stage cervical spine surgery. Initial surgery was C3-C7 anterior cervical discectomy and fusion. Yesterday, patient did go back to OR for a posterior C2-T2 decompression and fusion. No perioperative complications reported. Patient was transferred back to the intensive care unit on the mechanical ventilator. Current ventilator settings are AC, respiratory 16, tidal volume 450, FiO2 30%, and PEEP of 5. Most recent ABG done earlier, with an FiO2 of 50% at that time, shows a PaO2 of 229, pCO2 of 42, pH of 7.35. Chest x-ray following surgery shows the endotracheal tube in satisfactory position above the kumar, as well as, a orogastric tube projecting into the stomach. No acute cardiopulmonary process noted. He is synchronous with mechanical ventilator. Patient is currently sedated, and fairly unresponsive. Propofol is ordered for a RASS of 0 to -1. Blood pressure is slightly hypertensive. Reportedly, Dr. Flores would like his MAP greater than 85 to help with perfusion pressure. Head is midline. Patient does have a c-collar on. There is a posterior Hemovac with minimal amount of serosanguineous drainage as well as an anterior OSWALDO drain which is compressed with a minimal amount of serosanguineous drainage. Most recent CBC from yesterday: WBC count 11.5, hemoglobin 12, hematocrit 34, platelets 174. BMP from yesterday: Sodium 144, potassium 4.2, chloride 112, serum bicarb 23, BUN 28, creatinine 1.1, glucose 124. Normal saline is infusing at 75 mL/h. Not currently requiring any vasopressors. Plan will likely be for extubation later this morning. The patient is seen today May 11, 2024 in follow-up in the intensive care unit. He is currently resting comfortably in bed. Awake and alert and no acute distress. He is status post spine surgery. He was extubated yesterday. He is currently on 2 L/min per nasal cannula with O2 saturations in the 90s. He has normal saline at 75 MLS per hour. Count 13.4. Hemoglobin 11.3. Platelets 184. Sodium 137. Potassium 4.2. Bicarb 25. BUN 23. Creatinine 0.64. Glucose 123. His pain is Lovenox for DVT prophylaxis. The patient is seen today May 12, 2024 in follow-up on the regular medical fl oor. He is postoperative day #5 status post C3-C6 anterior decompression and fusion, postoperative day #3 status post C2-T2 post anterior decompression and fusion. He is awake and alert in no acute distress. He is sitting up in bed. He is maintaining O2 saturations in the 90s on 2 L/min per nasal cannula. His temperature is 100.5 axillary. Hemodynamically stable. Orthopedics is at the bedside. Plan is to remove the Hemovac and have dressing changes. White count 10.4. Hemoglobin 10.8. Sodium 139. Potassium 4.0. Bicarb 28. BUN 23. Creatinine 0.75. Glucose 82. He has normal saline at 75 MLS per hour. He is currently n.p.o. for swallow evaluation. He is to remain in a rigid c-collar at all times. He needs increased encouragement regarding the use of the incentive spirometer. Maintain adequate pain control. Objective - Vital Signs Vital signs: Vital Signs Temp 100.5 F H 05/12/24 07:54 Pulse 95 05/12/24 07:54 Resp 21 05/12/24 07:54 BP 116/75 05/12/24 07:54 Pulse Ox 96 05/12/24 07:54 FiO2 30 05/10/24 08:00 Intake & Output 05/11/24 05/12/24 05/12/24 18:59 06:59 18:59 Intake Total 1201 900 Output Total 925 520 Balance 276 380 Weight 207.5 kg Intake: IV 581 900 0.9% Pressure Bag 6 Dexamethasone Sod Phos ( 50 Mdv) 20 mg In Dextrose 5% in Water 50 ml @ 100 mls /hr IVPB DAILY [facility] Rx#: [id number] Sodium Chloride 0.9% 1, 525 900 000 ml @ 75 mls/hr IV . [id number] [facility] Rx#:[id number] Oral 620 Output: Drainage 10 Posterior Neck 10 Right Anterior Neck 0 Urine 925 510 Other: Voiding Method Indwelling Catheter Indwelling Catheter ABP, PAP, CO, CI - Last Documented Arterial Blood Pressure 123/65 - Exam GENERAL EXAM: Awake, alert, 58-year-old male, status post dressing changes, c- collar on, on 2 L nasal cannula. HEAD: Normocephalic and atraumatic EYES: Normal reaction of pupils, equal size. NOSE: Clear with pink turbinates. THROAT: No erythema or exudates. NECK: No masses, no JVD. C-collar in place. Anterior OSWALDO drain and posterior Hemovac drains in place and plan is for removal today per orthopedics. CHEST: No chest wall deformity. LUNGS: Equal air entry with no crackles, wheeze, rhonchi or dullness. CVS: S1 and S2 normal with no audible murmur, regular rhythm. No extra heart sounds ABDOMEN: No hepatosplenomegaly, active bowel sounds, no guarding or rigidity. SPINE: No scoliosis or deformity SKIN: No rashes CENTRAL NERVOUS SYSTEM: No focal deficits, tone is normal in all 4 extremities. EXTREMITIES: There is no peripheral edema, clubbing, or cyanosis. Peripheral pulses are intact. - Labs CBC & Chem 7: 05/12/24 09:24 05/12/24 09:24 Labs: Abnormal Lab Results - Last 24 Hours (Table) 05/12/24 05/12/24 Range/Units 09:24 09:24 RBC 3.48 L (4.30-5.90) m/uL Hgb 10.8 L (13.0-17.5) gm/dL Hct 32.6 L (39.0-53.0) % Chloride 112 H (98-107) mmol/L BUN 23 H (9-20) mg/dL Calcium 7.8 L (8.4-10.2) mg/dL Assessment and Plan Assessment: Severe cervical spinal spondylosis and severe stenosis at levels C3-C7 with myelopathy and radiculopathy; status post two-stage surgery, postoperative day #5 following a C3-C7 anterior cervical discectomy and fusion, followed by a posterior C2-T2 decompression and fusion postoperative day #3. No perioperative complications were reported. Routine mechanical ventilator management, postoperative chest x-ray shows the endotracheal tube in satisfactory position above the kumar, as well as, a orogastric tube projecting into the stomach. No acute cardiopulmonary process noted. Tentative plan is for extubation later this morning. Multiple pulmonary nodules, chest CTA shows multiple small approximately 0.5 cm peripheral and lateral based lung nodules in the right upper and mid lung michel, as well as, multiple pleural-based densities, measuring up to 1 cm on the right. No prior imaging available for review. May follow-up outpatient Heart failure with reduced ejection fraction, echocardiogram estimating a mildly reduced ejection fraction of 45 to 50% History of hypertension History of pulmonary embolism History of rheumatoid arthritis and osteoarthritis Plan: The patient was seen and evaluated Labs and medications reviewed Currently on 2 L nasal cannula Encourage increased use of the incentive spirometer Encouraged to increase activity as tolerated Rigid c-collar remains in place Lovenox for DVT prophylaxis Plan is for [facility] for rehab at discharge I have personally seen and examined the patient, performed the documentation and the assessment and plan as written. Number of minutes spent on the visit: 10.
--- NOTE | 2024-05-12 12:22 | XR ---
EXAMINATION TYPE: XR chest 1V portable DATE OF EXAM: 05/12/2024 Comparison: 05/10/2024 Clinical History: 58-year-old male with fever Findings: ACDF hardware and posterior cervical fusion hardware. Midline skin dorita. Heart upper limits of nor mal in size. New patchy opacity at the right base. No pleural effusion. Impression: New patchy opacity at the right base suspicious for developing pneumonia.
--- NOTE | 2024-05-12 13:56 | CT ---
EXAMINATION TYPE: CT brain wo con DATE OF EXAM: 05/12/2024 COMPARISON: 09/12/2023 HISTORY: 58-year-old male weakness, right side deficit TECHNIQUE: Examination was done in axial plane without intravenous contrast. Coronal and sagittal r econstructions performed. CT DLP: 1095.7 mGycm Automated exposure control for dose reduction was used. FINDINGS: There is no evidence of acute intracranial hemorrhage, acute ischemic changes, mass, mass-effect, or extra-axial fluid collection. There is no effacement of cerebral sulci or basal subarachnoid cister ns. There is no hydrocephalus. There is no midline shift. Devine-white matter distinction is preserv ed. Unchanged punctate dystrophic calcification lateral left frontal region. Mild patchy white matter hyp odensities particularly in the left periventricular region, unchanged. Scattered mild mucosal thickening ethmoid air cells. Partial opacification of bilateral mastoid air c ells. Leftward nasal septal deviation. Orbits and globes are intact. IMPRESSION: 1. No acute intracranial abnormality seen. Unchanged mild patchy burden of chronic small vessel ische [place] disease. 2. Partial opacification throughout the bilateral mastoid air cells. Correlate for any mastoid pain t o exclude mastoiditis.
[2024-05-12 15:48] LABS: Glucose,Whole Blood 110 mg/dL (70-110)
[2024-05-12] MEDS: ACETAMINOPHEN IV (For NPO) 1,000 MG in EMPTY BAG 1 BAG IVPB STA (16:07)
[2024-05-12] MEDS: CEFEPIME 2 GM in SODIUM CHLORIDE 0.9% 100 ML IVPB SCH (16:11)
[2024-05-13 04:25] LABS: African American GFR (CKD) >90 (>60 ml/min/1.73 sqM); Anion Gap 4 mmol/L; Blood Urea Nitrogen 29 mg/dL (9-20); Calcium 8.2 mg/dL (8.4-10.2); Carbon Dioxide 23 mmol/L (22-30); Chloride 113 mmol/L (98-107); Glucose 149 mg/dL (74-99); Non-African American GFR(CKD) >90 (>60 ml/min/1.73 sqM); Potassium 4.8 mmol/L (3.5-5.1); Sodium 140 mmol/L (137-145)
[2024-05-13 04:27] LABS: HCT 35.5 % (39.0-53.0); HGB 11.4 gm/dL (13.0-17.5); MCH 30.6 pg (25.0-35.0); MCV 95.4 fL (80.0-100.0); Mean Platelet Volume 8.9; Platelet Count 196 k/uL (150-450); RBC 3.72 m/uL (4.30-5.90); RDW 12.9 % (11.5-15.5); WBC 11.7 k/uL (3.8-10.6)
--- NOTE | 2024-05-13 10:19 | P.PN ---
Subjective Progress Note Date: 05/13/24 Patient is a 58-year-old white male with past medical history significant for hypertension, pulmonary embolism, rheumatoid arthritis, osteoarthritis, and lower back pain. Patient is currently sedated and intubated to the mechanical ventilator, unable to provide any information for HPI. On review of the EMR, patient was having severe upper and lower extremity weakness and associated cervical/thoracic level back pain. He was having troubles ambulating, and was apparently utilizing a wheelchair. CT of the cervical spine showed posterior vertebral body spurring centrally C3 and to a lesser degree C4. There was spinal canal stenosis at level C3. Uncovertebral joint hypertrophy with severe right formal stenosis at levels C4 and C5. Orthopedic surgery did evaluate this patient, and patient has underwent two-stage cervical spine surgery. Initial surgery was C3-C7 anterior cervical discectomy and fusion. Yesterday, patient did go back to OR for a posterior C2-T2 decompression and fusion. No perioperative complications reported. Patient was transferred back to the intensive care unit on the mechanical ventilator. Current ventilator settings are AC, respiratory 16, tidal volume 450, FiO2 30%, and PEEP of 5. Most recent ABG done earlier, with an FiO2 of 50% at that time, shows a PaO2 of 229, pCO2 of 42, pH of 7.35. Chest x-ray following surgery shows the endotracheal tube in satisfactory position above the kumar, as well as, a orogastric tube projecting into the stomach. No acute cardiopulmonary process noted. He is synchronous with mechanical ventilator. Patient is currently sedated, and fairly unresponsive. Propofol is ordered for a RASS of 0 to -1. Blood pressure is slightly hypertensive. Reportedly, Dr. Flores would like his MAP greater than 85 to help with perfusion pressure. Head is midline. Patient does have a c-collar on. There is a posterior Hemovac with minimal amount of serosanguineous drainage as well as an anterior OSWALDO drain which is compressed with a minimal amount of serosanguineous drainage. Most recent CBC from yesterday: WBC count 11.5, hemoglobin 12, hematocrit 34, platelets 174. BMP from yesterday: Sodium 144, potassium 4.2, chloride 112, serum bicarb 23, BUN 28, creatinine 1.1, glucose 124. Normal saline is infusing at 75 mL/h. Not currently requiring any vasopressors. Plan will likely be for extubation later this morning. The patient is seen today May 11, 2024 in follow-up in the intensive care unit. He is currently resting comfortably in bed. Awake and alert and no acute distress. He is status post spine surgery. He was extubated yesterday. He is currently on 2 L/min per nasal cannula with O2 saturations in the 90s. He has normal saline at 75 MLS per hour. Count 13.4. Hemoglobin 11.3. Platelets 184. Sodium 137. Potassium 4.2. Bicarb 25. BUN 23. Creatinine 0.64. Glucose 123. His pain is Lovenox for DVT prophylaxis. The patient is seen today May 12, 2024 in follow-up on the regular medical fl oor. He is postoperative day #5 status post C3-C6 anterior decompression and fusion, postoperative day #3 status post C2-T2 post posterior decompression and fusion. He is awake and alert in no acute distress. He is sitting up in bed. He is maintaining O2 saturations in the 90s on 2 L/min per nasal cannula. His temperature is 100.5 axillary. Hemodynamically stable. Orthopedics is at the bedside. Plan is to remove the Hemovac and have dressing changes. White count 10.4. Hemoglobin 10.8. Sodium 139. Potassium 4.0. Bicarb 28. BUN 23. Creatinine 0.75. Glucose 82. He has normal saline at 75 MLS per hour. He is currently n.p.o. for swallow evaluation. He is to remain in a rigid c-collar at all times. He needs increased encouragement regarding the use of the incentive spirometer. Maintain adequate pain control. The patient is seen today May 13, 2024 in follow-up on the regular medical floor. Postoperative day #6 of an anterior decompression and fusion of C3-6. Postoperative day #4 of a posterior decompression and fusion of C2-T2. He remains quite weak and debilitated. Not willing to do much effort on his own. A rapid response team was called on him yesterday due to increasing shortness of breath. Chest x-ray reveals a new patchy opacity in the right lung base. CT scan of the brain revealed no acute intracranial abnormality. Partial opacification throughout the bilateral mastoid air cells. He is maintaining O2 saturations up to 100% on 2 L/min per nasal cannula. He is been afebrile. Hemodynamically stable. Needs increased encouragement regarding the use of the incentive spirometer. White count 11.7. Hemoglobin 11.4. Platelets 196. Sodium 140. Potassium 4.8. Bicarb 23. BUN 29. Creatinine 0.67. Procalcitonin is pending. He has been initiated on cefepime. Lovenox for DVT prophylaxis. Objective - Vital Signs Vital signs: Vital Signs Temp 98.2 F 05/13/24 07:11 Pulse 86 05/13/24 07:11 Resp 17 05/13/24 07:11 BP 156/84 05/13/24 07:11 Pulse Ox 100 05/13/24 07:11 FiO2 30 05/10/24 08:00 Intake & Output 05/12/24 05/13/24 05/13/24 18:59 06:59 18:59 Intake Total 900 Output Total 375 Balance -375 900 Weight 207 kg Intake: IV 900 Sodium Chloride 0.9% 1, 900 000 ml @ 75 mls/hr IV . [id number] ON LICENSE OF [facility] Rx#:[id number] Output: Urine 375 Other: Voiding Method Indwelling Catheter Indwelling Catheter ABP, PAP, CO, CI - Last Documented Arterial Blood Pressure 123/65 - Exam GENERAL EXAM: Awake, alert, 58-year-old male, c-collar on, on 2 L nasal cannula. HEAD: Normocephalic and atraumatic EYES: Normal reaction of pupils, equal size. NOSE: Clear with pink turbinates. THROAT: No erythema or exudates. NECK: No masses, no JVD. Anterior and posterior dressings dry and intact. C- collar in place. CHEST: No chest wall deformity. LUNGS: Equal air entry with no crackles, wheeze, rhonchi or dullness. CVS: S1 and S2 normal with no audible murmur, regular rhythm. No extra heart sounds ABDOMEN: No hepatosplenomegaly, active bowel sounds, no guarding or rigidity. SPINE: No scoliosis or deformity SKIN: No rashes CENTRAL NERVOUS SYSTEM: No focal deficits, very weak upper and lower extremities, tone is normal in all 4 extremities. EXTREMITIES: There is no peripheral edema, clubbing, or cyanosis. Peripheral pulses are intact. - Labs CBC & Chem 7: 05/13/24 03:23 05/13/24 03:23 Labs: Abnormal Lab Results - Last 24 Hours (Table) 05/12/24 05/12/2424 Range/Units 09:24 09:24 03:23 WBC 11.7 H (3.8-10.6) k/uL RBC 3.48 L 3.72 L (4.30-5.90) m/uL Hgb 10.8 L 11.4 L (13.0-17.5) gm/dL Hct 32.6 L 35.5 L (39.0-53.0) % Chloride 112 H (98-107) mmol/L BUN 23 H (9-20) mg/dL Glucose (74-99) mg/dL Calcium 7.8 L (8.4-10.2) mg/dL 05/13/24 Range/Units 03:23 WBC (3.8-10.6) k/uL RBC (4.30-5.90) m/uL Hgb (13.0-17.5) gm/dL Hct (39.0-53.0) % Chloride 113 H (98-107) mmol/L BUN 29 H (9-20) mg/dL Glucose 149 H (74-99) mg/dL Calcium 8.2 L (8.4-10.2) mg/dL Assessment and Plan Assessment: Severe cervical spinal spondylosis and severe stenosis at levels C3-C7 with myelopathy and radiculopathy; status post two-stage surgery, postoperative day # 6 following a C3-C7 anterior cervical discectomy and fusion, followed by a posterior C2-T2 decompression and fusion postoperative day #4. No perioperative complications were reported. Altered mental status with shortness of breath, rapid response team called at 1546 on 05/12/2024. Chest x-ray shows new patchy density in the right lung base. CT scan of the brain revealed no acute abnormalities. Multiple pulmonary nodules, chest CTA shows multiple small approximately 0.5 cm peripheral and lateral based lung nodules in the right upper and mid lung michel, as well as, multiple pleural-based densities, measuring up to 1 cm on the right. No prior imaging available for review. May follow-up outpatient Heart failure with reduced ejection fraction, echocardiogram estimating a mildly reduced ejection fraction of 45 to 50% History of hypertension History of pulmonary embolism History of rheumatoid arthritis and osteoarthritis Plan: The patient was seen and evaluated CT scan of the brain, chest x-ray, labs and medications reviewed Procalcitonin pending, initiated on cefepime Currently on 2 L nasal cannula Again encouraged the increased use of the incentive spirometer Needs increased encouragement to perform any ADLs on his own Rigid c-collar remains in place Lovenox for DVT prophylaxis Plan is for [facility] for rehab at discharge I have personally seen and examined the patient, performed the documentation and the assessment and plan as written. Number of minutes spent on the visit: 10.
--- NOTE | 2024-05-13 10:40 | P.PN ---
Subjective Progress Note Date: 05/13/24 58 year old M with PMH of RA presents to the ED. Patient reports being incarcerated for the past 10 months. He reports thoracic and lumbar back pain, dull and stabbing in nature, 10/10 severity that has been persistently getting worse over the past year. He recently got released from correction yesterday and has had difficulties with his ADL and IADLs which prompted him to come to the ED. He reports numbness and tingling in all of his fingers. He reports occasional shooting pain down both of his legs. He reports significant muscle spasms in both of his arms. He denies any bladder or bowel incontinence or saddle anesthesia. He denies any inciting trauma. MRI L spine done on 06/2023 shows left disk herniation S1, multilevel DJD L3-4, L4-5, L5-S1, multilevel canal stenosis L2-S1. C-spine MRI done in 08/2023 shows C3-4 severe spinal canal stenosis with myelomalacia. In the ED he underwent extensive evaluation. BP 159/83, HR 96, T 98.4F, RR 18, 99% on RA. CT L spine showed L2-3 mild central stenosis, L3-4 (and L4-5, L5-S1) moderate central stenosis. CBC, and CMP done significant for Cl 108, total protein 6.2. Patient is admitted for pain control and Ortho spine evaluation. CT C-spine shows spinal stenosis at C3. Ortho spine recommends C3-6 anterior cervical discectomy and fusion. Echocardiogram done as part of risk assessment, EF of 45 to 50%, with suspicion of basal inferior wall hypokinesia. Cardiology consulted, moderate-high risk, cleared for surgery. He underwent C3-6 anterior cervical arthrodesis with Dr. Flores on 05/07. Extubated on 05/10. 05/11 Extubated yesterday. Reports 10/[address] neck pain. C-spine CT shows post surgical changes with surgical drain in place, residual prevertebral soft tissue swelling with improving air. 05/12 Patient was seen and examined. Reports 10/10 neck pain. Reports cough unable to bring up sputum. Tmax 100.5 F this morning. CBC Hg 10.8, Hct 32.6. BMP Cl 112, BUN 23, Ca 7.8. A-team called for lethargy and respiratory distress. Patient sounds rhonchorous. Improved with suctioning. Now on 3L NC. Vital signs otherwise stable. Tmax 101.1F. CXR shows R sided infiltrate. 1000 mg IV Tylenol ordered. Start Cefepime 2g IV TID for HAP. Sputum Cx ordered. Blood Cx collected this morning. Lactic acid ordered. Currently on NS at 75 cc/hr. Will avoid sedative medication for now. Keep NPO for swallow evaluation. 05/13 Patient was seen and examined. Mentation significantly improved today. Neck pain is better than yesterday but worse with movement. He has not gotten out of bed since surgery. Currently on 2L NC. Maintained on Cefepime 2g IV TID (D2) for treatment of PNA. CBC WBC 11.7, Hg 11.4, Hct 35.5. BMP Cl 113, BUN 29, glu 149, Ca 8.2. Lactic acid and Pro-christina done 05/12 is 0.7 and 0.65 respectively. Diet has been upgraded to FLD. General: Mild distress Derm: warm, dry Head: atraumatic, normocephalic, symmetric, C-collar intact with anterior OSWALDO drain and posterior Hemovac drain in place Eyes: EOMI, no lid lag, anicteric sclera Mouth: no lip lesion, mucus membranes moist Cardiovascular: S1S2 tachy, no murmur Lungs: CTA bilateral, no rhonchi, no rales , no accessory muscle use Ext: no gross muscle atrophy, no edema, no contractures Neuro: Strength 2/5 RUE, 4/5 LUE, 3/5 RL and LLE with sensation intact to touch Psych: alert and oriented Based on my assessment of this patient, this patient meets a high complexity level of care. Sepsis likely due to HAP: Started on Cefepime 2g IV TID 05/12. Pro-christina elevated. Lactic acid wnl. Continue NS at 75 cc/hr. Follow BCx x 2 and Sputum Cx. Telemetry monitoring. Pulmonary on board. Multilevel mild-severe spinal canal stenosis: Status post C3-6 anterior cervical arthrodesis with Dr. Flores on 05/07. Pain control with Dilaudid 0.5-1 mg IV Q4H PRN. [place]yka 10 PO Q4H scheduled. Flexeril 10 mg PO TID PRN. Gabapentin 300 mg PO TID. Tylenol 650 mg PO Q6H PRN. Zanaflex 2 mg PO BID + 4 mg PO QHS. Cymbalta 40 mg PO QHS. Dexamethasone 20 mg IV QD. Fall precautions. Neurochecks. PT and OT consult. Orthospine on board. Acute on chronic back pain: Management as above. Acute blood loss anemia: Expected result of surgery. Monitor daily. Transfuse if Hg < 7. Rheumatoid arthritis: Outpatient [employer] follow up. Pulmonary nodules: Outpatient Pulmonary follow up. Smoker: Advised to quit. Resolved: Ventilator dependent respiratory failure CODE STATUS: FULL CODE DVT Prophylaxis: Lovenox SQ GI Prophylaxis: Protonix IV Designated medical POA if patient is not able to make medical decisions for t hemselves: I have reviewed the following reporting consultant notes: Orthopedic surgery, Pulmonary note. I have reviewed the results of the following tests: CBC, BMP, Procal, Lactic acid I have ordered the following tests: CBC and BMP tomorrow. BCx, Sputum Cx pending. I have discussed the care of this patient with the following independent historian: RN I have independently interpreted the following test below: I have discussed the management of this patient with the following physician: Objective - Vital Signs Vital signs: Vital Signs Temp 98.2 F 05/13/24 07:11 Pulse 86 05/13/24 07:11 Resp 17 05/13/24 07:11 BP 156/84 05/13/24 07:11 Pulse Ox 100 05/13/24 07:11 FiO2 30 05/10/24 08:00 Intake & Output 05/12/24 05/13/24 05/13/24 18:59 06:59 18:59 Intake Total 900 Output Total 375 Balance -375 900 Weight 207 kg Intake: IV 900 Sodium Chloride 0.9% 1, 900 000 ml @ 75 mls/hr IV . [id number] [facility] Rx#:[id number] Output: Urine 375 Other: Voiding Method Indwelling Catheter Indwelling Catheter ABP, PAP, CO, CI - Last Documented Arterial Blood Pressure 123/65 - Labs CBC & Chem 7: 05/13/24 03:23 05/13/24 03:23 Labs: Abnormal Lab Results - Last 24 Hours (Table) 05/12/24 05/13/24 05/13/24 Range/Units 16:29 03:23 03:23 WBC 11.7 H (3.8-10.6) k/uL RBC 3.72 L (4.30-5.90) m/uL Hgb 11.4 L (13.0-17.5) gm/dL Hct 35.5 L (39.0-53.0) % Chloride 113 H (98-107) mmol/L BUN 29 H (9-20) mg/dL Glucose 149 H (74-99) mg/dL Calcium 8.2 L (8.4-10.2) mg/dL Procalcitonin 0.65 H (0.02-0.09) ng/mL Microbiology - Last 24 Hours (Table) 05/12/24 16:14 Gram Stain - Preliminary Sputum
--- NOTE | 2024-05-13 11:17 | P.PN ---
Subjective Progress Note Date: 05/13/24 Principal diagnosis: severe cervical myelopathy Patient is evaluated at bedside today, he is resting in his hospital chair. Patient appears a lot more alert and oriented today on exam. They did call in a team on him yesterday around 4:00 to 2 his lethargy and difficulty with breathing. Multiple lab tests and imaging tests were ordered by internal medicine. There was concern for possible pneumonia, he was started on IV antibiotics. Awaiting speech therapy consult, he has been up dated to full liquid diet. He feels that the pain control is adequate at this time. We have been trying to limit the IV Dilaudid at this time. Patient denies any headaches, lightheadedness, chest pain or shortness of breath at this time. Objective - Vital Signs Vital signs: Vital Signs Temp 98.2 F 05/13/24 07:11 Pulse 86 05/13/24 07:11 Resp 17 05/13/24 07:11 BP 156/84 05/13/24 07:11 Pulse Ox 100 05/13/24 07:11 FiO2 30 05/10/24 08:00 Intake & Output 05/12/24 05/13/24 05/13/24 18:59 06:59 18:59 Intake Total 900 Output Total 375 Balance -375 900 Weight 207 kg Intake: IV 900 Sodium Chloride 0.9% 1, 900 000 ml @ 75 mls/hr IV . [id number] [facility] Rx#:[id number] Output: Urine 375 Other: Voiding Method Indwelling Catheter Indwelling Catheter ABP, PAP, CO, CI - Last Documented Arterial Blood Pressure 123/65 - Exam Gen: AOx3, NAD VSS stable at this time Integument: Anterior and posterior surgical dressings are in good position and condition, no active drainage visualized Palpation: Tenderness is appreciated both along the anterior and posterior cervical spine ROM: Range of motion seems improved in the bilateral upper and lower extremities. He continues to have more deficits to the right upper extremity, he is able to wiggle the fingers along with extend and flex the wrist minimally. He has slight motion with elbow flexion also. Range of motion in the left upper extremity is much improved today, he still demonstrates difficulty with shoulder elevation and abduction Left lower extremity is moving a lot better with regards to hip flexion, knee extension and knee flexion. The right lower extremity is also improved, he is able to wiggle the toes, plantar and dorsiflexion are improved. He still has difficulty with knee extension, knee flexion, hip flexion Sensory Exam: Senory exam to light touch is intact C5-T1 Senosry exam to light touch is intact L2-S1 Motor: Strength testing was deferred today Reflexes: 3/4 in all UE and LE positive Wang's bilaterally negative clonus bilaterally lower extremity - Labs CBC & Chem 7: 05/13/24 03:23 05/13/24 03:23 Labs: Abnormal Lab Results - Last 24 Hours (Table) 05/12/24 05/13/24 05/13/24 Range/Units 16:29 03:23 03:23 WBC 11.7 H (3.8-10.6) k/uL RBC 3.72 L (4.30-5.90) m/uL Hgb 11.4 L (13.0-17.5) gm/dL Hct 35.5 L (39.0-53.0) % Chloride 113 H (98-107) mmol/L BUN 29 H (9-20) mg/dL Glucose 149 H (74-99) mg/dL Calcium 8.2 L (8.4-10.2) mg/dL Procalcitonin 0.65 H (0.02-0.09) ng/mL Microbiology - Last 24 Hours (Table) 05/12/24 16:14 Gram Stain - Preliminary Sputum Assessment and Plan Assessment: Postoperative day #6 status post C3-C6 ACDF Postoperative day #4 status post C2-T2 posterior decompression and fusion Severe cervical myelopathy Upper extremity and lower extremity weakness and radiculopathy Other medical comorbidities Plan: Pain control, continue with current regimen. Continue daily and as needed stool softeners CT scan of the head was negative for acute bleeds, awaiting neurology consult and recommendations DVT prophylaxis, Lovenox 40 mg subcu daily Wound care, monitor dressings that are in place Utilize rigid c-collar at all times Activity level restrictions, no pulling or pushing with the upper extremities, no overhead activity at this time. Turn patient every 2 hours due to his limited activity. Patient can sit at the side of the bed and would recommend the use of the walker if attempt was made for ambulation Continue PT/OT Encourage incentive spirometer Other medical specialty recommendations appreciate Discharge planning: patient will need placement for either inpatient or subacute rehab
--- NOTE | 2024-05-14 03:10 | P.CNNES ---
History of Present Illness Consult date: 05/13/24 Requesting physician: Brandyn Clark Reason for Consult: right side deificit, post op c2-t2, lethargy History of Present Illness: Patient is a 58-year-old male with a very complex medical history, came to the hospital by ambulance on 05/04/2024 at 12:09 AM for increasing weakness of the arms and legs. I spent 75 minutes with the patient including history taking, examination, besides the time spent in review of the chart and the dictation. Patient states that he was incarcerated for 35 years on 07/15/1987 and released on 07/29/2022. Patient apparently was again incarcerated on 07/25/2023, and just released on the day of admission, 05/04/2024. In February 2023, patient got sick and developed pneumonia, and a blood clot. 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 He also underwent carpal tunnel release on 05/24/2023. Patient had presented to [facility] on 07/07/2023 with worsening back pain. He was seen by orthopedic surgery, who initiated an MRI of the lumbar spine, which revealed left paracentral disc herniation extruded fragment resulting in impingement of the S1 left nerve root, correlate for radiculopathy. Multilevel severe degenerative disc disease with vacuum disc at L3-L4, L4-L5 and L5-S1. Multilevel disc protrusion extending from levels L2 to S1 with multilevel hypertrophic changes of facets and ligamentum flavum, resulting in multi levels significant canal stenosis and bilateral foraminal encroachment. There is a central disc bulge which encroaches upon the anterior margin of the spinal cord at T11-T12. Patient was cleared to follow-up with orthopedic surgery outpatient on 07/22/2023 at 9:30 AM. Patient then was incarcerated on 07/25/2023. [facility] after he suffered from a fall from sitting position, when he fell asleep in a sitting position, fell forwards and stuck his head on a chair and then on the floor. He had a CT cervical spine and then an MRI of the cervical spine performed, which revealed C3 to C4 severe spinal canal stenosis with myelomalacia, given there is no significant bony edema, findings suggest chronic process. Additional myelomalacia at the level just below the C4-C5 disc space. Disc degeneration changes with varying degrees of high-grade neural foraminal stenosis. Patient was recommended to follow up with orthopedic spine. Patient has been having progressive worsening gait and muscle weakness in the arms and legs. Patient was able to walk with a cane. Patient states that in February 2024 he was able to move his arms to his mouth and scramble piece of meat. Patient states that in the last few months he has been mostly wheelchair-bound. The weakness in the arms have been particular noticeable since December 2023. Patient completed his sentence on 05/03/2024. It appears he was still able to walk with a cane, and he walked out of the [facility] with his cane, and [facility] From there he took the bus to his sister's home. Patient's sister called the ambulance because of progressive weakness. I spent extensive amount of time in order to timeline the weakness, but looks like he was significantly worse while in skilled nursing, but on the contrary, still able to walk with a cane and use the bus to go to his destinations. As per EMS flowsheet when they arrived, found patient with increased pain and edema in the lower extremities as well as inability to bear weight. Patient has history of rheumatoid arthritis and has had increased edema in bilateral lower extremities and unable to stand. Patient was alert and orient x 4 with GCS of 15. Patient denied any chest pain shortness of breath or abdominal pain. Patient denied any dizziness or nausea. Patient's vitals at the scene was blood pressure 182/88, pulse rate 111, respirations 16 saturation 96%. Patient underwent lumbar spine CT which revealed multilevel degenerative disc disease with multilevel central stenosis. Cervical spine CT revealed posterior vertebral body spurring centrally C3 and to lesser degree C4. This has spinal canal stenosis at C3. Uncovertebral joint hypertrophy with severe right foraminal stenosis C4-5. Patient had a 2D echo which revealed left ventricular EF about 45 to 50%. Mildly increased septal wall thickness. Mildly decreased left ventricular EF. Right ventricle not well-visualized. Normal left and right atria. No valvular abnormalities. No LV thrombus. Suspect basal inferior wall hypokinesia. Patient's blood test shows WBC 11.7, hemoglobin 11.4 normal platelets. PT PTT normal. Basic metabolic panel normal. Hemoglobin A1c 5.0. Hepatic panel normal, CK2 66. Troponin negative. CT head showed no acute intracranial abnormality seen. Unchanged mild patchy burden of chronic small vessel ischemic disease. Partial opacification throughout the bilateral mastoid air cells. Correlate for any mastoid pain to exclude mastoiditis.. Patient's home medication include Cymbalta 40 mg, Lasix 40 mg, sulfasalazine 50 mg twice daily, ibuprofen, Remeron 50 mg at bedtime, Zanaflex 2 mg twice daily and 4 mg at bedtime, tramadol 50 mg and lisinopril. Patient underwent C3-4 anterior cervical arthrodesis, C4-C5 anterior cervical arthrodesis, C5-6 anterior cervical arthrodesis. C3-C6 anterior instrumentation, plate and screws with bio mechanical device, cages at C3-4, C4- 5 and C5-6 on 05/07/2024. Patient underwent C2-T2 stabilized posterolateral instrumented fusion, C2 T1 bilateral laminectomy partial medial facetectomy and foraminotomy C2-T2 segmental instrumentation on 05/09/2024. Yesterday patient was very lethargic, and noticed to have right-sided weakness, which prompted this neurology consultation. Review of Systems As mentioned pertinent positives and negatives in the HPI. Past Medical History Past Medical History: Hypertension, Pneumonia, Pulmonary Embolus (PE), Rheumatoid Arthritis (RA) Additional Past Medical History / Comment(s): february had "aneruysm "on lungs, History of Any Multi-Drug Resistant Organisms: None Reported Past Surgical History: Orthopedic Surgery Additional Past Surgical History / Comment(s): carpal tunnel surgey Past Anesthesia/Blood Transfusion Reactions: No Reported Reaction Smoking Status: Former smoker Medications and Allergies Home Medications Medication Instructions Recorded Confirmed Type lisinopriL [Zestril] 20 mg PO DAILY 09/12/23 05/04/24 History DULoxetine HCL [Cymbalta] 40 mg PO HS 05/03/24 05/04/24 History Furosemide [Lasix] 40 mg PO DAILY 05/03/24 05/04/24 History Ibuprofen [Motrin Ib] 600 mg PO BID PRN 05/03/24 05/04/24 History Mirtazapine [Remeron] 15 mg PO HS 05/03/24 05/04/24 History Montelukast [Singulair] 10 mg PO DAILY 05/03/24 05/04/24 History Potassium Chloride ER [K-Dur 10] 10 meq PO DAILY 05/03/24 05/04/24 History sulfaSALAzine 1,500 mg PO BID 05/03/24 05/04/24 History tiZANidine [Zanaflex] 2 mg PO BID@0900,1500 05/03/24 05/04/24 History tiZANidine [Zanaflex] 4 mg PO HS@2100 05/03/24 05/04/24 History traMADol HCL 50 mg PO BID PRN 05/03/24 05/04/24 History Allergies Allergy/AdvReac Type Severity Reaction Status Date / Time No Known Allergies Allergy Verified 05/04/24 13:42 Physical Examination - Vital Signs Vital Signs: Vital Signs Temp Pulse Resp BP BP Pulse Ox 05/13/24 07:11 98.2 F 86 17 156/84 100 05/13/24 02:56 97.6 F 69 14 149/84 100 05/12/24 20:00 97.7 F 81 19 136/79 99 05/12/24 15:31 97.9 F 05/12/24 14:00 101.1 F H 91 20 103/66 96 Intake and Output 05/12/24 05/13/24 05/13/24 22:59 06:59 14:59 Intake Total 900 Output Total 375 Balance -375 900 Intake: IV 900 Sodium Chloride 0.9% 1, 900 000 ml @ 75 mls/hr IV . [id number] [facility] Rx#:[id number] Output: Urine 375 Other: Voiding Method Indwelling Catheter Indwelling Catheter Weight 207 kg Patient is a late middle aged Afro-[place] male, in no acute distress. He is laying in the bed, with hard cervical collar in place. Patient is alert awake oriented to time place and person. Speech and language functions are normal. Patient can name and repeat very well. No aphasia or dysarthria. Attention, concentration and fund of knowledge is adequate. On cranial nerve examination, pupils are equal, round and reacting to light, visual michel are full on confrontation, with no neglect on double simultaneous stimulation. Extraocular muscles are intact with no nystagmus. Face is symmetric, tongue protrudes to the midline. Palatal elevation and sensation normal, hearing and shoulder shrug normal, facial sensation normal. On muscle strength testing, the strength is (right/left) deltoid 0/2, biceps 1-2/4-, triceps 2 3-/4-, statistical modeler 3 3-/3 3-. In the lower limbs hip flexion 3-/3- (able to lift only 5-10 with some resistance). Knee extension 3-4/3-4, ankle dorsiflexion 1/3 3+, toe extension 3/4. Deep tendon reflexes are symmetric biceps 3+, brachioradialis 3+, knees 3+, ankles 1+ and plantars are flat bilaterally. No clonus. Sensory difficult to assess, but it appears that patient has a sensory level at T2. Cerebellar function cannot be performed. Gait deferred.. On general examination, there is no carotid bruit or murmur, S1-S2 audible. Chest is clear on consultation. Abdomen is soft nontender. No organomegaly, bowel sounds present. Peripheral pulses are present. Patient has peripheral edema. Results - Laboratory Findings CBC and BMP: 05/13/24 03:23 05/13/24 03:23 Abnormal Lab Findings: Abnormal Labs 05/04/24 05/07/24 05/07/24 17:07 07:24 07:24 WBC RBC 3.82 L Hgb 12.3 L Hct 34.9 L MCH 32.2 H Immature Gran # 0.05 H Neutrophils # Lymphocytes # 0.60 L Monocytes # Eosinophils # 0 L APTT 21.7 L ABG pO2 ABG Total CO2 ABG O2 Saturation Chloride 108 H Anion Gap BUN Creatinine BUN/Creatinine Ratio Glucose POC Glucose (mg/dL) Calcium Total Protein 6.2 L Cholesterol LDL Cholesterol, Calc Procalcitonin 05/07/24 05/08/24 05/08/24 07:24 08:44 08:44 WBC 11.9 H RBC 4.27 L Hgb 12.7 L Hct MCH Immature Gran # Neutrophils # 10.8 H Lymphocytes # 0.6 L Monocytes # Eosinophils # APTT ABG pO2 ABG Total CO2 ABG O2 Saturation Chloride 111 H Anion Gap 13.60 H BUN Creatinine BUN/Creatinine Ratio 22.18 H 22.70 H Glucose 156 H 133 H POC Glucose (mg/dL) Calcium 8.2 L 8.4 L Total Protein Cholesterol 204.00 H LDL Cholesterol, Calc 132.7 H Procalcitonin 06/26/24 06/26/24 06/26/24 07:05 07:05 21:07 WBC 11.53 H RBC 3.72 L Hgb 12.0 L Hct 34.3 L MCH 32.3 H Immature Gran # 0.06 H Neutrophils # 9.92 H Lymphocytes # 0.48 L Monocytes # 1.06 H Eosinophils # 0 L APTT ABG pO2 ABG Total CO2 ABG O2 Saturation Chloride 112 H Anion Gap BUN 28.0 H Creatinine BUN/Creatinine Ratio 25.45 H Glucose 124 H POC Glucose (mg/dL) 134 H Calcium 7.9 L Total Protein Cholesterol LDL Cholesterol, Calc Procalcitonin 05/09/24 05/10/24 05/10/24 21:55 04:00 04:00 WBC 12.8 H RBC 4.14 L Hgb 12.5 L Hct 38.4 L MCH Immature Gran # Neutrophils # 11.0 H Lymphocytes # 0.7 L Monocytes # Eosinophils # APTT ABG pO2 229 H ABG Total CO2 25 H ABG O2 Saturation 100.1 H Chloride 113 H Anion Gap BUN 26 H Creatinine 0.65 L BUN/Creatinine Ratio Glucose 114 H POC Glucose (mg/dL) Calcium 8.0 L Total Protein Cholesterol LDL Cholesterol, Calc Procalcitonin 05/10/24 05/11/24 05/11/24 04:58 04:05 04:05 WBC 13.4 H RBC 3.72 L Hgb 11.3 L Hct 34.7 L MCH Immature Gran # Neutrophils # 12.0 H Lymphocytes # 0.4 L Monocytes # Eosinophils # APTT ABG pO2 129 H ABG Total CO2 26 H ABG O2 Saturation 99.3 H Chloride 111 H Anion Gap BUN 23 H Creatinine 0.64 L BUN/Creatinine Ratio Glucose 123 H POC Glucose (mg/dL) Calcium 7.7 L Total Protein Cholesterol LDL Cholesterol, Calc Procalcitonin 05/12/24 05/12/24 05/12/24 09:24 09:24 16:29 WBC RBC 3.48 L Hgb 10.8 L Hct 32.6 L MCH Immature Gran # Neutrophils # Lymphocytes # Monocytes # Eosinophils # APTT ABG pO2 ABG Total CO2 ABG O2 Saturation Chloride 112 H Anion Gap BUN 23 H Creatinine BUN/Creatinine Ratio Glucose POC Glucose (mg/dL) Calcium 7.8 L Total Protein Cholesterol LDL Cholesterol, Calc Procalcitonin 0.65 H 05/13/24 05/13/24 03:23 03:23 WBC 11.7 H RBC 3.72 L Hgb 11.4 L Hct 35.5 L MCH Immature Gran # Neutrophils # Lymphocytes # Monocytes # Eosinophils # APTT ABG pO2 ABG Total CO2 ABG O2 Saturation Chloride 113 H Anion Gap BUN 29 H Creatinine BUN/Creatinine Ratio Glucose 149 H POC Glucose (mg/dL) Calcium 8.2 L Total Protein Cholesterol LDL Cholesterol, Calc Procalcitonin Assessment and Plan Assessment: * Cervical spinal stenosis, severe degree, with severe cervical myelopathy. Patient has quadriparesis, and a sensory level at T2. * Status post C3 to C6 ACDF 05/07/2024 * Status post C2 to T2 posterior decompression and fusion 05/09/2024 * Quadriparesis * Altered mental status, likely due to metabolic encephalopathy. Probable iatrogenic from pain medication. * Probable right lower lobe pneumonia * Rheumatoid arthritis * History of carpal tunnel release May 2023. * History of substance abuse Plan: * Patient was somewhat ambulatory (with cane) prior to arrival to the hospital. Patient's examination documented by orthopedic team prior to surgery showed much better strength, as compared to the muscle strength examination noted by myself today. * Suggest stat repeat MRI of the cervical spine, to rule out epidural hematoma. We will defer to orthopedic surgery. May add MRI of the brain as well, although CVA unlikely with lack of cranial nerve findings. * Altered mental status likely related to pain medication, or metabolic encephalopathy due to reasons mentioned above. Mentation has improved. * Patient has been started on cefepime 2 g every 8 hours for possible pneumonia * Limit amount of opiates, sedatives, hypnotics, anticholinergics, if possible. * DVT prophylaxis: Will defer to orthopedic surgery. * Check B12, folate. TSH is normal 0.866. Check ammonia level. Hemoglobin A1c 5.0. * Dr. Sidney Lazo to resume neurology service in the morning. * Thank you for the consult. Time with Patient: Greater than 30
[2024-05-14 08:21] LABS: HCT 29.8 % (39.0-53.0); MCH 30.5 pg (25.0-35.0); MCHC 31.6 g/dL (31.0-37.0); MCV 96.2 fL (80.0-100.0); Mean Platelet Volume 9.2; Platelet Count 199 k/uL (150-450); RDW 12.9 % (11.5-15.5); WBC 10.4 k/uL (3.8-10.6)
[2024-05-14 08:27] LABS: HGB 9.4 gm/dL (13.0-17.5)
--- NOTE | 2024-05-14 12:16 | P.PN ---
Subjective Progress Note Date: 05/14/24 Principal diagnosis: severe cervical myelopathy Patient is evaluated at bedside today, he is resting in his hospital chair. Patient was evaluated by neurology yesterday, CT scan with and without contrast of the cervical spine has been ordered for further evaluation of possible hematoma that could be leading to the increasing weakness throughout the extremities. Patients overall mentation continues to improve. Patient denies any headaches, lightheadedness, chest pain or shortness of breath at this time. Objective - Vital Signs Vital signs: Vital Signs Temp 98.0 F 05/14/24 08:00 Pulse 91 05/14/24 08:00 Resp 17 05/14/24 08:00 BP 126/70 05/14/24 08:00 Pulse Ox 98 05/14/24 08:00 FiO2 30 05/10/24 08:00 Intake & Output 05/13/24 05/14/24 05/14/24 18:59 06:59 18:59 Intake Total 1000 Output Total 400 Balance -400 1000 Weight 204 kg Intake: IV 900 Sodium Chloride 0.9% 1, 900 000 ml @ 75 mls/hr IV . [id number] [facility] Rx#:[id number] Intake, IV Titration 100 Amount Cefepime 2 gm In Sodium 100 Chloride 0.9% 100 ml @ 25 mls/hr IVPB Q8HR [facility] Rx# :[id number] Output: Urine 400 Other: Voiding Method Indwelling Catheter Indwelling Catheter ABP, PAP, CO, CI - Last Documented Arterial Blood Pressure 123/65 - Exam Gen: AOx3, NAD VSS stable at this time Integument: Anterior and posterior surgical dressings are in good position and condition, no active drainage visualized Palpation: Tenderness is appreciated both along the anterior and posterior cervical spine ROM/Strength: Range of motion seems improved in the bilateral upper and lower extremities. He continues to have more deficits to the right upper extremity, he is able to wiggle the fingers along with extend and flex the wrist minimally. He has slight motion with elbow flexion also. Range of motion in the left upper extremity is much improved today, he still demonstrates difficulty with shoulder elevation and abduction Left lower extremity is moving a lot better with regards to hip flexion, knee extension and knee flexion. The right lower extremity is also improved, he is able to wiggle the toes, plantar and dorsiflexion are improved. He still has difficulty with knee extension, knee flexion, hip flexion Sensory Exam: Senory exam to light touch is intact C5-T1 Senosry exam to light touch is intact L2-S1 Reflexes: 3/4 in all UE and LE positive Wang's bilaterally negative clonus bilaterally lower extremity - Labs CBC & Chem 7: 05/14/24 04:56 05/13/24 03:23 Labs: Abnormal Lab Results - Last 24 Hours (Table) 05/14/24 Range/Units 04:56 RBC 3.10 L (4.30-5.90) m/uL Hgb 9.4 L D (13.0-17.5) gm/dL Hct 29.8 L (39.0-53.0) % Microbiology - Last 24 Hours (Table) 05/12/24 16:14 Gram Stain - Preliminary Sputum Assessment and Plan Assessment: Postoperative day #6 status post C3-C6 ACDF Postoperative day #5 status post C2-T2 posterior decompression and fusion Severe cervical myelopathy Upper extremity and lower extremity weakness and radiculopathy Other medical comorbidities Plan: Pain control, continue with current regimen. Continue daily and as needed stool softeners Await CT scan of cervical spine DVT prophylaxis, Lovenox 40 mg subcu daily Did decrease Decadron to 15 mg, will continue to taper down during hospital stay Wound care, monitor dressings that are in place Utilize rigid c-collar at all times Activity level restrictions, no pulling or pushing with the upper extremities, no overhead activity at this time. Turn patient every 2 hours due to his limited activity. Patient can sit at the side of the bed and would recommend the use of the walker if attempt was made for ambulation Continue PT/OT Encourage incentive spirometer Other medical specialty recommendations appreciate Discharge planning: patient will need placement for either inpatient or subacute rehab Time with Patient: Less than 30
--- NOTE | 2024-05-14 13:43 | FL ---
COMPARISON: NONE DATE OF EXAM: 05/14/2024 HISTORY: Dysphagia A number of thin and thick substances were ingested under the care of the department of speech pathol ogy. There is no evidence of aspiration or penetration. There is no evidence of obstruction. There are vallecular and piriform sinus residuals with lack normal inversion of the epiglottis. DAP are not provided. IMPRESSION: 1. No evidence of aspiration or penetration.
--- NOTE | 2024-05-14 14:03 | CT ---
EXAMINATION TYPE: CT cervical spine wo/w con CT DLP: 1220 mGycm, Automated exposure control for dose reduction was used. DATE OF EXAM: 05/14/2024 1:55 PM COMPARISON: 05/10/2024.. CLINICAL INDICATION:Male, 58 years old with history of weakness. rule out epidural hematoma; PHH, ru le out epidural hematoma, neck pain, hx of recent neck sx, weakness in arms TECHNIQUE: Axial CT images from the skull base to the inferior aspect of T2 we obtained without intra venous contrast. Coronal and sagittal reformatted images were also reviewed. Contrast used:100 mL of Isovue 300 without and with IV Contrast, (if blank None) Oral contrast used: (if blank None) FINDINGS: Post surgical changes to the neck with fixation hardware at the anterior aspect of C3-C6. Hardware ap pears intact. Discectomy at C3-C4, C4-C5, and C5-C6. Post fixation extending from C2 to T2. Hardware appears intact. No evidence of fracture. Laminectomy changes are noted at multiple levels throughout the spine. Surgical skin dorita are present. Scattered within the posterior neck as well as the ante rior right low neck. Evaluation of the spinal canal is extremely limited due to streak artifact from both anterior and pos terior fixation hardware. Within the limitations of examining the spinal canal is patent. Bilateral c arotid bifurcation calcifications. Trace bilateral mastoid air cell effusions. Post contrast imaging is not filling demonstrate epidural hematoma. IMPRESSION: 1. Evaluation of the spinal canal is widely due to streak artifact. No obvious epidural hematoma vis ualized. 2. Post surgical changes without evidence for postop consultation. 3. Trace bilateral mastoid air cell effusions.
--- NOTE | 2024-05-14 14:51 | P.PN ---
Subjective Progress Note Date: 05/14/24 I am following up with the patient for the first time during this admission. Please refer to Dr. Rivers's notes for further details. Patient states that he has been having numbness and tingling over his hand fingers for the last 1 year half and he was eval by equity structurer and was told he had carpal tunnel syndrome and had carpal tunnel release without any improvement. In the last least 3 weeks he stated that he has been having progressive weakness predominantly right side and is predominantly right upper extremity denies any neck pain. Patient has severe cervical spinal stenosis cervical myelopathy and had ACDF on 05/07/2024 on the C3 and C2 to T2 decompression and fusion on 05/09/2024. Objective - Vital Signs Vital signs: Vital Signs Temp 98.0 F 05/14/24 08:00 Pulse 91 05/14/24 08:00 Resp 17 05/14/24 08:00 BP 126/70 05/14/24 08:00 Pulse Ox 98 05/14/24 08:00 FiO2 30 05/10/24 08:00 Intake & Output 05/13/24 05/14/24 05/14/24 18:59 06:59 18:59 Intake Total 1000 Output Total 400 Balance -400 1000 Weight 204 kg Intake: IV 900 Sodium Chloride 0.9% 1, 900 000 ml @ 75 mls/hr IV . [id number] [facility] Rx#:[id number] Intake, IV Titration 100 Amount Cefepime 2 gm In Sodium 100 Chloride 0.9% 100 ml @ 25 mls/hr IVPB Q8HR [facility] Rx# :[id number] Output: Urine 400 Other: Voiding Method Indwelling Catheter Indwelling Catheter ABP, PAP, CO, CI - Last Documented Arterial Blood Pressure 123/65 - Exam General: Sitting in a recliner chair and does not appear in acute distress. HENT: Has cervical collar. Neuro: Patient is awake alert oriented to self place and time. Patient is following simple commands. No aphasia. Pupils are round equal reactive to light. Visual michel are full to confrontation. Extraocular movement is intact no nystagmus Facial weakness. No dysarthria. Tongue is midline move [id number] without any difficulty Motor: There is significant weakness over the right upper extremity and had difficulty flexing his arm and more weakness extending the hand then Flexin with extension was probably at 2 more significant weakness over the last 2 digits of hand finger flexion was about a 3/5. Patient was able to extend his arm. Left upper extremity was at least 4+/5. Patient has strength of 4+ in the right lower extremity while left seems 5 -. On the right upper extremity patient has moderate to significant edema. - Labs CBC & Chem 7: 05/14/24 04:56 05/13/24 03:23 Labs: Abnormal Lab Results - Last 24 Hours (Table) 05/14/24 Range/Units 04:56 RBC 3.10 L (4.30-5.90) m/uL Hgb 9.4 L D (13.0-17.5) gm/dL Hct 29.8 L (39.0-53.0) % Microbiology - Last 24 Hours (Table) 05/12/24 16:14 Gram Stain - Preliminary Sputum Sputum Culture - Preliminary 05/12/24 09:24 Blood Culture - Preliminary Blood Assessment and Plan Assessment: * Cervical spinal stenosis, severe degree, with severe cervical myelopathy. Patient has quadriparesis, and a sensory level at T2. * Status post C3 to C6 ACDF 05/07/2024 * Status post C2 to T2 posterior decompression and fusion 05/09/2024 * Quadriparesis (right > left). * Very low normal folic acid * Altered mental status, likely due to metabolic encephalopathy. Probable iatrogenic from pain medication.---improved * Probable right lower lobe pneumonia * Rheumatoid arthritis * History of carpal tunnel release May 2023. * History of substance abuse Plan: * Tita, patient was somewhat ambulatory (with cane) prior to arrival to the hospital. Patient's examination documented by orthopedic team prior to surgery showed much better strength, as compared to the muscle strength examination noted by Dr. Rivers. He Suggested stat repeat MRI of the cervical spine, to rule out epidural hematoma and deferred it to orthopedic surgery. Also recommended May add MRI of the brain as well, although CVA unlikely with lack of cranial nerve findings. This seems to the patient's symptoms has progressively worsened over the last 3 weeks according to the patient. * I ordered CT cervical spine out any epidural hematoma. I reached out to orthopedic surgery team regarding my colleagues concern. They feel the patient has been weak since his first surgery and they feel he has severe cervical myelopathy. * Altered mental status likely related to pain medication, or metabolic encephalopathy due to reasons mentionedAs a result I ordered CT cervical spine. I reached out to orthopedic surgery team regarding my colleagues impression above. Mentation has improved. * Patient has been started on cefepime 2 g every 8 hours for possible pneumonia * Limit amount of opiates, sedatives, hypnotics, anticholinergics, if possible. * DVT prophylaxis: Will defer to orthopedic surgery. * Check B12: 393, folate 5.30. Because of very low normal folate I started the patient on folic acid 1 mg daily for TSH is normal 0.866, ammonia level 26. Hemoglobin A1c 5.0. * Will defer the rest of management to Orthopedic surgery team and primary team. The plan is discussed with primary team and Orthopedic surgeon. Time with Patient: Less than 30
[2024-05-14] MEDS: FOLIC ACID 1 MG TAB PO SCH (16:04)
--- NOTE | 2024-05-14 16:39 | P.PN ---
Subjective Progress Note Date: 05/14/24 Subjective: Patient seen and examined at bedside. No significant overnight events other than no longer needing nasal cannula for oxygen supplementation. Still complaining of right sided weakness, but has been present for few weeks. Pertinent positives and negatives discussed above, a complete review of systems was preformed and all the other sytems were negative. Vitals Signs Reviewed. General: nontoxic, no distress, appears at stated age Derm: warm, dry Head: atruamatic, normocephalic, symmetric, in a c-collar Eyes: EOMI, no lid lag, anicteric sclera Mouth: No ulcerations nor lacerations visualized. Cardiovascular: Regular rate and rhythm, no murmurs or gallops appreciated. Lungs: Clear to auscultation bilaterally, no rhonchi nor wheezes auscultated. Abdominal: Soft, nontender, no distention or rigidity noted. Neuro: General weakness in all 4 extremities, most prominent in right extremity (1 out of 5 motor strength) otherwise neurologically intact. Psych: Alert, Oriented, appropriate affect Data Reviewed Today: Patient Labs: hemoglobin 9.4, and hematocrit 29.8, B12 393, Folic acid 5.3 Imaging: - CT cervical spine (05/14): Hardware appears intact. No evidence of fracture. Laminectomy changes are noted at multiple levels throughout the spine. Surgical skin dorita are present scattered within the posterior neck as well as the anterior right low neck. No evidence of hematoma. -Barium swallow with video: No evidence of aspiration or penetration. Assesment and Plan: 58-year-old male with a past medical history of hypertension, RA, OA, and lower back pain presenting with lumbar and thoracic pain and is currently recovering from an anterior cervical discectomy and fusion as well as a C2-T2 decompression. Hospital course complicated by pneumonia, now on IV abx. Bacterial Pneumonia, likely aspiration Acute hypoxic respiratory failure, resolved Sepsis, resolved Acute encephalopathy, resolved - Respiratory function improved with IV cefepime, patient was previously intubated post-op, but less likely to have HAP. Aspiration likely etiology. Cefepime discontinued. Started on Ceftriaxone 2 g IV q24 hours. complete total course of 7 days of antibiotics. No longer requiring nasal cannula, continue to use incentive spirometer Dysphagia: Barium swallow with video (05/14): No evidence of aspiration or penetration. Can be transition to pureed diet Thoracic and lumbar pain status post cervical discectomy and fusion plus C2-T2 decompression: Right sided weakness, likely 2/2 to above Acute blood loss anemia, anticipated outcome of Sx Pain control with Dilaudid 0.5-1 mg IV Q4H PRN. Winigan 10 PO Q4H scheduled. Flexeril 10 mg PO TID PRN. Gabapentin 300 mg PO TID. Tylenol 650 mg PO Q6H PRN. Zanaflex 2 mg PO BID + 4 mg PO QHS. Cymbalta 40 mg PO QHS. Tramadol 50 q6h PRN, Dexamethasone 15 mg IV QD. - monitor for sedation - Fall precautions. - Neurochecks. -PT and OT -Orthospine note reviewed. -Discussed management with neurology, CT C-spine - no hematoma noted -slight decrease in Hgb - continue to monitor, no active bleeding -GI ppx: protonix 40 iv daily HTN - continue lisinopril 20 mg daily Asthma? 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 currently holding sulfasalazine Pulmonary nodules: Outpatient Pulmonary follow up. Nicotine dependence: Advised to quit during this admission unsure why patient was placed on acylovir - discontinue Unsure why patient is on lasix at home, currently on hold, dc fluids. F: none E: replete PRN N: pureed diet A: minimal ambulation due to recent procedures and current rigid c-collar. Is able to ambulate to bathroom. DVT ppx: lovenox sq Code Status: Full code Anticipated discharge place: rehab Anticipated discharge time: pending bed availability I have seen and evaluated the patient today. Discussed with the resident and agree with the residents finding and plan as documented in the resident's note. Changes highlighted in blue font. Objective - Vital Signs Vital signs: Vital Signs Temp 98.0 F 05/14/24 08:00 Pulse 91 05/14/24 08:00 Resp 17 05/14/24 08:00 BP 126/70 05/14/24 08:00 Pulse Ox 98 05/14/24 08:00 FiO2 30 05/10/24 08:00 Intake & Output 05/13/24 05/14/24 05/14/24 18:59 06:59 18:59 Intake Total 1000 Output Total 400 Balance -400 1000 Weight 204 kg Intake: IV 900 Sodium Chloride 0.9% 1, 900 000 ml @ 75 mls/hr IV . [id number] [facility] Rx#:[id number] Intake, IV Titration 100 Amount Cefepime 2 gm In Sodium 100 Chloride 0.9% 100 ml @ 25 mls/hr IVPB Q8HR [facility] Rx# :[id number] Output: Urine 400 Other: Voiding Method Indwelling Catheter Indwelling Catheter ABP, PAP, CO, CI - Last Documented Arterial Blood Pressure 123/65 - Labs CBC & Chem 7: 05/14/24 04:56 05/13/24 03:23 Labs: Abnormal Lab Results - Last 24 Hours (Table) 05/14/24 Range/Units 04:56 RBC 3.10 L (4.30-5.90) m/uL Hgb 9.4 L D (13.0-17.5) gm/dL Hct 29.8 L (39.0-53.0) % Microbiology - Last 24 Hours (Table) 05/12/24 16:14 Gram Stain - Preliminary Sputum Sputum Culture - Preliminary 05/12/24 09:24 Blood Culture - Preliminary Blood
[2024-05-14] MEDS: CYCLOBENZAPRINE 10 MG TAB PO PRN (21:04)
--- NOTE | 2024-05-14 22:15 | P.PN ---
Subjective Progress Note Date: 05/14/24 Patient is a 58-year-old white male with past medical history significant for hypertension, pulmonary embolism, rheumatoid arthritis, osteoarthritis, and lower back pain. Patient is currently sedated and intubated to the mechanical ventilator, unable to provide any information for HPI. On review of the EMR, patient was having severe upper and lower extremity weakness and associated cervical/thoracic level back pain. He was having troubles ambulating, and was apparently utilizing a wheelchair. CT of the cervical spine showed posterior vertebral body spurring centrally C3 and to a lesser degree C4. There was spinal canal stenosis at level C3. Uncovertebral joint hypertrophy with severe right formal stenosis at levels C4 and C5. Orthopedic surgery did evaluate this patient, and patient has underwent two-stage cervical spine surgery. Initial surgery was C3-C7 anterior cervical discectomy and fusion. Yesterday, patient did go back to OR for a posterior C2-T2 decompression and fusion. No perioperative complications reported. Patient was transferred back to the intensive care unit on the mechanical ventilator. Current ventilator settings are AC, respiratory 16, tidal volume 450, FiO2 30%, and PEEP of 5. Most recent ABG done earlier, with an FiO2 of 50% at that time, shows a PaO2 of 229, pCO2 of 42, pH of 7.35. Chest x-ray following surgery shows the endotracheal tube in satisfactory position above the kumar, as well as, a orogastric tube projecting into the stomach. No acute cardiopulmonary process noted. He is synchronous with mechanical ventilator. Patient is currently sedated, and fairly unresponsive. Propofol is ordered for a RASS of 0 to -1. Blood pressure is slightly hypertensive. Reportedly, Dr. Flores would like his MAP greater than 85 to help with perfusion pressure. Head is midline. Patient does have a c-collar on. There is a posterior Hemovac with minimal amount of serosanguineous drainage as well as an anterior OSWALDO drain which is compressed with a minimal amount of serosanguineous drainage. Most recent CBC from yesterday: WBC count 11.5, hemoglobin 12, hematocrit 34, platelets 174. BMP from yesterday: Sodium 144, potassium 4.2, chloride 112, serum bicarb 23, BUN 28, creatinine 1.1, glucose 124. Normal saline is infusing at 75 mL/h. Not currently requiring any vasopressors. Plan will likely be for extubation later this morning. The patient is seen today May 11, 2024 in follow-up in the intensive care unit. He is currently resting comfortably in bed. Awake and alert and no acute distress. He is status post spine surgery. He was extubated yesterday. He is currently on 2 L/min per nasal cannula with O2 saturations in the 90s. He has normal saline at 75 MLS per hour. Count 13.4. Hemoglobin 11.3. Platelets 184. Sodium 137. Potassium 4.2. Bicarb 25. BUN 23. Creatinine 0.64. Glucose 123. His pain is Lovenox for DVT prophylaxis. The patient is seen today May 12, 2024 in follow-up on the regular medical f [place]. He is postoperative day #5 status post C3-C6 anterior decompression and fusion, postoperative day #3 status post C2-T2 post posterior decompression and fusion. He is awake and alert in no acute distress. He is sitting up in bed. He is maintaining O2 saturations in the 90s on 2 L/min per nasal cannula. His temperature is 100.5 axillary. Hemodynamically stable. Orthopedics is at the bedside. Plan is to remove the Hemovac and have dressing changes. White count 10.4. Hemoglobin 10.8. Sodium 139. Potassium 4.0. Bicarb 28. BUN 23. Creatinine 0.75. Glucose 82. He has normal saline at 75 MLS per hour. He is currently n.p.o. for swallow evaluation. He is to remain in a rigid c-collar at all times. He needs increased encouragement regarding the use of the incentive spirometer. Maintain adequate pain control. The patient is seen today May 13, 2024 in follow-up on the regular medical floor. Postoperative day #6 of an anterior decompression and fusion of C3-6. Postoperative day #4 of a posterior decompression and fusion of C2-T2. He remains quite weak and debilitated. Not willing to do much effort on his own. A rapid response team was called on him yesterday due to increasing shortness of breath. Chest x-ray reveals a new patchy opacity in the right lung base. CT scan of the brain revealed no acute intracranial abnormality. Partial opacification throughout the bilateral mastoid air cells. He is maintaining O2 saturations up to 100% on 2 L/min per nasal cannula. He is been afebrile. Hemodynamically stable. Needs increased encouragement regarding the use of the incentive spirometer. White count 11.7. Hemoglobin 11.4. Platelets 196. Sodium 140. Potassium 4.8. Bicarb 23. BUN 29. Creatinine 0.67. Procalcitonin is pending. He has been initiated on cefepime. Lovenox for DVT 05/14/2024, patient is being seen for a follow-up. Resting comfortably in bed. The patient is postop following spinal surgery. Suspected right lower lobe pneumonia based on the most send chest x-ray the patient developed a new patchy infiltrate in the right lung base. The patient is currently on IV Rocephin. No significant respiratory distress. No significant sputum production. He passed a swallow evaluation. WBC counts are 10.7 with a hemoglobin 9.4 and a platelet count of 199. Procalcitonin level is at 0.65. Remains weak. No altered mentation. The patient continues to have numbness and weakness mostly in the upper extremities. Surgical scars are clean. The follow-up CAT scan of the C- spine was done today. This was reviewed and evaluated by spine surgery. No encephalopathy. No altered mentation. Objective - Vital Signs Vital signs: Vital Signs Temp 98.0 F 05/14/24 08:00 Pulse 91 05/14/24 08:00 Resp 17 05/14/24 08:00 BP 126/70 05/14/24 08:00 Pulse Ox 98 05/14/24 08:00 FiO2 30 05/10/24 08:00 Intake & Output 05/13/24 05/14/24 05/14/24 18:59 06:59 18:59 Intake Total 1000 Output Total 400 Balance -400 1000 Weight 204 kg Intake: IV 900 Sodium Chloride 0.9% 1, 900 000 ml @ 75 mls/hr IV . [id number] [facility] Rx#:[id number] Intake, IV Titration 100 Amount Cefepime 2 gm In Sodium 100 Chloride 0.9% 100 ml @ 25 mls/hr IVPB Q8HR [facility] Rx# :[id number] Output: Urine 400 Other: Voiding Method Indwelling Catheter Indwelling Catheter ABP, PAP, CO, CI - Last Documented Arterial Blood Pressure 123/65 - Exam GENERAL EXAM: Awake, alert, 58-year-old male, c-collar on, on room air oxygen HEAD: Normocephalic and atraumatic EYES: Normal reaction of pupils, equal size. NOSE: Clear with pink turbinates. THROAT: No erythema or exudates. NECK: No masses, no JVD. Anterior and posterior dressings dry and intact. C-collar in place. CHEST: No chest wall deformity. LUNGS: Equal air entry with no crackles, wheeze, rhonchi or dullness. CVS: S1 and S2 normal with no audible murmur, regular rhythm. No extra heart sounds ABDOMEN: No hepatosplenomegaly, active bowel sounds, no guarding or rigidity. SPINE: No scoliosis or deformity SKIN: No rashes CENTRAL NERVOUS SYSTEM: No focal deficits, very weak upper and lower ex tremities, tone is normal in all 4 extremities. EXTREMITIES: There is no peripheral edema, clubbing, or cyanosis. Peripheral pulses are intact. - Labs CBC & Chem 7: 05/14/24 04:56 05/13/24 03:23 Labs: Abnormal Lab Results - Last 24 Hours (Table) 05/14/24 Range/Units 04:56 RBC 3.10 L (4.30-5.90) m/uL Hgb 9.4 L D (13.0-17.5) gm/dL Hct 29.8 L (39.0-53.0) % Microbiology - Last 24 Hours (Table) 05/12/24 16:14 Gram Stain - Preliminary Sputum Sputum Culture - Preliminary 05/12/24 09:24 Blood Culture - Preliminary Blood Assessment and Plan Plan: Severe cervical spinal spondylosis and severe stenosis at levels C3-C7 with myelopathy and radiculopathy; status post two-stage surgery, postoperative day #7 following a C3-C7 anterior cervical discectomy and fusion, followed by a posterior C2-T2 decompression and fusion postoperative day #5. No perioperative complications were reported. Suspect right lower lobe pneumonia, could be of an aspiration type and the patient is currently on IV Rocephin. Altered mental status with shortness of breath, rapid response team called at 1546 on 05/12/2024. CT scan of the brain revealed no acute abnormalities. Multiple pulmonary nodules, chest CTA shows multiple small approximately 0.5 cm peripheral and lateral based lung nodules in the right upper and mid lung michel, as well as, multiple pleural-based densities, measuring up to 1 cm on the right. No prior imaging available for review. May follow-up outpatient Congestion heart failure with reduced ejection fraction, echocardiogram estimating a mildly reduced ejection fraction of 45 to 50% History of hypertension History of pulmonary embolism History of rheumatoid arthritis and osteoarthritis Plan: Continue IV Rocephin procalcitonin level is mildly elevated Able to swallow and the patient passed a swallow evaluation Currently on room air oxygen Again encouraged the increased use of the incentive spirometer Needs increased encouragement to perform any ADLs on his own Spine surgery on the case, CAT scan of the brain was repeated Rigid c-collar remains in place Lovenox for DVT prophylaxis Plan is for [facility] for rehab at discharge
[2024-05-15 00:30] LABS: BUN/Creat Ratio 34.12 Ratio (12.00-20.00); Blood Urea Nitrogen 27.3 mg/dL (9.0-27.0); Calcium 6.9 mg/dL (8.7-10.3); Carbon Dioxide 19.1 mmol/L (21.6-31.8); Chloride 121 mmol/L (96-109); Glucose 133 mg/dL (70-110); Potassium 4.4 mmol/L (3.5-5.5); Sodium 144 mmol/L (135-145)
[2024-05-15 08:43] LABS: Basophils # (A) 0.01 X 10*3/uL (0.00-0.10); Basophils % (A) 0.1 %; Eosinophils # (A) 0 X 10*3/uL (0.04-0.35); Eosinophils % (A) 0 %; HCT 29.7 % (39.6-50.0); HGB 9.8 g/dL (13.0-17.0); Lymphocytes % (A) 5.6 %; MCH 31.3 pg (27.0-32.0); MCV 94.9 FL (80.0-97.0); Mean Platelet Volume 11.5 FL (9.5-12.2); Monocytes % (A) 6.5 %; NRBC Per 100 WBC 0 X 10*3/uL (0.00-0.01); Neutrophils # (A) 9.43 X 10*3/uL (1.80-7.70); Neutrophils % (A) 87.3 %; Platelet Count 196 X 10*3/uL (140-440); RBC 3.13 X 10*6/uL (4.40-5.60); RDW 12.9 % (11.5-14.5); WBC 10.79 X 10*3/uL (4.50-10.00)
[2024-05-15] MEDS: FUROSEMIDE 40 MG TAB PO SCH (10:44)
[2024-05-15] MEDS: PANTOPRAZOLE 40 MG/10 ML VIAL IVP SCH (11:05)
--- NOTE | 2024-05-15 12:09 | P.PN ---
Subjective Progress Note Date: 05/15/24 Subjective: Patient seen and examined at bedside. No significant overnight events. Still complaining of right sided weakness, but it has been improving. Pertinent positives and negatives discussed above, a complete review of systems was preformed and all the other sytems were negative. Vitals Signs Reviewed. General: nontoxic, no distress, appears at stated age Derm: warm, dry Head: atruamatic, normocephalic, symmetric, in a c-collar Eyes: EOMI, no lid lag, anicteric sclera Mouth: No ulcerations nor lacerations visualized. Cardiovascular: Regular rate and rhythm, no murmurs or gallops appreciated. Lungs: Clear to auscultation bilaterally, no rhonchi nor wheezes auscultated. Abdominal: Soft, nontender, no distention or rigidity noted. Neuro: General weakness in all 4 extremities, most prominent in right extremity (2 out of 5 motor strength, which is improved from yesterday (05/14)) otherwise neurologically intact. Psych: Alert, Oriented, appropriate affect Data Reviewed Today: Patient Labs: WBC 10.79, RBC 3.13, hemoglobin 9.8, hematocrit 29.7, neutrophils 9.43, BMP is pending, will be reviewed when available Imaging: - CT cervical spine (05/14): Hardware appears intact. No evidence of fracture. Laminectomy changes are noted at multiple levels throughout the spine. Surgical skin dorita are present scattered within the posterior neck as well as the anterior right low neck. No evidence of hematoma. -Barium swallow with video: No evidence of aspiration or penetration. Assesment and Plan: 58-year-old male with a past medical history of hypertension, RA, OA, and lower back pain presenting with lumbar and thoracic pain and is currently recovering from an anterior cervical discectomy and fusion as well as a C2-T2 decompression. Hospital course complicated by pneumonia, now on IV abx. Bacterial Pneumonia, likely aspiration Acute hypoxic respiratory failure, resolved Sepsis, resolved Acute encephalopathy, resolved - Respiratory function improved with IV cefepime, patient was previously intubated post-op, but less likely to have HAP. Aspiration likely etiology. Cefepime discontinued. Started on Ceftriaxone 2 g IV q24 hours. complete total course of 7 days of antibiotics. Currently day 4/7 of antibiotics No longer requiring nasal cannula, continue to use incentive spirometer Dysphagia: Barium swallow with video (05/14): No evidence of aspiration or penetration. Continue on pureed diet Thoracic and lumbar pain status post cervical discectomy and fusion plus C2-T2 decompression: Right sided weakness, likely 2/2 to above Acute blood loss anemia, anticipated outcome of Sx Leukocytosis, likely reactive Pain control with Dilaudid 0.5-1 mg IV Q4H PRN. Finley 10 PO Q4H scheduled. Flexeril 10 mg PO TID PRN. Gabapentin 300 mg PO TID. Tylenol 650 mg PO Q6H PRN. Zanaflex 2 mg PO BID + 4 mg PO QHS. Cymbalta 40 mg PO QHS. Tramadol 50 q6h PRN, Dexamethasone 10 mg IV QD. On bowel regimen - monitor for sedation - Fall precautions. - Neurochecks. -PT and OT -Orthospine note reviewed. -Neurology following, CT C-spine - no hematoma noted -Hemoglobin stable- continue to monitor, no active bleeding -GI ppx: protonix 40 iv daily History of mild HFrEF, not in severe exacerbation Mild hypervolemia Continued patient's home 40 mg Lasix p.o. due to swelling in the extremities from increased fluid. HTN - continue lisinopril 20 mg daily Asthma? continue singular 10 mg daily BPH - tamsulosin 0.4 Rheumatoid arthritis: Outpatient Executive Asst follow up. currently holding sulfasalazine Pulmonary nodules: Outpatient Pulmonary follow up. Nicotine dependence: Advised to quit during this admission F: none E: replete PRN N: pureed diet with plan to upgrade A: minimal ambulation due to recent procedures and current rigid c-collar. Is able to ambulate to bathroom. DVT ppx: lovenox sq Code Status: Full code Anticipated discharge place: Inpatient rehab? Anticipated discharge time: pending evaluation from inpatient rehab facility I have seen and evaluated the patient today. Discussed with the resident and agree with the residents finding and plan as documented in the resident's note. Changes highlighted in blue font. Objective - Vital Signs Vital signs: Vital Signs Temp 98.5 F 05/15/24 01:31 Pulse 83 05/15/24 01:31 Resp 16 05/15/24 01:31 BP 149/78 05/15/24 01:31 Pulse Ox 97 05/15/24 01:31 FiO2 30 05/10/24 08:00 Intake & Output 05/14/24 05/15/24 05/15/24 18:59 06:59 18:59 Output Total 1200 1000 Balance -1200 -1000 Weight 94 kg Output: Urine 1200 1000 Other: Voiding Method Indwelling Catheter # Bowel Movements 1 ABP, PAP, CO, CI - Last Documented Arterial Blood Pressure 123/65 - Labs CBC & Chem 7: 05/15/24 03:53 05/14/24 07:16 Labs: Abnormal Lab Results - Last 24 Hours (Table) 05/14/24 05/14/24 Range/Units 04:56 07:16 RBC 3.10 L (4.30-5.90) m/uL Hgb 9.4 L D (13.0-17.5) gm/dL Hct 29.8 L (39.0-53.0) % Chloride 121 H (96-109) mmol/L Carbon Dioxide 19.1 L (21.6-31.8) mmol/L Anion Gap 3.90 L (4.00-12.00) mmol/L BUN 27.3 H (9.0-27.0) mg/dL BUN/Creatinine Ratio 34.12 H (12.00-20.00) Ratio Glucose 133 H (70-110) mg/dL Calcium 6.9 L (8.7-10.3) mg/dL Microbiology - Last 24 Hours (Table) 05/12/24 16:14 Gram Stain - Preliminary Sputum Sputum Culture - Preliminary 05/12/24 09:24 Blood Culture - Preliminary Blood
--- NOTE | 2024-05-15 12:58 | P.CONS ---
History of Present Illness - Reason for Consult Consult date: 05/15/24 - History of Present Illness 58 year old M right handed with PMH PE, RA, lung nodules who presented with progressive weakness in his arms and legs over the last one year (started noticing sxs in February 2023). He was released from care home yesterday. In care home he was using a WC in care home. He lives with his sister in a condo with but has a significant stair burden. Sister works and is not available all the time to help. There are other family members around for support. Therapy evals reviewed: He is max assist for all ADLs. He is max assist x2 for ambulation 2 ft with RW. He reports numbness and tingling in all of his fingers. He reports shooting pain down both of his legs. He reports significant muscle spasms in both of his arms. He denies any bladder or bowel incontinence or saddle anesthesia. MRI L spine done on 06/2023 shows left disk herniation S1, multilevel DJD L3-4, L4-5, L5-S1, multilevel canal stenosis L2-S1. C-spine MRI done in 08/2023 shows C3-4 severe spinal canal stenosis with myelom alacia. CT L spine on admission showed L2-3 mild central stenosis, L3-4 (and L4-5, L5- S1) moderate central stenosis. He underwent two-stage cervical spine surgery with Dr. Flores. Initial surg pepper was C3-C7 anterior cervical discectomy and fusion. Then had C2-T2 decompression and fusion on 05/09. Post op course uncomplicated. PMR consulted for rehab recs. Therapy notes reviewed patient needing max A for all ADLs and max A x2 for ambulation 2 ft with 2 ww. Past Medical History Past Medical History: Hypertension, Pneumonia, Pulmonary Embolus (PE), Rheumatoid Arthritis (RA) Additional Past Medical History / Comment(s): february had "aneruysm "on lungs, History of Any Multi-Drug Resistant Organisms: None Reported Past Surgical History: Orthopedic Surgery Additional Past Surgical History / Comment(s): carpal tunnel surgey Past Anesthesia/Blood Transfusion Reactions: No Reported Reaction Smoking Status: Former smoker Medications and Allergies Home Medications Medication Instructions Recorded Confirmed Type lisinopriL [Zestril] 20 mg PO DAILY 09/12/23 05/04/24 History DULoxetine HCL [Cymbalta] 40 mg PO HS 05/03/24 05/04/24 History Furosemide [Lasix] 40 mg PO DAILY 05/03/24 05/04/24 History Ibuprofen [Motrin Ib] 600 mg PO BID PRN 05/03/24 05/04/24 History Mirtazapine [Remeron] 15 mg PO HS 05/03/24 05/04/24 History Montelukast [Singulair] 10 mg PO DAILY 05/03/24 05/04/24 History Potassium Chloride ER [K-Dur 10] 10 meq PO DAILY 05/03/24 05/04/24 History sulfaSALAzine 1,500 mg PO BID 05/03/24 05/04/24 History tiZANidine [Zanaflex] 2 mg PO BID@0900,1500 05/03/24 05/04/24 History tiZANidine [Zanaflex] 4 mg PO HS@2100 05/03/24 05/04/24 History traMADol HCL 50 mg PO BID PRN 05/03/24 05/04/24 History Allergies Allergy/AdvReac Type Severity Reaction Status Date / Time No Known Allergies Allergy Verified 05/04/24 13:42 Physical Exam Vitals: Vital Signs Temp Pulse Resp BP Pulse Ox 05/15/24 07:37 98.8 F 87 18 159/84 99 05/15/24 01:31 98.5 F 83 16 149/78 97 05/14/24 19:16 99.0 F 92 16 128/76 99 05/14/24 14:00 98.4 F 95 18 146/83 98 Intake and Output 05/14/24 05/15/24 05/15/24 22:59 06:59 14:59 Intake Total 480 Output Total 1200 1000 801 Balance -1200 -1000 -321 Intake: Oral 480 Output: Urine 1200 1000 800 Stool 1 Other: Voiding Method Indwelling Catheter # Bowel Movements 1 Weight 94 kg General: No acute distress, lying in bed HEENT: Rigid c-collar Respiratory: On nc, no respiratory distress MMT: Right HG 2 Left HG 3+ Right Elbow Flexor 2/5 Left Elbow Flexor 4/5 Right Elbow Extension 2/5 Left Elbow Extension 4/5 Right HF 1/5 Left HF 2/5 Right AD 1/5 Left AD 4/5 Right KE 2/5 Left KE 2/5 Right EHL 1/5 Left EHL 4/5 Decreased sensation to LT in RUE compared to LUE Neuro: AOx3, CN grossly intact Reflexes: +b/l nicole Neg Clonus at the ankles b/l Extremities: 3+ pitting edema b/l upper R>L and b/l lower extremities Psych: normal mood and affect : + ruiz with clear urine Results CBC & Chem 7: 05/15/24 03:53 05/14/24 07:16 Labs: Abnormal Lab Results - Last 24 Hours (Table) 05/14/24 05/15/24 Range/Units 07:16 03:53 WBC 10.79 H (4.50-10.00) X 10*3/uL RBC 3.13 L (4.40-5.60) X 10*6/uL Hgb 9.8 L (13.0-17.0) g/dL Hct 29.7 L (39.6-50.0) % Immature Gran # 0.05 H (0.00-0.04) X 10*3/uL Neutrophils # 9.43 H (1.80-7.70) X 10*3/uL Lymphocytes # 0.60 L (0.90-5.00) X 10*3/uL Eosinophils # 0 L (0.04-0.35) X 10*3/uL Chloride 121 H (96-109) mmol/L Carbon Dioxide 19.1 L (21.6-31.8) mmol/L Anion Gap 3.90 L (4.00-12.00) mmol/L BUN 27.3 H (9.0-27.0) mg/dL BUN/Creatinine Ratio 34.12 H (12.00-20.00) Ratio Glucose 133 H (70-110) mg/dL Calcium 6.9 L (8.7-10.3) mg/dL Microbiology - Last 24 Hours (Table) 05/12/24 16:14 Gram Stain - Final Sputum Sputum Culture - Final 05/12/24 09:24 Blood Culture - Preliminary Blood Assessment and Plan Assessment: #Cervical myelopathy s/p two-stage cervical spine surgery with Dr. Flores. Initial surgery was C3-C7 anterior cervical discectomy and fusion on 05/07/24. Then had C2-T2 decompression and fusion on 05/09 -Therapy evals reviewed- needing max assist x 2 for ambulation 2 ft with RW. Max A for all ADLs. -rigid c collar at all times -Recommend dedicated SCI unit at an [facility]. Patient's first choice is [facility] because of proximity to home. He will require a well equipt SCI unit for help getting back home. Main barrier is stair burden to get to his living space at his sister's home. Sister is available for help but not 24/h. Has other family members in the area. #Pneumonia #Lung nodules #CHF with EF 45 to 50% #Hypertension #History of pulmonary embolism #History of rheumatoid arthritis #Pain mgmt - continue gabapentin 300 mg tid, flexeril 10 mg tid prn, is in IV diluadid. Will need to be off of IV pain meds before transfer to facility/[facility].
[2024-05-15] MEDS: DEXAMETHASONE SOD PHOS IVPB SCH (13:22)
[2024-05-15] MEDS: WATER IVPB SCH (13:22)
[2024-05-15] MEDS: DEXTROSE 5% IVPB SCH (13:22)
[2024-05-15 13:52] VITALS: BMI 29.7
[2024-05-15 14:09] LABS: African American GFR (CKD) >90 (>60 ml/min/1.73 sqM); Anion Gap 2 mmol/L; Blood Urea Nitrogen 24 mg/dL (9-20); Calcium 8.2 mg/dL (8.4-10.2); Carbon Dioxide 26 mmol/L (22-30); Chloride 110 mmol/L (98-107); Glucose 98 mg/dL (74-99); Non-African American GFR(CKD) >90 (>60 ml/min/1.73 sqM); Potassium 4.4 mmol/L (3.5-5.1); Sodium 138 mmol/L (137-145)
--- NOTE | 2024-05-15 15:20 | P.PN ---
Subjective Progress Note Date: 05/15/24 Patient is a 58-year-old white male with past medical history significant for hypertension, pulmonary embolism, rheumatoid arthritis, osteoarthritis, and lower back pain. Patient is currently sedated and intubated to the mechanical ventilator, unable to provide any information for HPI. On review of the EMR, patient was having severe upper and lower extremity weakness and associated cervical/thoracic level back pain. He was having troubles ambulating, and was apparently utilizing a wheelchair. CT of the cervical spine showed posterior vertebral body spurring centrally C3 and to a lesser degree C4. There was spinal canal stenosis at level C3. Uncovertebral joint hypertrophy with severe right formal stenosis at levels C4 and C5. Orthopedic surgery did evaluate this patient, and patient has underwent two-stage cervical spine surgery. Initial surgery was C3-C7 anterior cervical discectomy and fusion. Yesterday, patient did go back to OR for a posterior C2-T2 decompression and fusion. No perioperative complications reported. Patient was transferred back to the intensive care unit on the mechanical ventilator. Current ventilator settings are AC, respiratory 16, tidal volume 450, FiO2 30%, and PEEP of 5. Most recent ABG done earlier, with an FiO2 of 50% at that time, shows a PaO2 of 229, pCO2 of 42, pH of 7.35. Chest x-ray following surgery shows the endotracheal tube in satisfactory position above the kumar, as well as, a orogastric tube projecting into the stomach. No acute cardiopulmonary process noted. He is synchronous with mechanical ventilator. Patient is currently sedated, and fairly unresponsive. Propofol is ordered for a RASS of 0 to -1. Blood pressure is slightly hypertensive. Reportedly, Dr. Flores would like his MAP greater than 85 to help with perfusion pressure. Head is midline. Patient does have a c-collar on. There is a posterior Hemovac with minimal amount of serosanguineous drainage as well as an anterior OSWALDO drain which is compressed with a minimal amount of serosanguineous drainage. Most recent CBC from yesterday: WBC count 11.5, hemoglobin 12, hematocrit 34, platelets 174. BMP from yesterday: Sodium 144, potassium 4.2, chloride 112, serum bicarb 23, BUN 28, creatinine 1.1, glucose 124. Normal saline is infusing at 75 mL/h. Not currently requiring any vasopressors. Plan will likely be for extubation later this morning. The patient is seen today May 11, 2024 in follow-up in the intensive care unit. He is currently resting comfortably in bed. Awake and alert and no acute distress. He is status post spine surgery. He was extubated yesterday. He is currently on 2 L/min per nasal cannula with O2 saturations in the 90s. He has normal saline at 75 MLS per hour. Count 13.4. Hemoglobin 11.3. Platelets 184. Sodium 137. Potassium 4.2. Bicarb 25. BUN 23. Creatinine 0.64. Glucose 123. His pain is Lovenox for DVT prophylaxis. The patient is seen today May 12, 2024 in follow-up on the regular medical f [place]. He is postoperative day #5 status post C3-C6 anterior decompression and fusion, postoperative day #3 status post C2-T2 post posterior decompression and fusion. He is awake and alert in no acute distress. He is sitting up in bed. He is maintaining O2 saturations in the 90s on 2 L/min per nasal cannula. His temperature is 100.5 axillary. Hemodynamically stable. Orthopedics is at the bedside. Plan is to remove the Hemovac and have dressing changes. White count 10.4. Hemoglobin 10.8. Sodium 139. Potassium 4.0. Bicarb 28. BUN 23. Creatinine 0.75. Glucose 82. He has normal saline at 75 MLS per hour. He is currently n.p.o. for swallow evaluation. He is to remain in a rigid c-collar at all times. He needs increased encouragement regarding the use of the incentive spirometer. Maintain adequate pain control. The patient is seen today May 13, 2024 in follow-up on the regular medical floor. Postoperative day #6 of an anterior decompression and fusion of C3-6. Postoperative day #4 of a posterior decompression and fusion of C2-T2. He remains quite weak and debilitated. Not willing to do much effort on his own. A rapid response team was called on him yesterday due to increasing shortness of breath. Chest x-ray reveals a new patchy opacity in the right lung base. CT scan of the brain revealed no acute intracranial abnormality. Partial opacification throughout the bilateral mastoid air cells. He is maintaining O2 saturations up to 100% on 2 L/min per nasal cannula. He is been afebrile. Hemodynamically stable. Needs increased encouragement regarding the use of the incentive spirometer. White count 11.7. Hemoglobin 11.4. Platelets 196. Sodium 140. Potassium 4.8. Bicarb 23. BUN 29. Creatinine 0.67. Procalcitonin is pending. He has been initiated on cefepime. Lovenox for DVT 05/14/2024, patient is being seen for a follow-up. Resting comfortably in bed. The patient is postop following spinal surgery. Suspected right lower lobe pneumonia based on the most send chest x-ray the patient developed a new patchy infiltrate in the right lung base. The patient is currently on IV Rocephin. No significant respiratory distress. No significant sputum production. He passed a swallow evaluation. WBC counts are 10.7 with a hemoglobin 9.4 and a platelet count of 199. Procalcitonin level is at 0.65. Remains weak. No altered mentation. The patient continues to have numbness and weakness mostly in the upper extremities. Surgical scars are clean. The follow-up CAT scan of the C- spine was done today. This was reviewed and evaluated by spine surgery. No encephalopathy. No altered mentation. On 05/15/2024, the patient is resting comfortably in bed. No respiratory difficulties for now. He is on room air oxygen. Remains on IV Rocephin. Medications remain unchanged. Blood work shows a WBC count of 10 with a hemoglobin 9.8 and a platelet count of 196. BUN is 24 with a creatinine 0.7 and a sodium is at 138. No other significant events overnight. Objective - Vital Signs Vital signs: Vital Signs Temp 98.8 F 05/15/24 07:37 Pulse 87 05/15/24 07:37 Resp 18 05/15/24 07:37 BP 159/84 05/15/24 07:37 Pulse Ox 99 05/15/24 07:37 FiO2 30 05/10/24 08:00 Intake & Output 05/14/24 05/15/24 05/15/24 18:59 06:59 18:59 Intake Total 480 Output Total 1200 1000 801 Balance -1200 -1000 -321 Weight 94 kg Intake: Oral 480 Output: Urine 1200 1000 800 Stool 1 Other: Voiding Method Indwelling Catheter # Bowel Movements 1 ABP, PAP, CO, CI - Last Documented Arterial Blood Pressure 123/65 - Exam GENERAL EXAM: Awake, alert, 58-year-old male, c-collar on, on room air oxygen HEAD: Normocephalic and atraumatic EYES: Normal reaction of pupils, equal size. NOSE: Clear with pink turbinates. THROAT: No erythema or exudates. NECK: No masses, no JVD. Anterior and posterior dressings dry and intact. C- collar in place. CHEST: No chest wall deformity. LUNGS: Equal air entry with no crackles, wheeze, rhonchi or dullness. CVS: S1 and S2 normal with no audible murmur, regular rhythm. No extra heart sounds ABDOMEN: No hepatosplenomegaly, active bowel sounds, no guarding or rigidity. SPINE: No scoliosis or deformity SKIN: No rashes CENTRAL NERVOUS SYSTEM: No focal deficits, very weak upper and lower extremities, tone is normal in all 4 extremities. EXTREMITIES: There is no peripheral edema, clubbing, or cyanosis. Peripheral pulses are intact. - Labs CBC & Chem 7: 05/15/24 03:53 05/15/24 13:08 Labs: Abnormal Lab Results - Last 24 Hours (Table) 05/14/24 05/15/24 Range/Units 07:16 03:53 WBC 10.79 H (4.50-10.00) X 10*3/uL RBC 3.13 L (4.40-5.60) X 10*6/uL Hgb 9.8 L (13.0-17.0) g/dL Hct 29.7 L (39.6-50.0) % Immature Gran # 0.05 H (0.00-0.04) X 10*3/uL Neutrophils # 9.43 H (1.80-7.70) X 10*3/uL Lymphocytes # 0.60 L (0.90-5.00) X 10*3/uL Eosinophils # 0 L (0.04-0.35) X 10*3/uL Chloride 121 H (96-109) mmol/L Carbon Dioxide 19.1 L (21.6-31.8) mmol/L Anion Gap 3.90 L (4.00-12.00) mmol/L BUN 27.3 H (9.0-27.0) mg/dL BUN/Creatinine Ratio 34.12 H (12.00-20.00) Ratio Glucose 133 H (70-110) mg/dL Calcium 6.9 L (8.7-10.3) mg/dL Microbiology - Last 24 Hours (Table) 05/12/24 16:14 Gram Stain - Final Sputum Sputum Culture - Final 05/12/24 09:24 Blood Culture - Preliminary Blood Assessment and Plan Plan: Severe cervical spinal spondylosis and severe stenosis at levels C3-C7 with myelopathy and radiculopathy; status post two-stage surgery, postoperative day #7 following a C3-C7 anterior cervical discectomy and fusion, followed by a posterior C2-T2 decompression and fusion postoperative day # 6 8. No perio perative complications were reported. Suspect right lower lobe pneumonia, could be of an aspiration type and the patient is currently on IV Rocephin. Clinically stable. Currently on room air oxygen. Altered mental status with shortness of breath, rapid response team called at 1546 on 05/12/2024. CT scan of the brain revealed no acute abnormalities. Multiple pulmonary nodules, chest CTA shows multiple small approximately 0.5 cm peripheral and lateral based lung nodules in the right upper and mid lung michel, as well as, multiple pleural-based densities, measuring up to 1 cm on the right. No prior imaging available for review. May follow-up outpatient Congestion heart failure with reduced ejection fraction, echocardiogram estimating a mildly reduced ejection fraction of 45 to 50% History of hypertension History of pulmonary embolism History of rheumatoid arthritis and osteoarthritis Plan: Repeat chest x-ray in the morning Continue IV Rocephin procalcitonin level is mildly elevated Able to swallow and the patient passed a swallow evaluation, advance diet as tolerated Currently on room air oxygen Again encouraged the increased use of the incentive spirometer Needs increased encouragement to perform any ADLs on his own Spine surgery on the case, CAT scan of the brain was repeated Rigid c-collar remains in place Lovenox for DVT prophylaxis Plan is for [facility] for rehab at discharge
--- NOTE | 2024-05-15 16:18 | P.PN ---
Subjective Progress Note Date: 05/15/24 Principal diagnosis: severe cervical myelopathy Patient is evaluated at bedside today, he is resting in his hospital chair. there are multiple nurses and assistance in with the patient helping move him from chair back to bed. The urinary catheter was also discontinued today. Posterior dressing was changed, was able to discuss this with nursing, the dorita are all in good position, there was some moderate serosanguineous drainage noted on the bandage. Patient was evaluated by the inpatient rehab staff to help with placement. Patient denies any headaches, lightheadedness, chest pain or shortness of breath at this time. Objective - Vital Signs Vital signs: Vital Signs Temp 99.0 F 05/15/24 13:38 Pulse 90 05/15/24 13:38 Resp 17 05/15/24 13:38 BP 114/73 05/15/24 13:38 Pulse Ox 98 05/15/24 13:38 FiO2 30 05/10/24 08:00 Intake & Output 05/14/24 05/15/24 05/15/24 18:59 06:59 18:59 Intake Total 720 Output Total 1200 1000 1601 Balance -1200 -1000 -881 Weight 94 kg 94 kg Intake: Oral 720 Output: Urine 1200 1000 1600 Coude 800 Stool 1 Other: Voiding Method Indwelling Catheter # Bowel Movements 1 ABP, PAP, CO, CI - Last Documented Arterial Blood Pressure 123/65 - Exam Gen: AOx3, NAD VSS stable at this time Integument: Anterior and posterior surgical dressings are in good position and condition, no active drainage visualized Palpation: Tenderness is appreciated both along the anterior and posterior cervical spine ROM/Strength: Range of motion has remained about the same in the right upper extremity. The left upper extremity continues to improve slightly daily. Continues to have difficulty with deltoid activation left lower extremity range of motion is slightly improved, he seems to be activating the quads stronger since the last few days. The right lower e xtremity remains about the same. Sensory Exam: Senory exam to light touch is intact C5-T1 Senosry exam to light touch is intact L2-S1 Reflexes: 3/4 in all UE and LE positive Wang's bilaterally negative clonus bilaterally lower extremity - Labs CBC & Chem 7: 05/15/24 03:53 05/15/24 13:08 Labs: Abnormal Lab Results - Last 24 Hours (Table) 05/14/24 05/15/24 05/15/24 Range/Units 07:16 03:53 13:08 WBC 10.79 H (4.50-10.00) X 10*3/uL RBC 3.13 L (4.40-5.60) X 10*6/uL Hgb 9.8 L (13.0-17.0) g/dL Hct 29.7 L (39.6-50.0) % Immature Gran # 0.05 H (0.00-0.04) X 10*3/uL Neutrophils # 9.43 H (1.80-7.70) X 10*3/uL Lymphocytes # 0.60 L (0.90-5.00) X 10*3/uL Eosinophils # 0 L (0.04-0.35) X 10*3/uL Chloride 121 H 110 H (96-109) mmol/L Carbon Dioxide 19.1 L (21.6-31.8) mmol/L Anion Gap 3.90 L (4.00-12.00) mmol/L BUN 27.3 H 24 H (9.0-27.0) mg/dL BUN/Creatinine Ratio 34.12 H (12.00-20.00) Ratio Glucose 133 H (70-110) mg/dL Calcium 6.9 L 8.2 L (8.7-10.3) mg/dL Microbiology - Last 24 Hours (Table) 05/12/24 09:24 Blood Culture - Preliminary Blood 05/12/24 16:14 Gram Stain - Final Sputum Sputum Culture - Final Assessment and Plan Assessment: Postoperative day #8 status post C3-C6 ACDF Postoperative day #6 status post C2-T2 posterior decompression and fusion Severe cervical myelopathy Upper extremity and lower extremity weakness and radiculopathy Other medical comorbidities Plan: Pain control, continue with current regimen. Continue daily and as needed stool softeners DVT prophylaxis, Lovenox 40 mg subcu daily Did decrease Decadron to 10 mg, will continue to taper down during hospital stay Wound care, monitor dressings that are in place Utilize rigid c-collar at all times Activity level restrictions, no pulling or pushing with the upper extremities, no overhead activity at this time. Turn patient every 2 hours due to his limited activity. Patient can sit at the side of the bed and would recommend the use of the walker if attempt was made for ambulation Continue PT/OT Encourage incentive spirometer Other medical specialty recommendations appreciate Discharge planning: Awaiting placement for inpatient rehab
[2024-05-15] MEDS: HYDROcodone/APAP 7.5-325MG 1 EACH TAB PO SCH (16:50)
--- NOTE | 2024-05-15 19:00 | P.PN ---
Subjective Progress Note Date: 05/15/24 I am following-up with patient and he feels he is minimally stronger today compared to initial presentation. Objective - Vital Signs Vital signs: Vital Signs Temp 99.0 F 05/15/24 13:38 Pulse 90 05/15/24 13:38 Resp 17 05/15/24 13:38 BP 114/73 05/15/24 13:38 Pulse Ox 98 05/15/24 13:38 FiO2 30 05/10/24 08:00 Intake & Output 05/14/24 05/15/24 05/15/24 18:59 06:59 18:59 Intake Total 720 Output Total 1200 1000 1701 Balance -1200 -1000 -981 Weight 94 kg 94 kg Intake: Oral 720 Output: Urine 1200 1000 1700 Coude 800 Stool 1 Other: Voiding Method Indwelling Catheter # Bowel Movements 1 ABP, PAP, CO, CI - Last Documented Arterial Blood Pressure 123/65 - Exam General: Sitting in a recliner chair and does not appear in acute distress. HENT: Has cervical collar. Neuro: Patient is awake alert oriented to self place and time. Patient is following simple commands. No aphasia. Pupils are round equal reactive to light. Visual michel are full to confrontation. Extraocular movement is intact no nystagmus Facial weakness. No dysarthria. Tongue is midline move [id number] without any difficulty Motor: There is significant weakness over the right upper extremity and had difficulty flexing his arm and more weakness extending the hand then Flexing with extension was probably at 2 more significant weakness over the last 2 digits of hand finger flexion was about a 3/5. Right arm flexion is 1-2 with extension is 2-3. Left upper extremity was at least 4+/5. Patient has strength of 4+ in the right lower extremity while left seems 5 -. On the right upper extremity patient has moderate to significant edema. - Labs CBC & Chem 7: 05/15/24 03:53 05/15/24 13:08 Labs: Abnormal Lab Results - Last 24 Hours (Table) 05/14/24 05/15/24 05/15/24 Range/Units 07:16 03:53 13:08 WBC 10.79 H (4.50-10.00) X 10*3/uL RBC 3.13 L (4.40-5.60) X 10*6/uL Hgb 9.8 L (13.0-17.0) g/dL Hct 29.7 L (39.6-50.0) % Immature Gran # 0.05 H (0.00-0.04) X 10*3/uL Neutrophils # 9.43 H (1.80-7.70) X 10*3/uL Lymphocytes # 0.60 L (0.90-5.00) X 10*3/uL Eosinophils # 0 L (0.04-0.35) X 10*3/uL Chloride 121 H 110 H (96-109) mmol/L Carbon Dioxide 19.1 L (21.6-31.8) mmol/L Anion Gap 3.90 L (4.00-12.00) mmol/L BUN 27.3 H 24 H (9.0-27.0) mg/dL BUN/Creatinine Ratio 34.12 H (12.00-20.00) Ratio Glucose 133 H (70-110) mg/dL Calcium 6.9 L 8.2 L (8.7-10.3) mg/dL Microbiology - Last 24 Hours (Table) 05/12/24 09:24 Blood Culture - Preliminary Blood 05/12/24 16:14 Gram Stain - Final Sputum Sputum Culture - Final Assessment and Plan Assessment: * Cervical spinal stenosis, severe degree, with severe cervical myelopathy. Patient has quadriparesis, and a sensory level at T2. * Status post C3 to C6 ACDF 05/07/2024 * Status post C2 to T2 posterior decompression and fusion 05/09/2024 * Quadriparesis (right > left). * Very low normal folic acid * Altered mental status, likely due to metabolic encephalopathy. Probable iatrogenic from pain medication.---improved * Probable right lower lobe pneumonia * Rheumatoid arthritis * History of carpal tunnel release May 2023. * History of substance abuse Plan: * Tita, patient was somewhat ambulatory (with cane) prior to arrival to the hospital. Patient's examination documented by orthopedic team prior to surgery showed much better strength, as compared to the muscle strength examination noted by Dr. Rivers. He Suggested stat repeat MRI of the cervical spine, to rule out epidural hematoma and deferred it to orthopedic surgery. Also recommended May add MRI of the brain as well, although CVA unlikely with lack of cranial nerve findings. This seems to the patient's symptoms has progressively worsened over the last 3 weeks according to the patient. * CT cervical spine to out any epidural hematoma: Reported as evaluation of the spinal canal is widely due to streak artifact. No obvious epidural hematoma visualized. Postsurgical changes without evidence for postop consultation. * I reached out to orthopedic surgery team regarding my colleagues concern. They feel the patient has been weak since his first surgery and they feel he has severe cervical myelopathy. * Patient has been started on Ceftriaxone for possible pneumonia * Limit amount of opiates, sedatives, hypnotics, anticholinergics, if possible. * DVT prophylaxis: Will defer to orthopedic surgery. * Check B12: 393, folate 5.30. Because of very low normal folate I started the patient on folic acid 1 mg daily for TSH is normal 0.866, ammonia level 26. Hemoglobin A1c 5.0. * Will defer the rest of management to Orthopedic surgery team and primary team. Time with Patient: Less than 30
[2024-05-15] MEDS ORDERED: HYDROcodone/APAP 7.5-325MG 1 EACH TAB PO SCH (20:00)
[2024-05-16] MEDS ORDERED: DEXTROSE 5% IVPB SCH (09:00)
[2024-05-16] MEDS ORDERED: DEXAMETHASONE SOD PHOS IVPB SCH (09:00)
[2024-05-16] MEDS ORDERED: WATER IVPB SCH (09:00)
[2024-05-16] MEDS: DEXAMETHASONE SOD PHOSPHATE 10 MG/ML 1 ML VIAL IV SCH (09:23)
--- NOTE | 2024-05-16 10:06 | P.PN ---
Subjective Progress Note Date: 05/16/24 Principal diagnosis: severe cervical myelopathy Patient is evaluated at bedside today, he is resting in his hospital chair. Utilizing the rigid c-collar, I did change the anterior dressing today. Awaiting authorization for inpatient rehab placement. Patient denies any heada ches, lightheadedness, chest pain or shortness of breath at this time. Objective - Vital Signs Vital signs: Vital Signs Temp 97.5 F L 05/16/24 07:50 Pulse 77 05/16/24 07:50 Resp 16 05/16/24 07:50 BP 92/60 05/16/24 07:50 Pulse Ox 98 05/16/24 07:50 FiO2 30 05/10/24 08:00 Intake & Output 05/15/24 05/16/24 05/16/24 18:59 06:59 18:59 Intake Total 720 100 Output Total 1701 900 600 Balance -981 -800 -600 Weight 94 kg Intake: Oral 720 100 Output: Urine 1700 900 600 Coude 800 Straight 900 600 Stool 1 Other: Voiding Method Indwelling Catheter ABP, PAP, CO, CI - Last Documented Arterial Blood Pressure 123/65 - Exam Gen: AOx3, NAD VSS stable at this time Integument: Anterior and posterior surgical dressings are in good position and condition, no active drainage visualized Palpation: Tenderness is appreciated both along the anterior and posterior cervical spine ROM/Strength: Range of motion has remained about the same in the right upper extremity. The left upper extremity continues to improve slightly daily. Continues to have difficulty with deltoid activation left lower extremity range of motion is slightly improved, he seems to be activating the quads stronger since the last few days. The right lower extremity remains about the same. Sensory Exam: Senory exam to light touch is intact C5-T1 Senosry exam to light touch is intact L2-S1 Reflexes: 3/4 in all UE and LE positive Wang's bilaterally negative clonus bilaterally lower extremity - Labs CBC & Chem 7: 05/15/24 03:53 05/15/24 13:08 Labs: Abnormal Lab Results - Last 24 Hours (Table) 05/15/24 Range/Units 13:08 Chloride 110 H (98-107) mmol/L BUN 24 H (9-20) mg/dL Calcium 8.2 L (8.4-10.2) mg/dL Microbiology - Last 24 Hours (Table) 05/12/24 09:24 Blood Culture - Preliminary Blood 05/12/24 16:14 Gram Stain - Final Sputum Sputum Culture - Final Assessment and Plan Assessment: Postoperative day #9 status post C3-C6 ACDF Postoperative day #7 status post C2-T2 posterior decompression and fusion Severe cervical myelopathy Upper extremity and lower extremity weakness and radiculopathy Other medical comorbidities Plan: Pain control, continue with current regimen. Continue daily and as needed stool softeners DVT prophylaxis, Lovenox 40 mg subcu daily Did decrease Decadron to 5 mg, will continue to taper down during hospital stay Wound care, monitor dressings that are in place Utilize rigid c-collar at all times Activity level restrictions, no pulling or pushing with the upper extremities, no overhead activity at this time. Turn patient every 2 hours due to his limited activity. Patient can sit at the side of the bed and would recommend the use of the walker if attempt was made for ambulation Continue PT/OT Encourage incentive spirometer Other medical specialty recommendations appreciate Discharge planning: Awaiting placement for inpatient rehab Time with Patient: Less than 30
[2024-05-16 12:27] LABS: Basophils % (A) 0 %; Eosinophils # (A) 0.2 k/uL (0-0.7); Eosinophils % (A) 1 %; HCT 33.5 % (39.0-53.0); HGB 11.4 gm/dL (13.0-17.5); Lymphocytes # (A) 0.6 k/uL (1.0-4.8); Lymphocytes % (A) 4 %; MCH 31.2 pg (25.0-35.0); MCHC 33.9 g/dL (31.0-37.0); Mean Platelet Volume 10.3; Monocytes # (A) 0.7 k/uL (0-1.0); Monocytes % (A) 5 %; Neutrophils # (A) 12.4 k/uL (1.3-7.7); Neutrophils % (A) 90 %; Platelet Count 234 k/uL (150-450); RBC 3.65 m/uL (4.30-5.90); RDW 13.1 % (11.5-15.5); WBC 13.8 k/uL (3.8-10.6)
[2024-05-16 12:54] LABS: African American GFR (CKD) >90 (>60 ml/min/1.73 sqM); Anion Gap 6 mmol/L; Blood Urea Nitrogen 20 mg/dL (9-20); Calcium 8.1 mg/dL (8.4-10.2); Carbon Dioxide 25 mmol/L (22-30); Chloride 106 mmol/L (98-107); Glucose 130 mg/dL (74-99); Non-African American GFR(CKD) >90 (>60 ml/min/1.73 sqM); Potassium 4.7 mmol/L (3.5-5.1); Sodium 137 mmol/L (137-145)
[2024-05-16 14:05] LABS: RBC Morphology Normal
--- NOTE | 2024-05-16 15:50 | P.PN ---
Subjective Progress Note Date: 05/16/24 Subjective: Patient seen and examined at bedside. No significant overnight events. Still complaining of right sided weakness, but it has been improving. Pertinent positives and negatives discussed above, a complete review of systems was preformed and all the other systems were negative. Vitals Signs Reveiwed. General: nontoxic, no distress, appears at stated age Derm: warm, dry Head: atruamatic, normocephalic, symmetric, in a c-collar Eyes: EOMI, no lid lag, anicteric sclera Mouth: No ulcerations nor lacerations visualized. Cardiovascular: Regular rate and rhythm, no murmurs or gallops appreciated. Lungs: Clear to auscultation bilaterally, no rhonchi nor wheezes auscultated. Abdominal: Soft, nontender, no distention or rigidity noted. Neuro: General weakness in all 4 extremities, most prominent in right extremity (2 out of 5 motor strength, which is similar to yesterday (05/15)) otherwise neurologically intact. Psych: Alert, Oriented, appropriate affect Data Reviewed Today: Patient Labs: WBC 13.8, hemoglobin 11.4, hematocrit 33.5, neutrophils 12.4, sodium 137, potassium 4.7, glucose 130, calcium 8.1. Imaging: -No new imaging Assesment and Plan: 58-year-old male with a past medical history of hypertension, RA, OA, and lower back pain presenting with lumbar and thoracic pain and is currently recovering from an anterior cervical discectomy and fusion as well as a C2-T2 decompression. Hospital course complicated by pneumonia, now on IV abx. Bacterial Pneumonia, likely aspiration Acute hypoxic respiratory failure, resolved Sepsis, resolved Acute encephalopathy, resolved - Respiratory function improved with IV cefepime, patient was previously intubated post-op, but less likely to have HAP. Aspiration likely etiology. Cefepime discontinued. Started on Ceftriaxone 2 g IV q24 hours. complete total course of 7 days of antibiotics. Currently day 5/7 of antibiotics No longer requiring nasal cannula, continue to use incentive spirometer Dysphagia: Barium swallow with video (05/14): No evidence of aspiration or penetration. Upgraded to chopped diet Thoracic and lumbar pain status post cervical discectomy and fusion plus C2-T2 decompression: Right sided weakness, likely 2/2 to above Acute blood loss anemia, anticipated outcome of Sx Leukocytosis, likely reactive Pain control with Dilaudid 0.5-1 mg IV Q4H PRN. Anita 10 PO Q4H scheduled. Flexeril 10 mg PO TID PRN. Gabapentin 300 mg PO TID. Tylenol 650 mg PO Q6H PRN. Zanaflex 2 mg PO BID + 4 mg PO QHS. Cymbalta 40 mg PO QHS. Tramadol 50 q6h PRN, Dexamethasone 5 mg IV QD. Patient rates pain as 7 out of 10 On bowel regimen - monitor for sedation - Fall precautions. - Neurochecks. -PT and OT -Orthospine note reviewed. -Neurology following, CT C-spine - no hematoma noted -Hemoglobin stable- continue to monitor, no active bleeding -GI ppx: protonix 40 iv daily History of mild HFrEF, not in severe exacerbation Mild hypervolemia Continued patient's home 40 mg Lasix p.o. due to swelling in the extremities from increased fluid. HTN - continue lisinopril 20 mg daily Asthma continue singular 10 mg daily BPH - tamsulosin 0.4 Rheumatoid arthritis: Outpatient [employer] follow up. currently holding sulfasalazine Pulmonary nodules: Outpatient Pulmonary follow up. Nicotine dependence: Advised to quit during this admission F: none E: replete PRN N: Chopped A: minimal ambulation due to recent procedures and current rigid c-collar. Is able to ambulate to bathroom. DVT ppx: lovenox sq Code Status: Full code Anticipated discharge place: pending rehab Anticipated discharge time: Pending bed availability Objective - Vital Signs Vital signs: Vital Signs Temp 97.5 F L 05/16/24 07:50 Pulse 77 05/16/24 07:50 Resp 16 05/16/24 07:50 BP 92/60 05/16/24 07:50 Pulse Ox 98 05/16/24 07:50 FiO2 30 05/10/24 08:00 Intake & Output 05/15/24 05/16/24 05/16/24 18:59 06:59 18:59 Intake Total 720 100 Output Total 1701 900 600 Balance -981 -800 -600 Weight 94 kg Intake: Oral 720 100 Output: Urine 1700 900 600 Coude 800 Straight 900 600 Stool 1 Other: Voiding Method Indwelling Catheter ABP, PAP, CO, CI - Last Documented Arterial Blood Pressure 123/65 - Labs CBC & Chem 7: 05/16/24 11:39 05/16/24 11:39 Labs: Abnormal Lab Results - Last 24 Hours (Table) 05/15/24 Range/Units 13:08 Chloride 110 H (98-107) mmol/L BUN 24 H (9-20) mg/dL Calcium 8.2 L (8.4-10.2) mg/dL Microbiology - Last 24 Hours (Table) 05/12/24 09:24 Blood Culture - Preliminary Blood 05/12/24 16:14 Gram Stain - Final Sputum Sputum Culture - Final
--- NOTE | 2024-05-16 18:51 | P.PN ---
Subjective Progress Note Date: 05/16/24 Patient is a 58-year-old white male with past medical history significant for hypertension, pulmonary embolism, rheumatoid arthritis, osteoarthritis, and lower back pain. Patient is currently sedated and intubated to the mechanical ventilator, unable to provide any information for HPI. On review of the EMR, patient was having severe upper and lower extremity weakness and associated cervical/thoracic level back pain. He was having troubles ambulating, and was apparently utilizing a wheelchair. CT of the cervical spine showed posterior vertebral body spurring centrally C3 and to a lesser degree C4. There was spinal canal stenosis at level C3. Uncovertebral joint hypertrophy with severe right formal stenosis at levels C4 and C5. Orthopedic surgery did evaluate this patient, and patient has underwent two-stage cervical spine surgery. Initial surgery was C3-C7 anterior cervical discectomy and fusion. Yesterday, patient did go back to OR for a posterior C2-T2 decompression and fusion. No perioperative complications reported. Patient was transferred back to the intensive care unit on the mechanical ventilator. Current ventilator settings are AC, respiratory 16, tidal volume 450, FiO2 30%, and PEEP of 5. Most recent ABG done earlier, with an FiO2 of 50% at that time, shows a PaO2 of 229, pCO2 of 42, pH of 7.35. Chest x-ray following surgery shows the endotracheal tube in satisfactory position above the kumar, as well as, a orogastric tube projecting into the stomach. No acute cardiopulmonary process noted. He is synchronous with mechanical ventilator. Patient is currently sedated, and fairly unresponsive. Propofol is ordered for a RASS of 0 to -1. Blood pressure is slightly hypertensive. Reportedly, Dr. Flores would like his MAP greater than 85 to help with perfusion pressure. Head is midline. Patient does have a c-collar on. There is a posterior Hemovac with minimal amount of serosanguineous drainage as well as an anterior OSWALDO drain which is compressed with a minimal amount of serosanguineous drainage. Most recent CBC from yesterday: WBC count 11.5, hemoglobin 12, hematocrit 34, platelets 174. BMP from yesterday: Sodium 144, potassium 4.2, chloride 112, serum bicarb 23, BUN 28, creatinine 1.1, glucose 124. Normal saline is infusing at 75 mL/h. Not currently requiring any vasopressors. Plan will likely be for extubation later this morning. The patient is seen today May 11, 2024 in follow-up in the intensive care unit. He is currently resting comfortably in bed. Awake and alert and no acute distress. He is status post spine surgery. He was extubated yesterday. He is currently on 2 L/min per nasal cannula with O2 saturations in the 90s. He has normal saline at 75 MLS per hour. Count 13.4. Hemoglobin 11.3. Platelets 184. Sodium 137. Potassium 4.2. Bicarb 25. BUN 23. Creatinine 0.64. Glucose 123. His pain is Lovenox for DVT prophylaxis. The patient is seen today May 12, 2024 in follow-up on the regular medical f [place]. He is postoperative day #5 status post C3-C6 anterior decompression and fusion, postoperative day #3 status post C2-T2 post posterior decompression and fusion. He is awake and alert in no acute distress. He is sitting up in bed. He is maintaining O2 saturations in the 90s on 2 L/min per nasal cannula. His temperature is 100.5 axillary. Hemodynamically stable. Orthopedics is at the bedside. Plan is to remove the Hemovac and have dressing changes. White count 10.4. Hemoglobin 10.8. Sodium 139. Potassium 4.0. Bicarb 28. BUN 23. Creatinine 0.75. Glucose 82. He has normal saline at 75 MLS per hour. He is currently n.p.o. for swallow evaluation. He is to remain in a rigid c-collar at all times. He needs increased encouragement regarding the use of the incentive spirometer. Maintain adequate pain control. The patient is seen today May 13, 2024 in follow-up on the regular medical floor. Postoperative day #6 of an anterior decompression and fusion of C3-6. Postoperative day #4 of a posterior decompression and fusion of C2-T2. He remains quite weak and debilitated. Not willing to do much effort on his own. A rapid response team was called on him yesterday due to increasing shortness of breath. Chest x-ray reveals a new patchy opacity in the right lung base. CT scan of the brain revealed no acute intracranial abnormality. Partial opacification throughout the bilateral mastoid air cells. He is maintaining O2 saturations up to 100% on 2 L/min per nasal cannula. He is been afebrile. Hemodynamically stable. Needs increased encouragement regarding the use of the incentive spirometer. White count 11.7. Hemoglobin 11.4. Platelets 196. Sodium 140. Potassium 4.8. Bicarb 23. BUN 29. Creatinine 0.67. Procalcitonin is pending. He has been initiated on cefepime. Lovenox for DVT 05/14/2024, patient is being seen for a follow-up. Resting comfortably in bed. The patient is postop following spinal surgery. Suspected right lower lobe pneumonia based on the most send chest x-ray the patient developed a new patchy infiltrate in the right lung base. The patient is currently on IV Rocephin. No significant respiratory distress. No significant sputum production. He passed a swallow evaluation. WBC counts are 10.7 with a hemoglobin 9.4 and a platelet count of 199. Procalcitonin level is at 0.65. Remains weak. No altered mentation. The patient continues to have numbness and weakness mostly in the upper extremities. Surgical scars are clean. The follow-up CAT scan of the C- spine was done today. This was reviewed and evaluated by spine surgery. No encephalopathy. No altered mentation. On 05/15/2024, the patient is resting comfortably in bed. No respiratory difficulties for now. He is on room air oxygen. Remains on IV Rocephin. Medications remain unchanged. Blood work shows a WBC count of 10 with a hemoglobin 9.8 and a platelet count of 196. BUN is 24 with a creatinine 0.7 and a sodium is at 138. No other significant events overnight. On 05/16/2024, the patient remains on room air oxygen. Hemodynamically stable. No respiratory distress. Remains on IV Rocephin. Remains on Lovenox 40 mg subcu for DVT prophylaxis. No reported aspiration. Tolerating diet. Still complaining of generalized weakness specially on the right side of her body but is essentially improving. The white cell count is at 30.8 with a hemoglobin 11.4 and a platelet count of 234, the rest of the electrolytes are all stable within a stable renal function. Calcium level is at 8.1. PT OT is on the case. Spine surgery is on the case. Rest of the medications remain unchanged. Objective - Vital Signs Vital signs: Vital Signs Temp 98.7 F 05/16/24 13:51 Pulse 85 05/16/24 13:51 Resp 17 05/16/24 13:51 BP 99/63 05/16/24 13:51 Pulse Ox 99 05/16/24 13:51 FiO2 30 05/10/24 08:00 Intake & Output 05/15/24 05/16/24 05/16/24 18:59 06:59 18:59 Intake Total 720 100 Output Total 1701 900 600 Balance -981 -800 -600 Weight 94 kg Intake: Oral 720 100 Output: Urine 1700 900 600 Coude 800 Straight 900 600 Stool 1 Other: Voiding Method Indwelling Catheter ABP, PAP, CO, CI - Last Documented Arterial Blood Pressure 123/65 - Exam GENERAL EXAM: Awake, alert, 58-year-old male, c-collar on, on room air oxygen HEAD: Normocephalic and atraumatic EYES: Normal reaction of pupils, equal size. NOSE: Clear with pink turbinates. THROAT: No erythema or exudates. NECK: No masses, no JVD. Anterior and posterior dressings dry and intact. C- collar in place. CHEST: No chest wall deformity. LUNGS: Equal air entry with no crackles, wheeze, rhonchi or dullness. CVS: S1 and S2 normal with no audible murmur, regular rhythm. No extra heart sounds ABDOMEN: No hepatosplenomegaly, active bowel sounds, no guarding or rigidity. SPINE: No scoliosis or deformity SKIN: No rashes CENTRAL NERVOUS SYSTEM: No focal deficits, very weak upper and lower extremities, tone is normal in all 4 extremities. EXTREMITIES: There is no peripheral edema, clubbing, or cyanosis. Peripheral pulses are intact. - Labs CBC & Chem 7: 05/16/24 11:39 05/16/24 11:39 Labs: Abnormal Lab Results - Last 24 Hours (Table) 05/16/24 05/16/24 Range/Units 11:39 11:39 WBC 13.8 H (3.8-10.6) k/uL RBC 3.65 L (4.30-5.90) m/uL Hgb 11.4 L (13.0-17.5) gm/dL Hct 33.5 L (39.0-53.0) % Neutrophils # 12.4 H (1.3-7.7) k/uL Lymphocytes # 0.6 L (1.0-4.8) k/uL Glucose 130 H (74-99) mg/dL Calcium 8.1 L (8.4-10.2) mg/dL Microbiology - Last 24 Hours (Table) 05/12/24 09:24 Blood Culture - Preliminary Blood Assessment and Plan Plan: Severe cervical spinal spondylosis and severe stenosis at levels C3-C7 with myelopathy and radiculopathy; status post two-stage surgery, postoperative day # 8 following a C3-C7 anterior cervical discectomy and fusion, followed by a posterior C2-T2 decompression and fusion postoperative day # 6 8. No perioperative complications were reported. Suspect right lower lobe pneumonia, could be of an aspiration type and the patient is currently on IV Rocephin. Clinically stable. Currently on room air oxygen. Altered mental status with shortness of breath, rapid response team called at 1546 on 05/12/2024. CT scan of the brain revealed no acute abnormalities. Multiple pulmonary nodules, chest CTA shows multiple small approximately 0.5 cm peripheral and lateral based lung nodules in the right upper and mid lung michel, as well as, multiple pleural-based densities, measuring up to 1 cm on the right. No prior imaging available for review. May follow-up outpatient Congestion heart failure with reduced ejection fraction, echocardiogram estimating a mildly reduced ejection fraction of 45 to 50% History of hypertension History of pulmonary embolism History of rheumatoid arthritis and osteoarthritis Plan: Continue routine postoperative care Continue IV Rocephin procalcitonin level is mildly elevated Able to swallow and the patient passed a swallow evaluation, advance diet as tolerated Currently on room air oxygen Again encouraged the increased use of the incentive spirometer Needs increased encouragement to perform any ADLs on his own Spine surgery on the case, CAT scan of the brain was repeated Rigid c-collar remains in place PT OT Lovenox for DVT prophylaxis Plan is for [facility] for rehab at discharge
[2024-05-17 08:32] LABS: HCT 31.3 % (39.0-53.0); HGB 10.6 gm/dL (13.0-17.5); MCH 31.4 pg (25.0-35.0); MCV 92.4 fL (80.0-100.0); Mean Platelet Volume 8.3; Platelet Count 256 k/uL (150-450); RBC 3.39 m/uL (4.30-5.90); RDW 13.2 % (11.5-15.5); WBC 13.3 k/uL (3.8-10.6)
[2024-05-17 08:36] LABS: African American GFR (CKD) >90 (>60 ml/min/1.73 sqM); Anion Gap 1 mmol/L; Blood Urea Nitrogen 23 mg/dL (9-20); Calcium 8.3 mg/dL (8.4-10.2); Carbon Dioxide 29 mmol/L (22-30); Chloride 106 mmol/L (98-107); Glucose 128 mg/dL (74-99); Non-African American GFR(CKD) >90 (>60 ml/min/1.73 sqM); Potassium 4.5 mmol/L (3.5-5.1); Sodium 136 mmol/L (137-145)
[2024-05-17] MEDS: DEXAMETHASONE SOD PHOSPHATE 10 MG/ML 1 ML VIAL IV SCH (08:53)
[2024-05-17] MEDS: traMADol 50 MG TAB PO PRN (08:54)
--- NOTE | 2024-05-17 13:11 | P.PN ---
Subjective Progress Note Date: 05/17/24 Subjective: Patient seen at bedside. No acute overnight events. Pending bed at a rehab facility. Pertinent positives and negatives discussed above, a complete review of systems was preformed and all the other sytems were negative. Vitals Signs Reveiwed. General: nontoxic, no distress, appears at stated age Derm: warm, dry Head: atruamatic, normocephalic, symmetric, in a c-collar Eyes: EOMI, no lid lag, anicteric sclera Mouth: No ulcerations nor lacerations visualized. Cardiovascular: Regular rate and rhythm, no murmurs or gallops appreciated. Lungs: Clear to auscultation bilaterally, no rhonchi nor wheezes auscultated. Abdominal: Soft, nontender, no distention or rigidity noted. Neuro: General weakness in all 4 extremities, most prominent in right extremity (2 out of 5 motor strength, which is similar to yesterday (05/15)) otherwise neurologically intact. Psych: Alert, Oriented, appropriate affect Data Reveiwed Today: Patient Labs: WBC 13.3, hemoglobin 10.6, sodium 136, creatinine 0.72 Imaging: No new imaging Assesment and Plan: 58-year-old male with a past medical history of hypertension, RA, OA, and lower back pain presenting with lumbar and thoracic pain and is currently recovering from an anterior cervical discectomy and fusion as well as a C2-T2 decompression. Hospital course complicated by pneumonia, now on IV abx. Bacterial Pneumonia, likely aspiration Acute hypoxic respiratory failure, resolved Sepsis, resolved Acute encephalopathy, resolved - Respiratory function improved with IV cefepime, patient was previously intuba abilio post-op, but less likely to have HAP. Aspiration likely etiology. Cefepime discontinued. Started on Ceftriaxone 2 g IV q24 hours. complete total course of 7 days of antibiotics. Currently day 6/7 of antibiotics No longer requiring nasal cannula, continue to use incentive spirometer Dysphagia: Barium swallow with video (05/14): No evidence of aspiration or penetration. Upgraded to regular diet Thoracic and lumbar pain status post cervical discectomy and fusion plus C2-T2 decompression: Right sided weakness, likely 2/2 to above Acute blood loss anemia, anticipated outcome of Sx Leukocytosis, likely reactive Pain control with Dilaudid 0.5-1 mg IV Q4H PRN. Beltrami 10 PO Q4H scheduled. Flexeril 10 mg PO TID PRN. Gabapentin 300 mg PO TID. Tylenol 650 mg PO Q6H PRN. Zanaflex 2 mg PO BID + 4 mg PO QHS. Cymbalta 40 mg PO QHS. Tramadol 50 q6h PRN, Dexamethasone 5 mg IV QD. Patient rates pain as 2 out of 10 On bowel regimen - monitor for sedation - Fall precautions. - Neurochecks. -PT and OT -Orthospine note reviewed. -Neurology following, CT C-spine - no hematoma noted -Hemoglobin stable- continue to monitor, no active bleeding -GI ppx: protonix 40 iv daily History of mild HFrEF, not in severe exacerbation Mild hypervolemia Continued patient's home 40 mg Lasix p.o. due to swelling in the extremities from increased fluid. HTN - continue lisinopril 20 mg daily Asthma continue singular 10 mg daily BPH - tamsulosin 0.4 Rheumatoid arthritis: Outpatient [facility] follow up. currently holding sulfasalazine Pulmonary nodules: Outpatient Pulmonary follow up. Nicotine dependence: Advised to quit during this admission F none E replete as needed N transitioning to regular diet A minimal ambulation due to recent procedures and current rigid c-collar in place. Is able to ambulate to bathroom. DVT ppx: Lovenox SQ Code Status: Full code Anticipated discharge place: Rehab facility Anticipated discharge time: Pending placement I have seen and evaluated the patient today. Discussed with the resident and agree with the residents finding and plan as documented in the resident's note. Changes highlighted in blue font. Objective - Vital Signs Vital signs: Vital Signs Temp 98.7 F 05/17/24 02:00 Pulse 89 05/17/24 02:00 Resp 17 05/16/24 13:51 BP 114/77 05/17/24 02:00 Pulse Ox 98 05/17/24 02:00 FiO2 30 05/10/24 08:00 Intake & Output 05/16/24 05/17/24 05/17/24 18:59 06:59 18:59 Intake Total 300 Output Total 2800 1150 Balance -2800 -850 Intake: Oral 300 Output: Urine 2800 1150 Straight 600 Other: Voiding Method Indwelling Catheter ABP, PAP, CO, CI - Last Documented Arterial Blood Pressure 123/65 - Labs CBC & Chem 7: 05/17/24 08:06 05/17/24 08:06 Labs: Abnormal Lab Results - Last 24 Hours (Table) 05/16/24 05/16/24 Range/Units 11:39 11:39 WBC 13.8 H (3.8-10.6) k/uL RBC 3.65 L (4.30-5.90) m/uL Hgb 11.4 L (13.0-17.5) gm/dL Hct 33.5 L (39.0-53.0) % Neutrophils # 12.4 H (1.3-7.7) k/uL Lymphocytes # 0.6 L (1.0-4.8) k/uL Glucose 130 H (74-99) mg/dL Calcium 8.1 L (8.4-10.2) mg/dL Microbiology - Last 24 Hours (Table) 05/12/24 09:24 Blood Culture - Preliminary Blood
--- NOTE | 2024-05-17 14:52 | XR ---
EXAMINATION TYPE: XR chest 1V portable DATE OF EXAM: 05/17/2024 2:46 PM CLINICAL INDICATION:Male, 58 years old with history of aspiration; [facility] COMPARISON: Chest radiographs from 05/12/2024 TECHNIQUE: XR chest 1V portable Frontal view of the chest. FINDINGS: Lungs/Pleura: Improved aeration of right lung base. There is no evidence of pleural effusion, focal c onsolidation, or pneumothorax. Pulmonary vascularity: Unremarkable. Heart/mediastinum: Cardiomediastinal silhouette is unremarkable. Musculoskeletal: No acute osseous pathology. There is fixation hardware in the lower cervical spine. Other findings: None IMPRESSION: No radiographic evidence for aspiration.
--- NOTE | 2024-05-17 17:31 | P.PN ---
Subjective Progress Note Date: 05/17/24 Patient is a 58-year-old white male with past medical history significant for hypertension, pulmonary embolism, rheumatoid arthritis, osteoarthritis, and lower back pain. Patient is currently sedated and intubated to the mechanical ventilator, unable to provide any information for HPI. On review of the EMR, patient was having severe upper and lower extremity weakness and associated cervical/thoracic level back pain. He was having troubles ambulating, and was apparently utilizing a wheelchair. CT of the cervical spine showed posterior vertebral body spurring centrally C3 and to a lesser degree C4. There was spinal canal stenosis at level C3. Uncovertebral joint hypertrophy with severe right formal stenosis at levels C4 and C5. Orthopedic surgery did evaluate this patient, and patient has underwent two-stage cervical spine surgery. Initial surgery was C3-C7 anterior cervical discectomy and fusion. Yesterday, patient did go back to OR for a posterior C2-T2 decompression and fusion. No perioperative complications reported. Patient was transferred back to the intensive care unit on the mechanical ventilator. Current ventilator settings are AC, respiratory 16, tidal volume 450, FiO2 30%, and PEEP of 5. Most recent ABG done earlier, with an FiO2 of 50% at that time, shows a PaO2 of 229, pCO2 of 42, pH of 7.35. Chest x-ray following surgery shows the endotracheal tube in satisfactory position above the kumar, as well as, a orogastric tube projecting into the stomach. No acute cardiopulmonary process noted. He is synchronous with mechanical ventilator. Patient is currently sedated, and fairly unresponsive. Propofol is ordered for a RASS of 0 to -1. Blood pressure is slightly hypertensive. Reportedly, Dr. Flores would like his MAP greater than 85 to help with perfusion pressure. Head is midline. Patient does have a c-collar on. There is a posterior Hemovac with minimal amount of serosanguineous drainage as well as an anterior OSWALDO drain which is compressed with a minimal amount of serosanguineous drainage. Most recent CBC from yesterday: WBC count 11.5, hemoglobin 12, hematocrit 34, platelets 174. BMP from yesterday: Sodium 144, potassium 4.2, chloride 112, serum bicarb 23, BUN 28, creatinine 1.1, glucose 124. Normal saline is infusing at 75 mL/h. Not currently requiring any vasopressors. Plan will likely be for extubation later this morning. The patient is seen today May 11, 2024 in follow-up in the intensive care unit. He is currently resting comfortably in bed. Awake and alert and no acute distress. He is status post spine surgery. He was extubated yesterday. He is currently on 2 L/min per nasal cannula with O2 saturations in the 90s. He has normal saline at 75 MLS per hour. Count 13.4. Hemoglobin 11.3. Platelets 184. Sodium 137. Potassium 4.2. Bicarb 25. BUN 23. Creatinine 0.64. Glucose 123. His pain is Lovenox for DVT prophylaxis. The patient is seen today May 12, 2024 in follow-up on the regular medical f [place]. He is postoperative day #5 status post C3-C6 anterior decompression and fusion, postoperative day #3 status post C2-T2 post posterior decompression and fusion. He is awake and alert in no acute distress. He is sitting up in bed. He is maintaining O2 saturations in the 90s on 2 L/min per nasal cannula. His temperature is 100.5 axillary. Hemodynamically stable. Orthopedics is at the bedside. Plan is to remove the Hemovac and have dressing changes. White count 10.4. Hemoglobin 10.8. Sodium 139. Potassium 4.0. Bicarb 28. BUN 23. Creatinine 0.75. Glucose 82. He has normal saline at 75 MLS per hour. He is currently n.p.o. for swallow evaluation. He is to remain in a rigid c-collar at all times. He needs increased encouragement regarding the use of the incentive spirometer. Maintain adequate pain control. The patient is seen today May 13, 2024 in follow-up on the regular medical floor. Postoperative day #6 of an anterior decompression and fusion of C3-6. Postoperative day #4 of a posterior decompression and fusion of C2-T2. He remains quite weak and debilitated. Not willing to do much effort on his own. A rapid response team was called on him yesterday due to increasing shortness of breath. Chest x-ray reveals a new patchy opacity in the right lung base. CT scan of the brain revealed no acute intracranial abnormality. Partial opacification throughout the bilateral mastoid air cells. He is maintaining O2 saturations up to 100% on 2 L/min per nasal cannula. He is been afebrile. Hemodynamically stable. Needs increased encouragement regarding the use of the incentive spirometer. White count 11.7. Hemoglobin 11.4. Platelets 196. Sodium 140. Potassium 4.8. Bicarb 23. BUN 29. Creatinine 0.67. Procalcitonin is pending. He has been initiated on cefepime. Lovenox for DVT 05/14/2024, patient is being seen for a follow-up. Resting comfortably in bed. The patient is postop following spinal surgery. Suspected right lower lobe pneumonia based on the most send chest x-ray the patient developed a new patchy infiltrate in the right lung base. The patient is currently on IV Rocephin. No significant respiratory distress. No significant sputum production. He passed a swallow evaluation. WBC counts are 10.7 with a hemoglobin 9.4 and a platelet count of 199. Procalcitonin level is at 0.65. Remains weak. No altered mentation. The patient continues to have numbness and weakness mostly in the upper extremities. Surgical scars are clean. The follow-up CAT scan of the C- spine was done today. This was reviewed and evaluated by spine surgery. No encephalopathy. No altered mentation. On 05/15/2024, the patient is resting comfortably in bed. No respiratory difficulties for now. He is on room air oxygen. Remains on IV Rocephin. Medications remain unchanged. Blood work shows a WBC count of 10 with a hemoglobin 9.8 and a platelet count of 196. BUN is 24 with a creatinine 0.7 and a sodium is at 138. No other significant events overnight. On 05/16/2024, the patient remains on room air oxygen. Hemodynamically stable. No respiratory distress. Remains on IV Rocephin. Remains on Lovenox 40 mg subcu for DVT prophylaxis. No reported aspiration. Tolerating diet. Still complaining of generalized weakness specially on the right side of her body but is essentially improving. The white cell count is at 30.8 with a hemoglobin 11.4 and a platelet count of 234, the rest of the electrolytes are all stable within a stable renal function. Calcium level is at 8.1. PT OT is on the case. Spine surgery is on the case. Rest of the medications remain unchanged. 05/17/2024, no new complaints and the patient remains on room air oxygen. He wants to advance his diet. He is wearing a hard neck collar. He remains weak specially in the right upper extremity. He needs to go to rehabilitation for aggressive physical therapy and rehab. White cell count is 13.3, hemoglobin is at 10.6. BUN is 23 with a creatinine of 0.7. A repeat chest x-ray was done today and it shows no evidence of any acute pulm infiltrates or pneumonia. Will complete a the course of Rocephin that was started on 05/14/2024. Recommended total of 5-day course. Objective - Vital Signs Vital signs: Vital Signs Temp 98.1 F 05/17/24 07:01 Pulse 86 05/17/24 07:01 Resp 17 05/17/24 07:01 BP 99/66 05/17/24 07:01 Pulse Ox 98 05/17/24 07:01 FiO2 30 05/10/24 08:00 Intake & Output 05/16/24 05/17/24 05/17/24 18:59 06:59 18:59 Intake Total 300 Output Total 2800 1150 Balance -2800 -850 Intake: Oral 300 Output: Urine 2800 1150 Straight 600 Other: Voiding Method Indwelling Catheter Indwelling Catheter ABP, PAP, CO, CI - Last Documented Arterial Blood Pressure 123/65 - Exam GENERAL EXAM: Awake, alert, 58-year-old male, c-collar on, on room air oxygen HEAD: Normocephalic and atraumatic EYES: Normal reaction of pupils, equal size. NOSE: Clear with pink turbinates. THROAT: No erythema or exudates. NECK: No masses, no JVD. Anterior and posterior dressings dry and intact. C-co llar in place. CHEST: No chest wall deformity. LUNGS: Equal air entry with no crackles, wheeze, rhonchi or dullness. CVS: S1 and S2 normal with no audible murmur, regular rhythm. No extra heart candelario nds ABDOMEN: No hepatosplenomegaly, active bowel sounds, no guarding or rigidity. SPINE: No scoliosis or deformity SKIN: No rashes CENTRAL NERVOUS SYSTEM: No focal deficits, very weak upper and lower extremities, tone is normal in all 4 extremities. EXTREMITIES: There is no peripheral edema, clubbing, or cyanosis. Peripheral pulses are intact. - Labs CBC & Chem 7: 05/17/24 08:06 05/17/24 08:06 Labs: Abnormal Lab Results - Last 24 Hours (Table) 05/16/24 05/16/24 05/17/24 Range/Units 11:39 11:39 08:06 WBC 13.8 H 13.3 H (3.8-10.6) k/uL RBC 3.65 L 3.39 L (4.30-5.90) m/uL Hgb 11.4 L 10.6 L (13.0-17.5) gm/dL Hct 33.5 L 31.3 L (39.0-53.0) % Neutrophils # 12.4 H (1.3-7.7) k/uL Lymphocytes # 0.6 L (1.0-4.8) k/uL Sodium (137-145) mmol/L BUN (9-20) mg/dL Glucose 130 H (74-99) mg/dL Calcium 8.1 L (8.4-10.2) mg/dL 05/17/24 Range/Units 08:06 WBC (3.8-10.6) k/uL RBC (4.30-5.90) m/uL Hgb (13.0-17.5) gm/dL Hct (39.0-53.0) % Neutrophils # (1.3-7.7) k/uL Lymphocytes # (1.0-4.8) k/uL Sodium 136 L (137-145) mmol/L BUN 23 H (9-20) mg/dL Glucose 128 H (74-99) mg/dL Calcium 8.3 L (8.4-10.2) mg/dL Microbiology - Last 24 Hours (Table) 05/12/24 09:24 Blood Culture - Preliminary Blood Assessment and Plan Plan: Severe cervical spinal spondylosis and severe stenosis at levels C3-C7 with myelopathy and radiculopathy; status post two-stage surgery, postoperative day # 8 following a C3-C7 anterior cervical discectomy and fusion, followed by a posterior C2-T2 decompression and fusion postoperative day # 9. No periop erative complications were reported. Suspect right lower lobe pneumonia, could be of an aspiration type and the patient is currently on IV Rocephin. Clinically stable. Currently on room air oxygen. Chest x-ray from 05/17/2024 essentially clear Altered mental status with shortness of breath, rapid response team called at 1546 on 05/12/2024. CT scan of the brain revealed no acute abnormalities. Multiple pulmonary nodules, chest CTA shows multiple small approximately 0.5 cm peripheral and lateral based lung nodules in the right upper and mid lung michel, as well as, multiple pleural-based densities, measuring up to 1 cm on the right. No prior imaging available for review. May follow-up outpatient Congestion heart failure with reduced ejection fraction, echocardiogram estimating a mildly reduced ejection fraction of 45 to 50% History of hypertension History of pulmonary embolism History of rheumatoid arthritis and osteoarthritis Plan: Repeat chest x-ray is within normal limits Continue routine postoperative care Continue IV Rocephin, recommend completing a 5-day course Able to swallow and the patient passed a swallow evaluation, advance diet as tolerated Currently on room air oxygen Again encouraged the increased use of the incentive spirometer Needs increased encouragement to perform any ADLs on his own Spine surgery on the case, CAT scan of the brain was repeated Rigid c-collar remains in place PT OT Lovenox for DVT prophylaxis Plan is for [facility] for rehab at discharge
--- NOTE | 2024-05-18 12:22 | P.PN ---
Subjective Progress Note Date: 05/18/24 Subjective: Patient seen at bedside. No significant overnight events. Pertinent positives and negatives discussed above, a complete review of systems was preformed and all the other sytems were negative. Vitals Signs Reveiwed. General: nontoxic, no distress, appears at stated age Derm: warm, dry Head: atruamatic, normocephalic, symmetric, in a c-collar Eyes: EOMI, no lid lag, anicteric sclera Mouth: No ulcerations nor lacerations visualized. Cardiovascular: Regular rate and rhythm, no murmurs or gallops appreciated. Lungs: Clear to auscultation bilaterally, no rhonchi nor wheezes auscultated. Abdominal: Soft, nontender, no distention or rigidity noted. Neuro: General weakness in all 4 extremities, most prominent in right extremity (2 out of 5 motor strength) otherwise neurologically intact. Psych: Alert, Oriented, appropriate affect Data Reveiwed Today: Patient Labs: No new labs Imaging: CXR (05/17): No evidence of aspiration. Assesment and Plan: 58-year-old male with a past medical history of hypertension, RA, OA, and lower back pain presenting with lumbar and thoracic pain and is currently recovering from an anterior cervical discectomy and fusion as well as a C2-T2 decompression. Hospital course complicated by pneumonia, now on IV abx. Bacterial Pneumonia, likely aspiration Acute hypoxic respiratory failure, resolved Sepsis, resolved Acute encephalopathy, resolved - Respiratory function improved with IV cefepime, patient was previously intubated post-op, but less likely to have HAP. Aspiration likely etiology. Cefepime discontinued. Started on Ceftriaxone 2 g IV q24 hours. complete total course of 7 days of antibiotics. Currently day 7/7 of antibiotics No longer requiring nasal cannula, continue to use incentive spirometer Dysphagia, resolved Barium swallow with video (05/14): No evidence of aspiration or penetration. Upgraded to regular diet Thoracic and lumbar pain status post cervical discectomy and fusion plus C2-T2 decompression: Right sided weakness, likely 2/2 to above Acute blood loss anemia, anticipated outcome of Sx Leukocytosis, likely reactive Pain control with Dilaudid 0.5-1 mg IV Q4H PRN. [place] 10 PO Q4H scheduled. Fle xeril 10 mg PO TID PRN. Gabapentin 300 mg PO TID. Tylenol 650 mg PO Q6H PRN. Zanaflex 2 mg PO BID + 4 mg PO QHS. Cymbalta 40 mg PO QHS. Tramadol 50 q6h PRN, Dexamethasone 3 mg IV QD. Patient rates pain as 2 out of 10 On bowel regimen - monitor for sedation - Fall precautions. - Neurochecks. -PT and OT -Orthospine following -Neurology signed off CT C-spine - no hematoma noted -Hemoglobin stable- continue to monitor, no active bleeding -GI ppx: protonix 40 iv daily Acute urinary retention -Continue Damon catheter -Voiding trial if patient is more ambulatory History of mild HFrEF, not in severe exacerbation Mild hypervolemia Continued patient's home 40 mg Lasix p.o. 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 currently holding sulfasalazine Pulmonary nodules: Outpatient Pulmonary follow up. Nicotine dependence: Advised to quit during this admission F none E replete as needed N regular diet A minimal ambulation due to recent procedures and current rigid c-collar in place. DVT ppx: Lovenox SQ Code Status: Full code Anticipated discharge place: Rehab facility Anticipated discharge time: Pending placement I have seen and evaluated the patient today. Discussed with the resident and agree with the residents finding and plan as documented in the resident's note. Changes highlighted in blue font. Objective - Vital Signs Vital signs: Vital Signs Temp 98.6 F 05/18/24 01:56 Pulse 86 05/18/24 01:56 Resp 15 05/18/24 01:56 BP 125/75 05/18/24 01:56 Pulse Ox 100 05/18/24 01:56 FiO2 30 05/10/24 08:00 Intake & Output 05/17/24 05/18/24 05/18/24 18:59 06:59 18:59 Output Total 800 1000 Balance -800 -1000 Output: Urine 800 1000 Other: Voiding Method Indwelling Catheter Indwelling Catheter ABP, PAP, CO, CI - Last Documented Arterial Blood Pressure 123/65 - Labs CBC & Chem 7: 05/17/24 08:06 05/17/24 08:06 Labs: Abnormal Lab Results - Last 24 Hours (Table) 05/17/24 05/17/24 Range/Units 08:06 08:06 WBC 13.3 H (3.8-10.6) k/uL RBC 3.39 L (4.30-5.90) m/uL Hgb 10.6 L (13.0-17.5) gm/dL Hct 31.3 L (39.0-53.0) % Sodium 136 L (137-145) mmol/L BUN 23 H (9-20) mg/dL Glucose 128 H (74-99) mg/dL Calcium 8.3 L (8.4-10.2) mg/dL
--- NOTE | 2024-05-18 14:56 | P.PN ---
Subjective Progress Note Date: 05/18/24 Patient is a 58-year-old white male with past medical history significant for hypertension, pulmonary embolism, rheumatoid arthritis, osteoarthritis, and lower back pain. Patient is currently sedated and intubated to the mechanical ventilator, unable to provide any information for HPI. On review of the EMR, patient was having severe upper and lower extremity weakness and associated cervical/thoracic level back pain. He was having troubles ambulating, and was apparently utilizing a wheelchair. CT of the cervical spine showed posterior vertebral body spurring centrally C3 and to a lesser degree C4. There was spinal canal stenosis at level C3. Uncovertebral joint hypertrophy with severe right formal stenosis at levels C4 and C5. Orthopedic surgery did evaluate this patient, and patient has underwent two-stage cervical spine surgery. Initial surgery was C3-C7 anterior cervical discectomy and fusion. Yesterday, patient did go back to OR for a posterior C2-T2 decompression and fusion. No perioperative complications reported. Patient was transferred back to the intensive care unit on the mechanical ventilator. Current ventilator settings are AC, respiratory 16, tidal volume 450, FiO2 30%, and PEEP of 5. Most recent ABG done earlier, with an FiO2 of 50% at that time, shows a PaO2 of 229, pCO2 of 42, pH of 7.35. Chest x-ray following surgery shows the endotracheal tube in satisfactory position above the kumar, as well as, a orogastric tube projecting into the stomach. No acute cardiopulmonary process noted. He is synchronous with mechanical ventilator. Patient is currently sedated, and fairly unresponsive. Propofol is ordered for a RASS of 0 to -1. Blood pressure is slightly hypertensive. Reportedly, Dr. Flores would like his MAP greater than 85 to help with perfusion pressure. Head is midline. Patient does have a c-collar on. There is a posterior Hemovac with minimal amount of serosanguineous drainage as well as an anterior OSWALDO drain which is compressed with a minimal amount of serosanguineous drainage. Most recent CBC from yesterday: WBC count 11.5, hemoglobin 12, hematocrit 34, platelets 174. BMP from yesterday: Sodium 144, potassium 4.2, chloride 112, serum bicarb 23, BUN 28, creatinine 1.1, glucose 124. Normal saline is infusing at 75 mL/h. Not currently requiring any vasopressors. Plan will likely be for extubation later this morning. The patient is seen today May 11, 2024 in follow-up in the intensive care unit. He is currently resting comfortably in bed. Awake and alert and no acute distress. He is status post spine surgery. He was extubated yesterday. He is currently on 2 L/min per nasal cannula with O2 saturations in the 90s. He has normal saline at 75 MLS per hour. Count 13.4. Hemoglobin 11.3. Platelets 184. Sodium 137. Potassium 4.2. Bicarb 25. BUN 23. Creatinine 0.64. Glucose 123. His pain is Lovenox for DVT prophylaxis. The patient is seen today May 12, 2024 in follow-up on the regular medical f [place]. He is postoperative day #5 status post C3-C6 anterior decompression and fusion, postoperative day #3 status post C2-T2 post posterior decompression and fusion. He is awake and alert in no acute distress. He is sitting up in bed. He is maintaining O2 saturations in the 90s on 2 L/min per nasal cannula. His temperature is 100.5 axillary. Hemodynamically stable. Orthopedics is at the bedside. Plan is to remove the Hemovac and have dressing changes. White count 10.4. Hemoglobin 10.8. Sodium 139. Potassium 4.0. Bicarb 28. BUN 23. Creatinine 0.75. Glucose 82. He has normal saline at 75 MLS per hour. He is currently n.p.o. for swallow evaluation. He is to remain in a rigid c-collar at all times. He needs increased encouragement regarding the use of the incentive spirometer. Maintain adequate pain control. The patient is seen today May 13, 2024 in follow-up on the regular medical floor. Postoperative day #6 of an anterior decompression and fusion of C3-6. Postoperative day #4 of a posterior decompression and fusion of C2-T2. He remains quite weak and debilitated. Not willing to do much effort on his own. A rapid response team was called on him yesterday due to increasing shortness of breath. Chest x-ray reveals a new patchy opacity in the right lung base. CT scan of the brain revealed no acute intracranial abnormality. Partial opacification throughout the bilateral mastoid air cells. He is maintaining O2 saturations up to 100% on 2 L/min per nasal cannula. He is been afebrile. Hemodynamically stable. Needs increased encouragement regarding the use of the incentive spirometer. White count 11.7. Hemoglobin 11.4. Platelets 196. Sodium 140. Potassium 4.8. Bicarb 23. BUN 29. Creatinine 0.67. Procalcitonin is pending. He has been initiated on cefepime. Lovenox for DVT 05/14/2024, patient is being seen for a follow-up. Resting comfortably in bed. The patient is postop following spinal surgery. Suspected right lower lobe pneumonia based on the most send chest x-ray the patient developed a new patchy infiltrate in the right lung base. The patient is currently on IV Rocephin. No significant respiratory distress. No significant sputum production. He passed a swallow evaluation. WBC counts are 10.7 with a hemoglobin 9.4 and a platelet count of 199. Procalcitonin level is at 0.65. Remains weak. No altered mentation. The patient continues to have numbness and weakness mostly in the upper extremities. Surgical scars are clean. The follow-up CAT scan of the C- spine was done today. This was reviewed and evaluated by spine surgery. No encephalopathy. No altered mentation. On 05/15/2024, the patient is resting comfortably in bed. No respiratory difficulties for now. He is on room air oxygen. Remains on IV Rocephin. Medications remain unchanged. Blood work shows a WBC count of 10 with a hemoglobin 9.8 and a platelet count of 196. BUN is 24 with a creatinine 0.7 and a sodium is at 138. No other significant events overnight. On 05/16/2024, the patient remains on room air oxygen. Hemodynamically stable. No respiratory distress. Remains on IV Rocephin. Remains on Lovenox 40 mg subcu for DVT prophylaxis. No reported aspiration. Tolerating diet. Still complaining of generalized weakness specially on the right side of her body but is essentially improving. The white cell count is at 30.8 with a hemoglobin 11.4 and a platelet count of 234, the rest of the electrolytes are all stable within a stable renal function. Calcium level is at 8.1. PT OT is on the case. Spine surgery is on the case. Rest of the medications remain unchanged. 05/17/2024, no new complaints and the patient remains on room air oxygen. He wants to advance his diet. He is wearing a hard neck collar. He remains weak specially in the right upper extremity. He needs to go to rehabilitation for aggressive physical therapy and rehab. White cell count is 13.3, hemoglobin is at 10.6. BUN is 23 with a creatinine of 0.7. A repeat chest x-ray was done today and it shows no evidence of any acute pulm infiltrates or pneumonia. Will complete a the course of Rocephin that was started on 05/14/2024. Recommended total of 5-day course. On 05/18/2024, patient is tolerating diet. No new complaints. Right upper extremity remains weak. His strength in his left upper extremity has been waxing and waning. No respiratory distress. Right lower lobe pneumonia is cleared and the patient will be completing his course of antibiotics as was started on 05/14/2024. Will no new labs are available from today. He remains on Decadron 3 mg IV on a daily basis. He remains on Lovenox 40 mg subcu for DVT prophylaxis. Pain control with [place]. He is also on Neurontin. He is taking Zanaflex for muscle relaxation. No other complaints otherwise for now. Objective - Vital Signs Vital signs: Vital Signs Temp 98.0 F 05/18/24 07:06 Pulse 83 05/18/24 07:06 Resp 17 05/18/24 07:06 BP 108/62 05/18/24 07:06 Pulse Ox 99 05/18/24 07:06 FiO2 30 05/10/24 08:00 Intake & Output 05/17/24 05/18/24 05/18/24 18:59 06:59 18:59 Output Total 800 1000 Balance -800 -1000 Output: Urine 800 1000 Other: Voiding Method Indwelling Catheter Indwelling Catheter Indwelling Catheter ABP, PAP, CO, CI - Last Documented Arterial Blood Pressure 123/65 - Exam GENERAL EXAM: Awake, alert, 58-year-old male, c-collar on, on room air oxygen HEAD: Normocephalic and atraumatic EYES: Normal reaction of pupils, equal size. NOSE: Clear with pink turbinates. THROAT: No erythema or exudates. NECK: No masses, no JVD. Anterior and posterior dressings dry and intact. C- collar in place. CHEST: No chest wall deformity. LUNGS: Equal air entry with no crackles, wheeze, rhonchi or dullness. CVS: S1 and S2 normal with no audible murmur, regular rhythm. No extra heart sounds ABDOMEN: No hepatosplenomegaly, active bowel sounds, no guarding or rigidity. SPINE: No scoliosis or deformity SKIN: No rashes CENTRAL NERVOUS SYSTEM: No focal deficits, very weak upper and lower extremities, tone is normal in all 4 extremities. EXTREMITIES: There is no peripheral edema, clubbing, or cyanosis. Peripheral pulses are intact. - Labs CBC & Chem 7: 05/17/24 08:06 05/17/24 08:06 Assessment and Plan Plan: Severe cervical spinal spondylosis and severe stenosis at levels C3-C7 with myelopathy and radiculopathy; status post two-stage surgery, postoperative day # 9 following a C3-C7 anterior cervical discectomy and fusion, followed by a posterior C2-T2 decompression and fusion postoperative day # 10. No perioperative complications were reported. Suspect right lower lobe pneumonia, could be of an aspiration type and the patient is currently on IV Rocephin. Clinically stable. Currently on room air oxygen. Chest x-ray from 05/17/2024 essentially clear Altered mental status with shortness of breath, rapid response team called at 1546 on 05/12/2024. CT scan of the brain revealed no acute abnormalities. Multiple pulmonary nodules, chest CTA shows multiple small approximately 0.5 cm peripheral and lateral based lung nodules in the right upper and mid lung michel, as well as, multiple pleural-based densities, measuring up to 1 cm on the right. No prior imaging available for review. May follow-up outpatient Congestion heart failure with reduced ejection fraction, echocardiogram estimating a mildly reduced ejection fraction of 45 to 50% History of hypertension History of pulmonary embolism History of rheumatoid arthritis and osteoarthritis Plan: Repeat chest x-ray is within normal limits Continue routine postoperative care Continue IV Rocephin, recommend completing a 5-day course, and the antibiotics will be discontinued as of tomorrow. Able to swallow and the patient passed a swallow evaluation, advance diet as tolerated, no reported aspiration. Currently on room air oxygen Again encouraged the increased use of the incentive spirometer Needs increased encouragement to perform any ADLs on his own Spine surgery on the case, CAT scan of the brain was repeated Rigid c-collar remains in place PT OT Lovenox for DVT prophylaxis Plan is for [facility] for rehab at discharge
--- NOTE | 2024-05-18 16:26 | P.PN ---
Subjective Progress Note Date: 05/18/24 Principal diagnosis: Lumbar spondylosis; degenerative disease; cervical canal stenosis; neuroforaminal stenosis; cervical spondylosis Patient was seen at bedside this afternoon sitting up in bed with hard cervical collar and dressing present over posterior and anterior cervical spine. Patient says he has been trying to move both his upper and lower extremities daily while resting in bed. Patient has been talking with heel caser about inpatient rehab placement. Patient looking forward to going to inpatient rehab whenever bed is available. Patient says he is still having a lot of neck pain and he thinks this is due to the c-collar being in place. Patient denies any o rthopedic issues at this time. Damon is still in place. Patient says he has been noticing improvement in some of the symptoms in his upper extremities. Patient says he has been able to use a fork and spoon better. Patient denies chest pain, fever, nausea, vomiting, change in vision. Objective - Vital Signs Vital signs: Vital Signs Temp 98.4 F 05/18/24 13:34 Pulse 100 05/18/24 13:34 Resp 16 05/18/24 13:34 BP 97/63 05/18/24 13:34 Pulse Ox 100 05/18/24 13:34 FiO2 30 05/10/24 08:00 Intake & Output 05/17/24 05/18/24 05/18/24 18:59 06:59 18:59 Output Total 800 1000 2600 Balance -800 -1000 -2600 Output: Urine 800 1000 2600 Other: Voiding Method Indwelling Catheter Indwelling Catheter Indwelling Catheter # Bowel Movements 1 ABP, PAP, CO, CI - Last Documented Arterial Blood Pressure 123/65 - Exam Inspection: Hard c-collar in place. Dressing present to the anterior and posterior cervical spines. Dressings appear to be clean, dry, intact. Negative for any drainage. Sensation: Some numbness and tingling present in the bilateral feet and ankles. Equal, symmetric, bilaterally intact throughout the rest of the upper and lower extremities. Palpation: Moderate tenderness to patient over the anterior and posterior cervical incisions. Nontender to palpation throughout rest of exam. Range of motion: Patient has limited range of motion of the bilateral shoulder secondary to stiffness and pain referred to the cervical spine. Full range of motion throughout bilateral elbows and wrist in flexion/extension. Patient does have range of motion of bilateral hips and knees secondary to first stiffness and pain in the low back. Patient has full range of motion in bilateral ankles. Motor: 4-/5 reheater helper strength bilaterally. 4-/5 in all major motor groups in bilateral upper extremities. 4-/5 in all major motor groups in bilateral lower extremities Neurovascular: Radial pulse intact, 2+ bilaterally. Cap refill under 3 seconds in digits. Special tests: Negative Homans bilaterally. - Labs CBC & Chem 7: 05/17/24 08:06 05/17/24 08:06 Labs: Microbiology - Last 24 Hours (Table) 05/12/24 09:24 Blood Culture - Final Blood Assessment and Plan Assessment: Postoperative day #11 status post C3-C6 ACDF Postoperative day #9 status post C2-T2 posterior decompression and fusion Severe cervical myelopathy Upper extremity and lower extremity weakness and radiculopathy Plan: 1. Lumbar spondylosis; degenerative disease; cervical canal stenosis; neuroforaminal stenosis; cervical spondylosis - Pain meds as needed. Case management working on inpatient rehab placement. Continue steroids. Pain medication as needed. Weight-bear as tolerated with walker and assistance. Incisions healing well. Assess dressings daily. We will defer rest of management to primary care team. Ortho will be available as needed. 2. Appreciate medical management 3. Pain management - [place]; Gabapentin; flexeril; Tylenol 4. DVT prophylaxis - Lovenox 5. GI prophylaxis - Protonix; dulcolax; milk of mag 6. PT/OT - weightbearing as tolerated with walker and assistance as needed. hard c-collar on at all times 7. Encourage incentive spirometer use
[2024-05-19 09:23] LABS: Basophils # (A) 0.01 X 10*3/uL (0.00-0.10); Basophils % (A) 0.1 %; Eosinophils # (A) 0.11 X 10*3/uL (0.04-0.35); HCT 29.8 % (39.6-50.0); HGB 10.2 g/dL (13.0-17.0); Lymphocytes # (A) 1.44 X 10*3/uL (0.90-5.00); Lymphocytes % (A) 12.5 %; MCH 32.2 pg (27.0-32.0); MCHC 34.2 g/dL (32.0-37.0); Mean Platelet Volume 10.9 FL (9.5-12.2); Monocytes # (A) 0.57 X 10*3/uL (0.20-1.00); Monocytes % (A) 4.9 %; NRBC Per 100 WBC 0 X 10*3/uL (0.00-0.01); Neutrophils # (A) 9.31 X 10*3/uL (1.80-7.70); Neutrophils % (A) 80.7 %; Platelet Count 272 X 10*3/uL (140-440); RBC 3.17 X 10*6/uL (4.40-5.60); RDW 13.2 % (11.5-14.5); WBC 11.53 X 10*3/uL (4.50-10.00)
[2024-05-19] MEDS: DEXAMETHASONE SOD PHOSPHATE 4 MG/ML 1 ML VIAL IV SCH (09:47)
[2024-05-19 10:47] LABS: BUN/Creat Ratio 27.62 Ratio (12.00-20.00); Blood Urea Nitrogen 22.1 mg/dL (9.0-27.0); Calcium 8.2 mg/dL (8.7-10.3); Carbon Dioxide 26.9 mmol/L (21.6-31.8); Chloride 104 mmol/L (96-109); Glucose 91 mg/dL (70-110); Potassium 4.9 mmol/L (3.5-5.5); Sodium 140 mmol/L (135-145)
--- NOTE | 2024-05-19 12:50 | P.PN ---
Subjective Progress Note Date: 05/19/24 Patient is a 58-year-old white male with past medical history significant for hypertension, pulmonary embolism, rheumatoid arthritis, osteoarthritis, and lower back pain. Patient is currently sedated and intubated to the mechanical ventilator, unable to provide any information for HPI. On review of the EMR, patient was having severe upper and lower extremity weakness and associated cervical/thoracic level back pain. He was having troubles ambulating, and was apparently utilizing a wheelchair. CT of the cervical spine showed posterior vertebral body spurring centrally C3 and to a lesser degree C4. There was spinal canal stenosis at level C3. Uncovertebral joint hypertrophy with severe right formal stenosis at levels C4 and C5. Orthopedic surgery did evaluate this patient, and patient has underwent two-stage cervical spine surgery. Initial surgery was C3-C7 anterior cervical discectomy and fusion. Yesterday, patient did go back to OR for a posterior C2-T2 decompression and fusion. No perioperative complications reported. Patient was transferred back to the intensive care unit on the mechanical ventilator. Current ventilator settings are AC, respiratory 16, tidal volume 450, FiO2 30%, and PEEP of 5. Most recent ABG done earlier, with an FiO2 of 50% at that time, shows a PaO2 of 229, pCO2 of 42, pH of 7.35. Chest x-ray following surgery shows the endotracheal tube in satisfactory position above the kumar, as well as, a orogastric tube projecting into the stomach. No acute cardiopulmonary process noted. He is synchronous with mechanical ventilator. Patient is currently sedated, and fairly unresponsive. Propofol is ordered for a RASS of 0 to -1. Blood pressure is slightly hypertensive. Reportedly, Dr. Flores would like his MAP greater than 85 to help with perfusion pressure. Head is midline. Patient does have a c-collar on. There is a posterior Hemovac with minimal amount of serosanguineous drainage as well as an anterior OSWALDO drain which is compressed with a minimal amount of serosanguineous drainage. Most recent CBC from yesterday: WBC count 11.5, hemoglobin 12, hematocrit 34, platelets 174. BMP from yesterday: Sodium 144, potassium 4.2, chloride 112, serum bicarb 23, BUN 28, creatinine 1.1, glucose 124. Normal saline is infusing at 75 mL/h. Not currently requiring any vasopressors. Plan will likely be for extubation later this morning. The patient is seen today May 11, 2024 in follow-up in the intensive care unit. He is currently resting comfortably in bed. Awake and alert and no acute distress. He is status post spine surgery. He was extubated yesterday. He is currently on 2 L/min per nasal cannula with O2 saturations in the 90s. He has normal saline at 75 MLS per hour. Count 13.4. Hemoglobin 11.3. Platelets 184. Sodium 137. Potassium 4.2. Bicarb 25. BUN 23. Creatinine 0.64. Glucose 123. His pain is Lovenox for DVT prophylaxis. The patient is seen today May 12, 2024 in follow-up on the regular medical f [place]. He is postoperative day #5 status post C3-C6 anterior decompression and fusion, postoperative day #3 status post C2-T2 post posterior decompression and fusion. He is awake and alert in no acute distress. He is sitting up in bed. He is maintaining O2 saturations in the 90s on 2 L/min per nasal cannula. His temperature is 100.5 axillary. Hemodynamically stable. Orthopedics is at the bedside. Plan is to remove the Hemovac and have dressing changes. White count 10.4. Hemoglobin 10.8. Sodium 139. Potassium 4.0. Bicarb 28. BUN 23. Creatinine 0.75. Glucose 82. He has normal saline at 75 MLS per hour. He is currently n.p.o. for swallow evaluation. He is to remain in a rigid c-collar at all times. He needs increased encouragement regarding the use of the incentive spirometer. Maintain adequate pain control. The patient is seen today May 13, 2024 in follow-up on the regular medical floor. Postoperative day #6 of an anterior decompression and fusion of C3-6. Postoperative day #4 of a posterior decompression and fusion of C2-T2. He remains quite weak and debilitated. Not willing to do much effort on his own. A rapid response team was called on him yesterday due to increasing shortness of breath. Chest x-ray reveals a new patchy opacity in the right lung base. CT scan of the brain revealed no acute intracranial abnormality. Partial opacification throughout the bilateral mastoid air cells. He is maintaining O2 saturations up to 100% on 2 L/min per nasal cannula. He is been afebrile. Hemodynamically stable. Needs increased encouragement regarding the use of the incentive spirometer. White count 11.7. Hemoglobin 11.4. Platelets 196. Sodium 140. Potassium 4.8. Bicarb 23. BUN 29. Creatinine 0.67. Procalcitonin is pending. He has been initiated on cefepime. Lovenox for DVT 05/14/2024, patient is being seen for a follow-up. Resting comfortably in bed. The patient is postop following spinal surgery. Suspected right lower lobe pneumonia based on the most send chest x-ray the patient developed a new patchy infiltrate in the right lung base. The patient is currently on IV Rocephin. No significant respiratory distress. No significant sputum production. He passed a swallow evaluation. WBC counts are 10.7 with a hemoglobin 9.4 and a platelet count of 199. Procalcitonin level is at 0.65. Remains weak. No altered mentation. The patient continues to have numbness and weakness mostly in the upper extremities. Surgical scars are clean. The follow-up CAT scan of the C- spine was done today. This was reviewed and evaluated by spine surgery. No encephalopathy. No altered mentation. On 05/15/2024, the patient is resting comfortably in bed. No respiratory difficulties for now. He is on room air oxygen. Remains on IV Rocephin. Medications remain unchanged. Blood work shows a WBC count of 10 with a hemoglobin 9.8 and a platelet count of 196. BUN is 24 with a creatinine 0.7 and a sodium is at 138. No other significant events overnight. On 05/16/2024, the patient remains on room air oxygen. Hemodynamically stable. No respiratory distress. Remains on IV Rocephin. Remains on Lovenox 40 mg subcu for DVT prophylaxis. No reported aspiration. Tolerating diet. Still complaining of generalized weakness specially on the right side of her body but is essentially improving. The white cell count is at 30.8 with a hemoglobin 11.4 and a platelet count of 234, the rest of the electrolytes are all stable within a stable renal function. Calcium level is at 8.1. PT OT is on the case. Spine surgery is on the case. Rest of the medications remain unchanged. 05/17/2024, no new complaints and the patient remains on room air oxygen. He wants to advance his diet. He is wearing a hard neck collar. He remains weak specially in the right upper extremity. He needs to go to rehabilitation for aggressive physical therapy and rehab. White cell count is 13.3, hemoglobin is at 10.6. BUN is 23 with a creatinine of 0.7. A repeat chest x-ray was done today and it shows no evidence of any acute pulm infiltrates or pneumonia. Will complete a the course of Rocephin that was started on 05/14/2024. Recommended total of 5-day course. On 05/18/2024, patient is tolerating diet. No new complaints. Right upper extremity remains weak. His strength in his left upper extremity has been waxing and waning. No respiratory distress. Right lower lobe pneumonia is cleared and the patient will be completing his course of antibiotics as was started on 05/14/2024. Will no new labs are available from today. He remains on Decadron 3 mg IV on a daily basis. He remains on Lovenox 40 mg subcu for DVT prophylaxis. Pain control with [place]. He is also on Neurontin. He is taking Zanaflex for muscle relaxation. No other complaints otherwise for now. 05/19/2024, no new complaints. The patient is resting comfortably in bed. Waiting to be transferred to rehab. Pulse ox is 99% room air oxygen. Antibiotics has been completed. Remains on Decadron 3 mg IV every 24 hours. Pain under adequate control. Continues to wear a hard neck collar. Rest of the medications remain unchanged. Objective - Vital Signs Vital signs: Vital Signs Temp 98.2 F 05/19/24 06:49 Pulse 81 05/19/24 06:49 Resp 17 05/19/24 06:49 BP 128/76 05/19/24 06:49 Pulse Ox 100 05/19/24 06:49 FiO2 30 05/10/24 08:00 Intake & Output 05/18/24 05/19/24 05/19/24 18:59 06:59 18:59 Output Total 3700 900 Balance -3700 -900 Output: Urine 3700 900 Other: Voiding Method Indwelling Catheter Indwelling Catheter # Bowel Movements 1 ABP, PAP, CO, CI - Last Documented Arterial Blood Pressure 123/65 - Exam GENERAL EXAM: Awake, alert, 58-year-old male, c-collar on, on room air oxygen HEAD: Normocephalic and atraumatic EYES: Normal reaction of pupils, equal size. NOSE: Clear with pink turbinates. THROAT: No erythema or exudates. NECK: No masses, no JVD. Anterior and posterior dressings dry and intact. C- collar in place. CHEST: No chest wall deformity. LUNGS: Equal air entry with no crackles, wheeze, rhonchi or dullness. CVS: S1 and S2 normal with no audible murmur, regular rhythm. No extra heart s ounds ABDOMEN: No hepatosplenomegaly, active bowel sounds, no guarding or rigidity. SPINE: No scoliosis or deformity SKIN: No rashes CENTRAL NERVOUS SYSTEM: No focal deficits, very weak upper and lower extremities, tone is normal in all 4 extremities. EXTREMITIES: There is no peripheral edema, clubbing, or cyanosis. Peripheral pulses are intact. - Labs CBC & Chem 7: 05/19/24 06:37 05/19/24 06:37 Labs: Abnormal Lab Results - Last 24 Hours (Table) 05/19/24 Range/Units 06:37 WBC 11.53 H (4.50-10.00) X 10*3/uL RBC 3.17 L (4.40-5.60) X 10*6/uL Hgb 10.2 L (13.0-17.0) g/dL Hct 29.8 L (39.6-50.0) % MCH 32.2 H (27.0-32.0) pg Immature Gran # 0.09 H (0.00-0.04) X 10*3/uL Neutrophils # 9.31 H (1.80-7.70) X 10*3/uL Microbiology - Last 24 Hours (Table) 05/12/24 09:24 Blood Culture - Final Blood Assessment and Plan Plan: Severe cervical spinal spondylosis and severe stenosis at levels C3-C7 with myelopathy and radiculopathy; status post two-stage surgery, postoperative day # 10 following a C3-C7 anterior cervical discectomy and fusion, followed by a posterior C2-T2 decompression and fusion postoperative day # 12. No perioperative complications were reported. Suspect right lower lobe pneumonia, could be of an aspiration type and the patient is currently on IV Rocephin. Clinically stable. Currently on room air oxygen. Chest x-ray from 05/17/2024 essentially clear Altered mental status with shortness of breath, rapid response team called at 1546 on 05/12/2024. CT scan of the brain revealed no acute abnormalities. Multiple pulmonary nodules, chest CTA shows multiple small approximately 0.5 cm peripheral and lateral based lung nodules in the right upper and mid lung michel, as well as, multiple pleural-based densities, measuring up to 1 cm on the right. No prior imaging available for review. May follow-up outpatient Congestion heart failure with reduced ejection fraction, echocardiogram estimating a mildly reduced ejection fraction of 45 to 50% History of hypertension History of pulmonary embolism History of rheumatoid arthritis and osteoarthritis Plan: Overall condition is stable Repeat chest x-ray is within normal limits Continue routine postoperative care Patient on course of antibiotics. Able to swallow and the patient passed a swallow evaluation, advance diet as melina erated, no reported aspiration. Currently on room air oxygen Again encouraged the increased use of the incentive spirometer Needs increased encouragement to perform any ADLs on his own Spine surgery on the case, CAT scan of the brain was repeated Rigid c-collar remains in place PT OT Lovenox for DVT prophylaxis Plan is for [facility] for rehab at discharge
--- NOTE | 2024-05-19 13:50 | P.PN ---
Subjective Progress Note Date: 05/19/24 Subjective: Patient seen and examined at bedside. No acute events overnight. Pertinent positives and negatives discussed above, a complete review of systems was preformed and all the other sytems were negative. Vitals Signs Reveiwed. General: nontoxic, no distress, appears at stated age Derm: warm, dry Head: atruamatic, normocephalic, symmetric, in a c-collar Eyes: EOMI, no lid lag, anicteric sclera Mouth: No ulcerations nor lacerations visualized. Cardiovascular: Regular rate and rhythm, no murmurs or gallops appreciated. Lungs: Clear to auscultation bilaterally, no rhonchi nor wheezes auscultated. Abdominal: Soft, nontender, no distention or rigidity noted. Neuro: General weakness in all 4 extremities, most prominent in right extremity (2 out of 5 motor strength) otherwise neurologically intact. Psych: Alert, Oriented, appropriate affect Data Reveiwed Today: Patient Labs: WBC 11.53, hemoglobin 10.2, potassium 4.9, creatinine 0.8 Imaging: No new imaging Assesment and Plan: 58-year-old male with a past medical history of hypertension, RA, OA, and lower back pain presenting with lumbar and thoracic pain and is currently recovering from an anterior cervical discectomy and fusion as well as a C2-T2 decompression. Hospital course complicated by pneumonia, now on IV abx. Bacterial Pneumonia, likely aspiration Acute hypoxic respiratory failure, resolved Sepsis, resolved Acute encephalopathy, resolved - Respiratory function improved with IV cefepime, patient was previously intubated post-op, but less likely to have HAP. Aspiration likely etiology. Cefepime discontinued. Was started on Ceftriaxone 2 g IV q24 hours. completed total course of 7 days of antibiotics. No longer requiring nasal cannula, continue to use incentive spirometer Dysphagia, resolved Barium swallow with video (05/14): No evidence of aspiration or penetration. Upgraded to regular diet Thoracic and lumbar pain status post cervical discectomy and fusion plus C2-T2 decompression: Right sided weakness, likely 2/2 to above Acute blood loss anemia, anticipated outcome of Sx Leukocytosis, likely reactive Pain control with Dilaudid 0.5-1 mg IV Q4H PRN. [place] 10 PO Q4H scheduled. Flexeril 10 mg PO TID PRN. Gabapentin 300 mg PO TID. Tylenol 650 mg PO Q6H PRN. Zanaflex 2 mg PO BID + 4 mg PO QHS. Cymbalta 40 mg PO QHS. Tramadol 50 q6h PRN, Dexamethasone 3 mg IV QD. Blood culture came back negative Patient states pain is well-controlled. On bowel regimen - monitor for sedation - Fall precautions. - Neurochecks. -PT and OT -Orthospine following -Neurology signed off CT C-spine - no hematoma noted -Hemoglobin stable- continue to monitor, no active bleeding -GI ppx: protonix 40 iv daily -Pulmonology note reviewed, no changes Acute urinary retention -Continue Damon catheter -Voiding trial if patient is more ambulatory History of mild HFrEF, not in severe exacerbation Mild hypervolemia Continued patient's home 40 mg Lasix p.o. -Also has some dependent edema. Fractionally improving. HTN - continue lisinopril 20 mg daily Asthma continue singular 10 mg daily BPH - tamsulosin 0.4 Rheumatoid arthritis: Outpatient [facility] [employer] follow up. currently holding sulfasalazine Pulmonary nodules: Outpatient Pulmonary follow up. Nicotine dependence: Advised to quit during this admission F none E replete as needed N regular diet A minimal ambulation due to recent procedures and current rigid c-collar in place. DVT ppx: Lovenox SQ Code Status: Full code Anticipated discharge place: Rehab facility Anticipated discharge time: Pending placement I have seen and evaluated the patient today. Discussed with the resident and agree with the residents finding and plan as documented in the resident's note. Changes highlighted in blue font. Objective - Vital Signs Vital signs: Vital Signs Temp 98.4 F 05/19/24 02:27 Pulse 84 05/19/24 02:27 Resp 18 05/19/24 02:27 BP 119/71 05/19/24 02:27 Pulse Ox 99 05/19/24 02:27 FiO2 30 05/10/24 08:00 Intake & Output 05/18/24 05/18/24 05/19/24 06:59 18:59 06:59 Output Total 1000 3700 900 Balance -1000 -3700 -900 Output: Urine 1000 3700 900 Other: Voiding Method Indwelling Catheter Indwelling Catheter Indwelling Catheter # Bowel Movements 1 ABP, PAP, CO, CI - Last Documented Arterial Blood Pressure 123/65 - Labs CBC & Chem 7: 05/19/24 06:37 05/19/24 06:37 Labs: Microbiology - Last 24 Hours (Table) 05/12/24 09:24 Blood Culture - Final Blood
[2024-05-20] MEDS: KETOROLAC 15 MG/ML 1 ML VIAL IVP PRN (12:44)
--- NOTE | 2024-05-20 12:58 | P.PN ---
Subjective Progress Note Date: 05/20/24 Patient is a 58-year-old white male with past medical history significant for hypertension, pulmonary embolism, rheumatoid arthritis, osteoarthritis, and lower back pain. Patient is currently sedated and intubated to the mechanical ventilator, unable to provide any information for HPI. On review of the EMR, patient was having severe upper and lower extremity weakness and associated cervical/thoracic level back pain. He was having troubles ambulating, and was apparently utilizing a wheelchair. CT of the cervical spine showed posterior vertebral body spurring centrally C3 and to a lesser degree C4. There was spinal canal stenosis at level C3. Uncovertebral joint hypertrophy with severe right formal stenosis at levels C4 and C5. Orthopedic surgery did evaluate this patient, and patient has underwent two-stage cervical spine surgery. Initial surgery was C3-C7 anterior cervical discectomy and fusion. Yesterday, patient did go back to OR for a posterior C2-T2 decompression and fusion. No perioperative complications reported. Patient was transferred back to the intensive care unit on the mechanical ventilator. Current ventilator settings are AC, respiratory 16, tidal volume 450, FiO2 30%, and PEEP of 5. Most recent ABG done earlier, with an FiO2 of 50% at that time, shows a PaO2 of 229, pCO2 of 42, pH of 7.35. Chest x-ray following surgery shows the endotracheal tube in satisfactory position above the kumar, as well as, a orogastric tube projecting into the stomach. No acute cardiopulmonary process noted. He is synchronous with mechanical ventilator. Patient is currently sedated, and fairly unresponsive. Propofol is ordered for a RASS of 0 to -1. Blood pressure is slightly hypertensive. Reportedly, Dr. Flores would like his MAP greater than 85 to help with perfusion pressure. Head is midline. Patient does have a c-collar on. There is a posterior Hemovac with minimal amount of serosanguineous drainage as well as an anterior OSWALDO drain which is compressed with a minimal amount of serosanguineous drainage. Most recent CBC from yesterday: WBC count 11.5, hemoglobin 12, hematocrit 34, platelets 174. BMP from yesterday: Sodium 144, potassium 4.2, chloride 112, serum bicarb 23, BUN 28, creatinine 1.1, glucose 124. Normal saline is infusing at 75 mL/h. Not currently requiring any vasopressors. Plan will likely be for extubation later this morning. The patient is seen today May 11, 2024 in follow-up in the intensive care unit. He is currently resting comfortably in bed. Awake and alert and no acute distress. He is status post spine surgery. He was extubated yesterday. He is currently on 2 L/min per nasal cannula with O2 saturations in the 90s. He has normal saline at 75 MLS per hour. Count 13.4. Hemoglobin 11.3. Platelets 184. Sodium 137. Potassium 4.2. Bicarb 25. BUN 23. Creatinine 0.64. Glucose 123. His pain is Lovenox for DVT prophylaxis. The patient is seen today May 12, 2024 in follow-up on the regular medical f [place]. He is postoperative day #5 status post C3-C6 anterior decompression and fusion, postoperative day #3 status post C2-T2 post posterior decompression and fusion. He is awake and alert in no acute distress. He is sitting up in bed. He is maintaining O2 saturations in the 90s on 2 L/min per nasal cannula. His temperature is 100.5 axillary. Hemodynamically stable. Orthopedics is at the bedside. Plan is to remove the Hemovac and have dressing changes. White count 10.4. Hemoglobin 10.8. Sodium 139. Potassium 4.0. Bicarb 28. BUN 23. Creatinine 0.75. Glucose 82. He has normal saline at 75 MLS per hour. He is currently n.p.o. for swallow evaluation. He is to remain in a rigid c-collar at all times. He needs increased encouragement regarding the use of the incentive spirometer. Maintain adequate pain control. The patient is seen today May 13, 2024 in follow-up on the regular medical floor. Postoperative day #6 of an anterior decompression and fusion of C3-6. Postoperative day #4 of a posterior decompression and fusion of C2-T2. He remains quite weak and debilitated. Not willing to do much effort on his own. A rapid response team was called on him yesterday due to increasing shortness of breath. Chest x-ray reveals a new patchy opacity in the right lung base. CT scan of the brain revealed no acute intracranial abnormality. Partial opacification throughout the bilateral mastoid air cells. He is maintaining O2 saturations up to 100% on 2 L/min per nasal cannula. He is been afebrile. Hemodynamically stable. Needs increased encouragement regarding the use of the incentive spirometer. White count 11.7. Hemoglobin 11.4. Platelets 196. Sodium 140. Potassium 4.8. Bicarb 23. BUN 29. Creatinine 0.67. Procalcitonin is pending. He has been initiated on cefepime. Lovenox for DVT 05/14/2024, patient is being seen for a follow-up. Resting comfortably in bed. The patient is postop following spinal surgery. Suspected right lower lobe pneumonia based on the most send chest x-ray the patient developed a new patchy infiltrate in the right lung base. The patient is currently on IV Rocephin. No significant respiratory distress. No significant sputum production. He passed a swallow evaluation. WBC counts are 10.7 with a hemoglobin 9.4 and a platelet count of 199. Procalcitonin level is at 0.65. Remains weak. No altered mentation. The patient continues to have numbness and weakness mostly in the upper extremities. Surgical scars are clean. The follow-up CAT scan of the C- spine was done today. This was reviewed and evaluated by spine surgery. No encephalopathy. No altered mentation. On 05/15/2024, the patient is resting comfortably in bed. No respiratory difficulties for now. He is on room air oxygen. Remains on IV Rocephin. Medications remain unchanged. Blood work shows a WBC count of 10 with a hemoglobin 9.8 and a platelet count of 196. BUN is 24 with a creatinine 0.7 and a sodium is at 138. No other significant events overnight. On 05/16/2024, the patient remains on room air oxygen. Hemodynamically stable. No respiratory distress. Remains on IV Rocephin. Remains on Lovenox 40 mg subcu for DVT prophylaxis. No reported aspiration. Tolerating diet. Still complaining of generalized weakness specially on the right side of her body but is essentially improving. The white cell count is at 30.8 with a hemoglobin 11.4 and a platelet count of 234, the rest of the electrolytes are all stable within a stable renal function. Calcium level is at 8.1. PT OT is on the case. Spine surgery is on the case. Rest of the medications remain unchanged. 05/17/2024, no new complaints and the patient remains on room air oxygen. He wants to advance his diet. He is wearing a hard neck collar. He remains weak specially in the right upper extremity. He needs to go to rehabilitation for aggressive physical therapy and rehab. White cell count is 13.3, hemoglobin is at 10.6. BUN is 23 with a creatinine of 0.7. A repeat chest x-ray was done today and it shows no evidence of any acute pulm infiltrates or pneumonia. Will complete a the course of Rocephin that was started on 05/14/2024. Recommended total of 5-day course. On 05/18/2024, patient is tolerating diet. No new complaints. Right upper extremity remains weak. His strength in his left upper extremity has been waxing and waning. No respiratory distress. Right lower lobe pneumonia is cleared and the patient will be completing his course of antibiotics as was started on 05/14/2024. Will no new labs are available from today. He remains on Decadron 3 mg IV on a daily basis. He remains on Lovenox 40 mg subcu for DVT prophylaxis. Pain control with [place]. He is also on Neurontin. He is taking Zanaflex for muscle relaxation. No other complaints otherwise for now. 05/19/2024, no new complaints. The patient is resting comfortably in bed. Waiting to be transferred to rehab. Pulse ox is 99% room air oxygen. Antibiotics has been completed. Remains on Decadron 3 mg IV every 24 hours. Pain under adequate control. Continues to wear a hard neck collar. Rest of the medications remain unchanged. 05/20/2024, no new complaints and the patient remains on room air oxygen. Afebrile. Hemodynamically stable. No new labs are available from today. Objective - Vital Signs Vital signs: Vital Signs Temp 97.5 F L 05/20/24 07:11 Pulse 85 05/20/24 07:11 Resp 18 05/20/24 07:11 BP 117/74 05/20/24 07:11 Pulse Ox 99 05/20/24 07:11 FiO2 30 05/10/24 08:00 Intake & Output 05/19/24 05/20/24 05/20/24 18:59 06:59 18:59 Output Total 1 800 Balance -1 -800 Output: Urine 800 Stool 1 Other: Voiding Method Indwelling Catheter Indwelling Catheter # Bowel Movements 1 ABP, PAP, CO, CI - Last Documented Arterial Blood Pressure 123/65 - Exam GENERAL EXAM: Awake, alert, 58-year-old male, c-collar on, on room air oxygen HEAD: Normocephalic and atraumatic EYES: Normal reaction of pupils, equal size. NOSE: Clear with pink turbinates. THROAT: No erythema or exudates. NECK: No masses, no JVD. Anterior and posterior dressings dry and intact. C- collar in place. CHEST: No chest wall deformity. LUNGS: Equal air entry with no crackles, wheeze, rhonchi or dullness. CVS: S1 and S2 normal with no audible murmur, regular rhythm. No extra heart sounds ABDOMEN: No hepatosplenomegaly, active bowel sounds, no guarding or rigidity. SPINE: No scoliosis or deformity SKIN: No rashes CENTRAL NERVOUS SYSTEM: No focal deficits, very weak upper and lower extremities, tone is normal in all 4 extremities. EXTREMITIES: There is no peripheral edema, clubbing, or cyanosis. Peripheral pulses are intact. - Labs CBC & Chem 7: 05/19/24 06:37 /05/07 06:37 Labs: Abnormal Lab Results - Last 24 Hours (Table) 05/19/24 Range/Units 06:37 BUN/Creatinine Ratio 27.62 H (12.00-20.00) Ratio Calcium 8.2 L (8.7-10.3) mg/dL Assessment and Plan Plan: Severe cervical spinal spondylosis and severe stenosis at levels C3-C7 with myelopathy and radiculopathy; status post two-stage surgery, postoperative day # 11 following a C3-C7 anterior cervical discectomy and fusion, followed by a posterior C2-T2 decompression and fusion postoperative day # 14. No perioperative complications were reported. Suspect right lower lobe pneumonia, could be of an aspiration type and the patient is currently on IV Rocephin. Clinically stable. Currently on room air oxygen. Chest x-ray from 05/17/2024 essentially clear Altered mental status with shortness of breath, rapid response team called at 1546 on 05/12/2024. CT scan of the brain revealed no acute abnormalities. Multiple pulmonary nodules, chest CTA shows multiple small approximately 0.5 cm peripheral and lateral based lung nodules in the right upper and mid lung michel, as well as, multiple pleural-based densities, measuring up to 1 cm on the right. No prior imaging available for review. May follow-up outpatient Congestion heart failure with reduced ejection fraction, echocardiogram estimating a mildly reduced ejection fraction of 45 to 50% History of hypertension History of pulmonary embolism History of rheumatoid arthritis and osteoarthritis Plan: Overall condition is stable Repeat chest x-ray is within normal limits Continue routine postoperative care Patient on course of antibiotics. Able to swallow and the patient passed a swallow evaluation, advance diet as tolerated, no reported aspiration. Currently on room air oxygen Again encouraged the increased use of the incentive spirometer Needs increased encouragement to perform any ADLs on his own Spine surgery on the case, CAT scan of the brain was repeated Rigid c-collar remains in place PT OT Lovenox for DVT prophylaxis Plan is for [facility] for rehab at discharge
--- NOTE | 2024-05-20 14:16 | P.PN ---
Subjective Progress Note Date: 05/20/24 I am following-up with patient and he feels he is gaining more strength. He is complaining of shoulder pain bilaterally. Objective - Vital Signs Vital signs: Vital Signs Temp 97.5 F L 05/20/24 07:11 Pulse 89 05/20/24 08:00 Resp 18 05/20/24 08:00 BP 117/74 05/20/24 07:11 Pulse Ox 99 05/20/24 07:11 FiO2 30 05/10/24 08:00 Intake & Output 05/19/24 05/20/24 05/20/24 18:59 06:59 18:59 Output Total 1 800 1 Balance -1 -800 -1 Output: Urine 800 Stool 1 1 Other: Voiding Method Indwelling Catheter Indwelling Catheter Indwelling Catheter # Bowel Movements 1 ABP, PAP, CO, CI - Last Documented Arterial Blood Pressure 123/65 - Exam General: Sitting in a recliner chair and does not appear in acute distress. HENT: Has cervical collar. Neuro: Patient is awake alert oriented to self place and time. Patient is following simple commands. No aphasia. Pupils are round equal reactive to light. Visual michel are full to confrontation. Extraocular movement is intact no nystagmus Facial weakness. No dysarthria. Tongue is midline move [id number] without any difficulty Motor: There is limitation on right because of shoulder pain. significant weakness over the right upper extremity and had difficulty flexing his arm and more weakness extending the hand then Flexing with extension was probably at 2 more significant weakness over the last 2 digits of hand finger flexion was about a 3/5. Right arm flexion is 1-2 with extension is 2-3. Left upper e xtremity was at least 4+/5. Patient has strength of 4+ in the right lower extremity while left seems 5 -. On the right upper extremity patient has moderate to significant edema. - Labs CBC & Chem 7: 05/19/24 06:37 05/19/24 06:37 Assessment and Plan Assessment: * Cervical spinal stenosis, severe degree, with severe cervical myelopathy. Patient has quadriparesis, and a sensory level at T2. * Status post C3 to C6 ACDF 05/07/2024 * Status post C2 to T2 posterior decompression and fusion 05/09/2024 * Quadriparesis (right > left). * Very low normal folic acid * Altered mental status, likely due to metabolic encephalopathy. Probable iatrogenic from pain medication.---improved * Probable right lower lobe pneumonia * Rheumatoid arthritis * History of carpal tunnel release May 2023. * History of substance abuse Plan: * Tita, patient was somewhat ambulatory (with cane) prior to arrival to the hospital. Patient's examination documented by orthopedic team prior to surgery showed much better strength, as compared to the muscle strength examination noted by Dr. Rivers. He Suggested stat repeat MRI of the cervical spine, to rule out epidural hematoma and deferred it to orthopedic surgery. Also recommended May add MRI of the brain as well, although CVA unlikely with lack of cranial nerve findings. This seems to the patient's symptoms has progressively worsened over the last 3 weeks according to the patient. * CT cervical spine to out any epidural hematoma: Reported as evaluation of the spinal canal is widely due to streak artifact. No obvious epidural hematoma visualized. Postsurgical changes without evidence for postop consultation. * I reached out to orthopedic surgery team regarding my colleagues concern. They feel the patient has been weak since his first surgery and they feel he has severe cervical myelopathy. * Patient has been started on Ceftriaxone for possible pneumonia * Limit amount of opiates, sedatives, hypnotics, anticholinergics, if possible. * DVT prophylaxis: Will defer to orthopedic surgery. * Check B12: 393, folate 5.30. Because of very low normal folate I started the patient on folic acid 1 mg daily for TSH is normal 0.866, ammonia level 26. Hemoglobin A1c 5.0. * Will defer the rest of management to Orthopedic surgery team and primary team. Will follow-up with patient sporadically. Dr. Rivers will resume neurology service tomorrow A.M. Time with Patient: Less than 30
--- NOTE | 2024-05-20 14:27 | P.PN ---
Subjective Progress Note Date: 05/20/24 Subjective: Patient seen and examined at bedside. No acute events overnight. Pertinent positives and negatives discussed above, a complete review of systems was preformed and all the other sytems were negative. Vitals Signs Reveiwed. General: nontoxic, no distress, appears at stated age Derm: warm, dry Head: atruamatic, normocephalic, symmetric, in a c-collar Eyes: EOMI, no lid lag, anicteric sclera Mouth: No ulcerations nor lacerations visualized. Cardiovascular: Regular rate and rhythm, no murmurs or gallops appreciated. Lungs: Clear to auscultation bilaterally, no rhonchi nor wheezes auscultated. Abdominal: Soft, nontender, no distention or rigidity noted. Neuro: General weakness in all 4 extremities, most prominent in right extremity (3 out of 5 motor strength) otherwise neurologically intact. Psych: Alert, Oriented, appropriate affect Data Reveiwed Today: Patient Labs: No new labs Imaging: No new imaging Assesment and Plan: 58-year-old male with a past medical history of hypertension, RA, OA, and lower back pain presenting with lumbar and thoracic pain and is currently recovering from an anterior cervical discectomy and fusion as well as a C2-T2 decompression. Hospital course complicated by pneumonia, now on IV abx. Bacterial Pneumonia, likely aspiration, resolved Acute hypoxic respiratory failure, resolved Sepsis, resolved Acute encephalopathy, resolved - Respiratory function improved with IV cefepime, patient was previously intubated post-op, but less likely to have HAP. Aspiration likely etiology. Cefepime discontinued. Was started on Ceftriaxone 2 g IV q24 hours. completed total course of 7 days of antibiotics. No longer requiring nasal cannula, continue to use incentive spirometer Dysphagia, resolved Barium swallow with video (05/14): No evidence of aspiration or penetration. Upgraded to regular diet Thoracic and lumbar pain status post cervical discectomy and fusion plus C2-T2 decompression: Right sided weakness, likely 2/2 to above Acute blood loss anemia, anticipated outcome of Sx Leukocytosis, likely reactive Pain control with Dilaudid 0.5-1 mg IV Q4H PRN. [place] 10 PO Q4H scheduled. Flexeril 10 mg PO TID PRN. Gabapentin 300 mg PO TID. Tylenol 650 mg PO Q6H PRN. Zanaflex 2 mg PO BID + 4 mg PO QHS. Cymbalta 40 mg PO QHS. Tramadol 50 q6h PRN, Dexamethasone 3 mg IV QD. Blood culture came back negative Patient states pain is well-controlled. On bowel regimen - monitor for sedation - Fall precautions. - Neurochecks. -PT and OT -Orthospine following -Neurology signed off CT C-spine - no hematoma noted -Hemoglobin stable- continue to monitor, no active bleeding -GI ppx: protonix 40 iv daily -Pulmonology note reviewed, no changes -Also added IV Toradol 15 mg every 6 hours as needed for when patient does not want to use IV Dilaudid Acute urinary retention -Continue Damon catheter -Voiding trial if patient is more ambulatory History of mild HFrEF, not in severe exacerbation Mild hypervolemia, resolved Continued patient's home 40 mg Lasix p.o. -Also has some dependent edema. Fractionally improving. HTN - continue lisinopril 20 mg daily Asthma continue singular 10 mg daily BPH - tamsulosin 0.4 Rheumatoid arthritis: Outpatient [facility] follow up. currently holding sulfasalazine Pulmonary nodules: Outpatient Pulmonary follow up. Nicotine dependence: Advised to quit during this admission F none E replete as needed N regular diet A minimal ambulation due to recent procedures and current rigid c-collar in place. DVT ppx: Lovenox SQ Code Status: Full code Anticipated discharge place: Rehab facility Anticipated discharge time: Pending placement Objective - Vital Signs Vital signs: Vital Signs Temp 97.5 F L 05/20/24 07:11 Pulse 89 05/20/24 08:00 Resp 18 05/20/24 08:00 BP 117/74 05/20/24 07:11 Pulse Ox 99 05/20/24 07:11 FiO2 30 05/10/24 08:00 Intake & Output 05/19/24 05/20/24 05/20/24 18:59 06:59 18:59 Output Total 1 800 1 Balance -1 -800 -1 Output: Urine 800 Stool 1 1 Other: Voiding Method Indwelling Catheter Indwelling Catheter Indwelling Catheter # Bowel Movements 1 ABP, PAP, CO, CI - Last Documented Arterial Blood Pressure 123/65 - Labs CBC & Chem 7: 05/19/24 06:37 05/19/24 06:37
[2024-05-21] MEDS: MAGNESIUM HYDROXIDE 2,400 MG/30 ML CUP PO PRN (01:23)
[2024-05-21] MEDS: PANTOPRAZOLE 40 MG TABLET PO STA (10:28)
--- NOTE | 2024-05-21 14:00 | P.PN ---
Subjective Progress Note Date: 05/21/24 Patient is a 58-year-old white male with past medical history significant for hypertension, pulmonary embolism, rheumatoid arthritis, osteoarthritis, and lower back pain. Patient is currently sedated and intubated to the mechanical ventilator, unable to provide any information for HPI. On review of the EMR, patient was having severe upper and lower extremity weakness and associated cervical/thoracic level back pain. He was having troubles ambulating, and was apparently utilizing a wheelchair. CT of the cervical spine showed posterior vertebral body spurring centrally C3 and to a lesser degree C4. There was spinal canal stenosis at level C3. Uncovertebral joint hypertrophy with severe right formal stenosis at levels C4 and C5. Orthopedic surgery did evaluate this patient, and patient has underwent two-stage cervical spine surgery. Initial surgery was C3-C7 anterior cervical discectomy and fusion. Yesterday, patient did go back to OR for a posterior C2-T2 decompression and fusion. No perioperative complications reported. Patient was transferred back to the intensive care unit on the mechanical ventilator. Current ventilator settings are AC, respiratory 16, tidal volume 450, FiO2 30%, and PEEP of 5. Most recent ABG done earlier, with an FiO2 of 50% at that time, shows a PaO2 of 229, pCO2 of 42, pH of 7.35. Chest x-ray following surgery shows the endotracheal tube in satisfactory position above the kumar, as well as, a orogastric tube projecting into the stomach. No acute cardiopulmonary process noted. He is synchronous with mechanical ventilator. Patient is currently sedated, and fairly unresponsive. Propofol is ordered for a RASS of 0 to -1. Blood pressure is slightly hypertensive. Reportedly, Dr. Flores would like his MAP greater than 85 to help with perfusion pressure. Head is midline. Patient does have a c-collar on. There is a posterior Hemovac with minimal amount of serosanguineous drainage as well as an anterior OSWALDO drain which is compressed with a minimal amount of serosanguineous drainage. Most recent CBC from yesterday: WBC count 11.5, hemoglobin 12, hematocrit 34, platelets 174. BMP from yesterday: Sodium 144, potassium 4.2, chloride 112, serum bicarb 23, BUN 28, creatinine 1.1, glucose 124. Normal saline is infusing at 75 mL/h. Not currently requiring any vasopressors. Plan will likely be for extubation later this morning. The patient is seen today May 11, 2024 in follow-up in the intensive care unit. He is currently resting comfortably in bed. Awake and alert and no acute distress. He is status post spine surgery. He was extubated yesterday. He is currently on 2 L/min per nasal cannula with O2 saturations in the 90s. He has normal saline at 75 MLS per hour. Count 13.4. Hemoglobin 11.3. Platelets 184. Sodium 137. Potassium 4.2. Bicarb 25. BUN 23. Creatinine 0.64. Glucose 123. His pain is Lovenox for DVT prophylaxis. The patient is seen today May 12, 2024 in follow-up on the regular medical fl oor. He is postoperative day #5 status post C3-C6 anterior decompression and fusion, postoperative day #3 status post C2-T2 post posterior decompression and fusion. He is awake and alert in no acute distress. He is sitting up in bed. He is maintaining O2 saturations in the 90s on 2 L/min per nasal cannula. His temperature is 100.5 axillary. Hemodynamically stable. Orthopedics is at the bedside. Plan is to remove the Hemovac and have dressing changes. White count 10.4. Hemoglobin 10.8. Sodium 139. Potassium 4.0. Bicarb 28. BUN 23. Creatinine 0.75. Glucose 82. He has normal saline at 75 MLS per hour. He is currently n.p.o. for swallow evaluation. He is to remain in a rigid c-collar at all times. He needs increased encouragement regarding the use of the incentive spirometer. Maintain adequate pain control. The patient is seen today May 13, 2024 in follow-up on the regular medical floor. Postoperative day #6 of an anterior decompression and fusion of C3-6. Postoperative day #4 of a posterior decompression and fusion of C2-T2. He remains quite weak and debilitated. Not willing to do much effort on his own. A rapid response team was called on him yesterday due to increasing shortness of breath. Chest x-ray reveals a new patchy opacity in the right lung base. CT scan of the brain revealed no acute intracranial abnormality. Partial opacification throughout the bilateral mastoid air cells. He is maintaining O2 saturations up to 100% on 2 L/min per nasal cannula. He is been afebrile. Hemodynamically stable. Needs increased encouragement regarding the use of the incentive spirometer. White count 11.7. Hemoglobin 11.4. Platelets 196. Sodium 140. Potassium 4.8. Bicarb 23. BUN 29. Creatinine 0.67. Procalcitonin is pending. He has been initiated on cefepime. Lovenox for DVT prophylaxis. 05/14/2024, patient is being seen for a follow-up. Resting comfortably in bed. The patient is postop following spinal surgery. Suspected right lower lobe pneumonia based on the most send chest x-ray the patient developed a new patchy infiltrate in the right lung base. The patient is currently on IV Rocephin. No significant respiratory distress. No significant sputum production. He passed a swallow evaluation. WBC counts are 10.7 with a hemoglobin 9.4 and a platelet count of 199. Procalcitonin level is at 0.65. Remains weak. No altered m entation. The patient continues to have numbness and weakness mostly in the upper extremities. Surgical scars are clean. The follow-up CAT scan of the C- spine was done today. This was reviewed and evaluated by spine surgery. No encephalopathy. No altered mentation. On 05/15/2024, the patient is resting comfortably in bed. No respiratory difficulties for now. He is on room air oxygen. Remains on IV Rocephin. Medications remain unchanged. Blood work shows a WBC count of 10 with a hemoglo bin 9.8 and a platelet count of 196. BUN is 24 with a creatinine 0.7 and a sodium is at 138. No other significant events overnight. On 05/16/2024, the patient remains on room air oxygen. Hemodynamically stable. No respiratory distress. Remains on IV Rocephin. Remains on Lovenox 40 mg subcu for DVT prophylaxis. No reported aspiration. Tolerating diet. Still complaining of generalized weakness specially on the right side of her body but is essentially improving. The white cell count is at 30.8 with a hemoglobin 11.4 and a platelet count of 234, the rest of the electrolytes are all stable within a stable renal function. Calcium level is at 8.1. PT OT is on the case. Spine surgery is on the case. Rest of the medications remain unchanged. 05/17/2024, no new complaints and the patient remains on room air oxygen. He wants to advance his diet. He is wearing a hard neck collar. He remains weak specially in the right upper extremity. He needs to go to rehabilitation for aggressive physical therapy and rehab. White cell count is 13.3, hemoglobin is at 10.6. BUN is 23 with a creatinine of 0.7. A repeat chest x-ray was done today and it shows no evidence of any acute pulm infiltrates or pneumonia. Will complete a the course of Rocephin that was started on 05/14/2024. Recommended total of 5-day course. On 05/18/2024, patient is tolerating diet. No new complaints. Right upper extremity remains weak. His strength in his left upper extremity has been waxing and waning. No respiratory distress. Right lower lobe pneumonia is cleared and the patient will be completing his course of antibiotics as was started on 05/14/2024. Will no new labs are available from today. He remains on Decadron 3 mg IV on a daily basis. He remains on Lovenox 40 mg subcu for DVT prophylaxis. Pain control with [place]. He is also on Neurontin. He is taking Zanaflex for muscle relaxation. No other complaints otherwise for now. 05/19/2024, no new complaints. The patient is resting comfortably in bed. Waiting to be transferred to rehab. Pulse ox is 99% room air oxygen. Antibiotics has been completed. Remains on Decadron 3 mg IV every 24 hours. Pain under adequate control. Continues to wear a hard neck collar. Rest of the medications remain unchanged. 05/20/2024, no new complaints and the patient remains on room air oxygen. Afebrile. Hemodynamically stable. No new labs are available from today. The patient is seen today May 21, 2024 in follow-up on the regular medical [place]. He is currently sitting up in bed. Awake and alert in no acute distress. Maintaining good O2 saturations in the 90s on room air. He denies any shortness of breath, cough or congestion. His hard c-collar remains in place. He remains on IV Decadron. Objective - Vital Signs Vital signs: Vital Signs Temp 98.2 F 05/21/24 07:00 Pulse 86 05/21/24 07:00 Resp 16 05/21/24 07:00 BP 124/76 05/21/24 07:00 Pulse Ox 100 05/21/24 07:00 FiO2 30 05/10/24 08:00 Intake & Output 05/20/24 05/21/24 05/21/24 18:59 06:59 18:59 Output Total 2000 999 Balance -2000 -999 Output: Urine 1999 1000 Stool 1 Other: Voiding Method Indwelling Catheter Indwelling Catheter Indwelling Catheter # Bowel Movements 1 ABP, PAP, CO, CI - Last Documented Arterial Blood Pressure 123/65 - Exam GENERAL EXAM: Awake, alert, 58-year-old male, on room air. HEAD: Normocephalic and atraumatic EYES: Normal reaction of pupils, equal size. NOSE: Clear with pink turbinates. THROAT: No erythema or exudates. NECK: No masses, no JVD. Anterior and posterior dressings dry and intact. C- collar in place. CHEST: No chest wall deformity. LUNGS: Equal air entry with no crackles, wheeze, rhonchi or dullness. CVS: S1 and S2 normal with no audible murmur, regular rhythm. No extra heart sounds ABDOMEN: No hepatosplenomegaly, active bowel sounds, no guarding or rigidity. SPINE: No scoliosis or deformity SKIN: No rashes CENTRAL NERVOUS SYSTEM: No focal deficits, very weak upper and lower extremities, tone is normal in all 4 extremities. EXTREMITIES: There is no peripheral edema, clubbing, or cyanosis. Peripheral pulses are intact. - Labs CBC & Chem 7: 05/19/24 06:37 05/19/24 06:37 Assessment and Plan Assessment: Severe cervical spinal spondylosis and severe stenosis at levels C3-C7 with myelopathy and radiculopathy; status post two-stage surgery, postoperative day #14 following a C3-C7 anterior cervical discectomy and fusion, followed by a posterior C2-T2 decompression and fusion postoperative day #12. No perioperative complications were reported. Altered mental status with shortness of breath, rapid response team called at 1546 on 05/12/2024. Chest x-ray shows new patchy density in the right lung base. CT scan of the brain revealed no acute abnormalities. Multiple pulmonary nodules, chest CTA shows multiple small approximately 0.5 cm peripheral and lateral based lung nodules in the right upper and mid lung michel, as well as, multiple pleural-based densities, measuring up to 1 cm on the right. No prior imaging available for review. Plan is for outpatient follo w-up Heart failure with reduced ejection fraction, echocardiogram estimating a mildly reduced ejection fraction of 45 to 50% History of hypertension History of pulmonary embolism History of rheumatoid arthritis and osteoarthritis Plan: The patient was seen and evaluated Medications reviewed Stable and on room air Remains on Decadron Lovenox for DVT prophylaxis Plan is for [facility] for rehab at discharge I have personally seen and examined the patient, performed the documentation and the assessment and plan as written. Number of minutes spent on the visit: 10.
--- NOTE | 2024-05-21 14:35 | P.PN ---
Subjective Progress Note Date: 05/21/24 Patient seen and examined at bedside. No acute events overnight. Pertinent positives and negatives discussed above, a complete review of systems was preformed and all the other sytems were negative. Vitals Signs Reviewed. General: nontoxic, no distress, appears at stated age Derm: warm, dry Head: atraumatic, normocephalic, symmetric, in a c-collar Eyes: EOMI, no lid lag, anicteric sclera Mouth: No ulcerations nor lacerations visualized. Cardiovascular: Regular rate and rhythm, no murmurs or gallops appreciated. Lungs: Clear to auscultation bilaterally, no rhonchi nor wheezes auscultated. Abdominal: Soft, nontender, no distention or rigidity noted. Neuro: General weakness in all 4 extremities, most prominent in right extremity (3 out of 5 motor strength) otherwise neurologically intact. Psych: Alert, Oriented, appropriate affect Data Reveiwed Today: Patient Labs: No new labs Imaging: No new imaging Assesment and Plan: 58-year-old male with a past medical history of hypertension, RA, OA, and lower back pain presenting with lumbar and thoracic pain and is currently recovering from an anterior cervical discectomy and fusion as well as a C2-T2 decompression. Hospital course complicated by pneumonia, now on IV abx, completed antibiotics course. Awaiting placement in rehab facility. Bacterial Pneumonia, likely aspiration, resolved Acute hypoxic respiratory failure, resolved Sepsis, resolved Acute encephalopathy, resolved - Respiratory function improved with IV cefepime, patient was previously intubated post-op, but less likely to have HAP. Aspiration likely etiology. Cefepime discontinued. Was started on Ceftriaxone 2 g IV q24 hours. completed total course of 7 days of antibiotics. -No longer requiring nasal cannula, continue to use incentive spirometer Dysphagia, resolved - Barium swallow with video (05/14): No evidence of aspiration or penetration. -regular diet Thoracic and lumbar pain status post cervical discectomy and fusion plus C2-T2 decompression: Right sided weakness, likely 2/2 to above Acute blood loss anemia, anticipated outcome of Sx Leukocytosis, likely reactive - Pain control with Dilaudid 0.5-1 mg IV Q4H PRN. [place] 10 PO Q4H scheduled. Flexeril 10 mg PO TID PRN. Gabapentin 300 mg PO TID. Tylenol 650 mg PO Q6H PRN. Zanaflex 2 mg PO BID + 4 mg PO QHS. Cymbalta 40 mg PO QHS. Tramadol 50 q6h PRN, Dexamethasone 2 mg IV QD. - Blood culture came back negative - Patient states pain is well-controlled. -On bowel regimen - monitor for sedation - Fall precautions. - Neurochecks. -PT and OT -Orthospine following -Neurology signed off CT C-spine - no hematoma noted -Hemoglobin stable- continue to monitor, no active bleeding -GI ppx: protonix 40 p.o. daily -Pulmonology note reviewed, no changes -Also added IV Toradol 15 mg every 6 hours as needed for when patient does not want to use IV Dilaudid Acute urinary retention BPH - tamsulosin 0.4 -Continue Damon catheter -Voiding trial if patient is more ambulatory, previously failed History of mild HFrEF, not in severe exacerbation Mild hypervolemia, resolved -Continued patient's home 40 mg Lasix p.o. -Also has some dependent edema. Fractionally improving. 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 currently holding sulfasalazine Pulmonary nodules: Outpatient Pulmonary follow up. Nicotine dependence: Advised to quit during this admission F none E replete as needed N regular diet A minimal ambulation due to recent procedures and current rigid c-collar in place. DVT ppx: Lovenox SQ Code Status: Full code Anticipated discharge place: Rehab facility Anticipated discharge time: Pending placement, spoke with case management I have seen and evaluated the patient today. Discussed with the resident and agree with the residents finding and plan as documented in the resident's note. Changes highlighted in blue font. Objective - Vital Signs Vital signs: Vital Signs Temp 98.2 F 05/21/24 07:00 Pulse 86 05/21/24 07:00 Resp 16 05/21/24 07:00 BP 124/76 05/21/24 07:00 Pulse Ox 100 05/21/24 07:00 FiO2 30 05/10/24 08:00 Intake & Output 05/20/24 05/21/24 05/21/24 18:59 06:59 18:59 Output Total 2000 999 Balance -2000 Output: Urine 1999 1000 Stool 1 Other: Voiding Method Indwelling Catheter Indwelling Catheter # Bowel Movements 1 ABP, PAP, CO, CI - Last Documented Arterial Blood Pressure 123/65 - Labs CBC & Chem 7: 05/19/24 06:37 05/19/24 06:37
[2024-05-22] MEDS: PANTOPRAZOLE 40 MG TABLET PO SCH (06:40)
[2024-05-22] MEDS: DEXAMETHASONE SOD PHOSPHATE 4 MG/ML 1 ML VIAL IV SCH (08:23)
[2024-05-22] MEDS: oxyCODONE-APAP 10-325MG 1 EACH TAB PO SCH (09:47)
--- NOTE | 2024-05-22 10:15 | P.PN ---
Subjective Progress Note Date: 05/22/24 Patient seen and examined at bedside. No acute events overnight. Pertinent positives and negatives discussed above, a complete review of systems was preformed and all the other sytems were negative. Vitals Signs Reviewed. General: nontoxic, no distress, appears at stated age Derm: warm, dry Head: atraumatic, normocephalic, symmetric, in a c-collar Eyes: EOMI, no lid lag, anicteric sclera Mouth: No ulcerations nor lacerations visualized. Cardiovascular: Regular rate and rhythm, no murmurs or gallops appreciated. Lungs: Clear to auscultation bilaterally, no rhonchi nor wheezes auscultated. Abdominal: Soft, nontender, no distention or rigidity noted. Neuro: General weakness in all 4 extremities, most prominent in right extremity (3 out of 5 motor strength) otherwise neurologically intact. Psych: Alert, Oriented, appropriate affect Data Reveiwed Today: Patient Labs: No new labs Imaging: No new imaging Assesment and Plan: 58-year-old male with a past medical history of hypertension, RA, OA, and lower back pain presenting with lumbar and thoracic pain and is currently recovering from an anterior cervical discectomy and fusion as well as a C2-T2 decompression. Hospital course complicated by pneumonia, now on IV abx, completed antibiotics course. Awaiting placement in rehab facility. Bacterial Pneumonia, likely aspiration, resolved Acute hypoxic respiratory failure, resolved Sepsis, resolved Acute encephalopathy, resolved - Respiratory function improved with IV cefepime, patient was previously intubated post-op, but less likely to have HAP. Aspiration likely etiology. Cefepime discontinued. Was started on Ceftriaxone 2 g IV q24 hours. completed total course of 7 days of antibiotics. -No longer requiring nasal cannula, continue to use incentive spirometer Dysphagia, resolved - Barium swallow with video (05/14): No evidence of aspiration or penetration. -regular diet Thoracic and lumbar pain status post cervical discectomy and fusion plus C2-T2 decompression: Right sided weakness, likely 2/2 to above Acute blood loss anemia, anticipated outcome of Sx Leukocytosis, likely reactive - Pain control with Dilaudid 0.5-1 mg IV Q4H PRN. Flexeril 10 mg PO TID PRN. Gabapentin 300 mg PO TID. Tylenol 650 mg PO Q6H PRN. Zanaflex 2 mg PO BID + 4 mg PO QHS. Cymbalta 40 mg PO QHS. Tramadol 50 q6h PRN, Dexamethasone 2 mg IV QD. Started Percocet 10-325 mg 1 each p.o. every 4 hours and discontinue [place]. - Blood culture came back negative - Patient states pain is well-controlled. -On bowel regimen - monitor for sedation - Fall precautions. - Neurochecks. -PT and OT, try to ambulate patient once daily. -Orthospine following -Neurology signed off CT C-spine - no hematoma noted -Hemoglobin stable- continue to monitor, no active bleeding -GI ppx: protonix 40 p.o. daily -Pulmonology note reviewed, no changes -Also added IV Toradol 15 mg every 6 hours as needed for when patient does not want to use IV Dilaudid Acute urinary retention BPH - tamsulosin 0.4 -Continue Damon catheter, will change to condom cath if patient can pass voiding trial. -Voiding trial if patient is more ambulatory, previously failed History of mild HFrEF, not in severe exacerbation Mild hypervolemia, resolved -Continued patient's home 40 mg Lasix p.o. -Also has some dependent edema. Fractionally improving. 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 currently holding sulfasalazine Pulmonary nodules: Outpatient Pulmonary follow up. Nicotine dependence: Advised to quit during this admission F none E replete as needed N regular diet A minimal ambulation due to recent procedures and current rigid c-collar in place. DVT ppx: Lovenox SQ Code Status: Full code Anticipated discharge place: Rehab facility Anticipated discharge time: Pending placement, spoke with case management I have seen and evaluated the patient today. Discussed with the resident and agree with the residents finding and plan as documented in the resident's note. Patient reports continued cervical spine pain though improving. Awaiting SNF. Multilevel mild-severe spinal canal stenosis: Status post C3-6 anterior cervical arthrodesis with Dr. Flores on 05/07. Pain control with [place] 7.5 switched to Percocet 10 PO Q4H scheduled. Flexeril 10 mg PO TID PRN. Gabapentin 300 mg PO TID. Toradol 15 mg IV Q6H PRN. Tylenol 650 mg PO Q6H PRN. Zanaflex 2 mg PO BID + 4 mg PO QHS. Cymbalta 40 mg PO QHS. Dexamethasone 2 mg IV QD. Fall precautions. Neurochecks. PT and OT consult. Orthospine on board. Urinary retention: History of BPH. Increase Flomax to 0.4 mg PO BID. Voiding trial. Acute on chronic back pain: Management as above. Acute blood loss anemia: Expected result of surgery. Monitor daily. Transfuse if Hg < 7. 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 Pulmonary nodules: Outpatient Pulmonary follow up. Smoker: Advised to quit. Hypertension: Lisinopril 20 mg PO QD. Asthma not in acute exacerbation. Resolved: Ventilator dependent respiratory failure, Acute hypoxic respiratory failure and sepsis likely due to HAP Objective - Vital Signs Vital signs: Vital Signs Temp 98.7 F 05/22/24 07:01 Pulse 80 05/22/24 07:01 Resp 16 05/22/24 07:01 BP 126/71 05/22/24 07:01 Pulse Ox 99 05/22/24 07:01 FiO2 30 05/10/24 08:00 Intake & Output 05/21/24 05/22/24 05/22/24 18:59 06:59 18:59 Output Total 2700 1700 Balance -2700 -1700 Output: Urine 2700 1700 Other: Voiding Method Indwelling Catheter Indwelling Catheter Indwelling Catheter ABP, PAP, CO, CI - Last Documented Arterial Blood Pressure 123/65 - Labs CBC & Chem 7: 05/19/24 06:37 05/19/24 06:37
--- NOTE | 2024-05-22 13:56 | P.PN ---
Subjective Progress Note Date: 05/22/24 Patient is a 58-year-old white male with past medical history significant for hypertension, pulmonary embolism, rheumatoid arthritis, osteoarthritis, and lower back pain. Patient is currently sedated and intubated to the mechanical ventilator, unable to provide any information for HPI. On review of the EMR, patient was having severe upper and lower extremity weakness and associated cervical/thoracic level back pain. He was having troubles ambulating, and was apparently utilizing a wheelchair. CT of the cervical spine showed posterior vertebral body spurring centrally C3 and to a lesser degree C4. There was spinal canal stenosis at level C3. Uncovertebral joint hypertrophy with severe right formal stenosis at levels C4 and C5. Orthopedic surgery did evaluate this patient, and patient has underwent two-stage cervical spine surgery. Initial surgery was C3-C7 anterior cervical discectomy and fusion. Yesterday, patient did go back to OR for a posterior C2-T2 decompression and fusion. No perioperative complications reported. Patient was transferred back to the intensive care unit on the mechanical ventilator. Current ventilator settings are AC, respiratory 16, tidal volume 450, FiO2 30%, and PEEP of 5. Most recent ABG done earlier, with an FiO2 of 50% at that time, shows a PaO2 of 229, pCO2 of 42, pH of 7.35. Chest x-ray following surgery shows the endotracheal tube in satisfactory position above the kumar, as well as, a orogastric tube projecting into the stomach. No acute cardiopulmonary process noted. He is synchronous with mechanical ventilator. Patient is currently sedated, and fairly unresponsive. Propofol is ordered for a RASS of 0 to -1. Blood pressure is slightly hypertensive. Reportedly, Dr. Flores would like his MAP greater than 85 to help with perfusion pressure. Head is midline. Patient does have a c-collar on. There is a posterior Hemovac with minimal amount of serosanguineous drainage as well as an anterior OSWALDO drain which is compressed with a minimal amount of serosanguineous drainage. Most recent CBC from yesterday: WBC count 11.5, hemoglobin 12, hematocrit 34, platelets 174. BMP from yesterday: Sodium 144, potassium 4.2, chloride 112, serum bicarb 23, BUN 28, creatinine 1.1, glucose 124. Normal saline is infusing at 75 mL/h. Not currently requiring any vasopressors. Plan will likely be for extubation later this morning. The patient is seen today May 11, 2024 in follow-up in the intensive care unit. He is currently resting comfortably in bed. Awake and alert and no acute distress. He is status post spine surgery. He was extubated yesterday. He is currently on 2 L/min per nasal cannula with O2 saturations in the 90s. He has normal saline at 75 MLS per hour. Count 13.4. Hemoglobin 11.3. Platelets 184. Sodium 137. Potassium 4.2. Bicarb 25. BUN 23. Creatinine 0.64. Glucose 123. His pain is Lovenox for DVT prophylaxis. The patient is seen today May 12, 2024 in follow-up on the regular medical fl oor. He is postoperative day #5 status post C3-C6 anterior decompression and fusion, postoperative day #3 status post C2-T2 post posterior decompression and fusion. He is awake and alert in no acute distress. He is sitting up in bed. He is maintaining O2 saturations in the 90s on 2 L/min per nasal cannula. His temperature is 100.5 axillary. Hemodynamically stable. Orthopedics is at the bedside. Plan is to remove the Hemovac and have dressing changes. White count 10.4. Hemoglobin 10.8. Sodium 139. Potassium 4.0. Bicarb 28. BUN 23. Creatinine 0.75. Glucose 82. He has normal saline at 75 MLS per hour. He is currently n.p.o. for swallow evaluation. He is to remain in a rigid c-collar at all times. He needs increased encouragement regarding the use of the incentive spirometer. Maintain adequate pain control. The patient is seen today May 13, 2024 in follow-up on the regular medical floor. Postoperative day #6 of an anterior decompression and fusion of C3-6. Postoperative day #4 of a posterior decompression and fusion of C2-T2. He remains quite weak and debilitated. Not willing to do much effort on his own. A rapid response team was called on him yesterday due to increasing shortness of breath. Chest x-ray reveals a new patchy opacity in the right lung base. CT scan of the brain revealed no acute intracranial abnormality. Partial opacification throughout the bilateral mastoid air cells. He is maintaining O2 saturations up to 100% on 2 L/min per nasal cannula. He is been afebrile. Hemodynamically stable. Needs increased encouragement regarding the use of the incentive spirometer. White count 11.7. Hemoglobin 11.4. Platelets 196. Sodium 140. Potassium 4.8. Bicarb 23. BUN 29. Creatinine 0.67. Procalcitonin is pending. He has been initiated on cefepime. Lovenox for DVT prophylaxis. 05/14/2024, patient is being seen for a follow-up. Resting comfortably in bed. The patient is postop following spinal surgery. Suspected right lower lobe pneumonia based on the most send chest x-ray the patient developed a new patchy infiltrate in the right lung base. The patient is currently on IV Rocephin. No significant respiratory distress. No significant sputum production. He passed a swallow evaluation. WBC counts are 10.7 with a hemoglobin 9.4 and a platelet count of 199. Procalcitonin level is at 0.65. Remains weak. No altered m entation. The patient continues to have numbness and weakness mostly in the upper extremities. Surgical scars are clean. The follow-up CAT scan of the C- spine was done today. This was reviewed and evaluated by spine surgery. No encephalopathy. No altered mentation. On 05/15/2024, the patient is resting comfortably in bed. No respiratory difficulties for now. He is on room air oxygen. Remains on IV Rocephin. Medications remain unchanged. Blood work shows a WBC count of 10 with a hemoglo bin 9.8 and a platelet count of 196. BUN is 24 with a creatinine 0.7 and a sodium is at 138. No other significant events overnight. On 05/16/2024, the patient remains on room air oxygen. Hemodynamically stable. No respiratory distress. Remains on IV Rocephin. Remains on Lovenox 40 mg subcu for DVT prophylaxis. No reported aspiration. Tolerating diet. Still complaining of generalized weakness specially on the right side of her body but is essentially improving. The white cell count is at 30.8 with a hemoglobin 11.4 and a platelet count of 234, the rest of the electrolytes are all stable within a stable renal function. Calcium level is at 8.1. PT OT is on the case. Spine surgery is on the case. Rest of the medications remain unchanged. 05/17/2024, no new complaints and the patient remains on room air oxygen. He wants to advance his diet. He is wearing a hard neck collar. He remains weak specially in the right upper extremity. He needs to go to rehabilitation for aggressive physical therapy and rehab. White cell count is 13.3, hemoglobin is at 10.6. BUN is 23 with a creatinine of 0.7. A repeat chest x-ray was done today and it shows no evidence of any acute pulm infiltrates or pneumonia. Will complete a the course of Rocephin that was started on 05/14/2024. Recommended total of 5-day course. On 05/18/2024, patient is tolerating diet. No new complaints. Right upper extremity remains weak. His strength in his left upper extremity has been waxing and waning. No respiratory distress. Right lower lobe pneumonia is cleared and the patient will be completing his course of antibiotics as was started on 05/14/2024. Will no new labs are available from today. He remains on Decadron 3 mg IV on a daily basis. He remains on Lovenox 40 mg subcu for DVT prophylaxis. Pain control with [place]. He is also on Neurontin. He is taking Zanaflex for muscle relaxation. No other complaints otherwise for now. 05/19/2024, no new complaints. The patient is resting comfortably in bed. Waiting to be transferred to rehab. Pulse ox is 99% room air oxygen. Antibiotics has been completed. Remains on Decadron 3 mg IV every 24 hours. Pain under adequate control. Continues to wear a hard neck collar. Rest of the medications remain unchanged. 05/20/2024, no new complaints and the patient remains on room air oxygen. Afebrile. Hemodynamically stable. No new labs are available from today. The patient is seen today May 21, 2024 in follow-up on the regular medical f [place]. He is currently sitting up in bed. Awake and alert in no acute distress. Maintaining good O2 saturations in the 90s on room air. He denies any shortness of breath, cough or congestion. His hard c-collar remains in place. He remains on IV Decadron. The patient is seen today May 22, 2024 in follow-up on the regular medical floor. He is currently resting comfortably in bed. Awake and alert in no acute distress. Maintaining good O2 saturations in the 90s on room air. He denies any worsening shortness of breath, cough or congestion. His surgical pain is well-controlled. C-collar remains in place. He remains on Lovenox for DVT prophylaxis. Awaiting placement at subacute rehabilitation. Objective - Vital Signs Vital signs: Vital Signs Temp 98.7 F 05/22/24 13:12 Pulse 79 05/22/24 13:12 Resp 17 05/22/24 13:12 BP 91/57 05/22/24 13:12 Pulse Ox 99 05/22/24 13:12 FiO2 30 05/10/24 08:00 Intake & Output 05/21/24 05/22/24 05/22/24 18:59 06:59 18:59 Output Total 2700 1700 Balance -2700 -1700 Output: Urine 2700 1700 Other: Voiding Method Indwelling Catheter Indwelling Catheter Indwelling Catheter ABP, PAP, CO, CI - Last Documented Arterial Blood Pressure 123/65 - Exam GENERAL EXAM: Awake, pleasant 58-year-old male, resting comfortably in bed, on room air, in no acute distress. HEAD: Normocephalic and atraumatic EYES: Normal reaction of pupils, equal size. NOSE: Clear with pink turbinates. THROAT: No erythema or exudates. NECK: No masses, no JVD. Anterior and posterior dressings dry and intact. C- collar in place. CHEST: No chest wall deformity. LUNGS: Equal air entry with no crackles, wheeze, rhonchi or dullness. CVS: S1 and S2 normal with no audible murmur, regular rhythm. No extra heart sounds ABDOMEN: No hepatosplenomegaly, active bowel sounds, no guarding or rigidity. SPINE: No scoliosis or deformity SKIN: No rashes CENTRAL NERVOUS SYSTEM: No focal deficits, very weak upper and lower extremities, tone is normal in all 4 extremities. EXTREMITIES: There is no peripheral edema, clubbing, or cyanosis. Peripheral pulses are intact. - Labs CBC & Chem 7: 05/19/24 06:37 05/19/24 06:37 Assessment and Plan Assessment: Severe cervical spinal spondylosis and severe stenosis at levels C3-C7 with myelopathy and radiculopathy; status post two-stage surgery, on 05/07/2024 following a C3-C7 anterior cervical discectomy and fusion, followed by a posterior C2-T2 decompression and fusion on 05/09/2024. No perioperative complications were reported. Altered mental status with shortness of breath, rapid response team called at 1546 on 05/12/2024. Chest x-ray shows new patchy density in the right lung base. CT scan of the brain revealed no acute abnormalities. Multiple pulmonary nodules, chest CTA shows multiple small approximately 0.5 cm peripheral and lateral based lung nodules in the right upper and mid lung michel, as well as, multiple pleural-based densities, measuring up to 1 cm on the right. No prior imaging available for review. Plan is for outpatient follow-up Heart failure with reduced ejection fraction, echocardiogram estimating a mildly reduced ejection fraction of 45 to 50% History of hypertension History of pulmonary embolism History of rheumatoid arthritis and osteoarthritis Plan: The patient was seen and evaluated Medications reviewed Stable and on room air Awaiting placement for subacute rehab I have personally seen and examined the patient, performed the documentation and the assessment and plan as written. Number of minutes spent on the visit: 10.
[2024-05-22] MEDS: TAMSULOSIN 0.4 MG CAP.ER.24H PO SCH (19:57)
--- NOTE | 2024-05-23 08:43 | P.PN ---
Subjective Progress Note Date: 05/23/24 Patient seen and examined at bedside. No acute events overnight. Pertinent positives and negatives discussed above, a complete review of systems was preformed and all the other sytems were negative. Vitals Signs Reviewed. General: nontoxic, no distress, appears at stated age Derm: warm, dry Head: atraumatic, normocephalic, symmetric, in a c-collar Eyes: EOMI, no lid lag, anicteric sclera Mouth: No ulcerations nor lacerations visualized. Cardiovascular: Regular rate and rhythm, no murmurs or gallops appreciated. Lungs: Clear to auscultation bilaterally, no rhonchi nor wheezes auscultated. Abdominal: Soft, nontender, no distention or rigidity noted. Neuro: General weakness in all 4 extremities, most prominent in right extremity (3 out of 5 motor strength) otherwise neurologically intact. Psych: Alert, Oriented, appropriate affect Data Reveiwed Today: Patient Labs: No new labs Imaging: No new imaging Assesment and Plan: 58-year-old male with a past medical history of hypertension, RA, OA, and lower back pain presenting with lumbar and thoracic pain and is currently recovering from an anterior cervical discectomy and fusion as well as a C2-T2 decompression. Hospital course complicated by pneumonia, now on IV abx, completed antibiotics course. Awaiting placement in rehab facility. Bacterial Pneumonia, likely aspiration, resolved Acute hypoxic respiratory failure, resolved Sepsis, resolved Acute encephalopathy, resolved - Respiratory function improved with IV cefepime, patient was previously intubated post-op, but less likely to have HAP. Aspiration likely etiology. Cefepime discontinued. Was started on Ceftriaxone 2 g IV q24 hours. completed total course of 7 days of antibiotics. -No longer requiring nasal cannula, continue to use incentive spirometer Dysphagia, resolved - Barium swallow with video (05/14): No evidence of aspiration or penetration. -regular diet Thoracic and lumbar pain status post cervical discectomy and fusion plus C2-T2 decompression: Right sided weakness, likely 2/2 to above Acute blood loss anemia, anticipated outcome of Sx Leukocytosis, likely reactive - Pain control with Dilaudid 0.5-1 mg IV Q4H PRN. Flexeril 10 mg PO TID PRN. Gabapentin 300 mg PO TID. Tylenol 650 mg PO Q6H PRN. Zanaflex 2 mg PO BID + 4 mg PO QHS. Cymbalta 40 mg PO QHS. Tramadol 50 q6h PRN, Dexamethasone 2 mg IV QD. Started Percocet 10-325 mg 1 each p.o. every 4 hours and discontinue [place]. - Blood culture came back negative - Patient states pain is well-controlled. -On bowel regimen - monitor for sedation - Fall precautions. - Neurochecks. -PT and OT, try to ambulate patient once daily. -Orthospine following -Neurology signed off CT C-spine - no hematoma noted -Hemoglobin stable- continue to monitor, no active bleeding -GI ppx: protonix 40 p.o. daily -Pulmonology note reviewed, no changes -Also added IV Toradol 15 mg every 6 hours as needed for when patient does not want to use IV Dilaudid Acute urinary retention BPH - tamsulosin 0.4 -Continue Damon catheter, will change to condom cath if patient can pass voiding trial. -Voiding trial if patient is more ambulatory, previously failed History of mild HFrEF, not in severe exacerbation Mild hypervolemia, resolved -Continued patient's home 40 mg Lasix p.o. -Also has some dependent edema. Fractionally improving. HTN - continue lisinopril 20 mg daily Asthma -continue singular 10 mg daily Rheumatoid arthritis: Outpatient [employer] follow up. currently holding sulfasalazine Pulmonary nodules: Outpatient Pulmonary follow up. Nicotine dependence: Advised to quit during this admission F none E replete as needed N regular diet A minimal ambulation due to recent procedures and current rigid c-collar in place. DVT ppx: Lovenox SQ Code Status: Full code Anticipated discharge place: Rehab facility Anticipated discharge time: Pending placement, spoke with case management I have seen and evaluated the patient today. Discussed with the resident and agree with the residents finding and plan as documented in the resident's note. Objective - Vital Signs Vital signs: Vital Signs Temp 98.1 F 05/23/24 02:10 Pulse 80 05/23/24 02:10 Resp 18 05/23/24 02:10 BP 111/64 05/23/24 02:10 Pulse Ox 99 05/23/24 02:10 FiO2 30 05/10/24 08:00 Intake & Output 05/22/24 05/23/24 05/23/24 18:59 06:59 18:59 Intake Total 480 Output Total 2300 700 Balance -2300 -220 Weight 94 kg Intake: Oral 480 Output: Urine 2300 700 Other: Voiding Method Indwelling Catheter Indwelling Catheter # Bowel Movements 1 ABP, PAP, CO, CI - Last Documented Arterial Blood Pressure 123/65 - Labs CBC & Chem 7: 05/19/24 06:37 05/19/24 06:37
--- NOTE | 2024-05-23 10:07 | P.PN ---
Subjective Progress Note Date: 05/23/24 Principal diagnosis: 1. Cervical spondylosis with myelopathy and radiculopathy 2. Cervical spinal stenosis 3. Bilateral upper extremity radiculopathy with weakness 4. Bilateral lower extremity radiculopathy with weakness 5. Gait disturbance 6. Complex medical comorbidities Patient seen and examined this morning. Patient is resting in bed with hard cervical collar in place. Surgical incision to the anterior cervical spine is well-approximated with glue intact. Surgical incision to the posterior cervical spine is well-approximated. Majority of dorita have been removed from the posterior incision. There is a few remaining dorita mid incision. New dressing has been applied. New pads have been placed into hard collar. Patient reports improvement into his left upper extremity and is able to feed himself. There is +2 edema to the right upper extremity, pillow has been placed to elevate. Patient is continuing to perform hand exercises. Informed staff that patient would like a complete bed bath today. Patient is progressing well, awaiting placement to [facility]. Objective - Vital Signs Vital signs: Vital Signs Temp 98.4 F 05/23/24 07:15 Pulse 84 05/23/24 07:15 Resp 16 05/23/24 07:15 BP 107/68 05/23/24 07:15 Pulse Ox 98 05/23/24 07:15 FiO2 30 05/10/24 08:00 Intake & Output 05/22/24 05/23/24 05/23/24 18:59 06:59 18:59 Intake Total 480 120 Output Total 2300 700 Balance -2300 -220 120 Weight 94 kg Intake: Oral 480 120 Output: Urine 2300 700 Other: Voiding Method Indwelling Catheter Indwelling Catheter # Bowel Movements 1 ABP, PAP, CO, CI - Last Documented Arterial Blood Pressure 123/65 - Exam Inspection: Hard c-collar in place. Surgical incision to the anterior cervical spine, edges are well approximated with glue intact. Surgical incision to the posterior cervical spine, edges are well approximated. Majority of dorita have been removed. Few dorita remain mid incision. New dressing applied. Sensation: Some numbness and tingling present in the bilateral feet and ankles. Equal, symmetric, bilaterally intact throughout the rest of the upper and lower extremities. Palpation: Moderate tenderness to patient over the anterior and posterior cervical incisions. Nontender to palpation throughout rest of exam. Range of motion: Patient has limited range of motion of the bilateral shoulder secondary to stiffness and pain referred to the cervical spine. Full range of motion throughout bilateral elbows and wrist in flexion/extension. Patient does have range of motion of bilateral hips and knees secondary to first stiffness and pain in the low back. Patient has full range of motion in bilateral ankles. Motor: 4-/5 in all major motor groups in right upper extremity and 4/5 in all major motor groups in left upper extremity . 4-/5 in all major motor groups in bilateral lower extremities Neurovascular: Radial pulse intact, 2+ bilaterally. Cap refill under 3 seconds in digits. Special tests: Negative Homans bilaterally. - Labs CBC & Chem 7: 05/19/24 06:37 07 06:37 Assessment and Plan Assessment: Postoperative day #16 status post C3-C6 ACDF Postoperative day #14 status post C2-T2 posterior decompression and fusion 1. Cervical spondylosis with myelopathy and radiculopathy 2. Cervical spinal stenosis 3. Bilateral upper extremity radiculopathy with weakness 4. Bilateral lower extremity radiculopathy with weakness 5. Gait disturbance 6. Complex medical comorbidities Plan: -Appreciate guidance consultant and team management. -Activity: Ambulate QID, OOB all meals, up and about, limit lifting bending twisting to less than 5 lbs. Use walker or cane if needed for stability. -Daily PT/OT, increase ambulation strength and balance. -Hard cervical collar at all times, may remove for showers. -Pain control: Adequate at this time -Meds: reviewed -GI ppx: senna, Miralax -Damon catheter: Per medicine recommendations -DVT PPX: Heparin, SCDs, TEDS -Hygiene: Shower today. Maintain dressing clean and dry. -Encourage IS 10x/hr -Dispo: Patient is cleared from orthopedic standpoint for discharge to subacute rehab when bed available. *I reviewed and discussed this case with my attending Dr. Flores, whom has reviewed this chart and films and is in agreement with assessment and plan of care as outlined above. I have personally seen and examined the patient, performed the documentation and the assessment and plan as written. Number of minutes spent on the visit: 20m.
--- NOTE | 2024-05-23 13:38 | P.DS ---
Providers Date of admission: 05/04/24 16:29 Expected date of discharge: 05/23/24 Attending physician: Vinicio Hester MD Consults: 05/04/24 16:26 Consult Physician Urgent Consulting Provider: Joaquin Flores Consult Reason/Comments: back pain Do you want consulting provider notified?: Yes 05/09/24 20:58 Consult Physician Routine Consulting Provider: Donal Lazo Consult Reason/Comments: Post op vent Do you want consulting provider notified?: Already Contacted 05/12/24 11:59 Consult Physician Routine Consulting Provider: Sidney Lazo Consult Reason/Comments: right side deificit, post op c2-t2, lethargy Do you want consulting provider notified?: Yes 05/14/24 15:44 Consult Physician Routine Consulting Provider: Valdo Menendez Consult Reason/Comments: IPR Do you want consulting provider notified?: Yes Primary care physician: [facility] Course: 58 year old M with PMH of RA presents to the ED. Patient reports being incarcerated for the past 10 months. He reports thoracic and lumbar back pain, dull and stabbing in nature, 10/10 severity that has been persistently getting worse over the past year. He recently got released from group home yesterday and has had difficulties with his ADL and IADLs which prompted him to come to the ED. He reports numbness and tingling in all of his fingers. He reports occasional shooting pain down both of his legs. He reports significant muscle spasms in both of his arms. He denies any bladder or bowel incontinence or saddle anesthesia. He denies any inciting trauma. MRI L spine done on 06/2023 shows left disk herniation S1, multilevel DJD L3-4, L4-5, L5-S1, multilevel canal stenosis L2-S1. C-spine MRI done in 08/2023 shows C3-4 severe spinal canal stenosis with myelomalacia. In the ED he underwent extensive evaluation. BP 159/83, HR 96, T 98.4F, RR 18, 99% on RA. CT L spine showed L2-3 mild central stenosis, L3-4 (and L4-5, L5-S1) moderate central stenosis. CBC, and CMP done significant for Cl 108, total protein 6.2. Patient is admitted for pain control and Ortho spine evaluation. CT C-spine shows spinal stenosis at C3. Ortho spine recommends C3-6 anterior cervical discectomy and fusion. Echocardiogram done as part of risk assessment, EF of 45 to 50%, with suspicion of basal inferior wall hypokinesia. Cardiology consulted, moderate-high risk, cleared for surgery. He underwent C3-6 anterior cervical arthrodesis with Dr. Flores on 05/07. Extubated on 05/10. Post operative complications included sepsis secondary to pneumonia which has since resolved. He had a video swallow done on 05/14 which was negative for aspiration. He failed multiple attempts at a voiding trial, started on Flomax. PT and OT consulted recommending SNF. Accepted to SNF on 05/23. 05/23 Patient was seen and examined. No complaints. Excited about rehab. We will continue Decadron taper with 1 mg PO QD x 7 days. Gabapentin, Tizanidine and Percocet for pain control. Follow up with Dr. Flores on 05/28. Outpatient follow up with Pulmonary for pulmonary nodules and Rhematology for h/o RA. Attempt voiding trial at [facility] and bladder scan PRN. General: No distress Derm: warm, dry Head: atraumatic, normocephalic, symmetric, C-collar intact Eyes: EOMI, no lid lag, anicteric sclera Mouth: no lip lesion, mucus membranes moist Cardiovascular: Good distal perfusion in all 4 extremities Lungs: Breathing comfortably, no accessory muscle use Ext: no gross muscle atrophy, no edema, no contractures Neuro: Moving all 4 extremities Psych: alert and oriented Discharge Diagnosis: Multilevel mild-severe spinal canal stenosis Urinary retention Acute on chronic back pain Acute blood loss anemia Rheumatoid arthritis Pulmonary nodules Smoker Hypertension Asthma not in acute exacerbation. Resolved: Ventilator dependent respiratory failure, Acute hypoxic respiratory failure and sepsis likely due to HAP This complex discharge took 35 minutes to complete. Patient Condition at Discharge: Stable Plan - Discharge Summary Discharge Rx Participant: Yes New Discharge Prescriptions: New dexAMETHasone [Decadron] 1 mg PO DAILY #7 tablet bisacodyL [Dulcolax] 10 mg RECTAL DAILY PRN suppositor PRN Reason: Constipation polyethylene glycoL 3350 [Miralax] 17 gm PO DAILY packet Pantoprazole [Protonix] 40 mg PO AC-BRKFST tab Sennosides-Docusate Sodium [Senokot-S] 2 each PO DAILY tab Lidocaine Viscous 2% [Xylocaine Viscous] 30 ml PO TID #630 ml Na Phos,M-B/Na Phos,Di-Ba [Fleet Adult] 133 ml RECTAL DAILY PRN each PRN Reason: Constipation Tamsulosin [Flomax] 0.4 mg PO BID cap Magnesium Hydroxide [Milk of Magnesia] 2,400 mg PO DAILY PRN ml PRN Reason: Constipation Gabapentin [Neurontin] 300 mg PO TID #9 cap oxyCODONE-APAP 10-325MG [Percocet 10-325 mg] 1 each PO Q4H #18 tab Continue tiZANidine [Zanaflex] 4 mg PO HS@2100 tiZANidine [Zanaflex] 2 mg PO BID@0900,1500 Potassium Chloride ER [K-Dur 10] 10 meq PO DAILY Ibuprofen [Motrin Ib] 600 mg PO BID PRN PRN Reason: Pain lisinopriL [Zestril] 20 mg PO DAILY sulfaSALAzine 1,500 mg PO BID Montelukast [Singulair] 10 mg PO DAILY Furosemide [Lasix] 40 mg PO DAILY Changed DULoxetine HCL [Cymbalta] 20 mg PO HS #0 Mirtazapine [Remeron] 5 mg PO HS #0 Discontinued traMADol HCL 50 mg PO BID PRN PRN Reason: Pain Discharge Medication List lisinopriL [Zestril] 20 mg PO DAILY 09/12/23 [History] Furosemide [Lasix] 40 mg PO DAILY 05/03/24 [History] Ibuprofen [Motrin Ib] 600 mg PO BID PRN 05/03/24 [History] Montelukast [Singulair] 10 mg PO DAILY 05/03/24 [History] Potassium Chloride ER [K-Dur 10] 10 meq PO DAILY 05/03/24 [History] sulfaSALAzine 1,500 mg PO BID 05/03/24 [History] tiZANidine [Zanaflex] 2 mg PO BID@0900,1500 05/03/24 [History] tiZANidine [Zanaflex] 4 mg PO HS@2100 05/03/24 [History] DULoxetine HCL [Cymbalta] 20 mg PO HS #0 05/23/24 [Rx] Gabapentin [Neurontin] 300 mg PO TID #9 cap 05/23/24 [Rx] Lidocaine Viscous 2% [Xylocaine Viscous] 30 ml PO TID #630 ml 05/23/24 [Rx] Magnesium Hydroxide [Milk of Magnesia] 2,400 mg PO DAILY PRN ml 05/23/24 [Rx] Mirtazapine [Remeron] 5 mg PO HS #0 05/23/24 [Rx] Na Phos,M-B/Na Phos,Di-Ba [Fleet Adult] 133 ml RECTAL DAILY PRN each 05/23/24 [Rx] Pantoprazole [Protonix] 40 mg PO AC-BRKFST tab 05/23/24 [Rx] Sennosides-Docusate Sodium [Senokot-S] 2 each PO DAILY tab 05/23/24 [Rx] Tamsulosin [Flomax] 0.4 mg PO BID cap 05/23/24 [Rx] bisacodyL [Dulcolax] 10 mg RECTAL DAILY PRN suppositor 05/23/24 [Rx] dexAMETHasone [Decadron] 1 mg PO DAILY #7 tablet 05/23/24 [Rx] oxyCODONE-APAP 10-325MG [Percocet 10-325 mg] 1 each PO Q4H #18 tab 05/23/24 [Rx] polyethylene glycoL 3350 [Miralax] 17 gm PO DAILY packet 05/23/24 [Rx] Follow up Appointment(s)/Referral(s): Henrique Lyon MD [Primary Care Provider] - 1-2 days (Please call for follow-up appointment.) Joaquin Flores DO [Doctor of Osteopathic Medicine] - 05/28/24 3:30 pm (Please arrive at 3:10 for paperwork.) Marco A Olivera [NON-STAFF] - As Needed (C Collar replacement pads) Rosina Quintana MD [STAFF PHYSICIAN] - 1 Week Valentine Ramírez MD [STAFF PHYSICIAN] - 1 Week Activity/Diet/Wound Care/Special Instructions: [place] [facility] Activity: Weightbearing as tolerated with walker Hard C Collar on at all times-except when showering Ambulate 4x/d, out of bed for all meals Limit lifting/bending/twisting to less than 5 pounds Regular diet-no straws, aspiration precautions Discharge Disposition: TRANSFER TO SNF/ECF
--- NOTE | 2024-05-23 13:58 | P.PN ---
Subjective Progress Note Date: 05/23/24 Patient is a 58-year-old white male with past medical history significant for hypertension, pulmonary embolism, rheumatoid arthritis, osteoarthritis, and lower back pain. Patient is currently sedated and intubated to the mechanical ventilator, unable to provide any information for HPI. On review of the EMR, patient was having severe upper and lower extremity weakness and associated cervical/thoracic level back pain. He was having troubles ambulating, and was apparently utilizing a wheelchair. CT of the cervical spine showed posterior vertebral body spurring centrally C3 and to a lesser degree C4. There was spinal canal stenosis at level C3. Uncovertebral joint hypertrophy with severe right formal stenosis at levels C4 and C5. Orthopedic surgery did evaluate this patient, and patient has underwent two-stage cervical spine surgery. Initial surgery was C3-C7 anterior cervical discectomy and fusion. Yesterday, patient did go back to OR for a posterior C2-T2 decompression and fusion. No perioperative complications reported. Patient was transferred back to the intensive care unit on the mechanical ventilator. Current ventilator settings are AC, respiratory 16, tidal volume 450, FiO2 30%, and PEEP of 5. Most recent ABG done earlier, with an FiO2 of 50% at that time, shows a PaO2 of 229, pCO2 of 42, pH of 7.35. Chest x-ray following surgery shows the endotracheal tube in satisfactory position above the kumar, as well as, a orogastric tube projecting into the stomach. No acute cardiopulmonary process noted. He is synchronous with mechanical ventilator. Patient is currently sedated, and fairly unresponsive. Propofol is ordered for a RASS of 0 to -1. Blood pressure is slightly hypertensive. Reportedly, Dr. Flores would like his MAP greater than 85 to help with perfusion pressure. Head is midline. Patient does have a c-collar on. There is a posterior Hemovac with minimal amount of serosanguineous drainage as well as an anterior OSWALDO drain which is compressed with a minimal amount of serosanguineous drainage. Most recent CBC from yesterday: WBC count 11.5, hemoglobin 12, hematocrit 34, platelets 174. BMP from yesterday: Sodium 144, potassium 4.2, chloride 112, serum bicarb 23, BUN 28, creatinine 1.1, glucose 124. Normal saline is infusing at 75 mL/h. Not currently requiring any vasopressors. Plan will likely be for extubation later this morning. The patient is seen today May 11, 2024 in follow-up in the intensive care unit. He is currently resting comfortably in bed. Awake and alert and no acute distress. He is status post spine surgery. He was extubated yesterday. He is currently on 2 L/min per nasal cannula with O2 saturations in the 90s. He has normal saline at 75 MLS per hour. Count 13.4. Hemoglobin 11.3. Platelets 184. Sodium 137. Potassium 4.2. Bicarb 25. BUN 23. Creatinine 0.64. Glucose 123. His pain is Lovenox for DVT prophylaxis. The patient is seen today May 12, 2024 in follow-up on the regular medical fl oor. He is postoperative day #5 status post C3-C6 anterior decompression and fusion, postoperative day #3 status post C2-T2 post posterior decompression and fusion. He is awake and alert in no acute distress. He is sitting up in bed. He is maintaining O2 saturations in the 90s on 2 L/min per nasal cannula. His temperature is 100.5 axillary. Hemodynamically stable. Orthopedics is at the bedside. Plan is to remove the Hemovac and have dressing changes. White count 10.4. Hemoglobin 10.8. Sodium 139. Potassium 4.0. Bicarb 28. BUN 23. Creatinine 0.75. Glucose 82. He has normal saline at 75 MLS per hour. He is currently n.p.o. for swallow evaluation. He is to remain in a rigid c-collar at all times. He needs increased encouragement regarding the use of the incentive spirometer. Maintain adequate pain control. The patient is seen today May 13, 2024 in follow-up on the regular medical floor. Postoperative day #6 of an anterior decompression and fusion of C3-6. Postoperative day #4 of a posterior decompression and fusion of C2-T2. He remains quite weak and debilitated. Not willing to do much effort on his own. A rapid response team was called on him yesterday due to increasing shortness of breath. Chest x-ray reveals a new patchy opacity in the right lung base. CT scan of the brain revealed no acute intracranial abnormality. Partial opacification throughout the bilateral mastoid air cells. He is maintaining O2 saturations up to 100% on 2 L/min per nasal cannula. He is been afebrile. Hemodynamically stable. Needs increased encouragement regarding the use of the incentive spirometer. White count 11.7. Hemoglobin 11.4. Platelets 196. Sodium 140. Potassium 4.8. Bicarb 23. BUN 29. Creatinine 0.67. Procalcitonin is pending. He has been initiated on cefepime. Lovenox for DVT prophylaxis. 05/14/2024, patient is being seen for a follow-up. Resting comfortably in bed. The patient is postop following spinal surgery. Suspected right lower lobe pneumonia based on the most send chest x-ray the patient developed a new patchy infiltrate in the right lung base. The patient is currently on IV Rocephin. No significant respiratory distress. No significant sputum production. He passed a swallow evaluation. WBC counts are 10.7 with a hemoglobin 9.4 and a platelet count of 199. Procalcitonin level is at 0.65. Remains weak. No altered m entation. The patient continues to have numbness and weakness mostly in the upper extremities. Surgical scars are clean. The follow-up CAT scan of the C- spine was done today. This was reviewed and evaluated by spine surgery. No encephalopathy. No altered mentation. On 05/15/2024, the patient is resting comfortably in bed. No respiratory difficulties for now. He is on room air oxygen. Remains on IV Rocephin. Medications remain unchanged. Blood work shows a WBC count of 10 with a hemoglo bin 9.8 and a platelet count of 196. BUN is 24 with a creatinine 0.7 and a sodium is at 138. No other significant events overnight. On 05/16/2024, the patient remains on room air oxygen. Hemodynamically stable. No respiratory distress. Remains on IV Rocephin. Remains on Lovenox 40 mg subcu for DVT prophylaxis. No reported aspiration. Tolerating diet. Still complaining of generalized weakness specially on the right side of her body but is essentially improving. The white cell count is at 30.8 with a hemoglobin 11.4 and a platelet count of 234, the rest of the electrolytes are all stable within a stable renal function. Calcium level is at 8.1. PT OT is on the case. Spine surgery is on the case. Rest of the medications remain unchanged. 05/17/2024, no new complaints and the patient remains on room air oxygen. He wants to advance his diet. He is wearing a hard neck collar. He remains weak specially in the right upper extremity. He needs to go to rehabilitation for aggressive physical therapy and rehab. White cell count is 13.3, hemoglobin is at 10.6. BUN is 23 with a creatinine of 0.7. A repeat chest x-ray was done today and it shows no evidence of any acute pulm infiltrates or pneumonia. Will complete a the course of Rocephin that was started on 05/14/2024. Recommended total of 5-day course. On 05/18/2024, patient is tolerating diet. No new complaints. Right upper extremity remains weak. His strength in his left upper extremity has been waxing and waning. No respiratory distress. Right lower lobe pneumonia is cleared and the patient will be completing his course of antibiotics as was started on 05/14/2024. Will no new labs are available from today. He remains on Decadron 3 mg IV on a daily basis. He remains on Lovenox 40 mg subcu for DVT prophylaxis. Pain control with Quail. He is also on Neurontin. He is taking Zanaflex for muscle relaxation. No other complaints otherwise for now. 05/19/2024, no new complaints. The patient is resting comfortably in bed. Waiting to be transferred to rehab. Pulse ox is 99% room air oxygen. Antibiotics has been completed. Remains on Decadron 3 mg IV every 24 hours. Pain under adequate control. Continues to wear a hard neck collar. Rest of the medications remain unchanged. 05/20/2024, no new complaints and the patient remains on room air oxygen. Afebrile. Hemodynamically stable. No new labs are available from today. The patient is seen today May 21, 2024 in follow-up on the regular medical f [place]. He is currently sitting up in bed. Awake and alert in no acute distress. Maintaining good O2 saturations in the 90s on room air. He denies any shortness of breath, cough or congestion. His hard c-collar remains in place. He remains on IV Decadron. The patient is seen today May 22, 2024 in follow-up on the regular medical floor. He is currently resting comfortably in bed. Awake and alert in no acute distress. Maintaining good O2 saturations in the 90s on room air. He denies any worsening shortness of breath, cough or congestion. His surgical pain is well-controlled. C-collar remains in place. He remains on Lovenox for DVT prophylaxis. Awaiting placement at subacute rehabilitation. The patient is seen today May 23, 2024 in follow-up on the regular medical floor. He is awake and alert in no acute distress. Resting comfortably in bed. C-collar in place. Denies any shortness of breath, cough or congestion. He is maintaining good O2 saturations in the 90s on room air. Lovenox for DVT prophylaxis. Objective - Vital Signs Vital signs: Vital Signs Temp 98.4 F 05/23/24 07:15 Pulse 84 05/23/24 07:15 Resp 16 05/23/24 07:15 BP 107/68 05/23/24 07:15 Pulse Ox 98 05/23/24 07:15 FiO2 30 05/10/24 08:00 Intake & Output 05/22/24 05/23/24 05/23/24 18:59 06:59 18:59 Intake Total 480 120 Output Total 2300 700 1600 Balance -2300 -220 -1480 Weight 94 kg Intake: Oral 480 120 Output: Urine 2300 700 1600 Other: Voiding Method Indwelling Catheter Indwelling Catheter # Bowel Movements 1 ABP, PAP, CO, CI - Last Documented Arterial Blood Pressure 123/65 - Exam GENERAL EXAM: Awake, alert 58-year-old male, on room air, in no acute distress. HEAD: Normocephalic and atraumatic EYES: Normal reaction of pupils, equal size. NOSE: Clear with pink turbinates. THROAT: No erythema or exudates. NECK: No masses, no JVD. Anterior and posterior dressings dry and intact. C- collar in place. CHEST: No chest wall deformity. LUNGS: Equal air entry with no crackles, wheeze, rhonchi or dullness. CVS: S1 and S2 normal with no audible murmur, regular rhythm. No extra heart sounds ABDOMEN: No hepatosplenomegaly, active bowel sounds, no guarding or rigidity. SPINE: No scoliosis or deformity SKIN: No rashes CENTRAL NERVOUS SYSTEM: No focal deficits, very weak upper and lower extremities, tone is normal in all 4 extremities. EXTREMITIES: There is no peripheral edema, clubbing, or cyanosis. Peripheral pulses are intact. - Labs CBC & Chem 7: 05/19/24 06:37 05/19/24 06:37 Assessment and Plan Assessment: Severe cervical spinal spondylosis and severe stenosis at levels C3-C7 with myelopathy and radiculopathy; status post two-stage surgery, on 05/07/2024 following a C3-C7 anterior cervical discectomy and fusion, followed by a poste rior C2-T2 decompression and fusion on 05/09/2024. No perioperative complications were reported. Altered mental status with shortness of breath, rapid response team called at 1546 on 05/12/2024. Chest x-ray shows new patchy density in the right lung base. CT scan of the brain revealed no acute abnormalities. Multiple pulmonary nodules, chest CTA shows multiple small approximately 0.5 cm peripheral and lateral based lung nodules in the right upper and mid lung michel, as well as, multiple pleural-based densities, measuring up to 1 cm on the right. No prior imaging available for review. Plan is for outpatient follow-up Heart failure with reduced ejection fraction, echocardiogram estimating a mildly reduced ejection fraction of 45 to 50% History of hypertension History of pulmonary embolism History of rheumatoid arthritis and osteoarthritis Plan: The patient was seen and evaluated Medications reviewed Stable and on room air Plan is for transfer to subacute rehab today I have personally seen and examined the patient, performed the documentation and the assessment and plan as written. Number of minutes spent on the visit: 10.
[2024-05-23 14:29] VITALS: BP 96/60; PULSE 91; RESP 17; TEMP 98.2
--- NOTE | 2024-05-23 14:30 | P.PN ---
Subjective Progress Note Date: 05/21/24 Patient was seen for a follow-up. Patient was seen for initial consultation on 05/13/2024. Subsequently he was followed up by Dr. Sidney Lazo. Please refer to his notes for details. Patient states he is doing better. His strength is slightly improving. Please refer to examination below. Patient had a CT of cervical spine on 05/14/2024, which revealed evaluation of the spinal canal is widely due to streak artifact. No obvious epidural hematoma visualized. Postsurgical changes without evidence for post op consultation. Trace bilateral mastoid air cell effusion. Objective - Vital Signs Vital signs: Vital Signs Temp 98.4 F 05/21/24 12:59 Pulse 98 05/21/24 12:59 Resp 18 05/21/24 12:59 BP 126/75 05/21/24 12:59 Pulse Ox 99 05/21/24 12:59 FiO2 30 05/10/24 08:00 Intake & Output 05/20/24 05/21/24 05/21/24 18:59 06:59 18:59 Output Total 2000 999 Balance -2000 -999 Output: Urine 1999 1000 Stool 1 Other: Voiding Method Indwelling Catheter Indwelling Catheter Indwelling Catheter # Bowel Movements 1 ABP, PAP, CO, CI - Last Documented Arterial Blood Pressure 123/65 - Exam Patient's mental status, speech and language functions are normal. Cranial nerves are normal. On muscle strength testing (right/left) deltoid 1/3+, biceps 3 3-/4+5-, triceps 4/5, body art technician 3 3+/3+4-, hip flexion 3+/3+4-, ankle dorsiflexion 2/4. Sensory to touch was equal. Patient has a hard cervical collar in place. - Labs CBC & Chem 7: 05/19/24 06:37 05/19/24 06:37 Assessment and Plan Assessment: * Cervical spinal stenosis, severe degree, with severe cervical myelopathy. Patient has quadriparesis, and a sensory level at T2. * Status post C3 to C6 ACDF 05/07/2024 * Status post C2 to T2 posterior decompression and fusion 05/09/2024 * Quadriparesis (right > left) * Altered mental status, likely due to metabolic encephalopathy. Probable iatrogenic from pain medication, resolved. * Probable right lower lobe pneumonia * Rheumatoid arthritis * History of carpal tunnel release May 2023. * History of substance abuse * Folate deficiency Plan: * Patient was somewhat ambulatory (with cane) prior to arrival to the hospital. Patient's examination documented by orthopedic team prior to surgery showed much better strength, as compared to the muscle strength examination noted by myself today. * CT cervical spine with and without contrast performed 05/14/2024 revealed widely due to streak artifact. No obvious epidural hematoma visualized. Postsurgical changes without evidence for postop consultation. * Dr. Lazo reached out to orthopedic surgery team, and they feel the patient has been weak since his first surgery and they feel he has severe cervical myelopathy. * Orthopedic surgery following. * Altered mental status likely related to pain medication, or metabolic encephalopathy due to reasons mentioned above. Mentation has improved. * Patient has been started on ceftriaxone for possible pneumonia * Limit amount of opiates, sedatives, hypnotics, anticholinergics, if possible. * DVT prophylaxis: Will defer to orthopedic surgery. * B12 393, folate 5.30. TSH is normal 0.866. Ammonia 26. Hemoglobin A1c 5.0. Patient on folate replacement. * Will defer the rest of management to orthopedic surgery team and primary team. * Patient will need prolonged rehabilitation.
--- NOTE | 2024-05-23 16:47 | P.PN ---
Subjective Progress Note Date: 05/23/24 05/23/2024: Patient was seen for follow-up. Patient states he is doing much better. Patient states that his pain medications were changed and it is helping him a lot. He is being discharged today to the rehab. Patient states the urinary catheter has been removed. He has some urgency, but has not passed urine for the last 3 hours. 05/21/2024: Patient was seen for a follow-up. Patient was seen for initial consultation on 05/13/2024. Subsequently he was followed up by Dr. Sidney Lazo. Please refer to his notes for details. Patient states he is doing better. His strength is slightly improving. Please refer to examination below. Patient had a CT of cervical spine on 05/14/2024, which revealed evaluation of the spinal canal is widely due to streak artifact. No obvious epidural hematoma visualized. Postsurgical changes without evidence for post op consultation. Trace bilateral mastoid air cell effusion. Objective - Vital Signs Vital signs: Vital Signs Temp 98.2 F 05/23/24 14:00 Pulse 91 05/23/24 14:00 Resp 17 05/23/24 14:00 BP 96/60 05/23/24 14:00 Pulse Ox 98 05/23/24 14:00 FiO2 30 05/10/24 08:00 Intake & Output 05/22/24 05/23/24 05/23/24 18:59 06:59 18:59 Intake Total 480 120 Output Total 2300 700 1600 Balance -2300 -220 -1480 Weight 94 kg Intake: Oral 480 120 Output: Urine 2300 700 1600 Other: Voiding Method Indwelling Catheter Indwelling Catheter # Bowel Movements 1 ABP, PAP, CO, CI - Last Documented Arterial Blood Pressure 123/65 - Exam Patient's mental status, speech and language functions are normal. Cranial nerves are normal. 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 Sensory to touch was equal. Patient has a hard cervical collar in place. - Labs CBC & Chem 7: 05/19/24 06:37 05/19/24 06:37 Assessment and Plan Assessment: * Cervical spinal stenosis, severe degree, with severe cervical myelopathy. Patient has quadriparesis, and a sensory level at T2. Symptoms and examination improving. * Status post C3 to C6 ACDF 05/07/2024 * Status post C2 to T2 posterior decompression and fusion 05/09/2024 * Quadriparesis (right > left) * Altered mental status, likely due to metabolic encephalopathy. Probable iatrogenic from pain medication, resolved. * Probable right lower lobe pneumonia * Rheumatoid arthritis * History of carpal tunnel release May 2023. * History of substance abuse * Folate deficiency Plan: * Patient's examination has much improved even as compared to the examination from 2 days ago. Overall he is showing definite clinical improvement. His pain is also improved with current pain medications.. * CT cervical spine with and without contrast performed 05/14/2024 revealed widely due to streak artifact. No obvious epidural hematoma visualized. Postsurgical changes without evidence for postop consultation. * Dr. Lazo reached out to orthopedic surgery team, and they feel the patient has been weak since his first surgery and they feel he has severe cervical myelopathy. * Orthopedic surgery following. * Patient currently on pain medications and muscle relaxers including Flexeril 10 mg p.o. 3 times daily as needed, dexamethasone 2 mg IV daily, Cymbalta 40 mg at bedtime, gabapentin 300 mg 3 times daily, Dilaudid, Toradol 15 mg IV push every 6 hours as needed, Remeron 15 mg at bedtime, Percocet 10/325, 1 tablet every 4 hours, and Zanaflex 2 mg twice daily and 4 mg at bedtime. * Altered mental status likely related to pain medication, or metabolic encephalopathy due to reasons mentioned above. Mentation is now normal. * Patient has completed treatment for pneumonia. * Limit amount of opiates, sedatives, hypnotics, anticholinergics, if possible. * DVT prophylaxis: Will defer to orthopedic surgery. * B12 393, folate 5.30. TSH is normal 0.866. Ammonia 26. Hemoglobin A1c 5.0. Patient on folate replacement. * Will defer the rest of management to orthopedic surgery team and primary team. * Patient will need prolonged rehabilitation. * Neurologically clear for discharge.
== END 2024-05-23 17:00 | DRG 304 ==
LOC: EC 12:09 → 6NMEDSUR 16:28 → OBSVTOIN 16:29 → 5NMEDONC 18:01 → 2SICU 05-09 20:03 → 4SSUR 05-11 14:37
PROVIDERS: ADMIT Student in an Organized Health Care Education/Training Program; ATTEND Student in an Organized Health Care Education/Training Program
PROC: 0RG20A0 Fusion of 2 or more Cervical Vertebral Joints with Interbody Fusion Device, Anterior Approach, Anterior Column, Open Approach (ICD-10-PCS; 2024-05-07)
PROC: 0RT30ZZ Resection of Cervical Vertebral Disc, Open Approach (ICD-10-PCS; 2024-05-07)
PROC: 01N10ZZ Release Cervical Nerve, Open Approach (ICD-10-PCS; 2024-05-07)
PROC: 00NW0ZZ Release Cervical Spinal Cord, Open Approach (ICD-10-PCS; 2024-05-07)
PROC: 03HY32Z Insertion of Monitoring Device into Upper Artery, Percutaneous Approach (ICD-10-PCS; 2024-05-09)
PROC: 4A133B1 Monitoring of Arterial Pressure, Peripheral, Percutaneous Approach (ICD-10-PCS; 2024-05-09)
PROC: 4A133J1 Monitoring of Arterial Pulse, Peripheral, Percutaneous Approach (ICD-10-PCS; 2024-05-09)
PROC: 0RG20AJ Fusion of 2 or more Cervical Vertebral Joints with Interbody Fusion Device, Posterior Approach, Anterior Column, Open Approach (ICD-10-PCS; 2024-05-09)
PROC: 0RG2071 Fusion of 2 or more Cervical Vertebral Joints with Autologous Tissue Substitute, Posterior Approach, Posterior Column, Open Approach (ICD-10-PCS; 2024-05-09)
PROC: 0RG40AJ Fusion of Cervicothoracic Vertebral Joint with Interbody Fusion Device, Posterior Approach, Anterior Column, Open Approach (ICD-10-PCS; 2024-05-09)
PROC: 0RG4071 Fusion of Cervicothoracic Vertebral Joint with Autologous Tissue Substitute, Posterior Approach, Posterior Column, Open Approach (ICD-10-PCS; 2024-05-09)
PROC: 0RG60AJ Fusion of Thoracic Vertebral Joint with Interbody Fusion Device, Posterior Approach, Anterior Column, Open Approach (ICD-10-PCS; 2024-05-09)
PROC: 01N80ZZ Release Thoracic Nerve, Open Approach (ICD-10-PCS; 2024-05-09)
PROC: 0RG6071 Fusion of Thoracic Vertebral Joint with Autologous Tissue Substitute, Posterior Approach, Posterior Column, Open Approach (ICD-10-PCS; principal; 2024-05-09 07:30)
DX: M47.12 Other spondylosis with myelopathy, cervical region (principal); J96.01 Acute respiratory failure with hypoxia; A41.89 Other specified sepsis; J69.0 Pneumonitis due to inhalation of food and vomit; G95.89 Other specified diseases of spinal cord; I42.9 Cardiomyopathy, unspecified; M48.52XA Collapsed vertebra, not elsewhere classified, cervical region, initial encounter for fracture; I11.0 Hypertensive heart disease with heart failure; I50.22 Chronic systolic (congestive) heart failure; M06.9 Rheumatoid arthritis, unspecified; F19.11 Other psychoactive substance abuse, in remission; G92.8 Other toxic encephalopathy; M50.01 Cervical disc disorder with myelopathy, high cervical region; D62 Acute posthemorrhagic anemia; M48.04 Spinal stenosis, thoracic region; I95.9 Hypotension, unspecified; J45.909 Unspecified asthma, uncomplicated; M19.90 Unspecified osteoarthritis, unspecified site; N40.1 Benign prostatic hyperplasia with lower urinary tract symptoms; R33.8 Other retention of urine; R13.10 Dysphagia, unspecified; E53.8 Deficiency of other specified B group vitamins; T42.6X5A Adverse effect of other antiepileptic and sedative-hypnotic drugs, initial encounter; D72.828 Other elevated white blood cell count; T38.0X5A Adverse effect of glucocorticoids and synthetic analogues, initial encounter; K06.8 Other specified disorders of gingiva and edentulous alveolar ridge; M62.838 Other muscle spasm; M53.3 Sacrococcygeal disorders, not elsewhere classified; M47.22 Other spondylosis with radiculopathy, cervical region; M48.02 Spinal stenosis, cervical region; M47.28 Other spondylosis with radiculopathy, sacral and sacrococcygeal region; M48.08 Spinal stenosis, sacral and sacrococcygeal region; G89.29 Other chronic pain; M25.78 Osteophyte, vertebrae; M51.37 Other intervertebral disc degeneration, lumbosacral region; M51.36 Other intervertebral disc degeneration, lumbar region; M48.062 Spinal stenosis, lumbar region with neurogenic claudication; R26.89 Other abnormalities of gait and mobility; R91.8 Other nonspecific abnormal finding of lung field; R25.8 Other abnormal involuntary movements; Z74.2 Need for assistance at home and no other household member able to render care; Z99.3 Dependence on wheelchair; Z65.8 Other specified problems related to psychosocial circumstances; Z79.899 Other long term (current) drug therapy; Z86.711 Personal history of pulmonary embolism; Z91.81 History of falling; Z87.891 Personal history of nicotine dependence
CPT/HCPCS: 51798; 70450; 71045; 72040; 72125; 72127; 72131; 74230; 80048; 80053; 80061; 82140; 82607; 82746; 82805; 83036; 83605; 84145; 85025; 85027; 85610; 85730; 86850; 86900; 86901; 87040; 87070; 87205; 93005; 93306; 94002; 94003; 96372; 96374; 96375; 99285